=== PATIENT | female | born 1945 | race Caucasian/White ===

== ENCOUNTER 2017-03-23 15:20 | Inpatient (IN) ==
[2017-03-23] MEDS ORDERED: predniSONE 20 MG TABLET PO ONE (15:29)
[2017-03-23] MEDS ORDERED: Ipratropium/Albuterol Neb 3 ML IH ONE (15:29)
--- NOTE | 2017-03-23 16:37 | Emergency Department Note ---
Disposition Clinical Impression: Influenza A, Pancytopenia, Lactic acidosis, Elevated troponin I level, Hypoxia , Respiratory distress, acute Diabetes mellitus, type 2 Qualifiers: Diabetes mellitus complication status: with unspecified complications Diabetes mellitus nursing home insulin use: with nursing home use Qualified Code(s): E11.8 - Type 2 diabetes mellitus with unspecified complications Disposition: Admitted As Inpatient Condition: Fair Time of Disposition: 18:43 SOB HPI - General Chief Complaint: ED Shortness of Breath/Dyspnea Stated Complaint: GIOVANNA Time Seen by Provider: 03/23/17 15:29 Source: patient Limitations: no limitations Nursing Notes Reviewed: Yes Vital Signs Reviewed: Yes - History of Present Illness 72-year-old diabetic with cough and congestion for the last few days, brought in by EMS for difficulty breathing, the patient's been coughing and congested, she sounded wheezy and routes of the EMS crew gave her DuoNeb treatment, patient states that she has also fevers at home. Cough sore throat and myalgias. States that she is moderately uncomfortable, she has cough, she denies COPD although she was a former smoker this was many years ago, she smoked for on and off for 10-20 years, patient denies asthma, states she has had low-grade fevers at home. Reports some productive cough as well. Denies hemoptysis Pt Subjective Complaint: shortness of breath Onset (ago): day(s) Severity: moderate Consistency/Duration: intermittent Improves with: oxygen Worsens with: nothing Known history of: diabetes Associated symptoms: Denies: chest pain, pain with inspiration, fever, cough, wheezing, sputum production Treatment prior to arrival: oxygen, bronchodilator Cough present: Yes Cough Description: Voluntary Cough Frequency: Intermittent Sputum production: No - Related Data Home oxygen amount: none Home Medications Medication Instructions Recorded Confirmed Amlodipine [Norvasc] 2.5 mg PO DAILY 01/06/15 09/15/15 Escitalopram [Lexapro] 20 mg PO HS 01/06/15 09/15/15 Ezetimibe [Zetia] 10 mg PO HS 01/06/15 09/15/15 Ferrous Sulfate 325 mg PO DAILY 01/06/15 09/15/15 Furosemide [Lasix] 20 mg PO BID 01/06/15 09/15/15 Insulin Aspart Prot/Insuln Asp 32 unit SQ TID 01/06/15 09/15/15 [Novolog Mix 70-30 Flexpen Syrn] Insulin Glargine,Hum.rec.anlog 32 unit SQ BID 01/06/15 09/15/15 [Lantus Solostar] Lisinopril [Zestril] 20 mg PO DAILY 01/06/15 09/15/15 Multivitamin/Iron/Folic Acid 1 each PO DAILY 01/06/15 09/15/15 [Centrum Complete Multivit Tab] Omeprazole [PriLOSEC] 20 mg PO DAILY 01/06/15 09/15/15 Potassium Chloride 20 meq PO DAILY 01/06/15 09/15/15 Atenolol [Tenormin] 100 mg PO DAILY 03/29/15 09/15/15 InFLIXimab [Remicade] 100 mg IV Q8W 03/29/15 09/15/15 Ascorbate Calcium [Vitamin C] 500 mg PO DAILY 09/15/15 09/15/15 Cholecalciferol (D-3) [Vitamin D] 1,000 unit PO DAILY 09/15/15 09/15/15 Cinnamon Bark [Cinnamon] 500 mg PO DAILY 09/15/15 09/15/15 Lactobacillus Combination No.8 1 cap PO DAILY 09/15/15 09/15/15 [Adult Probiotic] Turmeric Root Extract [Turmeric] 500 mg PO DAILY 09/15/15 09/15/15 Vitamin B Complex 1 each PO DAILY 09/15/15 09/15/15 Vitamin B Complex Vit C No.4 150 mg PO DAILY 09/15/15 09/15/15 [Super B Complex] Vitamin E (Dl,Tocopheryl Acet) 1,000 unit PO DAILY 09/15/15 09/15/15 [Vitamin E] Previous Rx's Medication Instructions Recorded OxyCODONE/APAP 5/325 [Percocet 1 each PO Q6HR PRN #30 tablet 09/15/15 5/325 MG] Allergies Allergy/AdvReac Type Severity Reaction Status Date / Time codeine AdvReac Mild Nausea Verified 09/15/15 08:15 penicillin G AdvReac Mild swelling Verified 09/15/15 08:15 egg AdvReac Fever Verified 09/15/15 08:15 All systems ED: reviewed and negative except as stated. Review of Systems: As Per HPI Constitutional: Reports: fever, chills Eyes: Denies: eye pain, eye discharge ENT ED: Denies: ear pain Cardiovascular: Denies: chest pain Respiratory: Reports: cough, dyspnea, wheezes. Denies: hemoptysis Gastrointestinal: Reports: nausea. Denies: abdominal pain Genitourinary: Denies: urgency, dysuria Musculoskeletal: Denies: back pain Integumentary: Denies: rash Neurological: Denies: headache Psychiatric: Denies: anxiety, depression Endocrine: Denies: fatigue Past Medical History - Past Medical History Attestation: Yes The following information was validated with the patient. 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: non-contributory - Social History Smoking Status: Never smoker Smokeless Tobacco Status: No Alcohol use: Reports: none Drug use: Reports: none Physical Exam - General Limitations: no limitations General appearance: in distress, obese - Head Head exam: atraumatic - Eye Eye exam: Present: normal appearance, PERRL - ENT ENT exam: normal exam - Neck Neck exam: Present: normal inspection, full ROM - Chest Chest inspection: Present: normal inspection - Respiratory Respiratory exam: Present: respiratory distress - Expanded Respiratory Exam Location: wheezes: Left, Right, rhonchi: Left, Right, Upper, Lower - Cardiovascular Cardiovascular exam: Present: regular rate, normal rhythm - Abdominal Exam Abdominal exam: Present: soft, Non-Tender - Extremities Exam Extremities exam: Present: normal inspection, full ROM - Neurological Exam Neurological exam: Present: alert, oriented X3 - Skin Skin exam: Present: warm, dry Course Course Narrative: 72-year-old female presents complaining of cough, fever or sore throat myalgias , diabetic she appears in moderate respiratory distress, she is on nasal cannula and her sats in the low 90% range, she sounds like she has diffuse expiratory wheezes, I ordered breathing treatments on her 3 duo neb site and prednisone, patient will be given a broad-spectrum workup rapid flu is she has been febrile, Tylenol also ordered - Reevaluation(s) Reevaluation #1: Patient's workup is remarkable for pancytopenia with a hemoglobin of 7.6, she is leukopenic, concern for febrile or viral infection, myelodysplastic syndrome , pancytopenia, patient appears moderately uncomfortable. And is still wheezy after DuoNeb treatments, her oxygen saturations 95% now on 3 L. And she is influenza A positive, she will be admitted to Dr. Chavez the hospitalist ordered IV fluids, aspirin, patient elevated troponin lactic acidosis suspect secondary to respiratory rate, she does not meet criteria for severe sepsis or septic shock. Time: 18:42 Vital Signs Temperature 101.4 F H 03/23/17 15:24 Pulse Rate 89 03/23/17 15:24 Respiratory Rate 21 03/23/17 15:24 Blood Pressure 142/61 03/23/17 15:24 O2 Sat by Pulse Oximetry 91 03/23/17 15:24 Temperature 99 F 03/23/17 17:02 Pulse Rate 82 03/23/17 17:35 Respiratory Rate 16 03/23/17 17:35 Blood Pressure 125/56 03/23/17 17:35 O2 Sat by Pulse Oximetry 97 03/23/17 17:35 Oxygen Delivery Oxygen Delivery Nasal Cannula Shortness of Breath/Dyspnea - Differential Diagnosis Likely: acute exacerbation of chronic obstructive airways disease, congestive heart failure - Medical Records Medical records reviewed: Yes I reviewed the patient's medical records. - Lab Data Lab results reviewed: Yes I reviewed the patient's lab results. Result diagrams: 03/23/17 16:33 03/23/17 16:33 Lab Results 03/23/17 03/23/17 03/23/17 Range/Units 15:27 16:33 16:33 WBC 1.8 L (4.3-11.1) K/mcL RBC 2.54 L (3.82-4.97) M/mcL Hgb 7.6 L (11.5-15.4) g/dL Hct 23.0 L (35.3-44.9) % MCV 90.6 (83.0-100.0) fL MCH 29.9 (28.0-33.3) pg MCHC 33.0 (31.6-35.5) g/dL RDW 18.4 H (11.5-14.5) % Plt Count 51 L (140-400) K/mcL MPV 11.6 (9.4-12.4) fL Immature Gran % 0.0 (0-4) % Seg Neutrophils % 32.3 % Lymphocytes % 37.2 % Monocytes % 29.5 % Eosinophils % 0.5 % Basophils % 0.5 % Neutrophils # 0.6 L (1.6-8.9) K/mcL Lymphocytes # 0.7 (0.6-4.6) K/mcL Monocytes # 0.5 (0.0-1.3) K/mcL Eosinophils # 0.0 (0.0-0.6) K/mcL Basophils # 0.0 (0.0-0.2) K/mcL Platelet Estimate Marked Decrease L (Normal) VBG pH (7.32-7.42) pH Units VBG pCO2 (41-51) mmHg VBG pO2 (25-50) mmHg VBG HCO3 (21-27) mEq/L Sodium 131 L (136-145) mEq/L Potassium 4.0 (3.5-5.1) mEq/L Chloride 97 L (98-107) mEq/L Carbon Dioxide 25 (23-29) mEq/L BUN 33 H (8-23) mg/dL Creatinine 1.56 H (0.60-1.20) mg/dL Est GFR ( Amer) 40 L (> 60) Est GFR (Non-Af Amer) 33 L (> 60) BUN/Creatinine Ratio 21 (6-26) Glucose 298 H (70-105) mg/dL POC Glucose 306 H (58-89) Calculated Osmolality 290 (280-300) Lactic Acid (0.5-2.2) mmol/L Calcium 8.4 L (8.6-10.3) mg/dL Troponin I (< 0.04) ng/mL B-Natriuretic Peptide (Less than 100) pg/mL 03/23/17 03/23/17 03/23/17 Range/Units 16:33 16:33 16:33 WBC (4.3-11.1) K/mcL RBC (3.82-4.97) M/mcL Hgb (11.5-15.4) g/dL Hct (35.3-44.9) % MCV (83.0-100.0) fL MCH (28.0-33.3) pg MCHC (31.6-35.5) g/dL RDW (11.5-14.5) % Plt Count (140-400) K/mcL MPV (9.4-12.4) fL Immature Gran % (0-4) % Seg Neutrophils % % Lymphocytes % % Monocytes % % Eosinophils % % Basophils % % Neutrophils # (1.6-8.9) K/mcL Lymphocytes # (0.6-4.6) K/mcL Monocytes # (0.0-1.3) K/mcL Eosinophils # (0.0-0.6) K/mcL Basophils # (0.0-0.2) K/mcL Platelet Estimate (Normal) VBG pH (7.32-7.42) pH Units VBG pCO2 (41-51) mmHg VBG pO2 (25-50) mmHg VBG HCO3 (21-27) mEq/L Sodium (136-145) mEq/L Potassium (3.5-5.1) mEq/L Chloride (98-107) mEq/L Carbon Dioxide (23-29) mEq/L BUN (8-23) mg/dL Creatinine (0.60-1.20) mg/dL Est GFR ( Amer) (> 60) Est GFR (Non-Af Amer) (> 60) BUN/Creatinine Ratio (6-26) Glucose (70-105) mg/dL POC Glucose (58-89) Calculated Osmolality (280-300) Lactic Acid 1.6 (0.5-2.2) mmol/L Calcium (8.6-10.3) mg/dL Troponin I 0.10 H* (< 0.04) ng/mL B-Natriuretic Peptide 263 H (Less than 100) pg/mL 03/23/17 03/23/17 Range/Units 17:18 17:32 WBC (4.3-11.1) K/mcL RBC (3.82-4.97) M/mcL Hgb (11.5-15.4) g/dL Hct (35.3-44.9) % MCV (83.0-100.0) fL MCH (28.0-33.3) pg MCHC (31.6-35.5) g/dL RDW (11.5-14.5) % Plt Count (140-400) K/mcL MPV (9.4-12.4) fL Immature Gran % (0-4) % Seg Neutrophils % % Lymphocytes % % Monocytes % % Eosinophils % % Basophils % % Neutrophils # (1.6-8.9) K/mcL Lymphocytes # (0.6-4.6) K/mcL Monocytes # (0.0-1.3) K/mcL Eosinophils # (0.0-0.6) K/mcL Basophils # (0.0-0.2) K/mcL Platelet Estimate (Normal) VBG pH 7.36 (7.32-7.42) pH Units VBG pCO2 43 (41-51) mmHg VBG pO2 55 H (25-50) mmHg VBG HCO3 24 (21-27) mEq/L Sodium (136-145) mEq/L Potassium (3.5-5.1) mEq/L Chloride (98-107) mEq/L Carbon Dioxide (23-29) mEq/L BUN (8-23) mg/dL Creatinine (0.60-1.20) mg/dL Est GFR ( Amer) (> 60) Est GFR (Non-Af Amer) (> 60) BUN/Creatinine Ratio (6-26) Glucose (70-105) mg/dL POC Glucose (58-89) Calculated Osmolality (280-300) Lactic Acid 2.8 H (0.5-2.2) mmol/L Calcium (8.6-10.3) mg/dL Troponin I (< 0.04) ng/mL B-Natriuretic Peptide (Less than 100) pg/mL - Radiology Data Radiology results reviewed: Yes I reviewed the patient's radiology results. Chest X-Ray 03/23/17 15:29 IMPRESSION: No acute process. D/ / Kirill Rizvi MD / Kirill Rizvi MD Interpreting Provider: Kirill Rizvi MD - EKG Data EKG attestation: Yes I reviewed and interpreted this EKG. EKG shows normal: Reports: sinus rhythm Rate: Reports: normal (87 bpm [place] QRS 96 QTC [address] segment elevations or depressions.) Rhythm: Reports: NSR [place]/QRS: Reports: normal Critical Care Time Critical Care Time: Yes Total Critical Care Time: 30 Attestation: The high probability of a clinically significant, sudden or life threatening deterioration of the [resp] system(s) required my full and direct attention, intervention and personal management. The aggregate critical care time was [30] minutes. This time is in addition to time spent performing reported procedures but includes the following: [x] Data Review and interpretation [x] Patient assessment and monitoring of vital signs [x] Documentation [x] Medication orders and management Attestation Statement - Attestation Attestation: I examined this patient and my medical decision-making was reviewed with the Resident Physician, Dr. Singh. I agree with the documented findings, disposition and treatment plan as described except to the extent set forth below. Patient is a 72-year-old white female who presents to the emergency department by EMS with difficulty breathing. Patient reports upper respiratory symptoms coarse sounding cough for the past 2 days and has had gradually worsening shortness of breath and wheezing. Patient denies any history of COPD but is a former smoker. She is not on any breathing medications or submental oxygen at home. Patient denies any chest pain or pressure or heaviness, no diaphoresis, no nausea vomiting, no abdominal pain or flank pain. No lightheadedness or syncope, no hemoptysis. Patient denies any lower extremity pain or cramping. Patient arrives febrile, and hypoxic on room air and was placed on supplement oxygen. I agree with patient's physical exam findings as documented. Eash and had aerosols and IV steroids initiated as well as aspirin. Patient's EKG did not show any signs of acute ischemia. Patient's chest x-ray was within normal limits. Patient's labs were obtained which we were surprised to find pancytopenia which appears to be new for her. Unclear as to etiology at this time. Patient's lactate is normal. Patient with acute kidney injury that is mild likely due to dehydration secondary to fever. Patient's influenza swab was positive for A. we will initiate Tamiflu IV. Due to patient's bronchitis with bronchospasm, continued wheezing and hypoxia on room air we will admit the patient for further evaluation and management. Case was discussed with the hospitalist who accepted patient for admission.
[2017-03-23 16:42] LABS: Basophils % 0.5 %; Eosinophils % 0.5 %; Lymphocytes # 0.7 K/mcL (0.6-4.6); Lymphocytes % 37.2 %; Mean Corpuscular Hemoglobin 29.9 pg (28.0-33.3); Mean Corpuscular Volume 90.6 fL (83.0-100.0); Mean Platelet Volume 11.6 fL (9.4-12.4); Monocytes # 0.5 K/mcL (0.0-1.3); Monocytes % 29.5 %; Neutrophils # 0.6 K/mcL (1.6-8.9); Red Blood Count 2.54 M/mcL (3.82-4.97); Red Cell Distribution Width 18.4 % (11.5-14.5); Segmented Neutrophils % 32.3 %
[2017-03-23 16:55] LABS: Calcium 8.4 mg/dL (8.6-10.3)
[2017-03-23 17:03] LABS: Hemoglobin 7.6 g/dL (11.5-15.4); Platelet Count 51 K/mcL (140-400)
[2017-03-23 17:04] LABS: Platelet Estimate Marked Decrease (Normal)
[2017-03-23 17:35] LABS: VBG HCO3 24 mEq/L (21-27); VBG PCO2 43 mmHg (41-51); VBG PH 7.36 pH Units (7.32-7.42); VBG PO2 55 mmHg (25-50)
[2017-03-23] MEDS ORDERED: 0.9 % Sodium Chloride 1,000 ML IVC ONE (18:44)
[2017-03-23] MEDS: Aspirin 81 MG TAB.CHEW PO SCH (19:59)
--- NOTE | 2017-03-23 20:42 | Internal Med History&Physical ---
<Orlin Oleary - Last Filed: 03/23/17 21:56> Date of Encounter: 03/23/17 Time of Encounter: 20:36 Assessment and Plan (1) Acute respiratory failure with hypoxia Current visit: Yes Status: Acute Patient appears comfortable and in no acute distress at this time. Patient is afebrile. Patient's workup is remarkable for pancytopenia with a hemoglobin of 7.6,Hct of 23, and WBC of 1.8. Patient is still wheezy after DuoNeb treatments in the ED. Oxygen saturations 97% now on 3 L. Influenza A positive. CXR showed no acute process. Troponins elevated at 0.10 and lactic acid elevated at 2.8. EKG showed sinus rhythm with no ischemic changes. 1. Will continue patient on DUOneb treatments scheduled and PRN. 2. Will get 40 mg of prednisone. 3. Will have patient on tele to monitor. (2) Asthma exacerbation Current visit: Yes Status: Acute Patient is comfortable and in no acute distress. Afebrile. Patient oxygen saturation at 97% on 3 L nasal cannula. 1. Will placepatient on continuous pulse ox. 2. Will placed patient on nasal cannula oxygen. 3. Will give duoneb treatment and prednisone. Qualifiers: Qualified Code(s): J45.901 - Unspecified asthma with (acute) exacerbation (3) HTN (hypertension) Current visit: No Status: Chronic Will continue home medications. Will continue to monitor the patient closely. 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 Will give tamiflu. Will manage symptoms. (7) Pancytopenia Current visit: Yes Status: Acute Patient's workup is remarkable for pancytopenia with a hemoglobin of 7.6,Hct of 23, and WBC of 1.8. Troponins elevated at 0.10 and lactic acid elevated at 2.8. EKG showed sinus rhythm with no ischemic changes. Will consult oncology in the AM and order labs in the AM (8) Lactic acidosis Current visit: Yes Status: Acute Will order lactic acid in the AM. Will continue to give patient fluids. (9) Elevated troponin I level Current visit: Yes Status: Acute Troponins is 0.10. Will trend series of troponins. Internal Medicine - H&P: HPI Chief complaint: GIOVANNA and flu Admitted From: Emergency Dept History of present illness: Ms. Bryant is a 72 year old female with a past medical history of insulin- dependent diabetes, hyperlipidemia, hypertension, and asthma presents to the ED today complaining of shortness of breath and difficulty in breathing for the last few days. Patient admits productive cough and congestion symptoms and sore throat for the past 4 days. She denies any hemoptysis. Patient admits fever of a 101 F at home today that was reduced with Tyelenol. She also admits myalgias and sick contacts. She denies any history of COPD or being on any oxygen at home. She admits associated nausea but denies any vomiting. She denies any headache, vision changes, chest pain, palpitations, abdominal pain, constipation, diarrhea, blood in her her stool, difficulty urinating, dysuria, hematuria, new numbness and tingling, and any weaknesses. 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 Past Med Surg Social Fam HX - Past Medical History Medical history: asthma, diabetes, hyperlipidemia, hypertension, renal disease, other Psychiatric history: anxiety, depression - Past Surgical History Surgical History: appendectomy, cholecystectomy - Social History Smoking Status: Never smoker Smokeless Tobacco Status: No Alcohol use: none Drug use: none - Family History Mother Living Status: Hx Family Cardiac Disorders: No Hx Family Respiratory Disorders: Yes Hx Family Cancer: Yes Hx Family GI Disorders: No Hx Family Endocrine Disorder: No Hx Family Neuromuscular Disorders: No Hx Family Neurologic Disorders: No Hx Family HEENT Disorders: No Hx Family Autoimmune Disorders: No Father Living Status: Hx Family Cardiac Disorders: Yes Hx Family Respiratory Disorders: Yes (Parents smokers) Hx Family Cancer: Yes Hx Family GI Disorders: Yes (Sister ulcerative colitis) Hx Family Endocrine Disorder: Yes Hx Family Neuromuscular Disorders: No Hx Family Neurologic Disorders: No Hx Family HEENT Disorders: No Hx Family Autoimmune Disorders: No Internal Medicine - H&P: Meds Amlodipine [Norvasc] 2.5 mg PO DAILY 01/06/15 [History] Escitalopram [Lexapro] 20 mg PO HS 01/06/15 [History] Ezetimibe [Zetia] 10 mg PO HS 01/06/15 [History] Ferrous Sulfate 325 mg PO DAILY 01/06/15 [History] Furosemide [Lasix] 20 mg PO BID 01/06/15 [History] Insulin Aspart Prot/Insuln Asp [Novolog Mix 70-30 Flexpen Syrn] 32 unit SQ TID 01/06/15 [History] Insulin Glargine,Hum.rec.anlog [Lantus Solostar] 32 unit SQ BID 01/06/15 [ History] Lisinopril [Zestril] 20 mg PO DAILY 01/06/15 [History] Multivitamin/Iron/Folic Acid [Centrum Complete Multivit Tab] 1 each PO DAILY [History] Omeprazole [PriLOSEC] 20 mg PO DAILY 01/06/15 [History] Potassium Chloride 20 meq PO DAILY 01/06/15 [History] Atenolol [Tenormin] 100 mg PO DAILY 03/29/15 [History] InFLIXimab [Remicade] 100 mg IV Q8W 03/29/15 [History] Ascorbate Calcium [Vitamin C] 500 mg PO DAILY 09/15/15 [History] Cholecalciferol (D-3) [Vitamin D] 1,000 unit PO DAILY 09/15/15 [History] Cinnamon Bark [Cinnamon] 500 mg PO DAILY 09/15/15 [History] Lactobacillus Combination No.8 [Adult Probiotic] 1 cap PO DAILY 09/15/15 [ History] OxyCODONE/APAP 5/325 [Percocet 5/325 MG] 1 each PO Q6HR PRN #30 tablet 09/15/15 [Rx] Turmeric Root Extract [Turmeric] 500 mg PO DAILY 09/15/15 [History] Vitamin B Complex 1 each PO DAILY 09/15/15 [History] Vitamin B Complex Vit C No.4 [Super B Complex] 150 mg PO DAILY 09/15/15 [History ] Vitamin E (Dl,Tocopheryl Acet) [Vitamin E] 1,000 unit PO DAILY 09/15/15 [History ] Linagliptin 03/23/17 [History] Linagliptin [Tradjenta] 5 mg PO ONCE 03/23/17 [History] 3 Allergy/AdvReac Type Severity Reaction Status Date / Time codeine AdvReac Mild Nausea Verified 09/15/15 08:15 penicillin G AdvReac Mild swelling Verified 09/15/15 08:15 egg AdvReac Fever Verified 09/15/15 08:15 All Systems PM: A 10-system review of systems was performed and is negative for pertinent findings except as documented above in the HPI. - Constitutional Vitals: Temp Pulse Resp BP Pulse Ox 99 F 82 16 125/56 97 03/23/17 17:02 03/23/17 17:35 03/23/17 17:35 03/23/17 17:35 03/23/17 17:35 General appearance: Present: cooperative, A&O X 3, no acute distress. Absent: severe distress - Head Head exam: Present: atraumatic, normocephalic - Eye Eye exam: Present: PERRL, conjuntiva pink, sclera anicteric Pupils: Present: PERRL - Neck Neck exam general surgery: Present: supple, trachea midline. Absent: lymphadenopathy - Respiratory Respiratory exam: Present: wheezes (Diffuse wheezes heard all throughout lung ross.). Absent: accessory muscle use, rales, rhonchi - Expanded Respiratory Exam Location: wheezes: Left, Right, Upper, Lower - Cardiovascular Cardiovascular exam: Present: RRR, +S1, +S2. Absent: diastolic murmur, gallop, rubs, systolic murmur - GI/Abdominal GI/Abdominal exam: Present: hernia (reducible umbilical herna is present), normal bowel sounds, soft, no peritoneal signs. Absent: distended, tenderness - Extremities Exam Extremities exam: Present: warm, radial pulses palpable and symmetrical. Absent : calf tenderness, cyanotic, pedal edema - Neurological Exam Neurological exam: Present: CN II-XII intact, oriented X3, no focal deficits. Absent: pronater drift, facial droop, speech deficit - Skin Skin exam: Present: diaphoretic, dry, intact Internal Med - H&P Results - Labs CBC & Chem 7: 03/23/17 16:33 03/23/17 16:33 <Harish Hutchinson - Last Filed: 03/23/17 23:27> Date of Encounter: 03/23/17 Internal Medicine - H&P: HPI History of present illness: Ms. Bryant is a 72 year old female All Systems PM: A 10-system review of systems was performed and is negative for pertinent findings except as documented above in the HPI. - Constitutional Vitals: Temp Pulse Resp BP Pulse Ox 98.3 F 75 16 133/49 100 03/23/17 20:41 03/23/17 20:41 03/23/17 22:07 03/23/17 20:41 03/23/17 22:07 Internal Med - H&P Results - Labs CBC & Chem 7: 03/23/17 16:33 03/23/17 16:33 Labs: Cardiac Enzymes 03/23/17 Range/Units 22:29 Troponin I 0.05 H* (< 0.04) ng/mL - Attending Attestation I have seen and examined pt independently. I have discussed with resident physician Dr Oleary regarding the management plan, agree with the documentation except: DVT prophylaxis: Will hold heparin b/o thrombocytopenia, place pt on EPCD.
[2017-03-23] MEDS ORDERED: Acetaminophen 325 MG TABLET PO PRN (21:06)
[2017-03-23] MEDS ORDERED: Naloxone 0.4 MG/ML INJ IVP PRN (21:06)
[2017-03-23] MEDS ORDERED: Ondansetron ODT 4 MG TAB.RAPDIS SL PRN (21:06)
[2017-03-23] MEDS ORDERED: Dextrose Gel 15 GM/37.5 ML TUBE PO PRN ×2 (21:12)
[2017-03-23] MEDS ORDERED: D5% in Water 1,000 ML IVC PRN (21:12)
[2017-03-23] MEDS ORDERED: *HR* Dextrose 50 % in Water (Syg) 50 ML SYRINGE IVP PRN (21:12)
[2017-03-23] MEDS ORDERED: Insulin LISPRO 300 UNITS/3 ML VIAL SQ SCH (21:15)
[2017-03-23] MEDS ORDERED: Ipratropium/Albuterol Neb 3 ML IH PRN (21:15)
[2017-03-23] MEDS: Ipratropium/Albuterol Neb 3 ML IH SCH (22:07)
[2017-03-23] MEDS: 0.9 % Sodium Chloride 1,000 ML IVC SCH (22:30)
[2017-03-23] MEDS: Insulin LISPRO 300 UNITS/3 ML VIAL SQ SCH (22:34)
[2017-03-23] MEDS ORDERED: Insulin DETEMIR 100 UNIT/ML X5UNITS SQ SCH (23:12)
[2017-03-23] MEDS ORDERED: *HR* OxyCODONE/APAP 5/325 TABLET PO PRN (23:27)
[2017-03-24] MEDS: Insulin DETEMIR 100 UNIT/ML X5UNITS SQ SCH ×3 (01:08→23:10)
[2017-03-24] MEDS ORDERED: Insulin LISPRO 300 UNITS/3 ML VIAL SQ ONE (03:48)
[2017-03-24 04:07] LABS: Albumin 2.7 g/dL (3.5-5.7); Albumin/Globulin Ratio 0.6 (1.1-2.2); Bilirubin,Total 0.5 mg/dL (0.3-1.0); Calcium 7.9 mg/dL (8.6-10.3); Chol/HDL Ratio 4.6 (0-4.9); Globulin 4.4 g/dL (2.4-3.5); Magnesium 1.9 mg/dL (1.6-2.6); Phosphorous 5.2 mg/dL (2.7-4.5); Potassium 4.6 mEq/L (3.5-5.1); Total Protein 7.1 g/dL (6.4-8.9)
[2017-03-24] MEDS: Ipratropium/Albuterol Neb 3 ML IH SCH ×4 (04:08→20:51)
[2017-03-24] MEDS ORDERED: *HR* Heparin 5,000 UNIT/ML VIAL SQ SCH (06:00)
[2017-03-24] MEDS: 0.9 % Sodium Chloride 1,000 ML IVC SCH (06:19)
[2017-03-24] MEDS ORDERED: Insulin LISPRO 300 UNITS/3 ML VIAL SQ SCH (07:30)
[2017-03-24] MEDS ORDERED: predniSONE 20 MG TABLET PO SCH (09:00)
[2017-03-24] MEDS ORDERED: VITAMIN B COMPLEX VIT C NO 4 PO SCH (09:00)
[2017-03-24] MEDS: Oseltamivir Phosphate 30 MG CAPSULE PO SCH ×2 (09:23→23:10)
[2017-03-24] MEDS: Aspirin 81 MG TAB.CHEW PO SCH (09:23)
[2017-03-24] MEDS: amLODIPine 5 MG TABLET PO SCH (09:23)
[2017-03-24] MEDS: Lactobacillus 1 EACH CAP.SPRINK PO SCH (09:23)
[2017-03-24] MEDS: Vitamin B Complex/Vit C/Vit E 1 EACH TABLET PO SCH (09:23)
[2017-03-24] MEDS: Cholecalciferol (D-3) 1,000 UNIT TABLET PO SCH (09:23)
[2017-03-24] MEDS: Insulin LISPRO 300 UNITS/3 ML VIAL SQ SCH ×7 (09:28→23:11)
--- NOTE | 2017-03-24 09:39 | Electrocardiograph Report ---
[place] [id number] Test Date: 2017-03-23 Pat Name: Akiko Bryant Department: 104 Room: 2NE31 Gender: F [employer]: [place] : 1945 Requested By: Timbo Singh Order Number: [id number] Reading MD: Lizzy Corley Measurements Intervals [place] Rate: 87 P: 50 FL: 158 QRS: 7 QRSD: 96 T: 31 QT: 382 QTc: 427 Interpretive Statements SINUS RHYTHM Electronically Signed On 03-24-2017 9:37:42 EST by Lizzy Corley
--- NOTE | 2017-03-24 11:13 | Oncology Inp Consult Note ---
Date of Encounter: 03/24/17 Time of Encounter: 11:00 Assessment and Plan (1) Pancytopenia Status: Acute Assessment and plan: Pancytopenia with a hemoglobin of 7.6,Hct of 23, platelets 51 and WBC of 1.8. Recent sudden decrease in WBC/neutrophil count and progressive decline in platelets/hgb. Prior to recent illness she denies fatigue, weight loss, recurrent infections, fevers or night sweats. Diagnosis of Crohn disease and currently receiving treatment with Remicade with Dr. Alexander. Crohn disease can play role in pancytopenia presentation. Will order further lab work up with SPEP, Retic, B12, folate and Iron. May consider 1 unit PRBC transfusion if ok with hospitalist team, unable to assess whether patients report of SOB, dizziness and weakness/fatigue due to anemia vs current infection/influenza. Consider bone marrow biopsy, will discuss further with patient, may plan to biopsy while inpatient if patient agreeable. Refer to attending attestation for further information - Data of Consult Patient: new to practice Requesting Physician: Marilee Fatima MD Primary Care Provider: Yash Hanley MD - Consult Narrative History of present illness: Ms. Bryant is a 72 year old female with past medical history of insulin- dependent diabetes, hyperlipidemia, hypertension, crohn disease and asthma. Patient presented to ER with complaints of shortness of breath, fever productive cough, congestion and myalgias. Patient admitted with respirator distress, hypoxia, asthma exacerbation and positive for influenza A. Patient's workup is remarkable for pancytopenia with a hemoglobin of 7.6,Hct of 23, platelets 51 and WBC of 1.8, oncology/hematology has been consulted for further work up. Past Med Surg Social Fam HX - Past Medical History Medical history: asthma, diabetes, hyperlipidemia, hypertension, renal disease, other Psychiatric history: anxiety, depression - Past Surgical History Surgical History: appendectomy, cholecystectomy - Social History Smoking Status: Never smoker Smokeless Tobacco Status: No Alcohol use: none Drug use: none - Family History Mother Living Status: Hx Family Cardiac Disorders: No Hx Family Respiratory Disorders: Yes Hx Family Cancer: Yes Hx Family GI Disorders: No Hx Family Endocrine Disorder: No Hx Family Neuromuscular Disorders: No Hx Family Neurologic Disorders: No Hx Family HEENT Disorders: No Hx Family Autoimmune Disorders: No Father Living Status: Hx Family Cardiac Disorders: Yes Hx Family Respiratory Disorders: Yes (Parents smokers) Hx Family Cancer: Yes Hx Family GI Disorders: Yes (Sister ulcerative colitis) Hx Family Endocrine Disorder: Yes Hx Family Neuromuscular Disorders: No Hx Family Neurologic Disorders: No Hx Family HEENT Disorders: No Hx Family Autoimmune Disorders: No Medications and Allergies RX: Amlodipine [Norvasc] 2.5 mg PO DAILY 01/06/15 [History] RX: Escitalopram [Lexapro] 20 mg PO HS 01/06/15 [History] RX: Ezetimibe [Zetia] 10 mg PO HS 01/06/15 [History] RX: Ferrous Sulfate 325 mg PO DAILY 01/06/15 [History] RX: Furosemide [Lasix] 20 mg PO BID 01/06/15 [History] RX: Multivitamin/Iron/Folic Acid [Centrum Complete Multivit Tab] 1 tab PO DAILY 01/06/15 [History] RX: Omeprazole [PriLOSEC] 20 mg PO DAILY 01/06/15 [History] RX: Potassium Chloride 20 meq PO DAILY 01/06/15 [History] RX: InFLIXimab [Remicade] 100 mg IV Q8W 03/29/15 [History] RX: Ascorbate Calcium [Vitamin C] 500 mg PO DAILY 09/15/15 [History] RX: Cholecalciferol (D-3) [Vitamin D] 1,000 unit PO DAILY 09/15/15 [History] RX: Cinnamon Bark [Cinnamon] 500 mg PO DAILY 09/15/15 [History] RX: Lactobacillus Combination No.8 [Adult Probiotic] 1 cap PO DAILY 09/15/15 [ History] RX: Turmeric Root Extract [Turmeric] 500 mg PO DAILY 09/15/15 [History] RX: Vitamin B Complex 1 cap PO DAILY 09/15/15 [History] RX: Vitamin E (Dl,Tocopheryl Acet) [Vitamin E] 1,000 unit PO DAILY 09/15/15 [ History] HYDROcodone/Acet 5/325 mg [[place] 5-325 mg] 1 tab PO Q6H PRN 03/24/17 [History] Insulin ASPART [Novolog Flexpen] 35 unit SQ TID 03/24/17 [History] Linagliptin [Tradjenta] 5 mg PO DAILY 03/24/17 [History] Metoprolol XL (24 HR) Succ [Toprol XL] 100 mg PO DAILY 03/24/17 [History] RX: Insulin DETEMIR [Levemir Flextouch] 40 unit SQ BID 03/24/17 [History] 3 Allergy/AdvReac Type Severity Reaction Status Date / Time codeine AdvReac Mild Nausea Verified 09/15/15 08:15 penicillin G AdvReac Mild swelling Verified 09/15/15 08:15 egg AdvReac Fever Verified 09/15/15 08:15 Constitutional: Present: anorexia, chills, fatigue, fever(s), malaise, weakness Additional comments: symptoms due to recent influenza virus, prior to illness she denies issues with these symptoms Eyes: Absent: change in vision Nose, mouth and throat: Present: sore throat. Absent: dysphagia, mouth lesions Cardiovascular: Present: dyspnea on exertion, edema. Absent: chest pain, palpitations, syncope Additional comments: patient reports some vertigo with movement, improves within short period of time Respiratory: Present: cough, dyspnea, wheezing, chest congestion, excessive phlegm production Gastrointestinal: Present: diarrhea. Absent: abdominal pain, constipation, nausea, vomiting Genitourinary: Absent: difficulty urinating, dysuria Musculoskeletal: Present: muscle weakness, myalgias Integumentary: Absent: skin ulcer, wounds Neurological: Absent: focal weakness, numbness, tingling Hematologic/Lymphatic: Absent: easy bleeding, lymphadenopathy Oncology - Exam - Constitutional Vitals: Temp Pulse Resp BP Pulse Ox 98.1 F 70 14 127/61 99 03/24/17 07:14 03/24/17 07:14 03/24/17 07:14 03/24/17 07:14 03/24/17 07:14 General appearance: febrile, cooperative, no acute distress, obese Exam: last fever about 24 hours ago - Head Head exam: Present: atraumatic - ENT ENT exam: Present: mucous membranes moist - Neck Neck exam: Absent: lymphadenopathy, tenderness - Respiratory Respiratory exam: Present: wheezes. Absent: respiratory distress Additional comments: due for breathing treatment - Cardiovascular Cardiovascular exam: Present: RRR, +S1, +S2 - GI/Abdominal GI/Abdominal exam: Present: normal bowel sounds, soft, tenderness Additional comments: tenderness upon palpation d/t hernia - Extremities Exam Extremities exam: Present: pedal edema. Absent: calf tenderness - Expanded Lower Extremity Exam Lower Leg exam: Present: swelling - Neurological Exam Neurological exam: Present: alert, oriented X3, strengths equal and symetr throughout. Absent: no focal deficits - Psychiatric Psychiatric exam: Present: normal affect, normal mood - Skin Skin exam: Present: normal color, warm Oncology - Results Labs: BMP 03/24/17 03:30 Sodium 131 L Potassium 4.6 Chloride 98 Carbon Dioxide 26 BUN 41 H Creatinine 1.57 H Glucose 609 H* Calcium 7.9 L Cardiac Enzymes 03/23/17 03/24/17 03/24/17 Range/Units 22:29 03:30 09:22 Troponin I 0.05 H* 0.04 H* 0.04 H* (< 0.04) ng/mL Liver Function 03/24/17 Range/Units 03:30 Total Bilirubin 0.5 (0.3-1.0) mg/dL AST 14 (13-39) Units/L ALT 9 (7-52) Units/L Alkaline Phosphatase 44 (34-104) Units/L Albumin 2.7 L (3.5-5.7) g/dL Consult Discharge Plan - Plan Referrals: Yash Hanley MD [Primary Care Provider] -
--- NOTE | 2017-03-24 11:57 | Internal Med Progress Note ---
Date of Encounter: 03/24/17 Time of Encounter: 11:40 - Subjective Interval history: Patient seen and examined at bedside. Resting in bed and reports of mild improvement compared to previous day. Currently saturating well n 4L NC Reported to be hyperglycemic this morning and overnight No anion gap reported pt started to levemir 50units BID with Humalog 15units TIDAC and high dose sliding scale insulin coverage will continue to closely monitor Assessment and Plan (1) Acute respiratory failure with hypoxia Current visit: Yes Status: Acute secondary to Influenza and Asthma exacerbation continue systemic steroids, bronchodilator support O2 supplementation (pt reports of not being on home oxygen) continue Tamiflu (2) Asthma exacerbation Current visit: Yes Status: Acute as listed above Qualifiers: Qualified Code(s): J45.901 - Unspecified asthma with (acute) exacerbation (3) HTN (hypertension) Current visit: No Status: Chronic BP within acceptable range continue home meds Qualifiers: Hypertension type: essential hypertension Qualified Code(s): I10 - Essential (primary) hypertension (4) Diabetes mellitus, type 2 Current visit: Yes Status: Chronic severely hyperglycemic this morning likely worsened with steroid therapy started Levemir 50units BID Humalog 15units TIDAC high dose sliding scale insulin algorithm monitor FS and BG ADA diet gentle IV fluids Qualifiers: Diabetes mellitus complication status: with unspecified complications 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 Qualified Code(s) : E11.8 - Type 2 diabetes mellitus with unspecified complications; Z79.4 - director long term care (current) use of insulin; Z79.4 - director long term care (current) use of insulin; Z79.4 - director long term care (current) use of insulin; Z79.4 - [facility] (current) use of insulin (5) HLD (hyperlipidemia) Current visit: No Status: Chronic Will continue medications Qualifiers: Hyperlipidemia type: unspecified Qualified Code(s): E78.5 - Hyperlipidemia , unspecified (6) Influenza A Current visit: Yes Status: Acute supportive care started on Tamiflu (7) Pancytopenia Current visit: Yes Status: Acute oncology evaluation requested clinically asymptomatic no acute bleeding reported at this time will continue to monitor (8) Lactic acidosis Current visit: Yes Status: resolved resolved (9) Elevated troponin I level Current visit: Yes Status: Acute TNI trending down likely demand ischemia in the setting of acute respiratory failure secondary to influenza and asthma exacerbation no signs of angina present at this time continue to monitor SCD for DVT ppx - Constitutional Vitals: Temp Pulse Resp BP Pulse Ox 97.7 F 79 14 135/58 98 03/24/17 11:42 03/24/17 11:42 03/24/17 11:42 03/24/17 11:42 03/24/17 11:42 General appearance: Present: A&O X 3, no acute distress, obese - Head Head exam: Present: atraumatic, normocephalic - Eye Eye exam: Present: conjuntiva pink, sclera anicteric - Respiratory Respiratory exam: Present: wheezes (diffuse expiratory wheeezing and coarse breath sounds diffusely ). Absent: respiratory distress - Cardiovascular Cardiovascular exam: Present: RRR, +S1, +S2. Absent: diastolic murmur, gallop, rubs, systolic murmur - GI/Abdominal GI/Abdominal exam: Present: normal bowel sounds, soft, no peritoneal signs. Absent: distended, tenderness - Extremities Exam Extremities exam: Present: warm, radial pulses palpable and symmetrical. Absent : calf tenderness, pedal edema - Neurological Exam Neurological exam: Present: alert, oriented X3 Internal Medicine: Result - Labs CBC & Chem 7: 03/23/17 16:33 03/24/17 03:30 Labs: BMP 03/24/17 03:30 Sodium 131 L Potassium 4.6 Chloride 98 Carbon Dioxide 26 BUN 41 H Creatinine 1.57 H Glucose 609 H* Calcium 7.9 L Cardiac Enzymes 03/23/17 03/24/17 03/24/17 Range/Units 22:29 03:30 09:22 Troponin I 0.05 H* 0.04 H* 0.04 H* (< 0.04) ng/mL Liver Function 03/24/17 Range/Units 03:30 Total Bilirubin 0.5 (0.3-1.0) mg/dL AST 14 (13-39) Units/L ALT 9 (7-52) Units/L Alkaline Phosphatase 44 (34-104) Units/L Albumin 2.7 L (3.5-5.7) g/dL - VTE Documentation of Mechanical Device: Intermittent pneumatic compression device Consult Discharge Plan - Plan Referrals: Yash Hanley MD [Primary Care Provider] -
[2017-03-24] MEDS ORDERED: *HR* HYDROcodone/Acet 5/325 mg TABLET PO PRN (15:28)
[2017-03-24] MEDS ORDERED: 0.9 % Sodium Chloride 1,000 ML IVC SCH (15:42)
[2017-03-24] MEDS: Metoprolol XL (24 HR) Succ 50 MG TAB.ER.24H PO SCH (16:57)
[2017-03-24 17:48] LABS: Immature Reticulocyte % 11.3 % (11.0-38.0); Retculocyte # 0.05 M/mcL (0.05-0.10); Reticulocyte % 2.1 % (1.6-2.8)
[2017-03-24] MEDS ORDERED: Insulin DETEMIR 100 UNIT/ML X5UNITS SQ SCH (21:00)
[2017-03-24] MEDS ORDERED: (Ezetimibe [Zetia] 10 MG) PO SCH (21:00)
[2017-03-24 21:15] LABS: Adenovirus Not Detected (Not Detect); Bordetella Pertussis Not Detected (Not Detect); Chlamydophila pneumoniae Not Detected (Not Detect); Coronavirus 229E Not Detected (Not Detect); Coronavirus HKU1 Not Detected (Not Detect); Coronavirus NL63 Not Detected (Not Detect); Coronavirus OC43 Not Detected (Not Detect); Human Metapneumovirus Not Detected (Not Detect); Human Rhinovirus/Enterovirus Not Detected (Not Detect); Influenza A Subtype 2009 H1 Not Detected (Not Detect); Influenza A Untypeable Not Detected (Not Detect); Influenza B Not Detected (Not Detect); Mycoplasma pneumoniae Not Detected (Not Detect); Parainfluenza Virus 1 Not Detected (Not Detect); Parainfluenza Virus 2 Not Detected (Not Detect); Parainfluenza Virus 3 Not Detected (Not Detect); Parainfluenza Virus 4 Not Detected (Not Detect); Respiratory Syncytial Virus Not Detected (Not Detect)
[2017-03-24] MEDS ORDERED: methylPREDNISolone 125 MG/2 ML VIAL IVP ONE (21:18)
[2017-03-24 23:18] LABS: % Iron Saturation 41 % (15-50); Iron 64 mcg/dL (50-170); Transferrin 111 mg/dL (203-362)
[2017-03-25] MEDS: MethylPREDNISolone 40 MG/ML VIAL IVP SCH ×2 (01:17→09:11)
[2017-03-25] MEDS: Ipratropium/Albuterol Neb 3 ML IH SCH ×4 (03:54→21:46)
[2017-03-25 04:34] LABS: Basophils % 0.8 %; Hemoglobin 7.4 g/dL (11.5-15.4)
[2017-03-25 04:36] LABS: Hematocrit 23.4 % (35.3-44.9); Lymphocytes # 0.3 K/mcL (0.6-4.6); Lymphocytes % 19.5 %; Mean Corpuscular HGB Conc 31.6 g/dL (31.6-35.5); Mean Corpuscular Hemoglobin 29.6 pg (28.0-33.3); Mean Corpuscular Volume 93.6 fL (83.0-100.0); Mean Platelet Volume 11.3 fL (9.4-12.4); Monocytes # 0.3 K/mcL (0.0-1.3); Monocytes % 20.3 %; Neutrophils # 0.8 K/mcL (1.6-8.9); Red Cell Distribution Width 18.7 % (11.5-14.5); Segmented Neutrophils % 59.4 %
[2017-03-25 04:54] LABS: Calcium 8.4 mg/dL (8.6-10.3); Phosphorous 3.6 mg/dL (2.7-4.5); Potassium 4.3 mEq/L (3.5-5.1)
[2017-03-25 05:00] LABS: Platelet Count 45 K/mcL (140-400)
[2017-03-25 05:45] LABS: Platelet Estimate Decreased (Normal)
[2017-03-25] MEDS: Cholecalciferol (D-3) 1,000 UNIT TABLET PO SCH (09:11)
[2017-03-25] MEDS: Vitamin B Complex/Vit C/Vit E 1 EACH TABLET PO SCH (09:11)
[2017-03-25] MEDS: Insulin DETEMIR 100 UNIT/ML X5UNITS SQ SCH ×2 (09:11→20:47)
[2017-03-25] MEDS: Metoprolol XL (24 HR) Succ 50 MG TAB.ER.24H PO SCH (09:11)
[2017-03-25] MEDS: Lactobacillus 1 EACH CAP.SPRINK PO SCH (09:11)
[2017-03-25] MEDS: Aspirin 81 MG TAB.CHEW PO SCH (09:11)
[2017-03-25] MEDS: Oseltamivir Phosphate 30 MG CAPSULE PO SCH ×2 (09:11→20:03)
[2017-03-25] MEDS: amLODIPine 5 MG TABLET PO SCH (09:11)
[2017-03-25] MEDS: Insulin LISPRO 300 UNITS/3 ML VIAL SQ SCH ×7 (09:12→20:13)
[2017-03-25 11:02] LABS: Acinetobacter baumannii by PCR Not Detected (Not Detect); Candida albicans by PCR Not Detected (Not Detect); Candida glabrata by PCR Not Detected (Not Detect); Candida krusei by PCR Not Detected (Not Detect); Candida parapsilosis by PCR Not Detected (Not Detect); Candida tropicalis by PCR Not Detected (Not Detect); Enterococcus by PCR Not Detected (Not Detect); Escherichia coli by PCR Not Detected (Not Detect); Klebsiella oxytoca by PCR Not Detected (Not Detect); Klebsiella pneumoniae by PCR Not Detected (Not Detect); Pseudomonas aeruginosa by PCR Not Detected (Not Detect); Serratia marcescens by PCR Not Detected (Not Detect); Staphylococcus aureus by PCR Not Detected (Not Detect); Streptococcus agalactiae(B)PCR Not Detected (Not Detect); Streptococcus by PCR Not Detected (Not Detect); Streptococcus pneumoniae PCR Not Detected (Not Detect); Streptococcus pyogenes (A) PCR Not Detected (Not Detect); blaKPC Carbapenem-Resist Gene Not Detected (Not Detect); mecA Methicillin-Resist Gene Not Detected (Not Detect); vanA/B Vancomycin-Resist Genes Not Detected (Not Detect)
[2017-03-25] MEDS ORDERED: Vancomycin 1,500 MG in D5% in Water 250 ML IVPB ONE (13:26)
--- NOTE | 2017-03-25 14:34 | Internal Med Progress Note ---
<Marky Hebert - Last Filed: 03/25/17 14:32> Date of Encounter: 03/25/17 Time of Encounter: 09:45 - Assessment and plan (1) Acute respiratory failure with hypoxia Current Visit: Yes Status: Acute Assessment and plan: Secondary to asthma exacerbation and Influenza A (2) Asthma exacerbation Current Visit: Yes Status: Acute Assessment and plan: Continue prednisone 40 mg po Breathing treatments as needed Supplemental O2 Qualifiers: Qualified Code(s): J45.901 - Unspecified asthma with (acute) exacerbation (3) Influenza A Current Visit: Yes Status: Acute Assessment and plan: Tamiflu Supportive care (4) Pancytopenia Current Visit: Yes Status: Acute Assessment and plan: Appreciate heme/onc input Patient appears to prefer bone marrow biopsy as outpatient, if at all Hgb low but currently stable at 7.4 (from 7.6) (5) Lactic acidosis Current Visit: Yes Status: Acute Assessment and plan: Resolved (6) Elevated troponin I level Current Visit: Yes Status: Acute Assessment and plan: No anginal symptoms. Most likely demand ischemia. (7) HTN (hypertension) Current Visit: Yes Status: Chronic Assessment and plan: Continue home medications Qualifiers: Hypertension type: essential hypertension Qualified Code(s): I10 - Essential (primary) hypertension (8) Diabetes mellitus, type 2 Current Visit: Yes Status: Chronic Assessment and plan: Glucose remains uncontrolled, 300+ Increased Levemir to 60 units and Humalog to 20 units Will monitor Qualifiers: Diabetes mellitus complication status: with unspecified complications Diabetes mellitus custodial insulin use: with custodial use Qualified Code(s) : E11.8 - Type 2 diabetes mellitus with unspecified complications; Z79.4 - rat exterminator (current) use of insulin; Z79.4 - [facility] (current) use of insulin; Z79.4 - rat exterminator (current) use of insulin; Z79.4 - [facility] (current) use of insulin (9) HLD (hyperlipidemia) Current Visit: No Status: Chronic Assessment and plan: Continue zetia as outpatient Qualifiers: Hyperlipidemia type: unspecified Qualified Code(s): E78.5 - Hyperlipidemia , unspecified - Subjective Interval history: Patient continues to be short of breath, but is somewhat better compared to admission. No CP, N/V, confusion. - Constitutional Vitals: Temp Pulse Resp BP Pulse Ox 97.8 F 86 14 175/80 92 03/25/17 10:42 03/25/17 10:42 03/25/17 10:49 03/25/17 10:42 03/25/17 10:49 General appearance: Present: cooperative, A&O X 3, no acute distress, obese, answers questions appropriately - Head Head exam: Present: atraumatic, normal inspection, normocephalic - ENT ENT exam: Present: mucous membranes moist - Neck Neck exam general surgery: Present: trachea midline - Respiratory Respiratory exam: Present: wheezes (scattered). Absent: accessory muscle use, respiratory distress - Cardiovascular Cardiovascular exam: Present: RRR, +S1, +S2 - GI/Abdominal GI/Abdominal exam: Present: soft, no peritoneal signs. Absent: tenderness - Neurological Exam Neurological exam: Present: alert, oriented X3 - Psychiatric Psychiatric exam: Present: normal affect, normal mood - Skin Skin exam: Present: dry, warm Internal Medicine: Result - Labs CBC & Chem 7: 03/25/17 04:11 03/25/17 04:11 Labs: Short CBC 03/25/17 Range/Units 04:11 WBC 1.3 L (4.3-11.1) K/mcL Hgb 7.4 L (11.5-15.4) g/dL Hct 23.4 L (35.3-44.9) % Plt Count 45 L (140-400) K/mcL Neutrophils # 0.8 L (1.6-8.9) K/mcL BMP 03/25/17 04:11 Sodium 138 Potassium 4.3 Chloride 105 Carbon Dioxide 24 BUN 44 H Creatinine 1.33 H Glucose 269 H Calcium 8.4 L - Impressions Impressions Chest X-Ray 03/24/17 21:18 IMPRESSION: No acute process. D/ / Garland Kemp MD / Garland Kemp MD Interpreting Provider: Garland Kemp MD - VTE Documentation of Mechanical Device: Intermittent pneumatic compression device Consult Discharge Plan - Plan Referrals: Yash Hnaley MD [Primary Care Provider] - <Souleymane Talavera T - Last Filed: 03/25/17 17:43> Date of Encounter: 03/25/17 - Assessment and plan (1) CKD (chronic kidney disease) stage 3, GFR 30-59 ml/min Current Visit: Yes Status: Chronic (2) Bacteremia Current Visit: Yes Status: Suspected - Constitutional Vitals: Temp Pulse Resp BP Pulse Ox 97.8 F 80 14 159/60 97 03/25/17 15:37 03/25/17 15:37 03/25/17 16:19 03/25/17 15:37 03/25/17 16:19 Internal Medicine: Result - Labs CBC & Chem 7: 03/25/17 04:11 03/25/17 04:11 Labs: Short CBC 03/25/17 Range/Units 04:11 WBC 1.3 L (4.3-11.1) K/mcL Hgb 7.4 L (11.5-15.4) g/dL Hct 23.4 L (35.3-44.9) % Plt Count 45 L (140-400) K/mcL Neutrophils # 0.8 L (1.6-8.9) K/mcL BMP 03/25/17 04:11 Sodium 138 Potassium 4.3 Chloride 105 Carbon Dioxide 24 BUN 44 H Creatinine 1.33 H Glucose 269 H Calcium 8.4 L - Impressions Impressions Chest X-Ray 03/24/17 21:18 IMPRESSION: No acute process. D/ / Graland Kemp MD / Garland Kemp MD Interpreting Provider: Garland Kemp MD - Attending Attestation I examined this patient and my medical decision-making was reviewed with the Resident Physician on 03/25/17. I agree with the documented findings, disposition and treatment plan as described except to the extent set forth below. Seen and examined at the bedside 72 F admitted and being managed for acute resp failure due to Asthma exacerbation, Influenza. She also had lactic acidosis which has resolved, pancytopenia which is chronic, DM, HTN, Crohns Incidental finding of GPC in one bottle from blood culture drawn on 03/23/17, patient is not septic She has no new complains, she thinks she may be constipated Exam unremarkable, finger sticks uncontrolled Labs and Imaging reviewed Continue current care, one dose of Vancomycin, repeat blood cultures a.m, increase insulin, New pancytopenia is being worked up and followed by oncology, possible BM biopsy prior to d/c Change steroids to po Rest of details as in the resident physicians documentation.
[2017-03-25] MEDS: Furosemide 20 MG TABLET PO SCH (20:03)
[2017-03-26] MEDS: Ipratropium/Albuterol Neb 3 ML IH SCH ×2 (04:01→10:21)
[2017-03-26 04:14] LABS: Basophils % 0.5 %
[2017-03-26 04:15] LABS: Eosinophils % 0.5 %; Hematocrit 21.9 % (35.3-44.9); Immature Granulocytes % 8.8 % (0-4); Immature Platelets 10.2 % (1.1-6.1); Lymphocytes # 0.5 K/mcL (0.6-4.6); Mean Platelet Volume 11.6 fL (9.4-12.4); Monocytes # 0.4 K/mcL (0.0-1.3); Nucleated Red Blood Cells 1.5 /100 WBC (0); Red Blood Count 2.33 M/mcL (3.82-4.97); Red Cell Distribution Width 19.2 % (11.5-14.5); Segmented Neutrophils % 48.2 %
[2017-03-26 04:24] LABS: Calcium 8.4 mg/dL (8.6-10.3); Potassium 4.4 mEq/L (3.5-5.1)
[2017-03-26 04:41] LABS: Platelet Count 53 K/mcL (140-400)
[2017-03-26 05:25] LABS: Anisocytosis 1+ (Not Present); Platelet Estimate Decreased (Normal)
[2017-03-26 05:26] LABS: Tear Drop Cells 1+ (Not Present)
[2017-03-26 05:27] LABS: Poikilocytosis 1+ (Not Present)
[2017-03-26] MEDS: Insulin LISPRO 300 UNITS/3 ML VIAL SQ SCH ×7 (08:38→21:00)
[2017-03-26] MEDS: Aspirin 81 MG TAB.CHEW PO SCH (08:39)
[2017-03-26] MEDS: amLODIPine 5 MG TABLET PO SCH (08:40)
[2017-03-26] MEDS: Metoprolol XL (24 HR) Succ 50 MG TAB.ER.24H PO SCH (08:40)
[2017-03-26] MEDS: Cholecalciferol (D-3) 1,000 UNIT TABLET PO SCH (08:42)
[2017-03-26] MEDS: Vitamin B Complex/Vit C/Vit E 1 EACH TABLET PO SCH (08:42)
[2017-03-26] MEDS: Oseltamivir Phosphate 30 MG CAPSULE PO SCH ×2 (08:42→21:00)
[2017-03-26] MEDS: Lactobacillus 1 EACH CAP.SPRINK PO SCH (08:42)
[2017-03-26] MEDS: Furosemide 20 MG TABLET PO SCH ×2 (08:42→16:36)
[2017-03-26] MEDS: predniSONE 20 MG TABLET PO SCH (08:43)
[2017-03-26] MEDS: Insulin DETEMIR 100 UNIT/ML X5UNITS SQ SCH ×2 (08:47→21:00)
--- NOTE | 2017-03-26 11:18 | Internal Med Progress Note ---
<AnupMarky - Last Filed: 03/26/17 13:53> Date of Encounter: 03/26/17 Time of Encounter: 09:00 - Assessment and plan (1) Acute respiratory failure with hypoxia Current Visit: Yes Status: Acute Assessment and plan: Resolving Secondary to asthma exacerbation and Influenza A, contribution from anemia (2) Asthma exacerbation Current Visit: Yes Status: Acute Assessment and plan: Continue prednisone 40 mg po, Day 4 Breathing treatments as needed Supplemental O2 Qualifiers: Asthma severity: unspecified severity Asthma persistence: unspecified Qualified Code(s): J45.901 - Unspecified asthma with (acute) exacerbation (3) Influenza A Current Visit: Yes Status: Acute Assessment and plan: Tamiflu Supportive care (4) Pancytopenia Current Visit: Yes Status: Acute Assessment and plan: Appreciate heme/onc input Patient to have bone marrow biopsy prior to discharge Hgb low at 7.0, down from 7.4 Transfusing 1 unit today (5) Lactic acidosis Current Visit: Yes Status: Resolved Assessment and plan: Resolved (6) Elevated troponin I level Current Visit: Yes Status: Acute Assessment and plan: No anginal symptoms. Most likely demand ischemia. 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 use Qualified Code(s) : E11.8 - Type 2 diabetes mellitus with unspecified complications; Z79.4 - custodial (current) use of insulin; Z79.4 - manager retirement (current) use of insulin; Z79.4 - custodial (current) use of insulin; Z79.4 - manager retirement (current) use of insulin (9) HLD (hyperlipidemia) Current Visit: No Status: Chronic Assessment and plan: Continue zetia as outpatient Qualifiers: Hyperlipidemia type: unspecified Qualified Code(s): E78.5 - Hyperlipidemia , unspecified (10) Crohns disease Current Visit: Yes Status: Chronic Assessment and plan: Long history of Crohn's Consider GI losses of blood Ordered [facility] Consulting GI Patient complaining of constipation Adding Senna Plus Qualifiers: Gastrointestinal tract location: unspecified location Digestive disease complication type: with intestinal obstruction Qualified Code(s): K50.912 - Crohn's disease, unspecified, with intestinal obstruction - Subjective Interval history: Patient feeling well without complaint aside from some minor SOB and cough. - Constitutional Vitals: Temp Pulse Resp BP Pulse Ox 98 F 81 16 148/67 98 03/26/17 07:02 03/26/17 07:02 03/26/17 07:02 03/26/17 07:02 03/26/17 07:02 General appearance: Present: cooperative, A&O X 3, no acute distress, obese, answers questions appropriately - Head Head exam: Present: atraumatic, normal inspection, normocephalic - ENT ENT exam: Present: mucous membranes moist - Neck Neck exam general surgery: Present: trachea midline - Respiratory Respiratory exam: Present: rhonchi (R>L). Absent: accessory muscle use, respiratory distress - Cardiovascular Cardiovascular exam: Present: RRR, +S1, +S2 - GI/Abdominal GI/Abdominal exam: Present: soft, no peritoneal signs. Absent: tenderness - Neurological Exam Neurological exam: Present: alert, oriented X3 - Psychiatric Psychiatric exam: Present: normal affect, normal mood - Skin Skin exam: Present: dry, warm Internal Medicine: Result - Labs CBC & Chem 7: 03/26/17 03:30 03/26/17 03:30 Labs: Short CBC 03/26/17 Range/Units 03:30 WBC 2.1 L D (4.3-11.1) K/mcL Hgb 7.0 L (11.5-15.4) g/dL Hct 21.9 L (35.3-44.9) % Plt Count 53 L (140-400) K/mcL Neutrophils # 1.0 L (1.6-8.9) K/mcL BMP 03/26/17 03:30 Sodium 140 Potassium 4.4 Chloride 109 H Carbon Dioxide 25 BUN 44 H Creatinine 1.14 Glucose 113 H Calcium 8.4 L - VTE Documentation of Mechanical Device: Intermittent pneumatic compression device Consult Discharge Plan - Plan Referrals: Yash Hanley MD [Primary Care Provider] - <Souleymane Talavera - Last Filed: 03/26/17 16:07> Date of Encounter: 03/26/17 - Assessment and plan (1) CKD (chronic kidney disease) stage 3, GFR 30-59 ml/min Current Visit: Yes Status: Chronic (2) Bacteremia Current Visit: Yes Status: Suspected - Constitutional Vitals: Temp Pulse Resp BP Pulse Ox 97.6 F 75 16 147/70 95 03/26/17 11:50 03/26/17 11:50 03/26/17 11:50 03/26/17 11:50 03/26/17 11:50 Internal Medicine: Result - Labs CBC & Chem 7: 03/26/17 03:30 03/26/17 03:30 Labs: Short CBC 03/26/17 Range/Units 03:30 WBC 2.1 L D (4.3-11.1) K/mcL Hgb 7.0 L (11.5-15.4) g/dL Hct 21.9 L (35.3-44.9) % Plt Count 53 L (140-400) K/mcL Neutrophils # 1.0 L (1.6-8.9) K/mcL BMP 03/26/17 03:30 Sodium 140 Potassium 4.4 Chloride 109 H Carbon Dioxide 25 BUN 44 H Creatinine 1.14 Glucose 113 H Calcium 8.4 L - ABG Interpretation ABG results: PT/INR, D-dimer PT 11.8 Seconds (9.4-12.1) 03/26/17 13:08 - Attending Attestation I examined this patient and my medical decision-making was reviewed with the Resident Physician on 03/26/17. I agree with the documented findings, disposition and treatment plan as described except to the extent set forth below. Seen and examined at the bedside 72 F admitted and being managed for acute resp failure due to Asthma exacerbation, Influenza. She also had lactic acidosis which has resolved, pancytopenia which is chronic, DM, HTN, Crohns Incidental finding of GPC in one bottle from blood culture drawn on 03/23/17, patient is not septic She has no new complains, she thinks she may be constipated, we will add Senna- Plus to her medications Hb continues to down trend, Hb is 7.0 this a.m, no obvious signs of bleed Oncology is following Exam unremarkable, finger sticks uncontrolled Labs and Imaging reviewed Plan Type and screen and transfuse with one unit of RBCs Bone marrow biopsy per oncology GI eval after occult blood testing, possible source of anemia is GI due to hx of crohn's disease No recent colonoscopy Follow repeat blood cultures from today 03/26/17 Rest of details as in the resident physicians documentation.
--- NOTE | 2017-03-26 11:44 | Oncology Inp Progress Note ---
Date of Encounter: 03/26/17 Time of Encounter: 11:05 (1) Pancytopenia Current Visit: Yes Status: Acute Assessment and plan: Pancytopenia, patient reports started about 2 months ago. Recent sudden decrease in WBC/neutrophil count and progressive decline in platelets/hgb. Prior to recent illness she denies fatigue, weight loss, recurrent infections, fevers or night sweats. Diagnosis of Crohn disease and currently receiving treatment with Remicade with Dr. Alexander. Crohn, Crohn disease can play role in pancytopenia presentation. Retic, B12, folate and Iron normal. Awaiting SPEP. Patient planned to receive 1 unit PRBC today for progressive drop in hgb to 7, PRBC transfusion will not affect bone marrow bx. CT Abd/Pelvis in 2014 revealed hepatomegaly/spleenomegaly with severe hepatic steatosis, however most recent CT in February revealed unremarkable liver/ spleen. Will order US Abd/Pelvis liver/spleen for more definitive study. She is feeling better since her admission and now agreeable to bone marrow biopsy. I discussed the so far negative laboratory workup that does not reveal etiology for her pancytopenia. I did mention that Crohn Disease can play role in pancytopenia however, given recent severity of counts, bone marrow biopsy would be recommended. She is now agreeable to bone marrow biopsy during inpatient stay. We discussed procedure risks/benefits. Plan discussed with Dr. Weston who agrees with plan of care. Will arrange for follow up with oncology/hematology as outpatient. Oncology: Subj Interval history: Ms. Bryant reports this is the best she has felt in days, denies recent fever/ chills. Cough, SOB and myalgias continue to improve although still present. - Constitutional Vitals: Vital Signs Temp Pulse Resp BP Pulse Ox 03/26/17 07:02 98 F 81 16 148/67 98 03/26/17 05:00 98 F 80 20 149/68 98 03/26/17 04:01 16 96 03/25/17 21:46 17 98 03/25/17 19:00 98 F 81 18 146/66 96 03/25/17 16:19 14 97 03/25/17 16:16 14 97 03/25/17 15:37 97.8 F 80 14 159/60 97 Intake and Output 03/25/17 03/26/17 03/26/17 23:59 07:59 15:59 Intake Total 240 / 240 240 / 240 240 / 240 Balance 240 / 240 240 / 240 240 / 240 Intake: Oral 240 / 240 240 / 240 240 / 240 Other: Meal Dinner Breakfast Percent of Meal Consumed 100% 100% # Voids 1 Weight 97.7 kg Blood Glucose* 209 144 Patient Weight 03/26/17 23:59 Weight 97.7 kg General appearance: cooperative, no acute distress, no febrile - Respiratory Respiratory exam: Present: rhonchi, wheezes. Absent: respiratory distress - Cardiovascular Cardiovascular exam: Present: RRR, +S1, +S2 - GI/Abdominal GI/Abdominal exam: Present: normal bowel sounds, soft, tenderness. Absent: guarding - Extremities Exam Extremities exam: Absent: calf tenderness, pedal edema - Neurological Exam Neurological exam: Present: alert, oriented X3, strengths equal and symetr throughout. Absent: no focal deficits - Psychiatric Psychiatric exam: Present: normal affect, normal mood - Skin Skin exam: Present: normal color, warm Oncology: Obj Data - Labs CBC & Chem 7: 03/26/17 03:30 03/26/17 03:30 Consult Discharge Plan - Plan Referrals: Yash Hanley MD [Primary Care Provider] -
[2017-03-26 13:43] LABS: INR 1.1; Prothrombin Time 11.8 Seconds (9.4-12.1)
[2017-03-26] MEDS ORDERED: Ipratropium/Albuterol Neb 3 ML IH PRN (14:15)
[2017-03-27 05:35] LABS: Hemoglobin 8.3 g/dL (11.5-15.4); Mean Corpuscular Hemoglobin 29.6 pg (28.0-33.3); Red Blood Count 2.8 M/mcL (3.82-4.97)
[2017-03-27 05:37] LABS: Hematocrit 25.8 % (35.3-44.9); Immature Platelets 11.7 % (1.1-6.1); Mean Corpuscular HGB Conc 32.2 g/dL (31.6-35.5); Mean Corpuscular Volume 92.1 fL (83.0-100.0); Mean Platelet Volume 11.4 fL (9.4-12.4); Red Cell Distribution Width 19.1 % (11.5-14.5)
[2017-03-27 05:47] LABS: Calcium 8.8 mg/dL (8.6-10.3); Potassium 3.5 mEq/L (3.5-5.1)
[2017-03-27] MEDS: Insulin LISPRO 300 UNITS/3 ML VIAL SQ SCH ×6 (08:25→21:39)
[2017-03-27] MEDS: Metoprolol XL (24 HR) Succ 50 MG TAB.ER.24H PO SCH (08:33)
[2017-03-27] MEDS: Furosemide 20 MG TABLET PO SCH ×2 (08:33→17:01)
[2017-03-27] MEDS: Oseltamivir Phosphate 30 MG CAPSULE PO SCH ×2 (08:33→21:38)
[2017-03-27] MEDS: Cholecalciferol (D-3) 1,000 UNIT TABLET PO SCH (08:33)
[2017-03-27] MEDS: Aspirin 81 MG TAB.CHEW PO SCH (08:33)
[2017-03-27] MEDS: Vitamin B Complex/Vit C/Vit E 1 EACH TABLET PO SCH (08:33)
[2017-03-27] MEDS: amLODIPine 5 MG TABLET PO SCH (08:34)
[2017-03-27] MEDS: predniSONE 20 MG TABLET PO SCH (08:34)
[2017-03-27] MEDS: Lactobacillus 1 EACH CAP.SPRINK PO SCH (08:34)
[2017-03-27] MEDS: Insulin DETEMIR 100 UNIT/ML X5UNITS SQ SCH ×2 (08:38→21:39)
[2017-03-27 08:45] LABS: Alpha 2 Globulin (PEP) 0.98 g/dL (0.48-1.05); Beta Globulin (PEP) 0.81 g/dL (0.48-1.10)
[2017-03-27 09:36] LABS: Red Blood Count 2.63 M/mcL (3.82-4.97)
[2017-03-27 09:42] LABS: Basophils % 0.5 %; Eosinophils % 0.5 %; Hemoglobin 8.1 g/dL (11.5-15.4); Immature Granulocytes % 0.2 % (0-4); Immature Platelets 9.2 % (1.1-6.1); Lymphocytes # 1.3 K/mcL (0.6-4.6); Lymphocytes % 29.5 %; Mean Corpuscular HGB Conc 33.8 g/dL (31.6-35.5); Mean Corpuscular Hemoglobin 30.8 pg (28.0-33.3); Mean Corpuscular Volume 91.3 fL (83.0-100.0); Mean Platelet Volume 11.6 fL (9.4-12.4); Monocytes # 0.7 K/mcL (0.0-1.3); Monocytes % 15.5 %; Neutrophils # 2.4 K/mcL (1.6-8.9); Nucleated Red Blood Cells 2.5 /100 WBC (0); Red Cell Distribution Width 18.9 % (11.5-14.5); Segmented Neutrophils % 53.8 %
[2017-03-27 09:57] LABS: Platelet Count 73 K/mcL (140-400)
[2017-03-27 10:19] LABS: Anisocytosis 2+ (Not Present); Macrocytosis Present (Not Present); Platelet Estimate Decreased (Normal)
--- NOTE | 2017-03-27 11:57 | Oncology Inp Progress Note ---
Date of Encounter: 03/27/17 Time of Encounter: 11:57 (1) Pancytopenia Current Visit: Yes Status: Acute Assessment and plan: Pancytopenia, patient reports started about 2 months ago. Recent sudden decrease in WBC/neutrophil count and progressive decline in platelets/hgb. Admitted with influenza A positive, COPD exacerbation. Prior to recent illness she denies fatigue, weight loss, recurrent infections, fevers or night sweats. Diagnosis of Crohn disease and currently receiving treatment with Remicade with Dr. Alexander. Crohn, Crohn disease can play role in pancytopenia presentation. Retic, B12, folate and Iron normal. Awaiting SPEP. CT Abd/Pelvis in 2014 revealed hepatomegaly/splenomegaly with severe hepatic steatosis, however most recent CT in February revealed unremarkable liver/ spleen. US Abd/Pelvis liver/spleen unremarkable. Workup so far has not revealed cause of pancytopenia. Patient declined blood transfusion yesterday. Blood counts today have improved with hgb now 8.1, neutrophils and WBC now nomal and platelets slightly lower at 73. I discussed lab work findings with patient and Dr. Weston. We will plan to hold off on bone marrow at this time and continue to trend blood counts. She may have a low grade MDS which causes her to present with pancytopenia in the setting of her recent acute viral infection with influenza. I discussed this possibility with her and explained that her bone marrow biopsy is not imperative at this time. She prefers to wait to perform bone marrow biopsy. I explained that if her counts worsen or do not improve she will likely need bone marrow. She is arranged for follow up with hem/onc in about 2 weeks with further lab work. I have put in orders for blood draw next week in the event she may be discharged would like to check blood counts next week. Awaiting CXR for worsening respiratory symptoms/fever. Oncology: Subj Interval history: Patient reports she is feeling worse today with reports of fever, chills, worsening cough/SOB. She is now needing 2 liters O2 per nasal cannula. Discussed with nursing staff who have already made hospitalist aware, she is planned to have CXR to r/o pneumonia following influenza infection. Discussed lab results, bone marrow biopsy and differential diagnosis at length with patient as summarized in assessment and plan. - Constitutional Vitals: Vital Signs Temp Pulse Resp BP Pulse Ox 03/27/17 08:54 99.3 F 100 16 150/72 97 03/27/17 05:19 98.4 F 89 16 177/69 95 03/26/17 21:06 97.8 F 74 17 147/79 96 03/26/17 20:40 16 97 03/26/17 16:18 98.1 F 83 16 159/75 95 Intake and Output 03/26/17 03/27/17 03/27/17 23:59 07:59 15:59 Other: Stool Size Large Stool Consistency soft formed Stool Color Brown # Voids 2 Blood Glucose* 103 68 94 General appearance: febrile, cooperative, no acute distress - Respiratory Respiratory exam: Present: rhonchi, wheezes. Absent: respiratory distress - Cardiovascular Cardiovascular exam: Present: RRR, +S1, +S2 - GI/Abdominal GI/Abdominal exam: Present: normal bowel sounds, soft, tenderness - Extremities Exam Extremities exam: Present: pedal edema. Absent: calf tenderness - Neurological Exam Neurological exam: Present: alert, oriented X3, strengths equal and symetr throughout. Absent: no focal deficits - Skin Skin exam: Present: normal color, warm Oncology: Obj Data - Labs CBC & Chem 7: 03/27/17 09:26 03/27/17 05:03 - Impressions Impressions Abdomen Ultrasound 03/26/17 20:00 IMPRESSION: Unremarkable right upper quadrant ultrasound for patient who is status post cholecystectomy. D/ / Umesh Lehman MD / Umesh Lehman MD Interpreting Provider: Umesh Lehman MD - ABG Interpretation ABG results: PT/INR, D-dimer PT 11.8 Seconds (9.4-12.1) 03/26/17 13:08 Consult Discharge Plan - Plan Referrals: Yash Hanley MD [Primary Care Provider] -
--- NOTE | 2017-03-27 13:03 | Internal Med Progress Note ---
<Anup,Marky - Last Filed: 03/27/17 15:08> Date of Encounter: 03/27/17 Time of Encounter: 08:00 - Assessment and plan (1) Acute respiratory failure with hypoxia Current Visit: Yes Status: Acute Assessment and plan: Worsening SOB today Considering developing PNA, ordered repeat CXR Secondary to asthma exacerbation and Influenza A, contribution from anemia (2) Asthma exacerbation Current Visit: Yes Status: Acute Assessment and plan: Continue prednisone 40 mg po, Day 5 Breathing treatments as needed Supplemental O2 Qualifiers: Asthma severity: unspecified severity Asthma persistence: unspecified Qualified Code(s): J45.901 - Unspecified asthma with (acute) exacerbation (3) Influenza A Current Visit: Yes Status: Acute Assessment and plan: Last doses of Tamiflu today Supportive care (4) Pancytopenia Current Visit: Yes Status: Acute Assessment and plan: Patient declining bone marrow biopsy as inpatient Anticipate as outpatient Hgb increased to 8.1 without transfusion yesterday, as patient refused. (5) Lactic acidosis Current Visit: Yes Status: Resolved Assessment and plan: Resolved (6) Elevated troponin I level Current Visit: Yes Status: Acute Assessment and plan: No anginal symptoms. Most likely demand ischemia. (7) HTN (hypertension) Current Visit: Yes Status: Chronic Assessment and plan: Continue home medications Qualifiers: Hypertension type: essential hypertension Qualified Code(s): I10 - Essential (primary) hypertension (8) Diabetes mellitus, type 2 Current Visit: Yes Status: Chronic Assessment and plan: Hypoglycemic this morning Reduced insulin doses back to home values Qualifiers: Diabetes mellitus complication status: with unspecified complications Diabetes mellitus intermodal customer service insulin use: with intermodal customer service use Qualified Code(s) : E11.8 - Type 2 diabetes mellitus with unspecified complications; Z79.4 - FPC (current) use of insulin; Z79.4 - intermediate frame tender (current) use of insulin; Z79.4 - FPC (current) use of insulin; Z79.4 - intermediate frame tender (current) use of insulin (9) HLD (hyperlipidemia) Current Visit: No Status: Chronic Assessment and plan: Continue zetia as outpatient Qualifiers: Hyperlipidemia type: unspecified Qualified Code(s): E78.5 - Hyperlipidemia , unspecified (10) Crohns disease Current Visit: Yes Status: Chronic Assessment and plan: Long history of Crohn's Consider GI losses of blood Ordered FOBT Consulting GI Patient complaining of constipation Continue Senna Plus Qualifiers: Gastrointestinal tract location: unspecified location Digestive disease complication type: with intestinal obstruction Qualified Code(s): K50.912 - Crohn's disease, unspecified, with intestinal obstruction - Subjective Interval history: Patient complaining of increased SOB, chills, subjective fever, nausea, and headache. Cough is productive of a clear sputum. - Constitutional Vitals: Temp Pulse Resp BP Pulse Ox 98.6 F 79 18 135/64 97 03/27/17 12:03 03/27/17 12:03 03/27/17 12:03 03/27/17 12:03 03/27/17 12:03 General appearance: Present: cooperative, A&O X 3, no acute distress, obese, answers questions appropriately - Head Head exam: Present: atraumatic, normal inspection, normocephalic - ENT ENT exam: Present: mucous membranes moist - Neck Neck exam general surgery: Present: trachea midline - Respiratory Respiratory exam: Present: prolonged expiratory phase, rhonchi, wheezes. Absent : accessory muscle use, respiratory distress - Cardiovascular Cardiovascular exam: Present: RRR, +S1, +S2 - GI/Abdominal GI/Abdominal exam: Present: soft, no peritoneal signs - Extremities Exam Extremities exam: Absent: pedal edema - Neurological Exam Neurological exam: Present: alert, oriented X3 - Psychiatric Psychiatric exam: Present: normal affect, normal mood. Absent: agitated, anxious - Skin Skin exam: Present: dry, warm Internal Medicine: Result - Labs CBC & Chem 7: 03/27/17 09:26 03/27/17 05:03 Labs: Short CBC 03/27/17 03/27/17 Range/Units 05:03 09:26 WBC 7.1 D 4.4 (4.3-11.1) K/mcL Hgb 8.3 L 8.1 L (11.5-15.4) g/dL Hct 25.8 L 24.0 L (35.3-44.9) % Plt Count 97 L D 73 L (140-400) K/mcL Neutrophils # 2.4 (1.6-8.9) K/mcL BMP 03/27/17 05:03 Sodium 140 Potassium 3.5 Chloride 105 Carbon Dioxide 27 BUN 37 H Creatinine 1.10 Glucose 57 L Calcium 8.8 - ABG Interpretation ABG results: PT/INR, D-dimer PT 11.8 Seconds (9.4-12.1) 03/26/17 13:08 - Impressions Impressions Abdomen Ultrasound 03/26/17 20:00 IMPRESSION: Unremarkable right upper quadrant ultrasound for patient who is status post cholecystectomy. D/ / Umesh Lehman MD / Umesh Lehman MD Interpreting Provider: Umesh Lehman MD - VTE Documentation of Mechanical Device: Intermittent pneumatic compression device Consult Discharge Plan - Plan Referrals: Yash Hanley MD [Primary Care Provider] - <Souleymane Talavera - Last Filed: 03/27/17 16:57> Date of Encounter: 03/27/17 - Assessment and plan (1) CKD (chronic kidney disease) stage 3, GFR 30-59 ml/min Current Visit: Yes Status: Chronic (2) Bacteremia Current Visit: Yes Status: Suspected - Constitutional Vitals: Temp Pulse Resp BP Pulse Ox 97.8 F 72 18 130/58 95 03/27/17 16:32 03/27/17 16:32 03/27/17 16:32 03/27/17 16:32 03/27/17 16:32 Internal Medicine: Result - Labs CBC & Chem 7: 03/27/17 09:26 03/27/17 05:03 Labs: Short CBC 03/27/17 03/27/17 Range/Units 05:03 09:26 WBC 7.1 D 4.4 (4.3-11.1) K/mcL Hgb 8.3 L 8.1 L (11.5-15.4) g/dL Hct 25.8 L 24.0 L (35.3-44.9) % Plt Count 97 L D 73 L (140-400) K/mcL Neutrophils # 2.4 (1.6-8.9) K/mcL BMP 03/27/17 05:03 Sodium 140 Potassium 3.5 Chloride 105 Carbon Dioxide 27 BUN 37 H Creatinine 1.10 Glucose 57 L Calcium 8.8 - ABG Interpretation ABG results: PT/INR, D-dimer PT 11.8 Seconds (9.4-12.1) 03/26/17 13:08 - Impressions Impressions Abdomen Ultrasound 03/26/17 20:00 IMPRESSION: Unremarkable right upper quadrant ultrasound for patient who is status post cholecystectomy. D/ / Umesh Lehman MD / Umesh Lehman MD Interpreting Provider: Umesh Lehman MD Chest X-Ray 03/27/17 13:01 IMPRESSION: No acute cardiopulmonary disease. Old granulomatous disease, including prominent calcified subcarinal node. D/ / Steve Dave MD / Steve Dave MD Interpreting Provider: Steve Dave MD - Attending Attestation I examined this patient and my medical decision-making was reviewed with the Resident Physician on 03/27/17. I agree with the documented findings, disposition and treatment plan as described except to the extent set forth below. Seen and examined at the bedside 72 F admitted and being managed for acute resp failure due to Asthma exacerbation, Influenza. She also had lactic acidosis which has resolved, pancytopenia which is chronic, DM, HTN, Crohns Incidental finding of GPC in one bottle from blood culture drawn on 03/23/17, patient is not septic Repeat blood culture -no growth in the 2 bottles She refused blood transfusion 03/26/17, Hb has remained stable She also declined bone marrow biopsy This morning, she had an episode of hypoglycemia, and chills, no documented fever, she complains of not feeling so well, or as good as yesterday Exam remarkable for transmitted coarse breath sounds bilaterally, no other significant finding Labs and Imaging reviewed Hb stable Chem at baseline FS better controlled Plan Repeat CXR done-granulomatous changes, no new changes Continue supportive care Decrease insulin Oncology is following FOBT Patient states she also does not want endoscopy We will reevaluate a.m Rest of details as in the resident physicians documentation.
[2017-03-27 14:35] LABS: IFE Reflexed NOT DONE
[2017-03-27] MEDS: Sennosides/Docusate Sodium TABLET PO SCH (17:01)
[2017-03-28 03:59] LABS: Hemoglobin 7.4 g/dL (11.5-15.4)
[2017-03-28 04:01] LABS: Hematocrit 23.3 % (35.3-44.9); Immature Platelets 10.8 % (1.1-6.1); Mean Corpuscular HGB Conc 31.8 g/dL (31.6-35.5); Mean Corpuscular Hemoglobin 29.6 pg (28.0-33.3); Mean Corpuscular Volume 93.2 fL (83.0-100.0); Red Blood Count 2.5 M/mcL (3.82-4.97)
[2017-03-28 04:14] LABS: Calcium 8.3 mg/dL (8.6-10.3); Potassium 3.8 mEq/L (3.5-5.1)
[2017-03-28] MEDS: Insulin LISPRO 300 UNITS/3 ML VIAL SQ SCH ×7 (09:26→20:34)
[2017-03-28] MEDS: Oseltamivir Phosphate 30 MG CAPSULE PO SCH ×2 (09:36→20:34)
--- NOTE | 2017-03-28 09:36 | Internal Med Progress Note ---
<Marky Hebert - Last Filed: 03/28/17 12:13> Date of Encounter: 03/28/17 Time of Encounter: 08:15 - Assessment and plan (1) Acute respiratory failure with hypoxia Current Visit: Yes Status: Acute Assessment and plan: Shortness of breath improved compared with yesterday. Repeat chest x-ray clear. Secondary to asthma exacerbation and Influenza A, contribution from anemia (2) Asthma exacerbation Current Visit: Yes Status: Acute Assessment and plan: Continue prednisone 40 mg po, Day 6 Breathing treatments as needed Supplemental O2 Qualifiers: Asthma severity: unspecified severity Asthma persistence: unspecified Qualified Code(s): J45.901 - Unspecified asthma with (acute) exacerbation (3) Influenza A Current Visit: Yes Status: Acute Assessment and plan: Completing course of Tamiflu today. Supportive care (4) Pancytopenia Current Visit: Yes Status: Acute Assessment and plan: Patient declining bone marrow biopsy as inpatient Anticipate as outpatient Hgb 7.4 down from 8.1. Patient has been refusing blood transfusions. (5) Lactic acidosis Current Visit: Yes Status: Resolved Assessment and plan: Resolved (6) Elevated troponin I level Current Visit: Yes Status: Acute Assessment and plan: No anginal symptoms. Most likely demand ischemia. (7) HTN (hypertension) Current Visit: Yes Status: Chronic Assessment and plan: Continue home medications. Qualifiers: Hypertension type: essential hypertension Qualified Code(s): I10 - Essential (primary) hypertension (8) Diabetes mellitus, type 2 Current Visit: Yes Status: Chronic Assessment and plan: Patient on home doses of insulin. Low of 68 this morning. Qualifiers: Diabetes mellitus complication status: with unspecified complications Diabetes mellitus usp insulin use: with usp use Qualified Code(s) : E11.8 - Type 2 diabetes mellitus with unspecified complications; Z79.4 - terminal makeup operator (current) use of insulin; Z79.4 - [facility] (current) use of insulin; Z79.4 - [facility] (current) use of insulin; Z79.4 - terminal makeup operator (current) use of insulin (9) HLD (hyperlipidemia) Current Visit: No Status: Chronic Assessment and plan: Continue zetia as outpatient Qualifiers: Hyperlipidemia type: unspecified Qualified Code(s): E78.5 - Hyperlipidemia , unspecified (10) Crohns disease Current Visit: Yes Status: Chronic Assessment and plan: Long history of Crohn's Consider GI losses of blood Ordered FOBT consulted GI Continue Senna Plus Qualifiers: Gastrointestinal tract location: unspecified location Digestive disease complication type: with intestinal obstruction Qualified Code(s): K50.912 - Crohn's disease, unspecified, with intestinal obstruction - Subjective Interval history: Patient feeling better compared yesterday. Less short of breath. She still complains that she is "not feeling good". She thinks this is related to her decreased blood sugar. She does not feel as though she is ready to go home. - Constitutional Vitals: Temp Pulse Resp BP Pulse Ox 98.7 F 85 16 169/72 94 03/28/17 07:14 03/28/17 07:14 03/28/17 07:14 03/28/17 07:14 03/28/17 07:14 General appearance: Present: cooperative, A&O X 3, no acute distress, obese, answers questions appropriately - Head Head exam: Present: atraumatic, normal inspection, normocephalic - ENT ENT exam: Present: mucous membranes moist - Neck Neck exam general surgery: Present: trachea midline - Respiratory Respiratory exam: Present: rhonchi, wheezes. Absent: accessory muscle use, respiratory distress Additional comments: improved compared with yesterday - Cardiovascular Cardiovascular exam: Present: RRR, +S1, +S2 - GI/Abdominal GI/Abdominal exam: Present: soft, no peritoneal signs. Absent: tenderness - Extremities Exam Extremities exam: Absent: pedal edema - Psychiatric Psychiatric exam: Present: normal affect, normal mood. Absent: agitated, anxious - Skin Skin exam: Present: dry, warm Internal Medicine: Result - Labs CBC & Chem 7: 03/28/17 03:04 03/28/17 03:04 Labs: Short CBC 03/27/17 03/28/17 Range/Units 09:26 03:04 WBC 4.4 4.0 L (4.3-11.1) K/mcL Hgb 8.1 L 7.4 L (11.5-15.4) g/dL Hct 24.0 L 23.3 L (35.3-44.9) % Plt Count 73 L 66 L (140-400) K/mcL Neutrophils # 2.4 (1.6-8.9) K/mcL BMP 03/28/17 03:04 Sodium 138 Potassium 3.8 Chloride 102 Carbon Dioxide 28 BUN 36 H Creatinine 1.14 Glucose 106 H Calcium 8.3 L - ABG Interpretation ABG results: PT/INR, D-dimer PT 11.8 Seconds (9.4-12.1) 03/26/17 13:08 - Impressions Impressions Chest X-Ray 03/27/17 13:01 IMPRESSION: No acute cardiopulmonary disease. Old granulomatous disease, including prominent calcified subcarinal node. D/ / Steve Dave MD / Steve Dave MD Interpreting Provider: Steve Dave MD - VTE Documentation of Mechanical Device: Intermittent pneumatic compression device Consult Discharge Plan - Plan Referrals: Yash Hanley MD [Primary Care Provider] - <Souleymane Talavera - Last Filed: 03/28/17 15:42> Date of Encounter: 03/28/17 - Assessment and plan (1) CKD (chronic kidney disease) stage 3, GFR 30-59 ml/min Current Visit: Yes Status: Chronic (2) Bacteremia Current Visit: Yes Status: Suspected - Constitutional Vitals: Temp Pulse Resp BP Pulse Ox 100.1 F H 81 16 152/65 96 03/28/17 11:21 03/28/17 11:21 03/28/17 11:21 03/28/17 11:21 03/28/17 11:21 Internal Medicine: Result - Labs CBC & Chem 7: 03/28/17 03:04 03/28/17 03:04 Labs: Short CBC 03/28/17 Range/Units 03:04 WBC 4.0 L (4.3-11.1) K/mcL Hgb 7.4 L (11.5-15.4) g/dL Hct 23.3 L (35.3-44.9) % Plt Count 66 L (140-400) K/mcL BMP 03/28/17 03:04 Sodium 138 Potassium 3.8 Chloride 102 Carbon Dioxide 28 BUN 36 H Creatinine 1.14 Glucose 106 H Calcium 8.3 L - ABG Interpretation ABG results: PT/INR, D-dimer PT 11.8 Seconds (9.4-12.1) 03/26/17 13:08 - Attending Attestation I examined this patient and my medical decision-making was reviewed with the Resident Physician on 03/28/17. I agree with the documented findings, disposition and treatment plan as described except to the extent set forth below. Seen and examined at the bedside 72 F admitted and being managed for acute resp failure due to Asthma exacerbation, Influenza. She also had lactic acidosis which has resolved, pancytopenia which is chronic, DM, HTN, Crohns Incidental finding of GPC in one bottle from blood culture drawn on 03/23/17, patient is not septic, contaminant Repeat blood culture -no growth in the 2 bottles She refused blood transfusion 03/26/17, Hb has remained stable She also declined bone marrow biopsy, for outpatient She declined evaluation by GI for anemia, states she wants to take care of her hernias and she is known to Dr. Alexander and will follow up with him as outpatient This morning, she looks much more better She doesn't want to be discharged because "she needs more time Exam remarkable for transmitted coarse breath sounds bilaterally, no other significant finding Labs and Imaging reviewed Plan Continue current care, PTOT eval. Rest of details as in the resident physicians documentation.
[2017-03-28] MEDS: amLODIPine 5 MG TABLET PO SCH (09:37)
[2017-03-28] MEDS: Metoprolol XL (24 HR) Succ 50 MG TAB.ER.24H PO SCH (09:37)
[2017-03-28] MEDS: Aspirin 81 MG TAB.CHEW PO SCH (09:38)
[2017-03-28] MEDS: predniSONE 20 MG TABLET PO SCH (09:38)
[2017-03-28] MEDS: Lactobacillus 1 EACH CAP.SPRINK PO SCH (09:38)
[2017-03-28] MEDS: Furosemide 20 MG TABLET PO SCH ×2 (09:38→18:08)
[2017-03-28] MEDS: Vitamin B Complex/Vit C/Vit E 1 EACH TABLET PO SCH (09:38)
[2017-03-28] MEDS: Sennosides/Docusate Sodium TABLET PO SCH (09:38)
[2017-03-28] MEDS: Cholecalciferol (D-3) 1,000 UNIT TABLET PO SCH (09:39)
[2017-03-28] MEDS: Insulin DETEMIR 100 UNIT/ML X5UNITS SQ SCH ×2 (09:40→20:34)
[2017-03-29 05:12] LABS: Hematocrit 24.9 % (35.3-44.9); Mean Corpuscular HGB Conc 32.1 g/dL (31.6-35.5)
[2017-03-29 05:13] LABS: Immature Platelets 12.2 % (1.1-6.1); Mean Corpuscular Hemoglobin 30.1 pg (28.0-33.3); Mean Corpuscular Volume 93.6 fL (83.0-100.0); Mean Platelet Volume 12.8 fL (9.4-12.4); Red Blood Count 2.66 M/mcL (3.82-4.97); Red Cell Distribution Width 19.1 % (11.5-14.5)
[2017-03-29 05:34] LABS: BUN/Creatinine Ratio 31 (6-26); Blood Urea Nitrogen 33 mg/dL (8-23); Calcium 8.6 mg/dL (8.6-10.3); Carbon Dioxide 29 mEq/L (23-29); Chloride 102 mEq/L (98-107); Glucose 143 mg/dL (70-105); Osmolality,Calculated 296 (280-300); Sodium 138 mEq/L (136-145); eGFR For African Americans > 60 (> 60); eGFR For Non-African Americans 52 (> 60)
[2017-03-29] MEDS: Lactobacillus 1 EACH CAP.SPRINK PO SCH (09:25)
[2017-03-29] MEDS: Furosemide 20 MG TABLET PO SCH (09:25)
[2017-03-29] MEDS: predniSONE 20 MG TABLET PO SCH (09:26)
[2017-03-29] MEDS: amLODIPine 5 MG TABLET PO SCH (09:26)
[2017-03-29] MEDS: Vitamin B Complex/Vit C/Vit E 1 EACH TABLET PO SCH (09:26)
[2017-03-29] MEDS: Metoprolol XL (24 HR) Succ 50 MG TAB.ER.24H PO SCH (09:26)
[2017-03-29] MEDS: Aspirin 81 MG TAB.CHEW PO SCH (09:27)
[2017-03-29] MEDS: Cholecalciferol (D-3) 1,000 UNIT TABLET PO SCH (09:27)
[2017-03-29] MEDS: Sennosides/Docusate Sodium TABLET PO SCH (09:27)
[2017-03-29] MEDS: Insulin LISPRO 300 UNITS/3 ML VIAL SQ SCH ×4 (09:51→12:27)
[2017-03-29] MEDS: Insulin DETEMIR 100 UNIT/ML X5UNITS SQ SCH (09:54)
--- NOTE | 2017-03-29 10:29 | Discharge Summary ---
<Marky Hebert - Last Filed: 03/29/17 11:54> Date of Encounter: 03/29/17 Time of Encounter: 10:23 - Discharge Diagnosis (1) Acute respiratory failure with hypoxia Priority: Primary Status: Acute (2) Asthma exacerbation Priority: Primary Status: Acute Qualifiers: Asthma severity: unspecified severity Asthma persistence: unspecified Qualified Code(s): J45.901 - Unspecified asthma with (acute) exacerbation (3) Influenza A Priority: Primary Status: Acute (4) Pancytopenia Priority: Primary Status: Acute (5) Lactic acidosis Priority: Secondary Status: Resolved (6) Elevated troponin I level Priority: Secondary Status: Acute (7) HTN (hypertension) Priority: Secondary Status: Chronic Qualifiers: Hypertension type: essential hypertension Qualified Code(s): I10 - Essential (primary) hypertension (8) Diabetes mellitus, type 2 Priority: Secondary Status: Chronic Qualifiers: Diabetes mellitus complication status: with unspecified complications Diabetes mellitus terminal press operator insulin use: with terminal press operator use Qualified Code(s) : E11.8 - Type 2 diabetes mellitus with unspecified complications; Z79.4 - MCFP (current) use of insulin; Z79.4 - emt intermediate (current) use of insulin; Z79.4 - MCFP (current) use of insulin; Z79.4 - emt intermediate (current) use of insulin (9) HLD (hyperlipidemia) Priority: Secondary Status: Chronic Qualifiers: Hyperlipidemia type: unspecified Qualified Code(s): E78.5 - Hyperlipidemia , unspecified (10) Crohns disease Priority: Secondary Status: Chronic Qualifiers: Gastrointestinal tract location: unspecified location Digestive disease complication type: with intestinal obstruction Qualified Code(s): K50.912 - Crohn's disease, unspecified, with intestinal obstruction - Discharge Medications Prescriptions: predniSONE [PredniSONE] See Taper PO DAILY #11 tablet Home Medications: Amlodipine [Norvasc] 2.5 mg PO DAILY 01/06/15 [History] Escitalopram [Lexapro] 20 mg PO HS 01/06/15 [History] Ezetimibe [Zetia] 10 mg PO HS 01/06/15 [History] Ferrous Sulfate 325 mg PO DAILY 01/06/15 [History] Furosemide [Lasix] 20 mg PO BID 01/06/15 [History] Multivitamin/Iron/Folic Acid [Centrum Complete Multivit Tab] 1 tab PO DAILY [History] Omeprazole [PriLOSEC] 20 mg PO DAILY 01/06/15 [History] Potassium Chloride 20 meq PO DAILY 01/06/15 [History] InFLIXimab [Remicade] 100 mg IV Q8W 03/29/15 [History] Ascorbate Calcium [Vitamin C] 500 mg PO DAILY 09/15/15 [History] Cholecalciferol (D-3) [Vitamin D] 1,000 unit PO DAILY 09/15/15 [History] Cinnamon Bark [Cinnamon] 500 mg PO DAILY 09/15/15 [History] Lactobacillus Combination No.8 [Adult Probiotic] 1 cap PO DAILY 09/15/15 [ History] Turmeric Root Extract [Turmeric] 500 mg PO DAILY 09/15/15 [History] Vitamin B Complex 1 cap PO DAILY 09/15/15 [History] Vitamin E (Dl,Tocopheryl Acet) [Vitamin E] 1,000 unit PO DAILY 09/15/15 [History ] HYDROcodone/Acet 5/325 mg [[place] 5-325 mg] 1 tab PO Q6H PRN 03/24/17 [History] Insulin ASPART [Novolog Flexpen] 35 unit SQ TID 03/24/17 [History] Insulin DETEMIR [Levemir Flextouch] 40 unit SQ BID 03/24/17 [History] Linagliptin [Tradjenta] 5 mg PO DAILY 03/24/17 [History] Metoprolol XL (24 HR) Succ [Toprol Xl] 100 mg PO DAILY 03/24/17 [History] predniSONE [PredniSONE] See Taper PO DAILY #11 tablet 03/29/17 [Rx] Allergies/Adverse Reactions: 3 Allergy/AdvReac Type Severity Reaction Status Date / Time codeine AdvReac Mild Nausea Verified 09/15/15 08:15 penicillin G AdvReac Mild swelling Verified 09/15/15 08:15 egg AdvReac Fever Verified 09/15/15 08:15 Procedures/tests Complete & Pending: Procedures Performed prior 72 hours Category Date Time Status US abdomen limited [US] Routine Exams 03/26/17 20:00 Completed Date of admission: 03/24/17 18:08 Primary care physician: Yash Hanley MD Discharging clinician: Marky Hebert Anticipated date of discharge: 03/29/17 - Patient Status Disposition: Home, Self-Care Condition: Fair Overall status at discharge: patient is progressing back to baseline - Ambulatory Orders Ambulatory Orders: Complete Blood Count [HEME] Time Frame: 1 Week, Facility: [facility], Location: Lab Comprehensive Metabolic Panel [CHEM] Time Frame: 1 Week, Facility: [facility], Location: Lab - Discharge Instructions Instructions: Prednisone (By mouth), Urinary Tract Infection in Women (DC), Diabetes Mellitus Type 2 in Adults (DC), Complete Blood Count (GEN), Chronic Hypertension (DC), Anemia (GEN), Influenza, President Practicing Urologist (GEN) Follow Up With: Yash Hanley MD [Primary Care Provider] - (referal done call next week to get a follow up appointment ) - Diet and Activity Activity: resume usual activities as tolerated Diet: advance to your usual diet Hospital course: Ms. Bryant is a 72 year old female that presented on 03/23/2017 with shortness of breath and flu symptoms of about 4 days duration. She was febrile to 101F. She required oxygen at 3 L per minute. She was treated for influenza A, which was discovered on swab, with Tamiflu and supportive care. She had presumptive asthma exacerbation and was treated with breathing treatments and oral prednisone. While on the prednisone, her glucose was elevated up into the 600s at points, so her insulin was increased from her home dose. Her shortness of breath and flu symptoms have since improved. It was also found that she had a pancytopenia. Her hemoglobin dropped as low as 7.0, but she refused blood transfusion. Her hemoglobin has since hovered between the low sevens and low eights. She was evaluated by oncology and she ultimately decided against having a bone marrow biopsy during this admission. She plans to follow up with them as an outpatient. Patient also to follow up with GI regarding her Crohn's disease and her PCP. - Time Spent with Patient Total time spent providing and/or coordinating discharge services: - Constitutional Vitals: Temp Pulse Resp BP Pulse Ox 98.0 F 86 14 171/86 94 03/29/17 07:31 03/29/17 07:31 03/29/17 07:31 03/29/17 07:31 03/29/17 07:31 General appearance: Present: cooperative, A&O X 3, no acute distress, obese, answers questions appropriately - Head Head exam: Present: atraumatic, normal inspection, normocephalic - ENT ENT exam: Present: mucous membranes moist - Neck Neck exam general surgery: Present: trachea midline - Respiratory Respiratory exam: Present: rhonchi (improving), wheezes (improving). Absent: accessory muscle use, respiratory distress - Cardiovascular Cardiovascular exam: Present: RRR, +S1, +S2 - GI/Abdominal GI/Abdominal exam: Present: soft, no peritoneal signs. Absent: tenderness - Extremities Exam Extremities exam: Absent: pedal edema - Psychiatric Psychiatric exam: Present: normal affect, normal mood. Absent: agitated, anxious - Skin Skin exam: Present: dry, warm - VTE Documentation of Mechanical Device: Intermittent pneumatic compression device <Souleymane Talavera - Last Filed: 03/29/17 14:03> Date of Encounter: 03/29/17 - Discharge Diagnosis (1) CKD (chronic kidney disease) stage 3, GFR 30-59 ml/min Status: Chronic (2) Bacteremia Status: Suspected Procedures/tests Complete & Pending: Procedures Performed prior 72 hours Category Date Time Status US abdomen limited [US] Routine Exams 03/26/17 20:00 Completed Date of admission: 03/24/17 18:08 Primary care physician: Yash Hanley MD Hospital course: Ms. Bryant is a 72 year old female - Time Spent with Patient Total time spent providing and/or coordinating discharge services: Greater than 30 minutes - Constitutional Vitals: Temp Pulse Resp BP Pulse Ox 98.1 F 71 12 166/69 96 03/29/17 11:33 03/29/17 11:33 03/29/17 11:33 03/29/17 11:33 03/29/17 11:33 - Attending Attestation I examined this patient and my medical decision-making was reviewed with the Resident Physician on 03/29/17. I agree with the documented findings, disposition and treatment plan as described except to the extent set forth below. Seen and examined at the bedside 72 F admitted and being managed for acute resp failure due to Asthma exacerbation, Influenza. She also had lactic acidosis which has resolved, pancytopenia which is chronic, DM, HTN, Crohns Incidental finding of GPC in one bottle from blood culture drawn on 03/23/17, patient is not septic, contaminant Repeat blood culture -no growth in the 2 bottles She refused blood transfusion 03/26/17, Hb has remained stable She also declined bone marrow biopsy, for outpatient She declined evaluation by GI for anemia, states she wants to take care of her hernias and she is known to Dr. Alexander and will follow up with him as outpatient Stable condition, flu treatment has been completed No O2 requirement Stable for discharge home on prednisone taper Follow up with oncology, PCP, GI. Rest of details as in the resident physicians documentation.
[2017-03-29 11:34] VITALS: BP 166/69
[2017-04-29 12:26] LABS: Ferritin 1052 ng/ml (10-120)
== END 2017-03-29 17:21 | disposition home or self-care (01) | DRG 193 ==
LOC: 2NENU 15:20 → EMEROO 15:20 → 2NENU 18:05 → SUATTDRO 03-24 18:08
PROVIDERS: ADMIT Hospitalist; ATTEND Internal Medicine

== ENCOUNTER 2017-04-11 17:52 | Inpatient (IN) ==
[2017-04-11] MEDS ORDERED: 0.9 % Sodium Chloride 250 ML ONE (18:30)
--- NOTE | 2017-04-11 18:32 | Emergency Department Note ---
Disposition Clinical Impression: Pancytopenia Abdominal hernia Qualifiers: Hernia type: other abdominal hernia Obstruction and gangrene presence: without obstruction or gangrene Qualified Code(s): K45.8 - Other specified abdominal hernia without obstruction or gangrene Disposition: Admitted As Inpatient Condition: Good Referrals: Yash Hanley MD [Primary Care Provider] - Forms: ED Satisfaction Letter Recheck wound or abnormal lab - General Chief Complaint: ED Recheck/Abnormal Lab/Rx Stated Complaint: low HGB Time Seen by Provider: 04/11/17 17:53 Source: EMS Mode of arrival: EMS Limitations: no limitations Nursing Notes Reviewed: Yes Vital Signs Reviewed: Yes - History of Present Illness HPI Narrative: 72-year-old female presents to the ER with a chief complaint of anemia. Patient reports he was recently admitted earlier this month for influenza. She was noted to be anemic then was established for follow-up with oncology. She saw her motion picture equipment supervisor yesterday who ordered labs and call today given anemia. Reports she was 6.3. No prior history of transfusion. Reports she has been anemic in the past and was on iron supplementation. She denies any hemoptysis, hematemesis, melena, hematochezia, hematuria. She does report she has Crohn's disease but she has not noticed any change in her stool and states "I would notice if something was different". She is not on any blood thinning medications. She does report that she has felt weak lately. No other complaints. Pt Subjective Complaint: abnormal lab(s) Initial Visit (ago): day(s) Symptoms Since Prior Visit: no new symptoms Context: called for abnormal lab result Associated symptoms: other (Weakness) - Related Data Home Medications Medication Instructions Recorded Confirmed Amlodipine [Norvasc] 2.5 mg PO DAILY 01/06/15 04/11/17 Escitalopram [Lexapro] 20 mg PO HS 01/06/15 04/11/17 Ezetimibe [Zetia] 10 mg PO HS 01/06/15 04/11/17 Ferrous Sulfate 325 mg PO DAILY 01/06/15 04/11/17 Furosemide [Lasix] 20 mg PO BID 01/06/15 04/11/17 Multivitamin/Iron/Folic Acid 1 tab PO DAILY 01/06/15 04/11/17 [Centrum Complete Multivit Tab] Omeprazole [PriLOSEC] 20 mg PO DAILY 10/23/15 01/26/18 Potassium Chloride 20 meq PO DAILY 01/06/15 04/11/17 InFLIXimab [Remicade] 100 mg IV Q8W 03/29/15 04/11/17 Ascorbate Calcium [Vitamin C] 500 mg PO DAILY 09/15/15 04/11/17 Cholecalciferol (D-3) [Vitamin D] 1,000 unit PO DAILY 09/15/15 04/11/17 Cinnamon Bark [Cinnamon] 500 mg PO DAILY 09/15/15 04/11/17 Lactobacillus Combination No.8 1 cap PO DAILY 09/15/15 04/11/17 [Adult Probiotic] Turmeric Root Extract [Turmeric] 500 mg PO DAILY 09/15/15 04/11/17 Vitamin B Complex 1 cap PO DAILY 09/15/15 04/11/17 Vitamin E (Dl,Tocopheryl Acet) 1,000 unit PO DAILY 09/15/15 04/11/17 [Vitamin E] HYDROcodone/Acet 5/325 mg [[place] 1 tab PO Q6H PRN 03/24/17 04/11/17 5-325 mg] Insulin ASPART [Novolog Flexpen] 35 unit SQ TID 03/24/17 04/11/17 Insulin DETEMIR [Levemir Flextouch] 40 unit SQ BID 03/24/17 04/11/17 Linagliptin [Tradjenta] 5 mg PO DAILY 03/24/17 04/11/17 Metoprolol XL (24 HR) Succ [Toprol 100 mg PO DAILY 03/24/17 04/11/17 Xl] Allergies Allergy/AdvReac Type Severity Reaction Status Date / Time influenza virus vaccine ts Allergy Vomiting Verified 04/10/17 15:35 [id number] (36 mos,up) [From Fluarix] Pneumococcal Vaccine Allergy Vomiting Verified 04/10/17 15:35 [From Prevnar] codeine AdvReac Mild Nausea Verified 04/10/17 15:35 penicillin G AdvReac Mild swelling Verified 04/10/17 15:35 All systems ED: reviewed and negative except as stated. Constitutional: Denies: fever Cardiovascular: Denies: chest pain Respiratory: Denies: dyspnea Gastrointestinal: Denies: abdominal pain, diarrhea, hematemesis, melena, hematochezia Genitourinary: Denies: hematuria Past Medical History - Past Medical History Attestation: Yes The following information was validated with the patient. Source: patient Medical history: Reports: asthma, diabetes, hyperlipidemia, hypertension, renal disease, other Surgical history: Reports: appendectomy, cholecystectomy Psychiatric history: Reports: anxiety, depression HEEL SHAVER history: Reports: no HEEL SHAVER history - Social History Smoking Status: Never smoker Smokeless Tobacco Status: No Alcohol use: Reports: none Drug use: Reports: none Physical Exam - General Limitations: no limitations General appearance: alert, in no apparent distress - Head Head exam: atraumatic - Eye Eye exam: Present: normal appearance - ENT ENT exam: normal exam - Neck Neck exam: Present: normal inspection - Chest Chest inspection: Present: normal inspection, symmetric chest wall rise - Respiratory Respiratory exam: Present: normal lung sounds bilaterally - Cardiovascular Cardiovascular exam: Present: regular rate, normal rhythm, normal heart sounds - Abdominal Exam Abdominal exam: Present: soft, Non-Tender, other (She has a lower abdominal hernia). Absent: tenderness - Extremities Exam Extremities exam: Present: normal inspection, full ROM - Expanded Upper Extremity Exam Shoulder exam: Present: normal inspection, full ROM Arm exam: Present: normal inspection, full ROM Elbow exam: Present: normal inspection, full ROM Forearm/Wrist exam: Present: normal inspection, full ROM Hand exam: Present: normal inspection, full ROM - Expanded Lower Extremity Exam Hip/Pelvis exam: Present: normal inspection, full ROM Upper leg exam: Present: normal inspection, full ROM Knee exam: Present: normal inspection, full ROM Lower leg exam: Present: normal inspection, full ROM Ankle exam: Present: normal inspection, full ROM Foot/toe exam: Present: normal inspection, full ROM - Skin Skin exam: Present: warm, dry Course Course Narrative: Patient seen and examined. Nonsurgical abdomen. We will get baseline labs and transfuse 1 unit from a hemoglobin of 6.3. She did not want repeat hemoglobin labs here and she also deferred a rectal exam to check for occult blood. I discussed with her that she could have blood in her stool and not know it because of microscopic. She again defers rectal exam. - Reevaluation(s) Reevaluation #1: Discussed results of imaging and labs with the patient. CT read with concern for potential vascular compromise. I will discuss with general surgery. She denies any change in bowel or bladder function she denies any change in her pain outside of baseline. - Consultations Consultation #1: I spoke with the on-call general surgeon Dr. Tolentino. Discussed the patient's history and exam imaging and labs. Her examination is not consistent with mesenteric ischemia with pain out of proportion. Patient is being admitted to the hospitalist service. Gen. surgery in agreement with consultation. Vital Signs Temperature 99.3 F 04/11/17 17:53 Pulse Rate 86 04/11/17 17:53 Respiratory Rate 14 04/11/17 17:53 Blood Pressure 154/57 04/11/17 17:53 O2 Sat by Pulse Oximetry 98 04/11/17 17:53 Temperature 101.1 F H 04/11/17 21:08 Pulse Rate 79 04/11/17 21:08 Respiratory Rate 19 04/11/17 21:08 Blood Pressure 142/58 04/11/17 21:08 O2 Sat by Pulse Oximetry 96 04/11/17 21:08 Oxygen Delivery Oxygen Delivery Room Air Recheck wound or abnormal lab - MDM Narrative Medical decision making narrative: 72-year-old female presents to the ER due to anemia. Recently noted to be pancytopenic and followed up with hematology yesterday. Labs obtained today with a hemoglobin of 6.3. No bleeding from any source she is aware of. No prior history of transfusion. Patient given 1 unit of RBC here. She deferred a rectal exam and believes is due to her medication. CT scan with lower abdominal hernia and mesenteric edema. Case discussed with the on-call surgeon who will see in consultation. She is admitted to the hospitalist service. - Lab Data Lab results reviewed: Yes I reviewed the patient's lab results. Lab Results 04/11/17 04/11/17 04/11/17 Range/Units 09:13 18:19 18:19 PT 13.0 H (9.4-12.1) Seconds INR 1.2 APTT 22.2 L (26.0-36.0) Seconds Troponin I < 0.03 (< 0.04) ng/mL Crossmatch See Detail - Radiology Data Radiology results reviewed: Yes I reviewed the patient's radiology results. Abdomen/Pelvis CT 04/11/17 18:01 IMPRESSION: Complex mid to lower anterior abdominal wall hernia containing multiple loops of small bowel. Some of small bowel loops within the rightward aspect of hernia true wall thickening and, increased mucosal enhancement and adjacent mesenteric edema. Although the findings could represent enteritis, vascular compromise due to entrapment is also a consideration. Mild central mesenteric edema, similar to increased since the prior study, likely reactive. D/ / Heather Canales Cha, MD / Heather Canales Cha, MD Interpreting Provider: Heather Canales Cha, MD - EKG Data EKG attestation: Yes I reviewed and interpreted this EKG. EKG results narrative: EKG demonstrates sinus rhythm with a rate of 87 bpm. Normal axis. Normal intervals. Normal R-wave progression. No gross ST elevations or depressions. No acute ischemic findings. S.B.A.R. - S.B.A.RKamran Situation: Demographics, MOA Background: Presenting Complaint, Relevant PMH, Meds, & Allergies Assessment: Vital Signs, Course and respsone to treatment, Exam Concerns, Patient/Family Expectation, Pertinant Lab Results Recommendation: Barrier(s) to disposition, Recommendation based on pending studies, treatments, or consults S.B.A.RKamran Report Given to: Dr. Bran Lozano Repor Time: 21:18 Attestation Statement - Attestation Attestation: I examined this patient and my medical decision-making was reviewed with the Resident Physician. I agree with the documented findings, disposition and treatment plan as described except to the extent set forth below. Patient presents with anemia. Hemoglobin is less than 7. She does require a transfusion. We will transfuse one unit of packed red blood cells. The patient has declined rectal exam. She is refusing this stating she knows why she is anemic. She states that she is on Remicade and this causes anemia. I did discuss that other causes are possible. She is refusing any other testing to suggest the specific type of anemia she may be having. She is convinced that the cause of her anemia is from Remicade.
[2017-04-11 18:39] LABS: INR 1.2
[2017-04-11 18:42] LABS: Activated Partial Thrombo Time 22.2 Seconds (26.0-36.0)
[2017-04-11] MEDS ORDERED: 0.9 % Sodium Chloride 1,000 ML IVC ONE (19:29)
[2017-04-11] MEDS ORDERED: Naloxone 0.4 MG/ML INJ IVP PRN (20:30)
[2017-04-11] MEDS ORDERED: *HR* Dextrose 50 % in Water (Syg) 50 ML SYRINGE IVP PRN (20:32)
[2017-04-11] MEDS ORDERED: D5% in Water 1,000 ML IVC PRN (20:32)
[2017-04-11] MEDS ORDERED: Dextrose Gel 15 GM/37.5 ML TUBE PO PRN ×2 (20:32)
--- NOTE | 2017-04-11 20:37 | Internal Med History&Physical ---
Date of Encounter: 04/11/17 Time of Encounter: 20:34 Assessment and Plan (1) Anemia Current visit: Yes Status: Acute hypoproliferative anemia pending heme eval Admit for 1 pRBC trend Hb in the a.m monitor symptoms consult heme for further plan of care in the outpatient Qualifiers: Chronic kidney disease stage: stage 3 (moderate) Qualified Code(s): N18.3 - Chronic kidney disease, stage 3 (moderate); D63.1 - Anemia in chronic kidney disease; D63.1 - Anemia in chronic kidney disease (2) CKD (chronic kidney disease) stage 3, GFR 30-59 ml/min Current visit: No Status: Chronic (3) Crohns disease Current visit: No Status: Chronic stable Qualifiers: Gastrointestinal tract location: unspecified location Digestive disease complication type: with intestinal obstruction Qualified Code(s): K50.912 - Crohn's disease, unspecified, with intestinal obstruction (4) Diabetes mellitus, type 2 Current visit: No Status: Chronic she tells me she takes 32 U TID AC with ISS, levemir 40 U BID start with 20 U TID AC first and monitor and increase as necessary Qualifiers: Diabetes mellitus complication status: with unspecified complications 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 Qualified Code(s) : E11.8 - Type 2 diabetes mellitus with unspecified complications; Z79.4 - senior care (current) use of insulin; Z79.4 - senior care (current) use of insulin; Z79.4 - senior care (current) use of insulin; Z79.4 - senior care (current) use of insulin (5) HLD (hyperlipidemia) Current visit: No Status: Chronic Qualifiers: Hyperlipidemia type: mixed hyperlipidemia Qualified Code(s): E78.2 - Mixed hyperlipidemia (6) Hernia of abdominal cavity Current visit: Yes Status: Acute appears chronic, follow closely this inpatient Internal Medicine - H&P: HPI Chief complaint: tired, fatigue History of present illness: Ms. Bryant is a 72 year old female who presents with anemia with some symptoms after being seen by hematology outpatient pending evaluation of etiology of anemia. She has a hx of treated Crohn's disease and had been discharged 2 weeks ago with the flu. Was coincidentally found to be anemic and cytopenic. Since discharged, she has established care with hematology outpatient. Blood work prior to admission noted anemia with patient experiencing fatigue, malaise and SOB on exertion concerning for symptomatic anemia. Was advised to present to the ED for acute care to avoid further decompensation. She denies any active GIB. Review noted upper abdo discomfort/tenderness that is chronic due to abdominal wall hernia EKG personally reviewed with anabel Ramirez, NSR CT/CT abd pelvis w iv no oral IMPRESSION: Complex mid to lower anterior abdominal wall hernia containing multiple loops of small bowel. Some of small bowel loops within the rightward aspect of hernia true wall thickening and, increased mucosal enhancement and adjacent mesenteric edema. Although the findings could represent enteritis, vascular compromise due to entrapment is also a consideration. Mild central mesenteric edema, similar to increased since the prior study, likely reactive. Past Med Surg Social Fam HX - Past Medical History Medical history: asthma, diabetes, hyperlipidemia, hypertension, renal disease, other Psychiatric history: anxiety, depression - Past Surgical History Surgical History: appendectomy, cholecystectomy - Social History Smoking Status: Never smoker Smokeless Tobacco Status: No Alcohol use: none Drug use: none - Family History Mother Living Status: Hx Family Cardiac Disorders: No Hx Family Respiratory Disorders: Yes Hx Family Cancer: Yes Hx Family GI Disorders: No Hx Family Endocrine Disorder: No Hx Family Neuromuscular Disorders: No Hx Family Neurologic Disorders: No Hx Family HEENT Disorders: No Hx Family Autoimmune Disorders: No Father Living Status: Hx Family Cardiac Disorders: Yes Hx Family Respiratory Disorders: Yes (Parents smokers) Hx Family Cancer: Yes Hx Family GI Disorders: Yes (Sister ulcerative colitis) Hx Family Endocrine Disorder: Yes Hx Family Neuromuscular Disorders: No Hx Family Neurologic Disorders: No Hx Family HEENT Disorders: No Hx Family Autoimmune Disorders: No Internal Medicine - H&P: Meds Amlodipine [Norvasc] 2.5 mg PO DAILY 01/06/15 [History] Escitalopram [Lexapro] 20 mg PO HS 01/06/15 [History] Ezetimibe [Zetia] 10 mg PO HS 01/06/15 [History] Ferrous Sulfate 325 mg PO DAILY 01/06/15 [History] Furosemide [Lasix] 20 mg PO BID 01/06/15 [History] Multivitamin/Iron/Folic Acid [Centrum Complete Multivit Tab] 1 tab PO DAILY [History] Omeprazole [PriLOSEC] 20 mg PO DAILY 01/06/15 [History] Potassium Chloride 20 meq PO DAILY 01/06/15 [History] InFLIXimab [Remicade] 100 mg IV Q8W 03/29/15 [History] Ascorbate Calcium [Vitamin C] 500 mg PO DAILY 09/15/15 [History] Cholecalciferol (D-3) [Vitamin D] 1,000 unit PO DAILY 09/15/15 [History] Cinnamon Bark [Cinnamon] 500 mg PO DAILY 09/15/15 [History] Lactobacillus Combination No.8 [Adult Probiotic] 1 cap PO DAILY 09/15/15 [ History] Turmeric Root Extract [Turmeric] 500 mg PO DAILY 09/15/15 [History] Vitamin B Complex 1 cap PO DAILY 09/15/15 [History] Vitamin E (Dl,Tocopheryl Acet) [Vitamin E] 1,000 unit PO DAILY 09/15/15 [History ] HYDROcodone/Acet 5/325 mg [[place] 5-325 mg] 1 tab PO Q6H PRN 03/24/17 [History] Insulin ASPART [Novolog Flexpen] 35 unit SQ TID 03/24/17 [History] Insulin DETEMIR [Levemir Flextouch] 40 unit SQ BID 03/24/17 [History] Linagliptin [Tradjenta] 5 mg PO DAILY 03/24/17 [History] Metoprolol XL (24 HR) Succ [Toprol Xl] 100 mg PO DAILY 03/24/17 [History] 3 Allergy/AdvReac Type Severity Reaction Status Date / Time influenza virus vaccine ts Allergy Vomiting Verified 04/10/17 15:35 [id number] (36 mos,up) [From Fluarix] Pneumococcal Vaccine Allergy Vomiting Verified 04/10/17 15:35 [From Prevnar] codeine AdvReac Mild Nausea Verified 04/10/17 15:35 penicillin G AdvReac Mild swelling Verified 04/10/17 15:35 All Systems PM: A 10-system review of systems was performed and is negative for pertinent findings except as documented above in the HPI. Review of systems: ROS 14 point review of systems reviewed as best as possible given presentation. Pertinent positive or negative as per HPI or otherwise reviewed as negative - Constitutional Vitals: Temp Pulse Resp BP Pulse Ox 99.8 F H 81 18 150/60 97 04/11/17 18:54 04/11/17 20:06 04/11/17 20:06 04/11/17 20:06 04/11/17 20:06 Exam: General - AAO x 3 Psych - Appropriate affect/speech. No agitation Eyes - BOBBY. Eye lids intact. No scleral icterus Heart - Sinus. RRR. S1 and S2 present. No added HS/murmurs appreciated. No elevated JVD appreciated. Lung - Adequate air entry b/l, No crackles/wheezes appreciated GI - Soft, non-tender. No hepatosplenomegaly/ascites. BS+ - No CVA/suprapubic tenderness or palpable bladder distension Skin - Intact. No rash/petechiae/ecchymosis. Warm extremities. +1 b/l LE edema MSK - Joints with normal ROM. No joint swellings Internal Med - H&P Results - Labs Labs: Cardiac Enzymes 04/11/17 Range/Units 18:19 Troponin I < 0.03 (< 0.04) ng/mL - Impressions ITS Impressions Abdomen/Pelvis CT 04/11/17 18:01 IMPRESSION: Complex mid to lower anterior abdominal wall hernia containing multiple loops of small bowel. Some of small bowel loops within the rightward aspect of hernia true wall thickening and, increased mucosal enhancement and adjacent mesenteric edema. Although the findings could represent enteritis, vascular compromise due to entrapment is also a consideration. Mild central mesenteric edema, similar to increased since the prior study, likely reactive. D/ / Heather Canales Cha, MD / Heather Canales Cha, MD Interpreting Provider: Heatehr Canales Cha, MD
[2017-04-11] MEDS ORDERED: NON-FORMULARY MEDICATION 1 EACH EACH (Insulin Detemir [Levemir Flextouch] 40 UNIT) SQ SCH (21:00)
[2017-04-11 22:47] LABS: Alanine Aminotransferase 11 Units/L (7-52); Albumin 2.9 g/dL (3.5-5.7); Albumin/Globulin Ratio 0.7 (1.1-2.2); Alkaline Phosphatase 62 Units/L (34-104); Aspartate Amino Transferase 15 Units/L (13-39); BUN/Creatinine Ratio 19 (6-26); Bilirubin,Total 0.8 mg/dL (0.3-1.0); Blood Urea Nitrogen 20 mg/dL (8-23); Calcium 8.7 mg/dL (8.6-10.3); Carbon Dioxide 26 mEq/L (23-29); Chloride 104 mEq/L (98-107); Globulin 4.1 g/dL (2.4-3.5); Glucose 112 mg/dL (70-105); Osmolality,Calculated 283 (280-300); Sodium 135 mEq/L (136-145); eGFR For African Americans > 60 (> 60); eGFR For Non-African Americans 52 (> 60)
[2017-04-11 22:52] LABS: Hematocrit 21.7 % (35.3-44.9); Immature Platelets 15.7 % (1.1-6.1); Mean Corpuscular HGB Conc 32.3 g/dL (31.6-35.5); Mean Corpuscular Hemoglobin 29.2 pg (28.0-33.3); Mean Corpuscular Volume 90.4 fL (83.0-100.0); Monocytes # 0.6 K/mcL (0.0-1.3); Nucleated Red Blood Cells 0.8 /100 WBC (0); Red Cell Distribution Width 19.8 % (11.5-14.5)
[2017-04-11 22:57] LABS: Platelet Count 47 K/mcL (140-400)
[2017-04-11 23:37] LABS: Anisocytosis 1+ (Not Present); Lymphocytes # 1.3 K/mcL (0.6-4.6); Neutrophils # 0.8 K/mcL (1.6-8.9); Platelet Estimate Marked Decrease (Normal); Reactive Lymphocytes Present (Not Present)
[2017-04-12] MEDS: Insulin DETEMIR 100 UNIT/ML X5UNITS SQ SCH ×3 (01:00→23:02)
[2017-04-12] MEDS: Furosemide 20 MG TABLET PO SCH ×3 (01:00→23:02)
[2017-04-12] MEDS: ZETIA 10MG PO SCH ×2 (01:01→23:01)
[2017-04-12] MEDS: Insulin LISPRO 300 UNITS/3 ML VIAL SQ SCH ×8 (01:01→22:58)
[2017-04-12 05:59] LABS: Basophils % 0.4 %; Eosinophils % 1.2 %
[2017-04-12 06:01] LABS: Hematocrit 20.8 % (35.3-44.9); Hemoglobin 6.6 g/dL (11.5-15.4); Immature Platelets 13.8 % (1.1-6.1); Lymphocytes # 0.8 K/mcL (0.6-4.6); Mean Corpuscular HGB Conc 31.7 g/dL (31.6-35.5); Mean Corpuscular Hemoglobin 28.9 pg (28.0-33.3); Mean Corpuscular Volume 91.2 fL (83.0-100.0); Monocytes # 0.7 K/mcL (0.0-1.3); Monocytes % 27.3 %; Nucleated Red Blood Cells 1.2 /100 WBC (0); Red Blood Count 2.28 M/mcL (3.82-4.97); Red Cell Distribution Width 20.1 % (11.5-14.5); Segmented Neutrophils % 39.1 %
[2017-04-12 06:18] LABS: Calcium 8.4 mg/dL (8.6-10.3); Potassium 3.8 mEq/L (3.5-5.1)
[2017-04-12 07:46] LABS: Platelet Count 39 K/mcL (140-400)
[2017-04-12] MEDS: (Linagliptin [Tradjenta] 5 MG PO SCH (07:54)
[2017-04-12] MEDS: amLODIPine 5 MG TABLET PO SCH (07:54)
[2017-04-12] MEDS: Cholecalciferol (D-3) 1,000 UNIT TABLET PO SCH (07:55)
[2017-04-12] MEDS: Metoprolol XL (24 HR) Succ 50 MG TAB.ER.24H PO SCH (07:55)
[2017-04-12] MEDS: Ascorbic Acid 500 MG TABLET PO SCH (07:55)
[2017-04-12] MEDS: Vitamin B Complex/Vit C/Vit E 1 EACH TABLET PO SCH (07:55)
--- NOTE | 2017-04-12 09:06 | Internal Med Progress Note ---
Date of Encounter: 04/13/17 Time of Encounter: 08:57 - Subjective Interval history: History of present illness: 72 year old woman with with h/o crohns disease with worsening anemia being w/u as OP by hematology. Recently she's had fatigue, malaise and SOB on exertion. She received 1 unit of PRBC and was admitted for symptomatic anemia. who presents with anemia with some symptoms after being seen by hematology outpatient pending evaluation of etiology of anemia. Assessment and Plan (1) Symptomac Anemia Anemia currently being w/u as OP hematology and referred to ER by cancer center for admission and transfusion. Admit for 1 PRBC and monitoring Continue trending Hbg Monitor symptoms Consult heme for further plan of care in the outpatient (2) Pancytopenia: Pancytopenia: (3) Abdominal pain: H/o crohns and hernia. Not a surgical candidate esspecially emergently and treatment for the pancytopenia should be completed first. No signs of ischemic bowel. Appreciate surgical consult. Surgery signed off. (4) CKD (chronic kidney disease) stage 3, GFR 30-59 ml/min Continue monitoring renal function (5) Crohns disease Currently followed by GI ss OP on Remicaide (6) Diabetes mellitus, type 2 She takes 32 U TID AC with ISS, levemir 40 U BID. Continue current mgt. Physical exam: General - AAO x 3 in NAD HEENT: Ataumatind normocephalic BOBBY. No scleral icterus Heart - RRR. S1 and S2 present. No murmurs appreciated. No JVD appreciated. Lung - CTA w/o W/R/R GI - Soft, non-tender. No hepatosplenomegaly/ascites. Normal BS present iall 4 quads. No peritoneal signs - No CVA/suprapubic tenderness or palpable bladder distension Skin - Intact. No rash/petechiae/ecchymosis. Warm extremities. +1 b/l LE edema Psych - Appropriate affect/speech. No agitation MSK - Joints with normal ROM. No joint swellings - Constitutional Vitals: Temp Pulse Resp BP Pulse Ox 98.6 F 80 16 128/63 97 04/12/17 07:25 04/12/17 07:25 04/12/17 07:25 04/12/17 07:25 04/12/17 07:25 Internal Medicine: Result - Labs CBC & Chem 7: 04/12/17 05:43 04/12/17 05:43 Labs: Short CBC 04/12/17 Range/Units 05:43 WBC 2.5 L (4.3-11.1) K/mcL Hgb 6.6 L (11.5-15.4) g/dL Hct 20.8 L (35.3-44.9) % Plt Count 39 L (140-400) K/mcL Neutrophils # 1.0 L (1.6-8.9) K/mcL BMP 04/12/17 05:43 Sodium 134 L Potassium 3.8 Chloride 102 Carbon Dioxide 27 BUN 18 Creatinine 1.13 Glucose 224 H Calcium 8.4 L - ABG Interpretation ABG results: PT/INR, D-dimer PT 13.0 Seconds (9.4-12.1) H 04/11/17 18:19 Consult Discharge Plan - Plan Referrals: Yash Hanley MD [Primary Care Provider] -
--- NOTE | 2017-04-12 09:59 | Electrocardiograph Report ---
[address] [address] Test Date: 2017-04-11 Pat Name: Akiko Bryant Department: 104 Room: [facility] Gender: F Surgery Tech: RACHEL : 1945 Requested By: Jose Ramírez Order Number: [id number] Reading MD: Lizzy Corley Measurements Intervals [place] Rate: 87 P: 64 [place]: 163 QRS: 18 QRSD: 98 T: 46 QT: 387 QTc: 432 Interpretive Statements SINUS RHYTHM Electronically Signed On 04-12-2017 9:57:55 EST by Lizzy Corley
--- NOTE | 2017-04-12 12:28 | Event Note ---
<Nicole Roy L - Last Filed: 04/12/17 12:26> Date of Encounter: 04/12/17 Time of Encounter: 11:30 Patient with known abdominal hernia. No evidence of ischemic bowel noted on exam. Of note patient is currently being evaluated and treated by hematology for pancytopenia. Also has a history of Crohn's and Remicade use. At this time Ms. Bryant is not a surgical candidate given that evaluation and treatment for the pancytopenia should be completed 1st and lack of emergent need as above. We did review with Akiko that there is no evidence of incarcerated hernia or ischemic bowel and she is agreeable to the recommendations. Surgery will sign off at this time. Thank you for allowing us to participate Ms. Bryant 's care. Please call for any further questions or concerns. <Rosi Tolentino - Last Filed: 04/12/17 13:06> Date of Encounter: 04/12/[address] Whitaker as outpatient for evaluation of hernia. She has recently been found to be pancytopenic and is being worked up by hematology. Patient reports no changes in her minimal symptoms of abdominal discomfort at the site of her hernia. She is tolerating diet and having bowel function. Her vitals are wnl. She does have a little abdominal discomfort with palpation at the site of her hernia but no rebound or guarding or signs of ischemic bowel. General surgery will sign off. She can followup with Dr Whitaker as outpatient in the future. Call if patient has symptom changes or further concerns. Thank you.
[2017-04-12] MEDS: *HR* HYDROcodone/Acet 5/325 mg TABLET PO PRN ×2 (14:03→23:30)
[2017-04-13] MEDS: Ascorbic Acid 500 MG TABLET PO SCH (07:40)
[2017-04-13] MEDS: Furosemide 20 MG TABLET PO SCH ×2 (07:40→21:45)
[2017-04-13 07:41] LABS: Calcium 8.5 mg/dL (8.6-10.3); Potassium 4.1 mEq/L (3.5-5.1)
[2017-04-13] MEDS: Metoprolol XL (24 HR) Succ 50 MG TAB.ER.24H PO SCH (07:41)
[2017-04-13] MEDS: amLODIPine 5 MG TABLET PO SCH (07:41)
[2017-04-13] MEDS: Vitamin B Complex/Vit C/Vit E 1 EACH TABLET PO SCH (07:41)
[2017-04-13] MEDS: Cholecalciferol (D-3) 1,000 UNIT TABLET PO SCH (07:41)
[2017-04-13] MEDS: (Linagliptin [Tradjenta] 5 MG PO SCH (07:42)
[2017-04-13] MEDS: Insulin LISPRO 300 UNITS/3 ML VIAL SQ SCH ×7 (07:42→21:47)
[2017-04-13 07:48] LABS: Hemoglobin 6.5 g/dL (11.5-15.4)
[2017-04-13 07:50] LABS: Hematocrit 20.4 % (35.3-44.9); Immature Platelets 16.2 % (1.1-6.1); Mean Corpuscular HGB Conc 31.9 g/dL (31.6-35.5); Mean Corpuscular Hemoglobin 29.5 pg (28.0-33.3); Mean Corpuscular Volume 92.7 fL (83.0-100.0); Mean Platelet Volume 13.3 fL (9.4-12.4); Red Cell Distribution Width 20.3 % (11.5-14.5)
[2017-04-13 07:56] LABS: Platelet Count 40 K/mcL (140-400)
[2017-04-13 08:17] LABS: Eosinophils # 0.1 K/mcL (0.0-0.6); Lymphocytes # 0.9 K/mcL (0.6-4.6); Monocytes # 0.3 K/mcL (0.0-1.3); Neutrophils # 1.3 K/mcL (1.6-8.9); Platelet Estimate Decreased (Normal)
[2017-04-13] MEDS: Insulin DETEMIR 100 UNIT/ML X5UNITS SQ SCH ×2 (09:54→21:46)
--- NOTE | 2017-04-13 11:37 | Internal Med Progress Note ---
Date of Encounter: 04/13/17 Time of Encounter: 11:37 - Subjective Interval history: History of present illness: 72 year old woman with with h/o crohns disease with worsening anemia ( pancytopenia) being w/u as OP by hematology and sent from the hematology office to be admitted for trasion. Recently she's had fatigue, malaise and SOB on exertion. She received 1 unit of PRBC and was admitted for symptomatic anemia. The following morning after transfusion her Hgb is only marginally better. Two more units of PRBC were ordered and Heme/Onc was consulted. A BMB may be needed tomorrow per heme/onc. Assessment and Plan (1) Symptomac Anemia Anemia currently being w/u as OP hematology and referred to ER by cancer center for admission and transfusion. Admit for 1 PRBC and monitoring Continue trending Hbg Monitor symptoms Heme/onc will see her tommorow and may need a BMB per phone conversation. (2) Pancytopenia: Pancytopenia: (3) Abdominal pain: H/o crohns and hernia. Not a surgical candidate esspecially emergently and treatment for the pancytopenia should be completed first. No signs of ischemic bowel. Appreciate surgical consult. Surgery signed off. (4) CKD (chronic kidney disease) stage 3, GFR 30-59 ml/min Continue monitoring renal function (5) Crohns disease Currently followed by GI ss OP on Remicaide (6) Diabetes mellitus, type 2 She takes 32 U TID AC with ISS, levemir 40 U BID. Continue current mgt. Physical exam: General - AAO x 3 in NAD HEENT: Ataumatind normocephalic BOBBY. No scleral icterus Heart - RRR. S1 and S2 present. No murmurs appreciated. No JVD appreciated. Lung - CTA w/o W/R/R GI - Soft, non-tender. No hepatosplenomegaly/ascites. Normal BS present iall 4 quads. No peritoneal signs - No CVA/suprapubic tenderness or palpable bladder distension Skin - Intact. No rash/petechiae/ecchymosis. Psych - Normal affect MSK - Joints with normal ROM. No joint swellings - Constitutional Vitals: Temp Pulse Resp BP Pulse Ox 98.8 F 86 14 125/56 93 04/13/17 07:01 04/13/17 07:01 04/13/17 07:01 04/13/17 07:01 04/13/17 07:01 Internal Medicine: Result - Labs CBC & Chem 7: 04/13/17 05:34 04/13/17 05:34 Labs: Short CBC 04/13/17 Range/Units 05:34 WBC 2.6 L (4.3-11.1) K/mcL Hgb 6.5 L (11.5-15.4) g/dL Hct 20.4 L (35.3-44.9) % Plt Count 40 L (140-400) K/mcL Neutrophils # 1.3 L (1.6-8.9) K/mcL BMP 04/13/17 05:34 Sodium 135 L Potassium 4.1 Chloride 103 Carbon Dioxide 24 BUN 19 Creatinine 1.21 H Glucose 178 H Calcium 8.5 L - ABG Interpretation ABG results: PT/INR, D-dimer PT 13.0 Seconds (9.4-12.1) H 04/11/17 18:19 Consult Discharge Plan - Plan Referrals: Yash Hanley MD [Primary Care Provider] -
[2017-04-13] MEDS: *HR* HYDROcodone/Acet 5/325 mg TABLET PO PRN ×2 (11:48→18:35)
[2017-04-13] MEDS ORDERED: 0.9 % Sodium Chloride 250 ML ONE (12:45)
[2017-04-13] MEDS: Acetaminophen 325 MG TABLET PO PRN (21:45)
[2017-04-13] MEDS: ZETIA 10MG PO SCH (21:46)
[2017-04-14 07:22] LABS: Hemoglobin 7.8 g/dL (11.5-15.4); Red Cell Distribution Width 19.9 % (11.5-14.5)
[2017-04-14 07:23] LABS: Hematocrit 25.1 % (35.3-44.9); Immature Platelets 14.2 % (1.1-6.1); Mean Corpuscular HGB Conc 31.1 g/dL (31.6-35.5); Mean Corpuscular Hemoglobin 28.3 pg (28.0-33.3); Mean Corpuscular Volume 90.9 fL (83.0-100.0); Nucleated Red Blood Cells 0.8 /100 WBC (0); Red Blood Count 2.76 M/mcL (3.82-4.97)
[2017-04-14] MEDS: Insulin LISPRO 300 UNITS/3 ML VIAL SQ SCH ×7 (07:44→20:17)
[2017-04-14] MEDS: Cholecalciferol (D-3) 1,000 UNIT TABLET PO SCH (07:47)
[2017-04-14] MEDS: Ascorbic Acid 500 MG TABLET PO SCH (07:47)
[2017-04-14] MEDS: Vitamin B Complex/Vit C/Vit E 1 EACH TABLET PO SCH (07:47)
[2017-04-14] MEDS: amLODIPine 5 MG TABLET PO SCH (07:48)
[2017-04-14] MEDS: Acetaminophen 325 MG TABLET PO PRN ×2 (07:48→17:56)
[2017-04-14] MEDS: Metoprolol XL (24 HR) Succ 50 MG TAB.ER.24H PO SCH (07:48)
[2017-04-14] MEDS: Furosemide 20 MG TABLET PO SCH ×2 (07:48→20:17)
[2017-04-14] MEDS: (Linagliptin [Tradjenta] 5 MG PO SCH (07:49)
[2017-04-14 08:44] LABS: Platelet Count 39 K/mcL (140-400)
[2017-04-14 08:48] LABS: Eosinophils # 0.1 K/mcL (0.0-0.6); Lymphocytes # 0.7 K/mcL (0.6-4.6); Monocytes # 0.5 K/mcL (0.0-1.3); Neutrophils # 1.3 K/mcL (1.6-8.9); Platelet Estimate Decreased (Normal)
[2017-04-14] MEDS: *HR* HYDROcodone/Acet 5/325 mg TABLET PO PRN ×3 (09:17→21:39)
[2017-04-14] MEDS: Insulin DETEMIR 100 UNIT/ML X5UNITS SQ SCH ×2 (09:18→20:17)
[2017-04-14 09:41] LABS: Albumin 2.9 g/dL (3.5-5.7); Albumin/Globulin Ratio 0.7 (1.1-2.2); Bilirubin,Total 0.8 mg/dL (0.3-1.0); Calcium 8.6 mg/dL (8.6-10.3); Globulin 4.4 g/dL (2.4-3.5); Potassium 4.4 mEq/L (3.5-5.1); Total Protein 7.3 g/dL (6.4-8.9)
--- NOTE | 2017-04-14 15:34 | Oncology Inp Consult Note ---
<Karlie Cordero - Last Filed: 04/14/17 17:07> Date of Encounter: 04/14/17 - Data of Consult Requesting Physician: Vishnu Overton Primary Care Provider: Yash Hanley MD - Consult Narrative History of present illness: Medical records reviewed, patient was seen bedside histrory nad physical performed. She will need a bone marrow evaluation to r/o underlying disorder. PAtient has not consented for procedure yet-risk benefits discussed with her. I examined this patient and my medical decision-making was reviewed with the Advanced Practice Nurse. I agree with the documented findings, disposition and treatment plan as described except to the extent set forth below. Medications and Allergies Amlodipine [Norvasc] 2.5 mg PO DAILY 01/06/15 [History] Escitalopram [Lexapro] 20 mg PO HS 01/06/15 [History] Ezetimibe [Zetia] 10 mg PO HS 01/06/15 [History] Ferrous Sulfate 325 mg PO DAILY 01/06/15 [History] Furosemide [Lasix] 20 mg PO BID 01/06/15 [History] Multivitamin/Iron/Folic Acid [Centrum Complete Multivit Tab] 1 tab PO DAILY [History] Omeprazole [PriLOSEC] 20 mg PO DAILY 01/06/15 [History] Potassium Chloride 20 meq PO DAILY 01/06/15 [History] InFLIXimab [Remicade] 100 mg IV Q8W 03/29/15 [History] Ascorbate Calcium [Vitamin C] 500 mg PO DAILY 09/15/15 [History] Cholecalciferol (D-3) [Vitamin D] 1,000 unit PO DAILY 09/15/15 [History] Cinnamon Bark [Cinnamon] 500 mg PO DAILY 09/15/15 [History] Lactobacillus Combination No.8 [Adult Probiotic] 1 cap PO DAILY 09/15/15 [ History] Turmeric Root Extract [Turmeric] 500 mg PO DAILY 09/15/15 [History] Vitamin B Complex 1 cap PO DAILY 09/15/15 [History] Vitamin E (Dl,Tocopheryl Acet) [Vitamin E] 1,000 unit PO DAILY 09/15/15 [History ] HYDROcodone/Acet 5/325 mg [[place] 5-325 mg] 1 tab PO Q6H PRN 03/24/17 [History] Insulin ASPART [Novolog Flexpen] 35 unit SQ TID 03/24/17 [History] Insulin DETEMIR [Levemir Flextouch] 40 unit SQ BID 03/24/17 [History] Linagliptin [Tradjenta] 5 mg PO DAILY 03/24/17 [History] Metoprolol XL (24 HR) Succ [Toprol Xl] 100 mg PO DAILY 03/24/17 [History] 3 Allergy/AdvReac Type Severity Reaction Status Date / Time influenza virus vaccine ts Allergy Vomiting Verified 04/10/17 15:35 [id number] (36 mos,up) [From Fluarix] Pneumococcal Vaccine Allergy Vomiting Verified 04/10/17 15:35 [From Prevnar] codeine AdvReac Mild Nausea Verified 04/10/17 15:35 penicillin G AdvReac Mild swelling Verified 04/10/17 15:35 Oncology - Exam - Constitutional Vitals: Temp Pulse Resp BP Pulse Ox 103 F H 72 16 155/66 97 04/14/17 16:01 04/14/17 13:14 04/14/17 16:01 04/14/17 16:01 04/14/17 16:01 Oncology - Results Labs: Short CBC 04/14/17 Range/Units 06:59 WBC 2.6 L (4.3-11.1) K/mcL Hgb 7.8 L (11.5-15.4) g/dL Hct 25.1 L (35.3-44.9) % Plt Count 39 L (140-400) K/mcL Neutrophils # 1.3 L (1.6-8.9) K/mcL BMP 04/14/17 06:59 Sodium 133 L Potassium 4.4 Chloride 99 Carbon Dioxide 25 BUN 20 Creatinine 1.25 H Glucose 119 H Calcium 8.6 Liver Function 04/14/17 Range/Units 06:59 Total Bilirubin 0.8 (0.3-1.0) mg/dL AST 20 (13-39) Units/L ALT 10 (7-52) Units/L Alkaline Phosphatase 61 (34-104) Units/L Albumin 2.9 L (3.5-5.7) g/dL Consult Discharge Plan - Plan Referrals: Yash Hanley MD [Primary Care Provider] - <Lucila Evans - Last Filed: 04/15/17 09:39> Date of Encounter: 04/14/17 Time of Encounter: 15:30 Assessment and Plan (1) Pancytopenia Status: Acute Assessment and plan: 1. Refractory pancytopenia as described in HPI. Patient evaluated during previous hospitalization with no definite etiology of pancytopenia during previous hospitalization. 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 She may have a prolonged course of influenza due to her immunocompromised state. She also has Crohn Disease and has taken Remicade for about 10 years, this could play a role in her pancytopenia as well. Suspected etiology as described above, she would benefit from bone marrow biopsy for definitive diagnosis as she could have underlying bone marrow disorder/neoplasm. Discussed bone marrow biopsy with patient today, she was not receptive to procedure at this time. Continues to experience fevers/chills and not feeling well at this time. Will re-evaluate labs in am and discuss bone marrow biopsy further with patient tomorrow. Please refer to Dr. Diaz's attestation below for further details. - Data of Consult Patient: known to practice within the last 3 years Consult date: 04/14/17 Requesting Physician: Vishnu Overton Primary Care Provider: Yash Hanley MD - Consult Narrative Reason for consult: Pancytopenia History of present illness: Ms. Bryant is a 72 year old female with past medical history significant for diabetes, hypertension, gastroesophageal reflux disease (GERD), Kidney disease, Crohns, SI spondylolithesis, Reaction to Anesthesia-Vomits, Depression / Anxiety , RLS, cyst - mid back excised 10/26, Iron deficiency, and chronic Hip pain. Mrs. Bryant was previously hospitalized with influenza by PCR 03/24/2017. She was seen by hematology Dr. Massey as an inpatient for pancytopenia Dr. Weston thought she may have a component of MDS and possible bone marrow biopsy as an outpatient She has anemia dating back to 01/06/2015. Hemoglobin ranged between 10 and 11 and this could be from her Crohn's disease and she being on Remicade Her anemia got worse with hemoglobin 8 during hospitalization She also has thrombocytopenia which started around December 2016. Platelet counts were around 100 range but dropped to about 50,000 during the hospitalization and its improving Her neutrophil counts dropped during hospitalization to about 800 but on discharge they were normal She has been getting Remicade every 8 weeks for last 10 years for Crohn's disease and follows Dr. Alexander. She has not felt good since hospital discharge 03/29/2017. Increased fatigue, continued fever/chills and dehydration. Diarrhea sometimes foul-smelling. She is immunocompromised and her influenza may run more prolonged course. Admitted with the above and worsening pancytopenia for transfusional support. Imaging CT abdomen and pelvis on February 192016 showed lower rectus abdominal wall weakness with abdominal wall hernia. Post sigmoid colon resection. 1.3 cm left adrenal myolipoma She has some fatty liver but no obvious cirrhosis. No splenomegaly CT Abd/Pelvis in 2014 revealed hepatomegaly/splenomegaly with severe hepatic steatosis CT angiogram chest on 01/28/2015 showed some granulomas and pneumomediastinum no PE Past Med Surg Social Fam HX - Past Medical History Medical history: asthma, diabetes, hyperlipidemia, hypertension, renal disease, other Psychiatric history: anxiety, depression - Past Surgical History Surgical History: appendectomy, cholecystectomy - Social History Smoking Status: Never smoker Smokeless Tobacco Status: No Alcohol use: none Drug use: none - Family History Mother Living Status: Hx Family Cardiac Disorders: No Hx Family Respiratory Disorders: Yes Hx Family Cancer: Yes Hx Family GI Disorders: No Hx Family Endocrine Disorder: No Hx Family Neuromuscular Disorders: No Hx Family Neurologic Disorders: No Hx Family HEENT Disorders: No Hx Family Autoimmune Disorders: No Father Living Status: Hx Family Cardiac Disorders: Yes Hx Family Respiratory Disorders: Yes (Parents smokers) Hx Family Cancer: Yes Hx Family GI Disorders: Yes (Sister ulcerative colitis) Hx Family Endocrine Disorder: Yes Hx Family Neuromuscular Disorders: No Hx Family Neurologic Disorders: No Hx Family HEENT Disorders: No Hx Family Autoimmune Disorders: No Constitutional: Present: chills, fatigue, fever(s), malaise, weakness Eyes: Absent: loss of vision Nose, mouth and throat: Present: headache(s) Cardiovascular: Present: dyspnea on exertion. Absent: chest pain Respiratory: Present: dyspnea on exertion. Absent: cough, hemoptysis, wheezing , chest congestion Gastrointestinal: Present: abdominal pain, diarrhea. Absent: nausea, vomiting Genitourinary: Absent: dysuria, hematuria Musculoskeletal: Present: muscle weakness, myalgias Integumentary: Absent: wounds Neurological: Absent: numbness, syncope, tingling Hematologic/Lymphatic: Absent: easy bleeding, lymphadenopathy Oncology - Exam - Constitutional Vitals: Temp Pulse Resp BP Pulse Ox 102 F H 72 18 129/49 98 04/14/17 15:12 04/14/17 13:14 04/14/17 13:14 04/14/17 13:14 04/14/17 13:14 General appearance: febrile, no no acute distress - Head Head exam: Present: atraumatic - Respiratory Respiratory exam: Present: CTAB. Absent: respiratory distress - Cardiovascular Cardiovascular exam: Present: RRR, +S1, +S2 - GI/Abdominal GI/Abdominal exam: Present: normal bowel sounds, soft, tenderness. Absent: guarding, rebound Additional comments: tenderness due to hernia - Extremities Exam Extremities exam: Present: pedal edema. Absent: calf tenderness - Neurological Exam Neurological exam: Present: alert, oriented X3, no focal deficits, strengths equal and symetr throughout - Psychiatric Psychiatric exam: Present: flat affect Additional comments: withdrawn, not taking part in conversation - Skin Skin exam: Present: pallor, warm Oncology - Results Labs: Short CBC 04/14/17 Range/Units 06:59 WBC 2.6 L (4.3-11.1) K/mcL Hgb 7.8 L (11.5-15.4) g/dL Hct 25.1 L (35.3-44.9) % Plt Count 39 L (140-400) K/mcL Neutrophils # 1.3 L (1.6-8.9) K/mcL BMP 04/14/17 06:59 Sodium 133 L Potassium 4.4 Chloride 99 Carbon Dioxide 25 BUN 20 Creatinine 1.25 H Glucose 119 H Calcium 8.6 Liver Function 04/14/17 Range/Units 06:59 Total Bilirubin 0.8 (0.3-1.0) mg/dL AST 20 (13-39) Units/L ALT 10 (7-52) Units/L Alkaline Phosphatase 61 (34-104) Units/L Albumin 2.9 L (3.5-5.7) g/dL
--- NOTE | 2017-04-14 18:51 | Internal Med Progress Note ---
Date of Encounter: 04/14/17 Time of Encounter: 18:20 - Subjective Interval history: History of present illness: 72 year old woman with with h/o crohns disease with worsening anemia ( pancytopenia) being w/u as OP by hematology and sent from the hematology office to be admitted for trasion. Recently she's had fatigue, malaise and SOB on exertion. She received 1 unit of PRBC and was admitted for symptomatic anemia. The following morning after transfusion her Hgb is only marginally better. Two more units of PRBC were ordered and Heme/Onc was consulted. A BMB may be needed tomorrow per heme/onc. Assessment and Plan (1) Pancytopenia: Heme/onc saw her and she will need a BMBx possibly tomorrow. Low grade fever this afternoon with PMN count ~1300. Repeat labs ordered Because she is taking Remicade for her Crohns dz tart Cefepime and Vanc started (2) Symptomac Anemia Anemia currently being w/u as OP hematology and referred to ER by cancer center for admission and transfusion. Admit for 1 PRBC and subsequently given two more units Continue trending Hbg Profoundly weak (3) Abdominal pain: H/o crohns and hernia. Not a surgical candidate especially emergently and treatment for the pancytopenia should be completed first. No signs of ischemic bowel. Appreciate surgical consult. Surgery signed off. (4) CKD (chronic kidney disease) stage 3, GFR 30-59 ml/min Continue monitoring renal function (5) Crohns disease Currently followed by GI ss OP on Remicaide (6) Diabetes mellitus, type 2 She takes 32 U TID AC with SSI, levemir 40 U BID. Continue current mgt. Physical exam: General - AAO x 3 in NAD HEENT: [place] normocephalic BOBBY. No scleral icterus Heart - RRR. S1 and S2 present. No murmurs appreciated. No JVD appreciated. Lung - CTA w/o W/R/R GI - Soft, non-tender. No hepatosplenomegaly/ascites. Normal BS present iall 4 quads. No peritoneal signs - No CVA/suprapubic tenderness or palpable bladder distension Skin - Intact. No rash/petechiae/ecchymosis. Psych - Very depressed MSK - Joints with normal ROM. No joint swellings - Constitutional Vitals: Temp Pulse Resp BP Pulse Ox 100.7 F H 72 16 155/66 97 04/14/17 18:17 04/14/17 13:14 04/14/17 16:01 04/14/17 16:01 04/14/17 16:01 Internal Medicine: Result - Labs CBC & Chem 7: 04/14/17 06:59 04/14/17 06:59 Labs: Short CBC 04/14/17 Range/Units 06:59 WBC 2.6 L (4.3-11.1) K/mcL Hgb 7.8 L (11.5-15.4) g/dL Hct 25.1 L (35.3-44.9) % Plt Count 39 L (140-400) K/mcL Neutrophils # 1.3 L (1.6-8.9) K/mcL BMP 04/14/17 06:59 Sodium 133 L Potassium 4.4 Chloride 99 Carbon Dioxide 25 BUN 20 Creatinine 1.25 H Glucose 119 H Calcium 8.6 Liver Function 04/14/17 Range/Units 06:59 Total Bilirubin 0.8 (0.3-1.0) mg/dL AST 20 (13-39) Units/L ALT 10 (7-52) Units/L Alkaline Phosphatase 61 (34-104) Units/L Albumin 2.9 L (3.5-5.7) g/dL - ABG Interpretation ABG results: PT/INR, D-dimer PT 13.0 Seconds (9.4-12.1) H 04/11/17 18:19 Consult Discharge Plan - Plan Referrals: Yash Hanley MD [Primary Care Provider] -
[2017-04-14] MEDS ORDERED: Vancomycin 1,250 MG in D5% in Water 250 ML IVPB ONE (18:53)
[2017-04-14 19:02] LABS: Hemoglobin 8.6 g/dL (11.5-15.4)
[2017-04-14 19:04] LABS: Hematocrit 26.2 % (35.3-44.9); Immature Platelets 14.8 % (1.1-6.1); Mean Corpuscular HGB Conc 32.8 g/dL (31.6-35.5); Mean Corpuscular Hemoglobin 28.6 pg (28.0-33.3); Platelet Count 39 K/mcL (140-400); Red Blood Count 3.01 M/mcL (3.82-4.97)
[2017-04-14] MEDS: ZETIA 10MG PO SCH (20:18)
[2017-04-15] MEDS: Cefepime HCl 2,000 MG in Water for inj. (sterile) 20 ML 20 ML IVP SCH ×3 (00:43→18:14)
[2017-04-15] MEDS: Acetaminophen 325 MG TABLET PO PRN ×3 (00:45→22:38)
[2017-04-15 04:52] LABS: Hematocrit 27.9 % (35.3-44.9)
[2017-04-15 04:53] LABS: Basophils % 0.7 %; Hemoglobin 8.9 g/dL (11.5-15.4); Immature Platelets 17.4 % (1.1-6.1); Lymphocytes # 0.5 K/mcL (0.6-4.6); Lymphocytes % 15.7 %; Mean Corpuscular HGB Conc 31.9 g/dL (31.6-35.5); Mean Corpuscular Hemoglobin 28.1 pg (28.0-33.3); Neutrophils # 1.4 K/mcL (1.6-8.9); Red Blood Count 3.17 M/mcL (3.82-4.97); Red Cell Distribution Width 19.1 % (11.5-14.5); Segmented Neutrophils % 46.6 %
[2017-04-15 04:55] LABS: Platelet Count 40 K/mcL (140-400)
[2017-04-15 05:17] LABS: Anisocytosis 1+ (Not Present); Platelet Estimate Decreased (Normal)
[2017-04-15] MEDS ORDERED: Aminoglycoside Consult 1 EACH MC ONE (08:20)
[2017-04-15] MEDS: Ondansetron 4 MG/2 ML VIAL IVP PRN (08:50)
[2017-04-15] MEDS: Cholecalciferol (D-3) 1,000 UNIT TABLET PO SCH (08:51)
[2017-04-15] MEDS: Ascorbic Acid 500 MG TABLET PO SCH (08:52)
[2017-04-15] MEDS: amLODIPine 5 MG TABLET PO SCH (08:52)
[2017-04-15] MEDS: Furosemide 20 MG TABLET PO SCH ×2 (08:52→20:43)
[2017-04-15] MEDS: (Linagliptin [Tradjenta] 5 MG PO SCH (09:00)
[2017-04-15] MEDS: Vitamin B Complex/Vit C/Vit E 1 EACH TABLET PO SCH (09:00)
[2017-04-15] MEDS: Metoprolol XL (24 HR) Succ 50 MG TAB.ER.24H PO SCH (09:00)
[2017-04-15] MEDS: *HR* HYDROcodone/Acet 5/325 mg TABLET PO PRN ×3 (09:00→23:38)
[2017-04-15] MEDS: Insulin LISPRO 300 UNITS/3 ML VIAL SQ SCH ×7 (09:02→20:50)
[2017-04-15] MEDS: Insulin DETEMIR 100 UNIT/ML X5UNITS SQ SCH ×2 (09:10→20:50)
--- NOTE | 2017-04-15 10:21 | Internal Med Progress Note ---
Date of Encounter: 04/15/17 Time of Encounter: 08:10 - Assessment and plan (1) Fever of unknown origin (FUO) Current Visit: Yes Status: Acute Assessment and plan: has been febrile with Tmax 103 since 04/13/17. Etiology unknown at this time. Recently hospitalized with influenza A. She may have a prolonged course of influenza due to her immunocompromised state. No obvious source at this time. CXR, blood cultures, stool for C. difficile, respiratory PCR, urinary antigens and UA pending. Continue cefepime, vancomycin. ID consulted (2) Pancytopenia Current Visit: Yes Status: Acute Assessment and plan: Refractory pancytopenia. Evaluated during previous hospitalization with no definite etiology. Suspected to be from underlying low grade MDS with exacerbation by viral illness (positive for influenza during previous hospitalization). Has been on Remicade for last 10 years which could contributing to pancytopenia. Evaluated by Oncology who recommended bone marrow biopsy for definitive diagnosis as she could have underlying bone marrow disorder/neoplasm; however patient declining at this time. CBC was persistent leukopenia, anemia and thrombocytopenia but stable. Continue to monitor CBC, oncology following. (3) Symptomatic anemia Current Visit: Yes Status: Acute Assessment and plan: had outpatient labs drawn per Oncology. Hgb was found to be 6.3 and she was advised to go to ER for further evaluation. Symptomatic with general weakness and malaise. No active bleeding. She received 2 units PRBC with improvent in Hgb. (4) Abdominal hernia Current Visit: Yes Status: Acute Assessment and plan: ABD CT showed anterior abdominal wall hernia containing multiple loops, some of small bowel loops within the rightward aspect of hernia with wall thickening and increased mucosal enhancement/edema, findings concerning for enteritis or vascular compromise due to entrapment. Evaluated by General Surgery who noted no acute surgical intervention indicated at this time warranted as there is no evidence of ischemic bowel. Furthermore she is pancytopenic and high surgical candidate. Will need to follow-up with Dr Whitaker as outpatient Qualifiers: Hernia type: ventral Obstruction and gangrene presence: without obstruction or gangrene Qualified Code(s): K43.9 - Ventral hernia without obstruction or gangrene (5) Diarrhea Current Visit: No Status: Acute Assessment and plan: had large, watery, explosive loose stool on 04/15. C. difficile, stool studies pending. GI consulted Qualifiers: Diarrhea type: unspecified type Qualified Code(s): R19.7 - Diarrhea, unspecified (6) Crohns disease Current Visit: No Status: Chronic Assessment and plan: per hx. Follows with GI. On ramicade every 8 weeks outpatient. With mild ABD pain on exam. GI consulted Qualifiers: Gastrointestinal tract location: unspecified location Digestive disease complication type: with intestinal obstruction Qualified Code(s): K50.912 - Crohn's disease, unspecified, with intestinal obstruction (7) Diabetes mellitus, type 2 Current Visit: No Status: Chronic Assessment and plan: per hx. Blood sugars variable but controlled. Cont home long and short acting insulin. 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 renal function appears at baseline. Avoid nephrotoxic agents as possible. Intermittently monitor renal function. (9) DVT prophylaxis Current Visit: Yes Status: Acute Assessment and plan: SCDs - Subjective Interval history: Seen and examined at bedside. Patient is new to me, information obtained from chart review and patient report. She is quiet, withdrawn and does not offer much information. Says she feels about the same when asked how she is doing. Has some mild abdominal tenderness and had one loose stool this morning. No chest pain or shortness of breath. Discussed with RN who notes patient has intermittently been noncompliant with care, refusing medications, incentive spirometry. - Constitutional Vitals: Temp Pulse Resp BP Pulse Ox 102.8 F H 105 16 140/64 95 04/15/17 07:50 04/15/17 07:50 04/15/17 07:50 04/15/17 07:50 04/15/17 07:50 General appearance: Present: A&O X 3, morbidly obese, no acute distress - Head Head exam: Present: atraumatic, normocephalic - Eye Eye exam: Present: PERRL, conjuntiva pink, sclera anicteric Pupils: Present: PERRL - Neck Neck exam general surgery: Present: supple, trachea midline. Absent: lymphadenopathy - Respiratory Respiratory exam: Present: CTAB. Absent: accessory muscle use, rales, rhonchi, wheezes - Cardiovascular Cardiovascular exam: Present: RRR, +S1, +S2. Absent: diastolic murmur, gallop, rubs, systolic murmur - GI/Abdominal GI/Abdominal exam: Present: hypoactive bowel sounds, soft, no peritoneal signs. Absent: distended, tenderness - Extremities Exam Extremities exam: Present: warm, radial pulses palpable and symmetrical. Absent : calf tenderness, cyanotic, pedal edema - Neurological Exam Neurological exam: Present: CN II-XII intact, oriented X3, no focal deficits. Absent: pronater drift, facial droop, speech deficit - Psychiatric Psychiatric exam: Present: flat affect - Skin Skin exam: Present: dry, intact Internal Medicine: Result - Labs CBC & Chem 7: 04/15/17 04:32 04/14/17 06:59 Labs: Short CBC 04/14/17 04/15/17 Range/Units 18:55 04:32 WBC 3.2 L 3.0 L (4.3-11.1) K/mcL Hgb 8.6 L 8.9 L (11.5-15.4) g/dL Hct 26.2 L 27.9 L (35.3-44.9) % Plt Count 39 L 40 L (140-400) K/mcL Neutrophils # 1.4 L (1.6-8.9) K/mcL - ABG Interpretation ABG results: PT/INR, D-dimer PT 13.0 Seconds (9.4-12.1) H 04/11/17 18:19 Consult Discharge Plan - Plan Referrals: Yash Hanley MD [Primary Care Provider] -
[2017-04-15 10:34] LABS: Calcium 8.2 mg/dL (8.6-10.3); Potassium 4.2 mEq/L (3.5-5.1)
[2017-04-15] MEDS ORDERED: *HR* OxyCODONE Immed Rel 5 MG TABLET PO ONE ×2 (11:02→12:00)
[2017-04-15] MEDS ORDERED: 0.9 % Sodium Chloride 500 ML IVC ONE (11:03)
[2017-04-15] MEDS ORDERED: 0.9 % Sodium Chloride 1,000 ML ONE (12:38)
[2017-04-15 13:38] LABS: Adenovirus Not Detected (Not Detect); Bordetella Pertussis Not Detected (Not Detect); Chlamydophila pneumoniae Not Detected (Not Detect); Coronavirus 229E Not Detected (Not Detect); Coronavirus HKU1 Not Detected (Not Detect); Coronavirus NL63 Not Detected (Not Detect); Coronavirus OC43 Not Detected (Not Detect); Human Metapneumovirus Not Detected (Not Detect); Human Rhinovirus/Enterovirus Not Detected (Not Detect); Influenza A Subtype 2009 H1 Not Detected (Not Detect); Influenza A Untypeable Not Detected (Not Detect); Influenza B Not Detected (Not Detect); Mycoplasma pneumoniae Not Detected (Not Detect); Parainfluenza Virus 1 Not Detected (Not Detect); Parainfluenza Virus 2 Not Detected (Not Detect); Parainfluenza Virus 3 Not Detected (Not Detect); Parainfluenza Virus 4 Not Detected (Not Detect); Respiratory Syncytial Virus Not Detected (Not Detect)
--- NOTE | 2017-04-15 14:27 | Infectious Disease Consult ---
Date of Encounter: 04/15/17 Time of Encounter: 14:25 Assessment and Plan (1) Fever of unknown origin (FUO) Status: Acute Assessment and plan: 72-year-old female initially presented with anemia. 1 episode of fever on 04/11. Fever recurred on 04/13 and has been persistent. Maximum temperature is 103. CT abdomen and pelvis on 04/11 showed complex mid to lower abdominal wall hernia containing multiple loops of bowel with some thickening This was confirmed by CT abdomen and pelvis on 04/15. RIP was negative. Patient also has leukopenia. WBC 3.0. 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 Unclear etiology infectious vs malignancy vs autoimmune vs other order procalcitonin, ESR,CRP, RF, MELISSA, lipase, amylase, HIV, Hepatitis profile, quantiferon gold, parvo B19 IgM, Ct chest. (2) Pancytopenia Status: Acute Assessment and plan: WBC of 2.7, hemoglobin 7.0, platelet count of 47 on admission. Follows with hematology oncology outpatient. Oncology notes likely secondary to MDS and exacerbated by recent influenza along with being on Remicade for Crohn's disease. Patient has been offered bone marrow biopsy but has refused. ANC today is 1400 Management as per primary. (3) Diabetes mellitus, type 2 Status: Chronic Assessment and plan: Insulin-dependent diabetes. Management as per primary Qualifiers: Diabetes mellitus complication status: with unspecified complications Diabetes mellitus long term care social worker insulin use: with longterm use Qualified Code(s) : E11.8 - Type 2 diabetes mellitus with unspecified complications; Z79.4 - custodial (current) use of insulin; Z79.4 - custodial (current) use of insulin; Z79.4 - intermodal dispatcher (current) use of insulin; Z79.4 - intermodal dispatcher (current) use of insulin (4) Diarrhea Status: Acute Assessment and plan: She had acute onset of diarrhea this morning. According to nurse diarrhea was all over the floor and wall. Patient did not have diarrhea before admission. No blood noted in diarrhea. GI stool panel, C. difficile PCR ordered. Patient has not had recurrent diarrhea since this morning. Plan: Await stool panel/c diff results results. Qualifiers: Diarrhea type: unspecified type Qualified Code(s): R19.7 - Diarrhea, unspecified (5) Crohns disease Status: Chronic Assessment and plan: Stable. History of Crohn's disease diagnosed in 1995. For last 10 years patient has been on Remicade and in remission. Patient denies diarrhea before admission, hematochezia, melena. Patient has chronic abdominal pain since her sigmoid resection. States this is unchanged. Qualifiers: Gastrointestinal tract location: unspecified location Digestive disease complication type: with intestinal obstruction Qualified Code(s): K50.912 - Crohn's disease, unspecified, with intestinal obstruction (6) Hernia of abdominal cavity Status: Acute Assessment and plan: Status post sigmoid resection in 2014 secondary to sigmoid structure from Crohn' s disease. Reports chronic abdominal pain that is intermittent and nonradiating in the right lower quadrant. CT abdomen/pelvis does not show any acute changes. Surgery were's consult and reports patient does not have an acute abdomen. (7) Penicillin allergy Status: Chronic Assessment and plan: swelling of arm (8) ISHAN (acute kidney injury) Status: Acute Assessment and plan: worsening Scr Crcl 41 dose antibiotics accordingly management as per primary. Infectious Disease HPI - Data of Consult Patient: new to practice Consult date: 04/15/17 Requesting Physician: Vishnu Overton Primary Care Provider: Yash Hanley MD - Consult Narrative Reason for consult: fever of unknown origin History of present illness: Ms. Bryant is a 72 year old female presented on 04/11/17 for chief complaint of anemia. On 04/15/17 infectious disease was consulted for fever of unknown origin. Central female with past medical history of Crohn's disease diagnosed in 1995 on Remicade for last 10 years, s/p sigmoid resection in 2014, iron deficiency anemia, was recently discharged from [facility] 2 weeks ago after being diagnosed with influenza. During previous admission patient was found to be pancytopenic. Patient did not receive any blood transfusions at her previous admission. She followed up with hematology outpatient. Patient was suspected to have MDS and was offered bone marrow biopsy but refused. After discharge patient has felt fatigued, reports night sweats. Reports chronic abdominal pain secondary to her sigmoid resection. She denies headache , ear ache, sinus pressure runny nose, blurry vision, neck pain, sore throat, difficulties swallowing, painful swallowing, tooth ache chest pain, palpitations , shortness of breath, productive sputum, nausea, vomiting, diarrhea, hematochezia, melena, travel, sick contacts,joint swelling, myalgias, rash, before admission. Patient lives at home alone. She denies having any pets. Denies history of smoking or alcohol use. Denies drug use. Reports allergy to penicillin: swelling of her arm. Admission patient was afebrile with a white blood cell count of 2.7, hemoglobin 7.0, platelets of 47. Lactic acid of 12. CT abdomen/pelvis with contrast on showed complex mid to lower abdominal wall hernia containing multiple loops of bowel with some thickening. Surgery was consulted for primary came and reported patient does not have an acute abdomen and a signed off. On day of admission patient had one episode of fever but then remained afebrile until . Thereafter patient has had an elevated temperature until today with max temperature being 103. Patient was started on vancomycin and cefepime by primary care team yesterday due to persistent fever and neutropenia. Her ANC has remained above 500. Oncology evaluated patient and stated patient likely has MDS and pancytopenia which is exacerbated by viral illness in the setting of Crohn's disease being medicated Remicade. Patient again refused bone marrow biopsy. This morning patient had worsening abdominal pain and episode of diarrhea with stool dripping onto the floor. She has also had nausea and one episode of vomiting on 10 mL of clear fluid. She underwent chest x-ray which is negative for acute abnormalities. She also underwent repeat CT abdomen/pelvis which showed mild distention of small bowel loops with large ventral hernia without evidence of bowel obstruction. RIP has been negative. C. difficile, blood cultures, GI stool panel, pneumococcal and Legionella antigens and urinalysis are pending. CC: Vishnu Overton Past Med Surg Social Fam HX - Past Medical History Medical history: asthma, diabetes, hyperlipidemia, hypertension, renal disease, other Psychiatric history: anxiety, depression - Past Surgical History Surgical History: appendectomy, cholecystectomy - Social History Smoking Status: Never smoker Smokeless Tobacco Status: No Alcohol use: none Drug use: none - Family History Mother Living Status: Hx Family Cardiac Disorders: No Hx Family Respiratory Disorders: Yes Hx Family Cancer: Yes Hx Family GI Disorders: No Hx Family Endocrine Disorder: No Hx Family Neuromuscular Disorders: No Hx Family Neurologic Disorders: No Hx Family HEENT Disorders: No Hx Family Autoimmune Disorders: No Father Living Status: Hx Family Cardiac Disorders: Yes Hx Family Respiratory Disorders: Yes (Parents smokers) Hx Family Cancer: Yes Hx Family GI Disorders: Yes (Sister ulcerative colitis) Hx Family Endocrine Disorder: Yes Hx Family Neuromuscular Disorders: No Hx Family Neurologic Disorders: No Hx Family HEENT Disorders: No Hx Family Autoimmune Disorders: No Infectious Disease-CN:Meds Amlodipine [Norvasc] 2.5 mg PO DAILY 01/06/15 [History] Escitalopram [Lexapro] 20 mg PO HS 01/06/15 [History] Ezetimibe [Zetia] 10 mg PO HS 01/06/15 [History] Ferrous Sulfate 325 mg PO DAILY 01/06/15 [History] Furosemide [Lasix] 20 mg PO BID 01/06/15 [History] Multivitamin/Iron/Folic Acid [Centrum Complete Multivit Tab] 1 tab PO DAILY [History] Omeprazole [PriLOSEC] 20 mg PO DAILY 01/06/15 [History] Potassium Chloride 20 meq PO DAILY 01/06/15 [History] InFLIXimab [Remicade] 100 mg IV Q8W 03/29/15 [History] Ascorbate Calcium [Vitamin C] 500 mg PO DAILY 09/15/15 [History] Cholecalciferol (D-3) [Vitamin D] 1,000 unit PO DAILY 09/15/15 [History] Cinnamon Bark [Cinnamon] 500 mg PO DAILY 09/15/15 [History] Lactobacillus Combination No.8 [Adult Probiotic] 1 cap PO DAILY 09/15/15 [ History] Turmeric Root Extract [Turmeric] 500 mg PO DAILY 09/15/15 [History] Vitamin B Complex 1 cap PO DAILY 09/15/15 [History] Vitamin E (Dl,Tocopheryl Acet) [Vitamin E] 1,000 unit PO DAILY 09/15/15 [History ] HYDROcodone/Acet 5/325 mg [[place] 5-325 mg] 1 tab PO Q6H PRN 03/24/17 [History] Insulin ASPART [Novolog Flexpen] 35 unit SQ TID 03/24/17 [History] Insulin DETEMIR [Levemir Flextouch] 40 unit SQ BID 03/24/17 [History] Linagliptin [Tradjenta] 5 mg PO DAILY 03/24/17 [History] Metoprolol XL (24 HR) Succ [Toprol Xl] 100 mg PO DAILY 03/24/17 [History] 3 Allergy/AdvReac Type Severity Reaction Status Date / Time influenza virus vaccine ts Allergy Vomiting Verified 04/10/17 15:35 [id number] (36 mos,up) [From Fluarix] Pneumococcal Vaccine Allergy Vomiting Verified 04/10/17 15:35 [From Prevnar] codeine AdvReac Mild Nausea Verified 04/10/17 15:35 penicillin G AdvReac Mild swelling Verified 04/10/17 15:35 All systems: reviewed and no additional remarkable complaints except as stated Exam - Constitutional Vitals: Temp Pulse Resp BP Pulse Ox 98.4 F 80 16 131/60 95 04/15/17 12:03 04/15/17 12:03 04/15/17 12:03 04/15/17 12:03 04/15/17 12:03 - Additional findings Additional findings: General: Flat affect, mild distress HEENT: Head atraumatic, normocephalic, EOMI, PERRL neck nontender to palpation, absent lymphadenopathy, Moist Mucous Membranes, full dentures Heart: Regular rate and rhythm with no murmur Lungs: Clear to auscultation bilaterally Abdomen: Soft mild tenderness to abdomen diffusely, nondistended positive bowel sounds Skin: warm and dry, absent rash Extremities: Absent pedal edema,absent joint effusions Neuro: Cranial nerves II through XII intact, UE and LE sensation equal bilaterally, UE and LEstrength 5/5, alert oriented 3, Vascular: Pedal and radial pulses 2 out of 4 Infectious Disease CN: Results - Labs CBC & Chem 7: 04/15/17 04:32 04/15/17 08:55 Serology: Serology 04/15/17 Range/Units 12:30 Chlamy pneumoniae PCR Not Detected (Not Detect) Adenovirus (PCR) Not Detected (Not Detect) B. pertussis DNA (PCR) Not Detected (Not Detect) B.parapertussis DNA PCR Not Detected (Not Detect) Coronavirus OC43 (PCR) Not Detected (Not Detect) Coronavirus HKU1 (PCR) Not Detected (Not Detect) Coronavirus 229E (PCR) Not Detected (Not Detect) Coronavirus NL63 (PCR) Not Detected (Not Detect) Human Metapneumovir PCR Not Detected (Not Detect) Influenza A (H1) PCR Not Detected (Not Detect) Influ A (H1N1/09) PCR Not Detected (Not Detect) Influenza A (H3) PCR Not Detected (Not Detect) Influenza A Untype (PCR) Not Detected (Not Detect) Influenza Type B (PCR) Not Detected (Not Detect) M.pneumoniae DNA (PCR) Not Detected (Not Detect) Parainfluenza 1 (PCR) Not Detected (Not Detect) Parainfluenza 2 (PCR) Not Detected (Not Detect) Parainfluenza 3 (PCR) Not Detected (Not Detect) Parainfluenza 4 (PCR) Not Detected (Not Detect) RSV (PCR) Not Detected (Not Detect) Entero/Rhino (PCR) Not Detected (Not Detect) Consult Discharge Plan - Plan Referrals: Yash Hanley MD [Primary Care Provider] - - Attending Attestation I examined this patient and my medical decision-making was reviewed with the Resident Physician. I agree with the documented findings, disposition and treatment plan as described except to the extent set forth below. Addendum to original report dictated by resident physician. Please refer to residents note for full detail. Patient is a 72-year-old woman with complex past medical history including Crohn s disease complicated by sigmoid strictures requiring sigmoid resection in 2014 , also has been on Remicade for 10 years. Patient denies any history of spondylarthritis although the records mention that she has polyarthritis. Patient was recently admitted from March 23 through March 29 with the flu and was treated with Tamiflu 30 mg twice a day because of her creatinine clearance under 60. Patient does not show home she was feeling okay and really just felt fatigued and tired. Patient really is not the best historian very flat affect and her answers are mostly yes and no. Patient apparently has not had any travel outside of the [place] or outside of the city. Lives alone. No animals. No unusual sick contacts. Patient does not eat or drink raw meat or unpasteurized milk. Patients review of system is negative for any headache, earache, sinus pressure, sore throat, runny nose, neck pain, toothache, no chest pain or shortness of breath no cough or sputum production or hemoptysis. Patient denies any abdominal pain that is not the baseline. Denies any nausea or vomiting diarrhea or constipation before coming in. Patient denied any CVA pain or back pain or urinary symptoms. Patient denied any rash or joint discomfort or myalgias. Physical exam for the head and neck was negative patient is wearing dentures she does have what appears to be an oral thrush but no oral lesions otherwise. Lungs sound clear was chest expanding symmetrically cardiovascular I did not appreciate any murmur abdomen she does have tenderness mostly epigastric no real guarding. Patient had negative Miller sign. Patients back is negative for tenderness over the spine. No CVA tenderness. Extremities adequate perfusion. No joint pain or limited range of motion. Patient does have no skin rash. After oral evaluation of the patients review of system and physical exam and reviewing all the records. The etiology of the fever is really not clear. I have a high index of suspicion for noninfectious etiology including autoimmune and malignancy. Patient has had pancytopenia and has reactive lymph nodes on the CT abdomen and pelvis. Not sure if she is being evaluated for multiple myeloma or lymphoma especially that she is on Remicade. At this point we are going to order a large battery of tests to rule out infectious etiology. Patient is not sexually active. I we will check 1blood culture 2urine culture 3GI panel Pro-calcitonin, ESR, CRP, rheumatoid factor and MELISSA Might need to check HLA-B27 Check lipase and amylase to rule out pancreatitis Check parvo B19 [address] chest without contrast If CT chest is positive then we might need to check fungal serologies. Patient is originally on antibiotics, since no signs of MRSA bacteremia I will stop the vancomycin specially that her creatinine has getting worse. Discussed with nursing staff.
[2017-04-15] MEDS ORDERED: Vancomycin 1,250 MG in D5% in Water 250 ML IVPB SCH (18:00)
[2017-04-15 19:01] LABS: Rheumatoid Factor 15 IU/mL (Less than 14)
[2017-04-15 19:27] LABS: HIV-1&2 Antibody & p24 Ag Nonreactive (Nonreactive); Hepatitis B Surface Antigen Nonreactive (Nonreactive)
[2017-04-15] MEDS: ZETIA 10MG PO SCH (20:53)
[2017-04-16 05:21] LABS: Hepatitis A Antibody IgM Nonreactive (Nonreactive); Hepatitis B Core IgM Nonreactive (Nonreactive); Hepatitis C Virus Antibody Nonreactive (Nonreactive)
[2017-04-16 05:24] LABS: Hematocrit 26.2 % (35.3-44.9); Hemoglobin 8.6 g/dL (11.5-15.4); Mean Corpuscular HGB Conc 32.8 g/dL (31.6-35.5); Mean Corpuscular Hemoglobin 28.9 pg (28.0-33.3); Mean Corpuscular Volume 87.9 fL (83.0-100.0); Red Blood Count 2.98 M/mcL (3.82-4.97)
[2017-04-16 05:30] LABS: Platelet Count 40 K/mcL (140-400)
[2017-04-16] MEDS: Cefepime HCl 2,000 MG in Water for inj. (sterile) 20 ML 20 ML IVP SCH ×3 (05:33→18:03)
[2017-04-16 05:36] LABS: Calcium 8.2 mg/dL (8.6-10.3); Potassium 4.1 mEq/L (3.5-5.1)
[2017-04-16] MEDS: *HR* HYDROcodone/Acet 5/325 mg TABLET PO PRN ×4 (05:40→23:49)
[2017-04-16] MEDS: Insulin LISPRO 300 UNITS/3 ML VIAL SQ SCH ×7 (07:58→20:22)
[2017-04-16] MEDS: (Linagliptin [Tradjenta] 5 MG PO SCH (07:59)
[2017-04-16] MEDS: Insulin DETEMIR 100 UNIT/ML X5UNITS SQ SCH ×2 (07:59→20:22)
[2017-04-16] MEDS: Furosemide 20 MG TABLET PO SCH (08:29)
[2017-04-16] MEDS: Cholecalciferol (D-3) 1,000 UNIT TABLET PO SCH (08:29)
[2017-04-16] MEDS: amLODIPine 5 MG TABLET PO SCH (08:29)
[2017-04-16] MEDS: Vitamin B Complex/Vit C/Vit E 1 EACH TABLET PO SCH (08:29)
[2017-04-16] MEDS: Metoprolol XL (24 HR) Succ 50 MG TAB.ER.24H PO SCH (08:29)
[2017-04-16] MEDS: Ascorbic Acid 500 MG TABLET PO SCH (08:30)
--- NOTE | 2017-04-16 09:35 | Oncology Inp Progress Note ---
Date of Encounter: 04/16/17 Time of Encounter: 09:35 (1) Pancytopenia Current Visit: Yes Status: Acute Assessment and plan: 1. Refractory pancytopenia without definite etiology at this time. Improving and stable at this time. She is not neutropenic. Suspected MDS or myeloproliferative disorder although leukemia cannot be excluded. She also has Crohn Disease and has taken Remicade for about 10 years, this could play a role in her pancytopenia as well. Suspected etiology as described above, she would benefit from bone marrow biopsy for definitive diagnosis as she could have underlying bone marrow disorder/neoplasm. I discussed bone marrow biopsy again with patient today, she declines procedure. She understands that this procedure could give us definitive diagnosis to rule out/rule in malignancy. She wishes to see what transpires with ID and her current infectious/inflammatory state prior to consenting to bone marrow. Will discuss further with patient again tomorrow. Continues to experience fevers/chills with Tmax 102.8 last evening. ID following , reviewed recommendations, fever of unknown origin at this time. ID has consulted Rheumatology and Nephrology in light of worsening inflammatory markers and ISHAN GI on board. Reviewed note. Ordered fecal calprotectin to rule out Crohn's flare. Ordered peripheral blood flow, peripheral smear with pathologist review and awaiting copper/ceruloplasmin results. Ct chest with no acute finding. CT Abdomen/Pelvis as described below, evaluated by surgery, no acute abdomen, not a surgical candidate at this time. Oncology: Subj Interval history: Ms. Bryant is feeling slightly better than when I visited with her about 2 days ago. She continues to report excessive fatigue and abdominal pain. She spiked a fever last night around 10-11 pm. She had diarrhea about 3 am. She currently denies nausea/vomiting, chest pain, SOB, headache, vertigo, focal weakness or s/ s of bleeding. - Constitutional Vitals: Vital Signs Temp Pulse Resp BP Pulse Ox 04/16/17 08:35 92 04/16/17 07:01 98.5 F 80 15 120/72 92 04/16/17 02:53 98.3 F 79 16 112/63 93 04/15/17 23:37 99.1 F 94 20 155/76 92 04/15/17 22:44 102.8 F H 93 20 173/82 91 04/15/17 22:30 102.8 F H 102 20 173/82 91 04/15/17 18:20 98.2 F 79 16 118/64 93 04/15/17 16:49 98.2 F 78 15 122/67 91 04/15/17 12:03 98.4 F 80 16 131/60 95 04/15/17 11:00 99.0 F Intake and Output 04/15/17 04/16/17 04/16/17 23:59 07:59 15:59 Intake Total 420 / 420 320 / 320 750 / 750 Balance 420 / 420 320 / 320 750 / 750 Intake: IV Fluids 750 / 750 Maxipime 2,000 MG In Water for inj. (sterile) 20 ML @ 300 mls/ hr IVP Q12HR SHIVANI Rx#:[id number] Vancocin 1,250 MG In Dextrose 5 250 / 250 % 250 ML @ 167 mls/hr IVPB Q24H SHIVANI Rx#:[id number] Oral 400 / 400 300 / 300 Other: Weight 89.857 kg Blood Glucose* 124 104 Patient Weight 04/16/17 23:59 Weight 89.857 kg General appearance: cooperative, no acute distress, no febrile - Head Head exam: Present: atraumatic - Respiratory Respiratory exam: Present: decreased breath sounds, CTAB - Cardiovascular Cardiovascular exam: Present: RRR, +S1, +S2 - GI/Abdominal GI/Abdominal exam: Present: normal bowel sounds, soft, tenderness. Absent: guarding, rebound - Extremities Exam Extremities exam: Present: normal inspection. Absent: calf tenderness, pedal edema - Neurological Exam Neurological exam: Present: alert, no focal deficits, strengths equal and symetr throughout - Psychiatric Psychiatric exam: Present: normal affect, normal mood - Skin Skin exam: Present: pallor, warm Oncology: Obj Data - Labs CBC & Chem 7: 04/16/17 03:59 04/16/17 03:59 - Impressions Impressions Chest X-Ray 04/15/17 10:23 IMPRESSION: No acute cardiopulmonary disease is identified. D/ / Steve Dave MD / Steve Dave MD Interpreting Provider: Steve Dave MD Abdomen/Pelvis CT 04/15/17 10:55 IMPRESSION: 1. There is mild distention of small-bowel loops with a large ventral hernia. There is no evidence of a bowel obstruction. 2. There is induration in the mesenteric fat with several prominent gastrohepatic and retroperitoneal lymph nodes. These are presumably reactive and may be related to an underlying panniculitis. 3. Benign left adrenal myelolipoma. 4. Splenomegaly. 5. Duodenal diverticulum. 6. Atherosclerotic disease. 7. There are areas of lucency noted along the left L5 transpedicular screw, concerning for instrumentation loosening. D/ / 04/15/2017 12:17:41 Steve España MD / [facility] Interpreting Provider: Steve España MD Chest CT 04/15/17 17:00 IMPRESSION: 1. No lung parenchymal abnormalities are identified to explain the patient's fever of unexplained origin. D/ / Umesh Lehman MD / Umesh Lehman MD Interpreting Provider: Umesh Lehman MD - ABG Interpretation ABG results: PT/INR, D-dimer PT 13.0 Seconds (9.4-12.1) H 04/11/17 18:19 Consult Discharge Plan - Plan Referrals: Yash Hanley MD [Primary Care Provider] -
--- NOTE | 2017-04-16 10:16 | Infectious Disease Progress No ---
Date of Encounter: 04/16/17 Time of Encounter: 10:16 - Assessment and Plan (1) Fever of unknown origin (FUO) Current Visit: Yes Status: Acute 72-year-old female initially presented with anemia. 1 episode of fever on 04/11. Fever recurred on 04/13 and has been persistent. Maximum temperature is 103. CT abdomen and pelvis on 04/11 showed complex mid to lower abdominal wall hernia containing multiple loops of bowel with some thickening This was confirmed by CT abdomen and pelvis on 04/15. RIP was negative. Patient also has leukopenia. WBC 3.0. 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 Resulting labs: ESR 77, CRP 214, Amylase and lipase WNL, RF 15, Hepatitis panel is negative, HIV negative, pending: stool panel, blood cultures, urine pneumococcal and Legionella antigens , urinalysis, procalcitonin, MELISSA, Parvo B19, quantiferon gold. Ct chest negative for any infectious process or acute abnormalities febrile overnight WBC decreased to 1.7 Unclear etiology infectious vs malignancy vs autoimmune vs other recommend consult to Rheumatology (2) ISHAN (acute kidney injury) Current Visit: Yes Status: Acute worsening Scr Crcl 38 dose antibiotics accordingly patient on lasix 20 mg BID management as per primary. Recommend Nephrology consult. (3) Pancytopenia Current Visit: Yes Status: Acute WBC of 2.7, hemoglobin 7.0, platelet count of 47 on admission. Follows with hematology oncology outpatient. Oncology notes likely secondary to MDS and exacerbated by recent influenza along with being on Remicade for Crohn's disease. Patient has been offered bone marrow biopsy but has refused. WBC decreased: no diff ordered notified lab to order differential. Patient will need differential everyday Management as per primary. (4) Diabetes mellitus, type 2 Current Visit: Yes Status: Chronic Insulin-dependent diabetes. 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 According to nurse diarrhea was all over the floor and wall. Patient did not have diarrhea before admission. No blood noted in diarrhea. GI stool panel, C. difficile PCR ordered, pending has one additional bout of diarrhea CrCl 38 Plan: Await stool panel/c diff results results. Continue cefepime 2000mg Q12h Qualifiers: Diarrhea type: unspecified type Qualified Code(s): R19.7 - Diarrhea, unspecified (6) Crohns disease Current Visit: Yes Status: Acute Stable. History of Crohn's disease diagnosed in 1995. For last 10 years patient has been on Remicade and in remission. Patient denies diarrhea before admission, hematochezia, melena. Patient has chronic abdominal pain since her sigmoid resection. States this is unchanged. patient missed dose of remicade during recent influenza admission. GI on board: fecal calprotectin ordered Qualifiers: Gastrointestinal tract location: unspecified location Digestive disease complication type: without complication Qualified Code(s): K50.90 - Crohn's disease, unspecified, without complications (7) Hernia of abdominal cavity Current Visit: Yes Status: Acute Status post sigmoid resection in 2014 secondary to sigmoid structure from Crohn' s disease. Reports chronic abdominal pain that is intermittent and nonradiating in the right lower quadrant. CT abdomen/pelvis does not show any acute changes. Surgery were's consult and reports patient does not have an acute abdomen. stable. unchanged from yesterday (8) Penicillin allergy Current Visit: Yes Status: Chronic swelling of arm - Subjective Interval history: Patient sates she feels better but does not know how specifically. She reports additional one bout of diarrhea. Otherwise has no new complaints. Patient was febrile overnight with temperature of 102.8. She denies chills, night sweats, sob sputum production, dysuria, urinary frequency. She reports her abdominal pain is unchanged. Infect Dis PN-Objective Data - Labs CBC & Chem 7: 04/16/17 03:59 04/16/17 03:59 Labs: Laboratory Results - last 24 hr 04/15/17 04/15/17 04/15/17 08:55 12:03 12:30 WBC RBC Hgb Hct MCV MCH MCHC RDW Plt Count MPV ESR Sodium 130 L Potassium 4.2 Chloride 99 Carbon Dioxide 24 BUN 27 H Creatinine 1.36 H Est GFR ( Amer) 46 L Est GFR (Non-Af Amer) 38 L BUN/Creatinine Ratio 20 Glucose 193 H POC Glucose 200 H Calculated Osmolality 280 Calcium 8.2 L C-Reactive Protein Amylase Lipase Rheumatoid Factor Chlamy pneumoniae PCR Not Detected Adenovirus (PCR) Not Detected B. pertussis DNA (PCR) Not Detected B.parapertussis DNA PCR Not Detected Coronavirus OC43 (PCR) Not Detected Coronavirus HKU1 (PCR) Not Detected Coronavirus 229E (PCR) Not Detected Coronavirus NL63 (PCR) Not Detected Hepatitis A IgM Ab Hep Bs Antigen Hep B Core IgM Ab Hepatitis C Ab Screen HIV Ag/Ab Combo Qual Human Metapneumovir PCR Not Detected Influenza A (H1) PCR Not Detected Influ A (H1N1/09) PCR Not Detected Influenza A (H3) PCR Not Detected Influenza A Untype (PCR) Not Detected Influenza Type B (PCR) Not Detected M.pneumoniae DNA (PCR) Not Detected Parainfluenza 1 (PCR) Not Detected Parainfluenza 2 (PCR) Not Detected Parainfluenza 3 (PCR) Not Detected Parainfluenza 4 (PCR) Not Detected RSV (PCR) Not Detected Entero/Rhino (PCR) Not Detected Specimen Rejected 04/15/17 04/15/17 04/15/17 18:15 18:15 18:15 WBC RBC Hgb Hct MCV MCH MCHC RDW Plt Count MPV ESR 77 H Sodium Potassium Chloride Carbon Dioxide BUN Creatinine Est GFR ( Amer) Est GFR (Non-Af Amer) BUN/Creatinine Ratio Glucose POC Glucose Calculated Osmolality Calcium C-Reactive Protein Amylase Lipase Rheumatoid Factor 15 H Chlamy pneumoniae PCR Adenovirus (PCR) B. pertussis DNA (PCR) B.parapertussis DNA PCR Coronavirus OC43 (PCR) Coronavirus HKU1 (PCR) Coronavirus 229E (PCR) Coronavirus NL63 (PCR) Hepatitis A IgM Ab Nonreactive Hep Bs Antigen Nonreactive Hep B Core IgM Ab Nonreactive Hepatitis C Ab Screen Nonreactive HIV Ag/Ab Combo Qual Nonreactive Human Metapneumovir PCR Influenza A (H1) PCR Influ A (H1N1/09) PCR Influenza A (H3) PCR Influenza A Untype (PCR) Influenza Type B (PCR) M.pneumoniae DNA (PCR) Parainfluenza 1 (PCR) Parainfluenza 2 (PCR) Parainfluenza 3 (PCR) Parainfluenza 4 (PCR) RSV (PCR) Entero/Rhino (PCR) Specimen Rejected Volume 04/15/17 04/16/17 04/16/17 20:49 03:59 03:59 WBC 1.7 L RBC 2.98 L Hgb 8.6 L Hct 26.2 L MCV 87.9 MCH 28.9 MCHC 32.8 RDW 19.0 H Plt Count 40 L MPV TNP ESR Sodium 132 L Potassium 4.1 Chloride 101 Carbon Dioxide 24 BUN 36 H Creatinine 1.45 H Est GFR ( Amer) 43 L Est GFR (Non-Af Amer) 35 L BUN/Creatinine Ratio 25 Glucose 79 POC Glucose 124 H Calculated Osmolality 281 Calcium 8.2 L C-Reactive Protein 214 H Amylase 24 L Lipase 71 Rheumatoid Factor Chlamy pneumoniae PCR Adenovirus (PCR) B. pertussis DNA (PCR) B.parapertussis DNA PCR Coronavirus OC43 (PCR) Coronavirus HKU1 (PCR) Coronavirus 229E (PCR) Coronavirus NL63 (PCR) Hepatitis A IgM Ab Hep Bs Antigen Hep B Core IgM Ab Hepatitis C Ab Screen HIV Ag/Ab Combo Qual Human Metapneumovir PCR Influenza A (H1) PCR Influ A (H1N1/09) PCR Influenza A (H3) PCR Influenza A Untype (PCR) Influenza Type B (PCR) M.pneumoniae DNA (PCR) Parainfluenza 1 (PCR) Parainfluenza 2 (PCR) Parainfluenza 3 (PCR) Parainfluenza 4 (PCR) RSV (PCR) Entero/Rhino (PCR) Specimen Rejected Cultures: Serology 04/15/17 04/15/17 Range/Units 18:15 12:30 Chlamy pneumoniae PCR Not Detected (Not Detect) Adenovirus (PCR) Not Detected (Not Detect) B. pertussis DNA (PCR) Not Detected (Not Detect) B.parapertussis DNA PCR Not Detected (Not Detect) Coronavirus OC43 (PCR) Not Detected (Not Detect) Coronavirus HKU1 (PCR) Not Detected (Not Detect) Coronavirus 229E (PCR) Not Detected (Not Detect) Coronavirus NL63 (PCR) Not Detected (Not Detect) Hepatitis A IgM Ab Nonreactive (Nonreactive) Hep Bs Antigen Nonreactive (Nonreactive) Hep B Core IgM Ab Nonreactive (Nonreactive) Hepatitis C Ab Screen Nonreactive (Nonreactive) HIV Ag/Ab Combo Qual Nonreactive (Nonreactive) Human Metapneumovir PCR Not Detected (Not Detect) Influenza A (H1) PCR Not Detected (Not Detect) Influ A (H1N1/09) PCR Not Detected (Not Detect) Influenza A (H3) PCR Not Detected (Not Detect) Influenza A Untype (PCR) Not Detected (Not Detect) Influenza Type B (PCR) Not Detected (Not Detect) M.pneumoniae DNA (PCR) Not Detected (Not Detect) Parainfluenza 1 (PCR) Not Detected (Not Detect) Parainfluenza 2 (PCR) Not Detected (Not Detect) Parainfluenza 3 (PCR) Not Detected (Not Detect) Parainfluenza 4 (PCR) Not Detected (Not Detect) RSV (PCR) Not Detected (Not Detect) Entero/Rhino (PCR) Not Detected (Not Detect) - Impressions Impressions Chest X-Ray 04/15/17 10:23 IMPRESSION: No acute cardiopulmonary disease is identified. D/ / Steve Dave MD / Steve Dave MD Interpreting Provider: Steve Dave MD Abdomen/Pelvis CT 04/15/17 10:55 IMPRESSION: 1. There is mild distention of small-bowel loops with a large ventral hernia. There is no evidence of a bowel obstruction. 2. There is induration in the mesenteric fat with several prominent gastrohepatic and retroperitoneal lymph nodes. These are presumably reactive and may be related to an underlying panniculitis. 3. Benign left adrenal myelolipoma. 4. Splenomegaly. 5. Duodenal diverticulum. 6. Atherosclerotic disease. 7. There are areas of lucency noted along the left L5 transpedicular screw, concerning for instrumentation loosening. D/ / 04/15/2017 12:17:41 Steve España MD / jose Interpreting Provider: Steve España MD Chest CT 04/15/17 17:00 IMPRESSION: 1. No lung parenchymal abnormalities are identified to explain the patient's fever of unexplained origin. D/ / Umesh Lehman MD / Umesh Lehman MD Interpreting Provider: Umesh Lehman MD Exam - Constitutional Vitals: Temp Pulse Resp BP Pulse Ox 98.5 F 80 15 120/72 92 04/16/17 07:01 04/16/17 07:01 04/16/17 07:01 04/16/17 07:01 04/16/17 08:35 - Additional findings Additional findings: General: Flat affect, pleasant HEENT: Head atraumatic, normocephalic, EOMI, PERRL neck nontender to palpation, absent lymphadenopathy, Moist Mucous Membranes, full dentures Heart: Regular rate and rhythm with no murmur Lungs: Clear to auscultation bilaterally Abdomen: Soft mild tenderness to abdomen diffusely, nondistended positive bowel sounds Skin: warm and dry, absent rash Extremities: Absent pedal edema,absent joint effusions Neuro: alert oriented x3 Vascular: Pedal and radial pulses 2 out of 4 Consult Discharge Plan - Plan Referrals: Yash Hanley MD [Primary Care Provider] - - Attending Attestation I examined this patient and my medical decision-making was reviewed with the Resident Physician. I agree with the documented findings, disposition and treatment plan as described except to the extent set forth below. discussed with primary team and rheumatology service
--- NOTE | 2017-04-16 10:20 | Gastroenterology Consult Note ---
<Nabil Ruvalcaban Mac - Last Filed: 04/16/17 10:23> Date of Encounter: 04/16/17 Time of Encounter: 09:35 - Assessment and plan (1) Crohns disease Current Visit: Yes Status: Acute Assessment and plan: Has been controlled on remicade but has been off due to recent influenza infection. Will check GI panel and medicate for diarrhea if negative for C diff. Will also check fecal calprotectin to rule out Crohn's flare. Qualifiers: Gastrointestinal tract location: unspecified location Digestive disease complication type: without complication Qualified Code(s): K50.90 - Crohn's disease, unspecified, without complications (2) Fever of unknown origin (FUO) Current Visit: Yes Status: Acute Assessment and plan: Pt being seen by infectious disease and is currently on antibiotics. (3) Pancytopenia Current Visit: Yes Status: Acute Assessment and plan: Followed by oncology - Time Spent With Patient Total time spent is greater than 50% in coordination of care (as documented) at patient's floor/unit and/or counseling patient: GI History of Present Illness - Data of Consult Patient: known to practice within the last 3 years Consult date: 04/16/17 Requesting Physician: Vishnu Overton - Consult Narrative Reason for consult: Crohn's disease/diarrhea History of present illness: Ms Bryant is a 72 year old female with a history of Crohn's disease, DM, hyperlipidemia, hyptertension, parkinson's disease, anxiety, 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 She was diagnosed with Crohns in 1992. She has been on remicade since [id number] and had been doing well. She took Imuran in the past for 2-3 days but it caused increased Crohn's-like symptoms and was stopped. She is status post right hemicolectomy in 2014. In 2016 remicade dose was doubled due to undetectable levels and antibiodies to INF. She had recent influenza infection and subsequently had to miss one dose of remicade. She reports increased abdominal pain, nausea, and explosive diarrhea since having influenza. She recently has also had pancytopenia and has been evaluated by oncology. There was a question of MDS, combined with remicade and recent infection as the cause of pancytopenia but patient has refused bone marrow biopsy. She states she has not had BM since 3 am this morning but she has not ate in the past 2 days. She denies any bloody, tarry, mucus stools. She complains of weakness and fatique. She has also had fever of unknown origin which she states "broke this morning". Colonoscopy: 05/01 poor prep, severe active crohn's disease in sigmoid colon EGD: denies NSAIDS: denies Anticoagulants: denies Past Med Surg Social Fam HX - Past Medical History Medical history: asthma, diabetes, hyperlipidemia, hypertension, renal disease, other Psychiatric history: anxiety, depression - Past Surgical History Surgical History: appendectomy, cholecystectomy - Social History Smoking Status: Never smoker Smokeless Tobacco Status: No Alcohol use: none Drug use: none - Family History Mother Living Status: Hx Family Cardiac Disorders: No Hx Family Respiratory Disorders: Yes Hx Family Cancer: Yes Hx Family GI Disorders: No Hx Family Endocrine Disorder: No Hx Family Neuromuscular Disorders: No Hx Family Neurologic Disorders: No Hx Family HEENT Disorders: No Hx Family Autoimmune Disorders: No Father Living Status: Hx Family Cardiac Disorders: Yes Hx Family Respiratory Disorders: Yes (Parents smokers) Hx Family Cancer: Yes Hx Family GI Disorders: Yes (Sister ulcerative colitis) Hx Family Endocrine Disorder: Yes Hx Family Neuromuscular Disorders: No Hx Family Neurologic Disorders: No Hx Family HEENT Disorders: No Hx Family Autoimmune Disorders: No Review of Systems: GI: as per [place] GENERAL: fever, and chills EYES: denies yellow discoloration ENT: denies pain with swallowing or difficulty swallowing CARDIO: denies chest pain, palpitations RESP: No Shortness of breath with exertion : denies change in color of urine NEURO: weakness HEME: Denies any bruising MS: denies joint pain, joint swelling or back pain. DERM: denies rash or itching PSYCH: history of anxiety - Constitutional Vitals: Temp Pulse Resp BP Pulse Ox 98.5 F 80 15 120/72 92 04/16/17 07:01 04/16/17 07:01 04/16/17 07:01 04/16/17 07:01 04/16/17 08:35 Exam: CONSTITUTIONAL:~alert, no acute distress.~HEAD:~normocephalic.~EYES:~no jaundice.~NECK:~no obvious swelling.~HEART:~regular rate and rhythm, no murmurs. ~LUNGS:~bilateral fair air entry.~ABDOMEN:~non distended, soft, diffusely tender , no masses pulpable, no organomegaly, lower midline abdominal scar well healed , hernia noted.~RECTAL EXAM:~Deferred.~EXTREMITIES:~no clubbing, cyanosis or edema.~SKIN:~no stigmata of chronic liver disease, pallor noted.~NEUROLOGIC:~no obvious focal defect.~~~~ Results - Labs CBC & Chem 7: 04/16/17 03:59 04/16/17 03:59 Labs: Last Result ESR 77 mm/hr (0-15) H 04/15/17 18:15 Calcium 8.2 mg/dL (8.6-10.3) L 04/16/17 03:59 Troponin I < 0.03 ng/mL (< 0.04) 04/11/17 18:19 C-Reactive Protein 214 mg/L (Less than 10) H 04/16/17 03:59 Entire Visit Hgb 8.6 g/dL (11.5-15.4) L 04/16/17 03:59 Hct 26.2 % (35.3-44.9) L 04/16/17 03:59 PT 13.0 Seconds (9.4-12.1) H 04/11/17 18:19 Total Bilirubin 0.8 mg/dL (0.3-1.0) 04/14/17 06:59 AST 20 Units/L (13-39) 04/14/17 06:59 ALT 10 Units/L (7-52) 04/14/17 06:59 Amylase 24 Units/L (29-103) L 04/16/17 03:59 Lipase 71 Units/L (11-82) 04/16/17 03:59 - ABG ABG results: PT/INR, D-dimer PT 13.0 Seconds (9.4-12.1) H 04/11/17 18:19 - Impressions Impressions Chest X-Ray 04/15/17 10:23 IMPRESSION: No acute cardiopulmonary disease is identified. D/ / Steve Dave MD / Steve Dave MD Interpreting Provider: Steve Dave MD Abdomen/Pelvis CT 04/15/17 10:55 IMPRESSION: 1. There is mild distention of small-bowel loops with a large ventral hernia. There is no evidence of a bowel obstruction. 2. There is induration in the mesenteric fat with several prominent gastrohepatic and retroperitoneal lymph nodes. These are presumably reactive and may be related to an underlying panniculitis. 3. Benign left adrenal myelolipoma. 4. Splenomegaly. 5. Duodenal diverticulum. 6. Atherosclerotic disease. 7. There are areas of lucency noted along the left L5 transpedicular screw, concerning for instrumentation loosening. D/ / 04/15/2017 12:17:41 Steve España MD / jose Interpreting Provider: Steve España MD Chest CT 04/15/17 17:00 IMPRESSION: 1. No lung parenchymal abnormalities are identified to explain the patient's fever of unexplained origin. D/ / Umesh Lehman MD / Umesh Lehman MD Interpreting Provider: Umesh Lehman MD Consult Discharge Plan - Plan Referrals: Yash Hanley MD [Primary Care Provider] - <Josseline Alexander - Last Filed: 04/16/17 15:10> Date of Encounter: 04/16/17 Time of Encounter: 15:00 - Time Spent With Patient Total time spent is greater than 50% in coordination of care (as documented) at patient's floor/unit and/or counseling patient: GI History of Present Illness - Data of Consult Requesting Physician: Vishnu Overton - Consult Narrative History of present illness: Ms. Bryant is a 72 year old female - Constitutional Vitals: Temp Pulse Resp BP Pulse Ox 98.6 F 79 16 108/55 91 04/16/17 13:49 04/16/17 13:49 04/16/17 13:49 04/16/17 13:49 04/16/17 13:49 Results - Labs CBC & Chem 7: 01/31/18 03:59 04/16/17 03:59 Labs: Last Result ESR 77 mm/hr (0-15) H 04/15/17 18:15 Calcium 8.2 mg/dL (8.6-10.3) L 04/16/17 03:59 Troponin I < 0.03 ng/mL (< 0.04) 04/11/17 18:19 C-Reactive Protein 214 mg/L (Less than 10) H 04/16/17 03:59 Entire Visit Hgb 8.6 g/dL (11.5-15.4) L 04/16/17 03:59 Hct 26.2 % (35.3-44.9) L 04/16/17 03:59 PT 13.0 Seconds (9.4-12.1) H 04/11/17 18:19 Total Bilirubin 0.8 mg/dL (0.3-1.0) 04/14/17 06:59 AST 20 Units/L (13-39) 04/14/17 06:59 ALT 10 Units/L (7-52) 04/14/17 06:59 Amylase 24 Units/L (29-103) L 04/16/17 03:59 Lipase 71 Units/L (11-82) 04/16/17 03:59 - ABG ABG results: PT/INR, D-dimer PT 13.0 Seconds (9.4-12.1) H 04/11/17 18:19 - Impressions Impressions Chest CT 04/15/17 17:00 IMPRESSION: 1. No lung parenchymal abnormalities are identified to explain the patient's fever of unexplained origin. D/ / Umesh Lehman MD / Umesh Lehman MD Interpreting Provider: Umesh Lehman MD - Attending Attestation I examined this patient and my medical decision-making was reviewed with the LEAD CARE MANAGER. I agree with the documented findings, disposition and treatment plan as described except to the extent set forth below. Patient sent to 2-year-old female with long-standing history of Crohn disease currently on Remicade. Last infusion was 9 weeks ago. Patient admitted this time with pancytopenia. Currently does not have any active GI symptoms. One bowel movement yesterday and the day before no bowel movement. Doubt that she has any Crohn's flare at this point. Because of her being pancytopenic we will hold her Remicade infusion.
[2017-04-16] MEDS: Acetaminophen 325 MG TABLET PO PRN ×2 (12:03→20:20)
[2017-04-16] MEDS: 0.9 % Sodium Chloride 1,000 ML IVC SCH ×2 (12:04→22:16)
[2017-04-16 13:11] LABS: Lymphocytes # 0.5 K/mcL (0.6-4.6); Monocytes # 0.4 K/mcL (0.0-1.3); Neutrophils # 0.7 K/mcL (1.6-8.9); Platelet Estimate Decreased (Normal)
--- NOTE | 2017-04-16 16:51 | Nephrology Consult Note ---
<Parth Espinal - Last Filed: 04/16/17 19:43> Date of Encounter: 04/16/17 Time of Encounter: 16:50 Assessment and Plan (2) ISHAN (acute kidney injury) Status: Acute ISHAN on CKD stage III UA reveals 100 mg/dL proteinuria, elevated urine microalbumin/ creatinine ratio 2329 on 12/26/16 Urine protein/creatinine ratio pending MELISSA negative Urine eosinophils, C3 & C4 levels pending Hold home Lasix Continue IVF Avoid nephrotoxins, Vancomycin discontinued by ID Continue to monitor (3) CKD (chronic kidney disease) stage 3, GFR 30-59 ml/min Status: Chronic Baseline GFR 44 Avoid nephrotoxins Continue to monitor (5) Hyponatremia Status: Acute SrNa 132 Continue NS at 100cc/hr Continue to monitor (6) Fever of unknown origin (FUO) Status: Acute Avoid nephrotoxins, Vancomycin discontinued by ID Continue renally dosed Cefepime Tylenol prn fever, avoid NSAIDs Management per infectious disease and rheumatology (7) HTN (hypertension) Status: Chronic Continue home meds Management per primary team Qualifiers: Hypertension type: essential hypertension Qualified Code(s): I10 - Essential (primary) hypertension (8) Crohns disease Status: Acute Management per primary team Qualifiers: Gastrointestinal tract location: unspecified location Digestive disease complication type: without complication Qualified Code(s): K50.90 - Crohn's disease, unspecified, without complications (9) Diabetes mellitus, type 2 Status: Chronic Management per primary team Qualifiers: Diabetes mellitus complication status: with unspecified complications Diabetes mellitus senior care insulin use: with senior care use Qualified Code(s) : E11.8 - Type 2 diabetes mellitus with unspecified complications; 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; Z79.4 - [facility] (current) use of insulin; 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 Bryant is a 72 yo female with a PMH of CKD stage III, DM, anemia, chronic Remicade use for Crohns disease, and recent hospitalization 03/24/17 to 03/29/17 for influenza that was sent to the ED by her clinic director on 04/11/17 for pancytopenia with fatigue, malaise, and SOB on exertion concerning for symptomatic anemia. Patient has been on IV Vancomycin and Cefepime for fever of unknown origin since 04/14/17 and is also taking Lasix 20 mg PO BID. Nephrology was consulted 04/16/17 due to concerns for worsening renal function. Past Med Surg Social Fam HX - Past Medical History Medical history: asthma, diabetes, hyperlipidemia, hypertension, renal disease, other Psychiatric history: anxiety, depression - Past Surgical History Surgical History: appendectomy, cholecystectomy - Social History Smoking Status: Never smoker Smokeless Tobacco Status: No Alcohol use: none Drug use: none - Family History Mother Living Status: Hx Family Cardiac Disorders: No Hx Family Respiratory Disorders: Yes Hx Family Cancer: Yes Hx Family GI Disorders: No Hx Family Endocrine Disorder: No Hx Family Neuromuscular Disorders: No Hx Family Neurologic Disorders: No Hx Family HEENT Disorders: No Hx Family Autoimmune Disorders: No Father Living Status: Hx Family Cardiac Disorders: Yes Hx Family Respiratory Disorders: Yes (Parents smokers) Hx Family Cancer: Yes Hx Family GI Disorders: Yes (Sister ulcerative colitis) Hx Family Endocrine Disorder: Yes Hx Family Neuromuscular Disorders: No Hx Family Neurologic Disorders: No Hx Family HEENT Disorders: No Hx Family Autoimmune Disorders: No Medications and Allergies Amlodipine [Norvasc] 2.5 mg PO DAILY 01/06/15 [History] Escitalopram [Lexapro] 20 mg PO HS 01/06/15 [History] Ezetimibe [Zetia] 10 mg PO HS 01/06/15 [History] Ferrous Sulfate 325 mg PO DAILY 01/06/15 [History] Furosemide [Lasix] 20 mg PO BID 01/06/15 [History] Multivitamin/Iron/Folic Acid [Centrum Complete Multivit Tab] 1 tab PO DAILY [History] Omeprazole [PriLOSEC] 20 mg PO DAILY 01/06/15 [History] Potassium Chloride 20 meq PO DAILY 01/06/15 [History] InFLIXimab [Remicade] 100 mg IV Q8W 03/29/15 [History] Ascorbate Calcium [Vitamin C] 500 mg PO DAILY 09/15/15 [History] Cholecalciferol (D-3) [Vitamin D] 1,000 unit PO DAILY 09/15/15 [History] Cinnamon Bark [Cinnamon] 500 mg PO DAILY 09/15/15 [History] Lactobacillus Combination No.8 [Adult Probiotic] 1 cap PO DAILY 09/15/15 [ History] Turmeric Root Extract [Turmeric] 500 mg PO DAILY 09/15/15 [History] Vitamin B Complex 1 cap PO DAILY 09/15/15 [History] Vitamin E (Dl,Tocopheryl Acet) [Vitamin E] 1,000 unit PO DAILY 09/15/15 [History ] HYDROcodone/Acet 5/325 mg [Edison 5-325 mg] 1 tab PO Q6H PRN 03/24/17 [History] Insulin ASPART [Novolog Flexpen] 35 unit SQ TID 03/24/17 [History] Insulin DETEMIR [Levemir Flextouch] 40 unit SQ BID 03/24/17 [History] Linagliptin [Tradjenta] 5 mg PO DAILY 03/24/17 [History] Metoprolol XL (24 HR) Succ [Toprol Xl] 100 mg PO DAILY 03/24/17 [History] 3 Allergy/AdvReac Type Severity Reaction Status Date / Time influenza virus vaccine ts Allergy Vomiting Verified 04/10/17 15:35 [id number] (36 mos,up) [From Fluarix] Pneumococcal Vaccine Allergy Vomiting Verified 04/10/17 15:35 [From Prevnar] codeine AdvReac Mild Nausea Verified 04/10/17 15:35 penicillin G AdvReac Mild swelling Verified 04/10/17 15:35 Review of Systems Constitutional: chills, fatigue, fever(s), malaise, no weight gain, no weight loss Nose, mouth and throat: no nasal congestion, no sore throat Cardiovascular: dyspnea, no chest pain, no palpitations, no pedal edema Respiratory: dyspnea, no cough, no chest congestion Gastrointestinal: abdominal pain (hernia), change in bowel habits, diarrhea, hematemesis, hematochezia, nausea, no vomiting Genitourinary Female: no dysuria, no hematuria, no urinary frequency, no urinary urgency Integumentary: no lesions, no rash, no swelling Neurological: weakness, no confusion, no numbness, no tingling Psychiatric: no anxiety, no depression Endocrine: fatigue, no palpitations Hematologic/Lymphatic: no easy bleeding, no lymphadenopathy Exam - Vital Signs Vital signs: Initial Vital Signs Temp Pulse Resp BP Pulse Ox 99.3 F 86 14 154/57 98 04/11/17 17:53 04/11/17 17:53 04/11/17 17:53 04/11/17 17:53 04/11/17 17:53 Vital Signs - Last 8 Hours Temp Pulse Resp BP Pulse Ox 04/16/17 13:49 98.6 F 79 16 108/55 91 04/16/17 11:45 101.9 F H 04/16/17 11:14 100.3 F H 83 18 120/55 94 Intake and Output 04/16/17 04/16/17 04/16/17 07:59 15:59 23:59 Intake Total 320 / 320 1790 / 1790 Balance 320 / 320 1790 / 1790 Intake: IV Fluids 20 / 20 750 / 750 Maxipime 2,000 MG In Water for inj. (sterile) 20 ML @ 300 mls/ hr IVP Q12HR [facility] Rx#:[id number] Vancocin 1,250 MG In Dextrose 5 250 / 250 % 250 ML @ 167 mls/hr IVPB Q24H [facility] Rx#:[id number] Oral 300 / 300 1040 / 1040 Other: Meal water pitcher Percent of Meal Consumed 100% Stool Size Large Stool Color Green # Voids 1 # Bowel Movements 1 Weight 89.857 kg Blood Glucose* 104 200 Patient Weight 04/16/17 23:59 Weight 89.857 kg - General Appearance General appearance: well-developed, well-nourished, appears started age, obese EENT: ATNC, PERRL, mucous membranes moist Neck: supple Additional Comments: no adenopathy Respiratory: clear (CTAB anteriorly, patient would not sit up due to back discomfort) Cardiology: no murmurs, no rub, no gallops, no edema, regular rate, regular rhythm, normal S1, normal S2 Gastrointestinal: normoactive bowel sounds, tenderness (diffuse TTP all quadrants to light palpation), no guarding, obese Integumentary: no rash, warm and dry Neurologic: no focal deficit, alert and oriented x3 Musculoskeletal: no deformities, no erythema, no cyanosis Psychiatric: mood/affect appropriate, cooperative Results - Lab Results 04/16/17 03:59 04/16/17 03:59 Most recent lab results Calcium 8.2 mg/dL (8.6-10.3) L 04/16/17 03:59 Consult Discharge Plan - Plan Referrals: Yash Hanley MD [Primary Care Provider] - <Maryjane Conde Kacy - Last Filed: 04/23/17 14:03> Date of Encounter: 04/16/17 Exam - Vital Signs Vital signs: Initial Vital Signs Temp Pulse Resp BP Pulse Ox 99.3 F 86 14 154/57 98 04/11/17 17:53 04/11/17 17:53 04/11/17 17:53 04/11/17 17:53 04/11/17 17:53 Results - Lab Results 04/18/17 03:11 04/18/17 03:11 Most recent lab results Calcium 7.5 mg/dL (8.6-10.3) L 04/18/17 03:11 Urine Creatinine 135 mg/dL 04/17/17 08:49 Urine Total Protein 256 mg/dL 04/17/17 08:49 - Attending Attestation I examined this patient and my medical decision-making was reviewed with the Resident Physician/MANAGER OF HUMAN RESOURCES. I agree with the documented findings, disposition and treatment plan as described except to the extent set forth below. Pt seen and examined with PMH of CKD, anemia, crohns on remicade and DM admitted after a recent hospital stay for influenza illness and now with fever on unknown origin and also being treated for pancytopenia. Renal consulted for worsening SCr and proteinuria concerning for possible GN. Noted was exposure to iv vaanco and diuretics during stay. Will initiate workup for possible GN as cause of ISHAN vs sepsis. Will check ANCA, anti-GBM, complements, MELISSA , urine for proteinuria. in addition to urine sodium, ceratinine and eosinphils. Advised avoidance of nephrotoxins if possible including iv anco. Encourage fluids. No acute indication for MILK DRIVER at this time.
[2017-04-16 17:06] LABS: Bilirubin,Urine Negative (Negative); Blood,Urine Moderate (Negative); Clarity,Urine Cloudy (Clear); Color,Urine Dark Yellow (Yellow); Glucose,Urine (UA) Normal (Normal); Ketones,Urine Negative (Negative); Leukocyte Esterase,Urine Negative (Negative); Nitrite,Urine Negative (Negative); PH,Urine 5.5 pH Units (5.0-8.0); Protein,Urine 100 mg/dL (Neg-Trace); Specific Gravity,Urine 1.024 (1.010-1.025); Urobilinogen,Urine Normal (Normal)
[2017-04-16 17:08] LABS: RBC,Urine 15-30 per hpf (0-3); Squamous Epithelial Cell,Urine Many per lpf (None-Few)
[2017-04-16 17:18] LABS: Granular Casts,Urine Few per lpf (None Seen); Hyaline Casts,Urine Few per lpf (None-Few); Renal Epithelial Cells,Urine Few per hpf (None-Few)
[2017-04-16 17:19] LABS: Bacteria,Urine Few per hpf (None-Few)
--- NOTE | 2017-04-16 17:38 | Rheumatology Consult Note ---
Date of Encounter: 04/16/17 Time of Encounter: 16:15 Rheumatology Assess and Plan (1) Fever of unknown origin (FUO) Current Visit: Yes Status: Acute At this time, this is a patient with a history of an inflammatory bowel disease , previously well controlled. New findings are fevers and pancytopenia. - Creatinine slowly elevating; awaiting urinalysis - CT chest without nodules or lymphadenopathy - CT abdomen reviewed with hernia and mild lymphadenopathy - Agree with MELISSA as a potential cause of pancytopenia though she lacks other features of active autoimmune connective tissue disease - ROS for me from a rheumatologic standpoint is fairly unremarkable as far as an obvious cause at this time. Will need to watch renal function, urinalysis. - I think that looking at the bone marrow may be the best clue especially if the remainder of the workup is unrevealing. - I will continue to follow at this time. (2) Inflammatory bowel disease Current Visit: No Status: Acute GI has evaluated and workup pending. Reviewed note. Unclear if this is contributory to her clinical situation now. (3) CKD (chronic kidney disease) stage 3, GFR 30-59 ml/min Current Visit: No Status: Chronic Mildly worsening. Await renal opinion and UA. (4) Pancytopenia Current Visit: Yes Status: Acute Reviewed heme onc and they are continuing to work with patient regarding further testing. Rheumatology HPI Consult date: 04/16/17 Requesting physician: Alyx Lyon Consult reason: Fevers Chief complaint: Feeling unwell History of present illness: Ms. Bryant is a 72 year old female with PMH of Crohns, CKD 3, DM2, Anemia, HTN, depression who presents to the hospital with pancytopenia found to also have fevers. This patient reports shehad a hospitalization in the begining of 04/03 due to influenza. After going home she was complaining of fatigue, weakness and decreased appetite. After having abnormalities in her CBC, she was referred to hematology and once found to be dropping, she was sent to the hospital. Once at the hospital, she started having documented fevers. She reports that other than the fevers, fatigue, her only complain is abdominal pain that she is attributing to her known hernias. She also reports increased stools but she cannot say if she has had bloody diarrhea. Surgery did not find evidence of incarcerated or ischemic bowel. GI is working up active disease; no obvious inflammation on CT of bowels. Hematology has recommended bone marrow biopsy that she has refused. ID has followed. General - no recent weight loss, weight gain, + fatigue, +fevers Eyes - no redness, loss of vision, dryness/itching/foreign body sensation ENT - no dryness of mouth, oral ulcerations, nasal ulcerations, sore throat, frequent cavities, jaw claudication, tinnitus, or vertigo Cardiovascular - no chest pain, palpitations, lightheadedness, syncope Respiratory - no shortness of breath, difficulty breathing at night, pleuritic chest pain and no cough Gastrointestinal - no nausea, vomiting, diarrhea, bloating, black/tarry stools, blood in stools or heartburn Genitourinary - no pain on urination, hematuria, frothy urine or ulcerations. Musculoskeletal - no morning stiffness, joint swelling, muscle aches, tendon/ ligament swelling or tenderness and no inflammatory back pain Integumentary - no easy bruising, rashes, hives, photosensitivity, skin thickening, alopecia, color changes of hands. No tattoos Neurological - no muscle weakness or paresthesias Hematologic/lymphatic - no tender or swollen glands, history of anemia or blood clots Past Med Surg Social Fam HX - Past Medical History Medical history: asthma, diabetes, hyperlipidemia, hypertension, renal disease, other Psychiatric history: anxiety, depression - Past Surgical History Surgical History: appendectomy, cholecystectomy - Social History Smoking Status: Never smoker Smokeless Tobacco Status: No Alcohol use: none Drug use: none - Family History Mother Living Status: Hx Family Cardiac Disorders: No Hx Family Respiratory Disorders: Yes Hx Family Cancer: Yes Hx Family GI Disorders: No Hx Family Endocrine Disorder: No Hx Family Neuromuscular Disorders: No Hx Family Neurologic Disorders: No Hx Family HEENT Disorders: No Hx Family Autoimmune Disorders: No Father Living Status: Hx Family Cardiac Disorders: Yes Hx Family Respiratory Disorders: Yes (Parents smokers) Hx Family Cancer: Yes Hx Family GI Disorders: Yes (Sister ulcerative colitis) Hx Family Endocrine Disorder: Yes Hx Family Neuromuscular Disorders: No Hx Family Neurologic Disorders: No Hx Family HEENT Disorders: No Hx Family Autoimmune Disorders: No Medications and Allergies Amlodipine [Norvasc] 2.5 mg PO DAILY 01/06/15 [History] Escitalopram [Lexapro] 20 mg PO HS 01/06/15 [History] Ezetimibe [Zetia] 10 mg PO HS 01/06/15 [History] Ferrous Sulfate 325 mg PO DAILY 01/06/15 [History] Furosemide [Lasix] 20 mg PO BID 01/06/15 [History] Multivitamin/Iron/Folic Acid [Centrum Complete Multivit Tab] 1 tab PO DAILY [History] Omeprazole [PriLOSEC] 20 mg PO DAILY 01/06/15 [History] Potassium Chloride 20 meq PO DAILY 01/06/15 [History] InFLIXimab [Remicade] 100 mg IV Q8W 03/29/15 [History] Ascorbate Calcium [Vitamin C] 500 mg PO DAILY 09/15/15 [History] Cholecalciferol (D-3) [Vitamin D] 1,000 unit PO DAILY 09/15/15 [History] Cinnamon Bark [Cinnamon] 500 mg PO DAILY 09/15/15 [History] Lactobacillus Combination No.8 [Adult Probiotic] 1 cap PO DAILY 09/15/15 [ History] Turmeric Root Extract [Turmeric] 500 mg PO DAILY 09/15/15 [History] Vitamin B Complex 1 cap PO DAILY 09/15/15 [History] Vitamin E (Dl,Tocopheryl Acet) [Vitamin E] 1,000 unit PO DAILY 09/15/15 [History ] HYDROcodone/Acet 5/325 mg [[place] 5-325 mg] 1 tab PO Q6H PRN 03/24/17 [History] Insulin ASPART [Novolog Flexpen] 35 unit SQ TID 03/24/17 [History] Insulin DETEMIR [Levemir Flextouch] 40 unit SQ BID 03/24/17 [History] Linagliptin [Tradjenta] 5 mg PO DAILY 03/24/17 [History] Metoprolol XL (24 HR) Succ [Toprol Xl] 100 mg PO DAILY 03/24/17 [History] 3 Allergy/AdvReac Type Severity Reaction Status Date / Time influenza virus vaccine ts Allergy Vomiting Verified 04/10/17 15:35 [id number] (36 mos,up) [From Fluarix] Pneumococcal Vaccine Allergy Vomiting Verified 04/10/17 15:35 [From Prevnar] codeine AdvReac Mild Nausea Verified 04/10/17 15:35 penicillin G AdvReac Mild swelling Verified 04/10/17 15:35 All Systems Review: A 10-system review of systems was performed and is negative for pertinent findings except as documented above in the HPI. Rheumatology Exam Vital Signs, Last 4 Hours Temp Pulse Resp BP Pulse Ox 04/16/17 13:49 98.6 F 79 16 108/55 91 Exam: General - Alert and oriented x 3, no acute distress and appears comfortable HEENT - Conjunctiva clear, no alopecia or hair thinning, no facial rash, no nasal or oral mucosal lesions/ulcerations Heme/Lymph - No cervical or supraclavicular lymph node enlargement or tenderness. No pallor. Heart - S1S2 regular in rate and rhythm without murmurs, clicks or rubs. No peripheral edema. Lungs - Unlabored breathing, clear to auscultation bilaterally without wheezes or crackles on anterior exam; no decrease in chest expansion Abdomen - Abd exam deferred as patient reports pain from hernia Skin - No clubbing, nodules, tophi, psoriasis, erythema, petichiae, malar rash, telangiectasias, sclerodactyly, nail pitting, onycholysis, digital ulcers Neurological - Gait not assessed as she is in hospital bed, muscle strength 5/5 in all four extremities Musculoskeletal - Full ROM on exam while supine, no synovitis, no joint tenderness Rheumatology Results 04/16/17 03:59 04/16/17 03:59 Immunology Rheumatoid Factor 15 IU/mL (Less than 14) H 04/15/17 18:15 All other labs normal. Consult Discharge Plan - Plan Referrals: Yash Hanley MD [Primary Care Provider] -
[2017-04-16 18:13] LABS: Adenovirus F 40/41 PCR Not detected (Not detect); Astrovirus PCR Not detected (Not detect); C.difficile Toxin A/B by PCR Not detected (Not detect); Campylobacter by PCR Not detected (Not detect); Cryptosporidium by PCR Not detected (Not detect); Cyclospora cayetanensis PCR Not detected (Not detect); E. coli O157 by PCR Not detected (Not detect); Entamoeba histolytica PCR Not detected (Not detect); Enteroaggregative E.coli(EAEC) Not detected (Not detect); Enteropathogenic E.coli(EPEC) Not detected (Not detect); Enterotoxigenic E.coli (ETEC) Not detected (Not detect); Giardia lamblia PCR Not detected (Not detect); Norovirus GI/GII PCR Not detected (Not detect); Plesiomonas shigelloides PCR Not detected (Not detect); Rotavirus A PCR Not detected (Not detect); Salmonella PCR Not detected (Not detect); Sapovirus PCR Not detected (Not detect); Shig/EnteroinvasiveE coli EIEC Not detected (Not detect); Shigalike tox-prod E coli STEC Not detected (Not detect); Vibrio PCR Not detected (Not detect); Vibrio cholerae PCR Not detected (Not detect); Yersinia enterocolitica PCR Not detected (Not detect)
--- NOTE | 2017-04-16 18:44 | Internal Med Progress Note ---
Date of Encounter: 04/16/17 Time of Encounter: 17:45 - Assessment and plan (1) Abdominal hernia Current Visit: Yes Status: Acute Qualifiers: Hernia type: ventral Obstruction and gangrene presence: without obstruction or gangrene Qualified Code(s): K43.9 - Ventral hernia without obstruction or gangrene (2) Crohns disease Current Visit: Yes Status: Acute Qualifiers: Gastrointestinal tract location: unspecified location Digestive disease complication type: without complication Qualified Code(s): K50.90 - Crohn's disease, unspecified, without complications (3) Fever of unknown origin (FUO) Current Visit: Yes Status: Acute Assessment and plan: Patient initially presented to the emergency department from oncology with symptomatic anemia. Has had intermittent fevers throughout visit and including today. CT abdomen and pelvis showed complex mid to lower abdominal wall hernia with multiple loops of bowel some thickening. Respiratory infectious panel was negative. CT chest without any acute process. Patient has leukopenia, perhaps patient has M DDS and is on Remicade with recent influenza. Chest x-ray is negative she does not require any oxygen is not tachypneic, no tachycardia. Patient was given 1 dose of vancomycin was started on cefepime. Stool panel was negative after large amount of diarrhea. Urine primarily negative. Patient has been evaluated by infectious disease and rheumatology. She feels this is a fairly unremarkable case as far as the obvious cause. He feels that bone marrow biopsy is likely the best tool for determining the cause of fevers. Rheumatology we will continue to follow. Continue to monitor labs. Treat fevers with Tylenol. IV fluid hydration. Rheumatology, ID, GI, and oncology following. (4) Pancytopenia Current Visit: Yes Status: Acute Assessment and plan: Weight blood cell count 2.0, hemoglobin 8.6, platelets 40. Patient follows with hematology oncology on an outpatient basis and receives Remicade every 8 weeks. 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 Oncology has recommended bone marrow biopsy, patient has refused. Family at bedside tonight reports that patient will most likely end up having the test anyway. She need to monitor labs. I appreciate oncology, rheumatology, nephrology, infectious disease following this patient. (5) Symptomatic anemia Current Visit: Yes Status: Acute Assessment and plan: Pt was sent to ED for evaluation after Hbg wasd found to be 6.3 at oncology office. Pt reported general weakness and malise. Pt received 2 units PRBC and has no signs of bleeding. Hgb has remained steady at 8.6 today. Continue to monitor and transfuse for Hgb < 8g/dl. Most likely related to chronic disease. (6) Diabetes mellitus, type 2 Current Visit: Yes Status: Chronic Assessment and plan: Continue SSI, diabetic diet, and accuchecks ac/hs. A1c 8.6% in December. 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 Pt has been getting IV Vancomycin since 04/14 and is also on Lasix 20mg po bid. Nephrology has been consulted at the request of ID for possible auto immune disease vs infectious disease process. Continue to avoid nephrotoxins I appreciate Nephrology consultation and recommendations. Gentle IVF hydration prn (8) HLD (hyperlipidemia) Current Visit: Yes Status: Chronic Assessment and plan: Chronic. Continue home medications l Qualifiers: Hyperlipidemia type: mixed hyperlipidemia Qualified Code(s): E78.2 - Mixed hyperlipidemia (9) HTN (hypertension) Current Visit: Yes Status: Chronic Assessment and plan: BP is well controlled, continue home medications. Qualifiers: Hypertension type: essential hypertension Qualified Code(s): I10 - Essential (primary) hypertension (10) Crohn's disease, acute Current Visit: Yes Status: Chronic Assessment and plan: Pt with prior history of Crohn's Ds and gets Remicade every 8 weeks. Pt follows with GI. Reports unchanged abd pain to epigastric area and normal diarrhea. GI has seen pt today and will check GI panel and medicated for diarrhea if negative for Cdiff, also will chec fecal calprotectin to rule out Crohn's flare. Qualifiers: Digestive disease complication type: unspecified complication Qualified Code(s): K50.919 - Crohn's disease, unspecified, with unspecified complications (11) DVT prophylaxis Current Visit: Yes Status: Acute Assessment and plan: SCDs ordered. - Time Spent With Patient less than 15 minutes - Subjective Interval history: Pt was seen and assessed at 1750, multiple family members at bedside, multiple questions answered. Pt reports abd pain and requested pain medication while I was in the room, abd is distended and tender to palpation in epigastric area, states this is her normal pain, unchanged from normal. She denies chest pain, SOB, n/v, headache, or dizziness. She reports diarrhea, which is also normal for her. - Constitutional Vitals: Temp Pulse Resp BP Pulse Ox 98.6 F 79 16 108/55 91 04/16/17 13:49 04/16/17 13:49 04/16/17 13:49 04/16/17 13:49 04/16/17 13:49 General appearance: Present: cooperative, A&O X 3, pleasant, no acute distress, obese, answers questions appropriately - Head Head exam: Present: atraumatic, normal inspection, normocephalic - Eye Eye exam: Present: normal appearance, conjuntiva pink, sclera anicteric - Neck Neck exam general surgery: Present: supple, trachea midline. Absent: lymphadenopathy - Respiratory Respiratory exam: Present: CTAB. Absent: accessory muscle use, rales, rhonchi, wheezes - Cardiovascular Cardiovascular exam: Present: RRR, +S1, +S2. Absent: bradycardia, diastolic murmur, gallop, rubs, systolic murmur - GI/Abdominal GI/Abdominal exam: Present: normal bowel sounds, soft, tenderness. Absent: distended, hepatomegaly - Extremities Exam Extremities exam: Present: normal capillary refill, normal inspection, warm, radial pulses palpable and symmetrical. Absent: calf tenderness, cyanotic, pedal edema, tenderness - Neurological Exam Neurological exam: Present: alert, oriented X3, no focal deficits. Absent: altered, facial droop, speech deficit - Skin Skin exam: Present: dry, intact, normal color, warm. Absent: rash Internal Medicine: Result - Labs CBC & Chem 7: 04/16/17 03:59 01/31/18 03:59 Labs: Short CBC 04/16/17 Range/Units 03:59 WBC 1.7 L (4.3-11.1) K/mcL Hgb 8.6 L (11.5-15.4) g/dL Hct 26.2 L (35.3-44.9) % Plt Count 40 L (140-400) K/mcL Neutrophils # 0.7 L (1.6-8.9) K/mcL BMP 04/16/17 03:59 Sodium 132 L Potassium 4.1 Chloride 101 Carbon Dioxide 24 BUN 36 H Creatinine 1.45 H Glucose 79 Calcium 8.2 L Urine 04/16/17 Range/Units 16:47 Urine Color Dark Yellow (Yellow) Urine Clarity Cloudy A (Clear) Urine pH 5.5 (5.0-8.0) pH Units Ur Specific [place] 1.024 (1.010-1.025) Urine Protein 100 H (Neg-Trace) mg/dL Urine Glucose (UA) Normal (Normal) mg/dL - ABG Interpretation ABG results: PT/INR, D-dimer PT 13.0 Seconds (9.4-12.1) H 04/11/17 18:19 - Impressions Impressions Chest CT 04/15/17 17:00 IMPRESSION: 1. No lung parenchymal abnormalities are identified to explain the patient's fever of unexplained origin. D/ / Umesh Lehman MD / Umesh Lehman MD Interpreting Provider: Umesh Lehman MD Consult Discharge Plan - Plan Referrals: Yash Hanley MD [Primary Care Provider] -
[2017-04-16] MEDS: ZETIA 10MG PO SCH (20:24)
[2017-04-16] MEDS: Ondansetron 4 MG/2 ML VIAL IVP PRN (23:47)
[2017-04-17] MEDS: Acetaminophen 325 MG TABLET PO PRN ×2 (03:26→19:34)
[2017-04-17 04:44] LABS: Red Cell Distribution Width 18.6 % (11.5-14.5)
[2017-04-17 04:45] LABS: Hemoglobin 7.7 g/dL (11.5-15.4); Mean Corpuscular HGB Conc 32.1 g/dL (31.6-35.5); Mean Corpuscular Hemoglobin 28.3 pg (28.0-33.3); Mean Corpuscular Volume 88.2 fL (83.0-100.0); Red Blood Count 2.72 M/mcL (3.82-4.97)
[2017-04-17 05:03] LABS: Calcium 7.6 mg/dL (8.6-10.3); Potassium 4.1 mEq/L (3.5-5.1)
[2017-04-17 05:34] LABS: Platelet Count 35 K/mcL (140-400)
[2017-04-17] MEDS: Cefepime HCl 2,000 MG in Water for inj. (sterile) 20 ML 20 ML IVP SCH ×2 (06:12→16:52)
--- NOTE | 2017-04-17 07:19 | Nephrology Progress Note ---
<Parth Espinal - Last Filed: 04/17/17 17:22> Date of Encounter: 04/17/17 Time of Encounter: 07:19 - Assessment and Plan (2) ISHAN (acute kidney injury) Status: Acute ISHAN on CKD stage III SrCr slowly improving Elevated urine microalbumin/ creatinine ratio 2329 on 12/26/16 UA reveals RBCs, 100 mg/dL proteinuria, few granular casts Urine protein/creatinine ratio 1.90, non-nephrotic range Urine eosinophils negative MELISSA negative ANCA, IgG, IgA, IgM, C3 & C4 levels pending Continue to hold home Lasix Continue IVF Avoid nephrotoxins, Vancomycin discontinued by ID Measure I&Os Continue to monitor (3) CKD (chronic kidney disease) stage 3, GFR 30-59 ml/min Status: Chronic Baseline GFR 44 Avoid nephrotoxins Continue to monitor (5) Hyponatremia Status: Acute SrNa 130 Continue NS at 100cc/hr Continue to monitor (6) Fever of unknown origin (FUO) Status: Acute Avoid nephrotoxins, Vancomycin discontinued by ID Continue renally dosed Cefepime Tylenol prn fever, avoid NSAIDs Management per infectious disease and rheumatology (7) HTN (hypertension) Status: Chronic Continue home meds Management per primary team (8) Crohns disease Status: Acute Management per primary team (9) Diabetes mellitus, type 2 Status: Chronic Management per primary team (10) Hernia of abdominal cavity Status: Chronic Management per surgery (11) Obesity (BMI 30.0-34.9) Status: Chronic Management per primary team (12) Pancytopenia Status: Acute Hold iron supplementation Management per hematology Subjective Principal diagnosis: Fever Interval history: Patient seen and examined resting comfortably in bed. Patient reports recurrent fever last PM and ongoing abd pain. She had 850 urine output today and is scheduled for bone marrow biopsy today. Case discussed with nursing at bedside. Objective - Vital Signs Vital signs: Vital Signs Temp Pulse Resp BP Pulse Ox 04/17/17 06:59 98.2 F 81 15 117/58 95 04/17/17 03:22 102.6 F H 94 18 143/67 90 04/17/17 00:26 99.8 F H 81 16 118/66 93 04/16/17 21:19 101.2 F H 92 04/16/17 20:11 103.3 F H 93 17 148/71 89 04/16/17 13:49 98.6 F 79 16 108/55 91 04/16/17 11:45 101.9 F H 04/16/17 11:14 100.3 F H 83 18 120/55 94 04/16/17 08:35 92 Intake and Output 04/16/17 04/16/17 04/17/17 15:59 23:59 07:59 Intake Total 1790 / 1790 1020 / 1020 Balance 1790 / 1790 1020 / 1020 Intake: IV Fluids 750 / 750 1020 / 1020 0.9 % Sodium Chloride 1,000 ML 1000 / 1000 @ 100 mls/hr IVC .Q10H [facility] Rx#: [id number] Maxipime 2,000 MG In Water for 20 / inj. (sterile) 20 ML @ 300 mls/ hr IVP Q12HR [facility] Rx#:[id number] Vancocin 1,250 MG In Dextrose 5 250 / 250 % 250 ML @ 167 mls/hr IVPB Q24H [facility] Rx#:[id number] Oral 1040 / 1040 Other: Meal water pitcher Percent of Meal Consumed 100% Stool Size Large Stool Color Green # Voids 1 1 # Bowel Movements 1 Blood Glucose* 200 175 140 - General Appearance General appearance: Present: well-developed, well-nourished, obese Exam: mild distress EENT: Present: ATNC, PERRL, mucous membranes moist Neck: Present: supple Additional Comments: no adenopathy Respiratory: Present: clear (CTAB anteriorly, patient would not sit up due to abd discomfort) Cardiology: Present: no murmurs, no rub, no gallops, no edema, regular rate, regular rhythm, normal S1, normal S2 Gastrointestinal: Present: hypoactive bowel sounds, tenderness (diffuse TTP all quadrants to light palpation, incisional hernia, midline incision well healed), no guarding, obese Integumentary: Present: no rash, warm and dry Neurologic: Present: no focal deficit, alert and oriented x3 Musculoskeletal: Present: no deformities, no erythema, no cyanosis Psychiatric: Present: agitated, cooperative - Lab 04/17/17 03:29 04/17/17 03:29 Most recent lab results Calcium 7.6 mg/dL (8.6-10.3) L 04/17/17 03:29 Consult Discharge Plan - Plan Referrals: Yash Hanley MD [Primary Care Provider] - <Maryjane Conde - Last Filed: 05/14/17 00:12> Date of Encounter: 04/17/17 Objective - Lab 04/18/17 03:11 04/18/17 03:11 Most recent lab results Calcium 7.5 mg/dL (8.6-10.3) L 04/18/17 03:11 Urine Creatinine 135 mg/dL 04/17/17 08:49 Urine Total Protein 256 mg/dL 04/17/17 08:49 - Attending Attestation I examined this patient and my medical decision-making was reviewed with the Resident Physician. I agree with the documented findings, disposition and treatment plan as described except to the extent set forth below. Pt seen and examined, bome marrow biopsy planned today. UOPnot documented yesterday SCr improving at 1.36, GFR 38. Continue to avoid nephrotoxins if possible, will discuss with primary team whether vanco, a nephrotoxin needed. No acute indication for PRODUCTION WELDER at this time. Continue IVF.
[2017-04-17] MEDS: Insulin LISPRO 300 UNITS/3 ML VIAL SQ SCH ×7 (08:24→22:08)
[2017-04-17] MEDS: 0.9 % Sodium Chloride 1,000 ML IVC SCH ×2 (08:24→19:35)
[2017-04-17] MEDS: Metoprolol XL (24 HR) Succ 50 MG TAB.ER.24H PO SCH (08:25)
[2017-04-17] MEDS: Ascorbic Acid 500 MG TABLET PO SCH (08:26)
[2017-04-17] MEDS: Vitamin B Complex/Vit C/Vit E 1 EACH TABLET PO SCH (08:26)
[2017-04-17] MEDS: (Linagliptin [Tradjenta] 5 MG PO SCH (08:26)
[2017-04-17] MEDS: amLODIPine 5 MG TABLET PO SCH (08:26)
[2017-04-17] MEDS: Cholecalciferol (D-3) 1,000 UNIT TABLET PO SCH (08:27)
[2017-04-17] MEDS: Insulin DETEMIR 100 UNIT/ML X5UNITS SQ SCH ×2 (08:34→22:09)
--- NOTE | 2017-04-17 10:07 | Oncology Inp Progress Note ---
<Lucila Mckeon L - Last Filed: 04/17/17 16:39> Date of Encounter: 04/17/17 Time of Encounter: 10:06 (1) Pancytopenia Current Visit: Yes Status: Acute Assessment and plan: 1. Refractory pancytopenia without definite etiology at this time. Counts decreased since yesterday. She is not neutropenic. Continue to monitor and treat supportively with transfusion if needed for hgb <7, platelets <10 or if patient becomes symptomatic. Suspected MDS, although leukemia cannot be excluded. She also has Crohn Disease and has taken Remicade for about 10 years, this could play a role in her pancytopenia as well. Missed dose earlier this month due to influenza. ID following, reviewed recommendations, fever of unknown origin at this time. Believe Infectious etiology less likely, will continue cefepime renal dosed Rheumatology- Agree with MELISSA as a potential cause of pancytopenia although connective tissue disorder unlikely, ROS fairly unremarkable from rheumatologic standpoint. Bone marrow biopsy may be helpful GI on board. Reviewed note. Ordered fecal calprotectin to rule out Crohn's flare. Ct chest with no acute finding. CT Abdomen/Pelvis as described below, evaluated by surgery, no acute abdomen, not a surgical candidate at this time. She is now agreeable to bone marrow biopsy which will be performed today and sent for FISH/Cytogenetics and Pathology Review. Order placed, IR aware. Please refer to Dr. Griggs attestation below for further details Oncology: Subj Interval history: Resting in bed. Denies diarrhea recently/overnight. Continues to experience fevers/chills and abdominal pain. Reviewed ID and Rheumatology consults with patient. She is agreeable to bone marrow biopsy, which is to be performed today , Nursing and ID aware. - Constitutional Vitals: Vital Signs Temp Pulse Resp BP Pulse Ox 04/17/17 06:59 98.2 F 81 15 117/58 95 04/17/17 03:22 102.6 F H 94 18 143/67 90 04/17/17 00:26 99.8 F H 81 16 118/66 93 04/16/17 21:19 101.2 F H 92 04/16/17 20:11 103.3 F H 93 17 148/71 89 04/16/17 13:49 98.6 F 79 16 108/55 91 04/16/17 11:45 101.9 F H 04/16/17 11:14 100.3 F H 83 18 120/55 94 Intake and Output 04/16/17 04/17/17 04/17/17 23:59 07:59 15:59 Intake Total 1020 / 1020 1000 / 1000 Output Total 850 / 850 Balance 1020 / 1020 150 / 150 Intake: IV Fluids 1020 / 1020 1000 / 1000 0.9 % Sodium Chloride 1,000 ML 1000 / 1000 1000 / 1000 @ 100 mls/hr IVC .Q10H [facility] Rx#: [id number] Maxipime 2,000 MG In Water for inj. (sterile) 20 ML @ 300 mls/ hr IVP Q12HR [facility] Rx#:[id number] Output: Urine 850 / 850 Other: # Voids 1 Blood Glucose* 175 140 General appearance: cooperative, no acute distress, no febrile - Head Head exam: Present: atraumatic - Respiratory Respiratory exam: Present: CTAB - Cardiovascular Cardiovascular exam: Present: RRR, +S1, +S2 - GI/Abdominal GI/Abdominal exam: Present: normal bowel sounds, soft, tenderness. Absent: guarding, rebound - Extremities Exam Extremities exam: Present: pedal edema. Absent: calf tenderness - Neurological Exam Neurological exam: Present: alert, oriented X3, no focal deficits, strengths equal and symetr throughout - Psychiatric Psychiatric exam: Present: normal affect, normal mood - Skin Skin exam: Present: pallor, warm Oncology: Obj Data - Labs CBC & Chem 7: 04/17/17 03:29 04/17/17 03:29 - ABG Interpretation ABG results: PT/INR, D-dimer PT 13.0 Seconds (9.4-12.1) H 04/11/17 18:19 Consult Discharge Plan - Plan Referrals: Yash Hanley MD [Primary Care Provider] - <Karlie Cordero - Last Filed: 04/18/17 08:36> Date of Encounter: 04/18/17 Oncology: Subj Interval history: PAtient c/o abd discomfort today, no diarrhea/nausea. She has agreed for BM procedure that is to be performed 04/17/17, risk benefits reviewed I examined this patient and my medical decision-making was reviewed with the Advanced Practice Nurse, Lucila Mckeon. I agree with the documented findings, disposition and treatment plan as described except to the extent set forth below. - Constitutional Vitals: Vital Signs Temp Pulse Resp BP Pulse Ox 04/18/17 07:36 100.2 F H 95 17 127/63 90 04/18/17 03:12 99.6 F 80 16 135/70 90 04/17/17 22:22 98.3 F 79 18 143/63 90 04/17/17 22:00 98.3 F 04/17/17 19:14 103 F H 95 18 148/65 91 04/17/17 16:15 98.2 F 93 18 160/66 92 04/17/17 13:44 82 20 123/45 99 04/17/17 13:37 79 18 123/44 04/17/17 10:45 98.5 F 86 15 134/67 92 Intake and Output 04/17/17 04/18/17 04/18/17 23:59 07:59 15:59 Intake Total 1020 / 1020 1200 / 1200 Balance 1020 / 1020 1200 / 1200 Intake: IV Fluids 1020 / 1020 1000 / 1000 0.9 % Sodium Chloride 1,000 ML 1000 / 1000 1000 / 1000 @ 100 mls/hr IVC .Q10H [facility] Rx#: [id number] Maxipime 2,000 MG In Water for 20 / 20 inj. (sterile) 20 ML @ 300 mls/ hr IVP Q12HR [facility] Rx#:[id number] Oral 200 / 200 Other: # Voids 1 Weight 90.265 kg Blood Glucose* 117 94 Patient Weight 04/18/17 23:59 Weight 90.265 kg Oncology: Obj Data - Labs CBC & Chem 7: 04/18/17 03:11 04/18/17 03:11 Labs: Laboratory Results - last 24 hr 04/17/17 04/17/17 04/17/17 03:29 05:51 08:49 WBC 1.9 L RBC 2.72 L Hgb 7.7 L Hct 24.0 L MCV 88.2 MCH 28.3 MCHC 32.1 RDW 18.6 H Plt Count 35 L MPV TNP Immature Gran % Test Not Performed Seg Neutrophils % 32.0 Band Neutrophils % 8.0 H Lymphocytes % 36.0 Monocytes % 22.0 Eosinophils % Test Not Performed Basophils % Test Not Performed Metamyelocytes % 2.0 H Neutrophils # 0.8 L Lymphocytes # 0.7 Monocytes # 0.4 Eosinophils # Test Not Performed Basophils # Test Not Performed Nucleated RBCs/100 WBC Reactive Lymphocytes Present A Platelet Estimate Marked Decrease L Immature Plt Fraction Polychromasia 1+ A Poikilocytosis Anisocytosis 1+ A Sodium Potassium Chloride Carbon Dioxide BUN Creatinine Est GFR ( Amer) Est GFR (Non-Af Amer) BUN/Creatinine Ratio Glucose POC Glucose 140 H Calculated Osmolality Calcium Urine Creatinine 135 Protein/Creatinin Ratio 1.90 H Urine Total Protein 256 04/17/17 04/17/17 04/17/17 11:46 14:31 16:17 WBC RBC Hgb Hct MCV MCH MCHC RDW Plt Count MPV Immature Gran % Seg Neutrophils % Band Neutrophils % Lymphocytes % Monocytes % Eosinophils % Basophils % Metamyelocytes % Neutrophils # Lymphocytes # Monocytes # Eosinophils # Basophils # Nucleated RBCs/100 WBC Reactive Lymphocytes Platelet Estimate Immature Plt Fraction Polychromasia Poikilocytosis Anisocytosis Sodium Potassium Chloride Carbon Dioxide BUN Creatinine Est GFR ( Amer) Est GFR (Non-Af Amer) BUN/Creatinine Ratio Glucose POC Glucose 59 51 L 80 Calculated Osmolality Calcium Urine Creatinine Protein/Creatinin Ratio Urine Total Protein 04/17/17 04/18/17 04/18/17 22:05 03:11 03:11 WBC 1.9 L RBC 2.64 L Hgb 7.5 L Hct 23.9 L MCV 90.5 MCH 28.4 MCHC 31.4 L RDW 19.1 H Plt Count 29 L* MPV Immature Gran % 3.1 Seg Neutrophils % 48.8 Band Neutrophils % Lymphocytes % 18.8 Monocytes % 28.8 Eosinophils % 0.0 Basophils % 0.5 Metamyelocytes % Neutrophils # 0.9 L Lymphocytes # 0.4 L Monocytes # 0.6 Eosinophils # 0.0 Basophils # 0.0 Nucleated RBCs/100 WBC 1.0 H Reactive Lymphocytes Platelet Estimate Decreased L Immature Plt Fraction 15.1 H Polychromasia Poikilocytosis 1+ A Anisocytosis 1+ A Sodium 134 L Potassium 4.0 Chloride 109 H Carbon Dioxide 19 L BUN 35 H Creatinine 1.30 H Est GFR ( Amer) 49 L Est GFR (Non-Af Amer) 40 L BUN/Creatinine Ratio 27 H Glucose 68 L POC Glucose 117 H Calculated Osmolality 284 Calcium 7.5 L Urine Creatinine Protein/Creatinin Ratio Urine Total Protein - Impressions Impressions Biopsy CT 04/17/17 00:00 IMPRESSION: 1. CT guided bone marrow aspiration and core needle bone biopsy as discussed above. D/ / Kade Suazo MD / Kade Suazo MD Interpreting Provider: Kade Suazo MD Bone Marrow Biopsy w/ CT 04/17/17 00:00 IMPRESSION: 1. CT guided bone marrow aspiration and core needle bone biopsy as discussed above. D/ / Kade Suazo MD / Kade Suaoz MD Interpreting Provider: Kade Suazo MD Retroperitoneum Ultrasound 04/17/17 21:00 IMPRESSION: Unremarkable ultrasound of the kidneys and urinary bladder. D/ / Collette Pierson MD / Collette Pierson MD Interpreting Provider: Collette Pierson MD - ABG Interpretation ABG results: PT/INR, D-dimer PT 13.0 Seconds (9.4-12.1) H 04/11/17 18:19
--- NOTE | 2017-04-17 10:16 | Infectious Disease Progress No ---
Date of Encounter: 04/17/17 Time of Encounter: 10:14 - Assessment and Plan (1) Fever of unknown origin (FUO) Current Visit: Yes Status: Acute 72-year-old female initially presented with anemia. 1 episode of fever on 04/11. Fever recurred on 04/13 and has been persistent. Maximum temperature is 103. CT abdomen and pelvis on 04/11 showed complex mid to lower abdominal wall hernia containing multiple loops of bowel with some thickening This was confirmed by CT abdomen and pelvis on 04/15. RIP was negative. Patient also has leukopenia. WBC 3.0. 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 Resulting labs: ESR 77, CRP 214, Amylase and lipase WNL, RF 15, Hepatitis panel is negative, HIV negative, stool panel negative urine pneumococcal and legionella antigens negative, urinalysis negative for infection shows proteinuria and granular casts. pending:blood cultures, procalcitonin, MELISSA, Parvo B19, quantiferon gold, peripheral smear, ANCA, C3,C4 Ct chest negative for any infectious process or acute abnormalities continues to be febrile: 103 WBC 1.9 Unclear etiology infectious vs malignancy vs autoimmune vs other plan: awaiting pending labs. infectious etiology less likely, will continue cefepime. (2) ISHAN (acute kidney injury) Current Visit: Yes Status: Acute improving Crcl 41 dose antibiotics accordingly patient on lasix 20 mg BID management as per primary. nephrology on board (3) Pancytopenia Current Visit: Yes Status: Acute WBC of 2.7, hemoglobin 7.0, platelet count of 47 on admission. Follows with hematology oncology outpatient. Oncology notes likely secondary to MDS and exacerbated by recent influenza along with being on Remicade for Crohn's disease. Patient has been offered bone marrow biopsy but has refused. WBC decreased: no diff ordered notified lab to order differential. Patient will need differential everyday GI recommends hold remicade until patients acute setting improves Peripheral smear path report pending. (4) Diarrhea Current Visit: Yes Status: Acute She had acute onset of diarrhea 04/15/2017. According to nurse diarrhea was all over the floor and wall. Patient did not have diarrhea before admission. No blood noted in diarrhea. GI stool panel negative BM yesterday more formed. Unlikely infectious Qualifiers: Diarrhea type: unspecified type Qualified Code(s): R19.7 - Diarrhea, unspecified (5) Diabetes mellitus, type 2 Current Visit: Yes Status: Chronic Insulin-dependent diabetes. Management as per primar Qualifiers: Diabetes mellitus complication status: with unspecified complications Diabetes mellitus fci insulin use: with exterminator helper termite use Qualified Code(s) : E11.8 - Type 2 diabetes mellitus with unspecified complications; Z79.4 - emt intermediate (current) use of insulin; Z79.4 - emt intermediate (current) use of insulin; Z79.4 - prison (current) use of insulin; Z79.4 - prison (current) use of insulin (6) Crohns disease Current Visit: Yes Status: Acute Stable. History of Crohn's disease diagnosed in 1995. For last 10 years patient has been on Remicade and in remission. Patient denies diarrhea before admission, hematochezia, melena. Patient has chronic abdominal pain since her sigmoid resection. States this is unchanged. patient missed dose of remicade during recent influenza admission. remicade on hold. 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 Reports chronic abdominal pain that is intermittent and nonradiating in the right lower quadrant. CT abdomen/pelvis does not show any acute changes. Surgery were's consult and reports patient does not have an acute abdomen. stable. unchanged from yesterday (8) Penicillin allergy Current Visit: Yes Status: Chronic swelling of arm - Subjective Interval history: Reports additional BM which was more formed. Patient was febrile overnight with temperature of 103. She denies chills, night sweats, sob sputum production , dysuria, urinary frequency. Infect Dis PN-Objective Data - Labs CBC & Chem 7: 04/17/17 03:29 04/17/17 03:29 Labs: Laboratory Results - last 24 hr 04/15/17 04/15/17 04/16/17 04:32 04:32 03:59 WBC RBC Hgb Hct MCV MCH MCHC RDW Plt Count MPV Seg Neutrophils % 34.0 Band Neutrophils % 6.0 H Lymphocytes % 30.0 Monocytes % 24.0 Metamyelocytes % 4.0 H Myelocytes % 2.0 H Neutrophils # 0.7 L Lymphocytes # 0.5 L Monocytes # 0.4 Platelet Estimate Decreased L Smear Path Review Sodium Potassium Chloride Carbon Dioxide BUN Creatinine Est GFR ( Amer) Est GFR (Non-Af Amer) BUN/Creatinine Ratio Glucose POC Glucose Calculated Osmolality Calcium Ceruloplasmin 38 Urine Color Urine Clarity Urine pH Ur Specific [place] Urine Protein Urine Glucose (UA) Urine Ketones Urine Blood Urine Nitrite Urine Bilirubin Urine Urobilinogen Ur Leukocyte Esterase Urine Microscopic RBC Urine Microscopic WBC Ur Eosinophil Smear Ur Squamous Epith Cells Ur Renal Epithelial Cell Urine Bacteria Hyaline Casts Granular Casts Ur Culture Indicated? Stl C. cayetanensis PCR Stool Rotavirus A PCR Stl Adenov F 40/41 PCR Stool Astrovirus (PCR) Stool Campylobacter PCR Stl C. diff Tox B Gene Stl C. diff Tox A/B PCR Stool Cryptosporidium PCR Stl Sh Tox Pr E STEC PCR Stool E coli O157 PCR Stl Enterotoxigenic E PCR Stool EPEC (PCR) Stool EAEC (PCR) Stl E. histolytica PCR Stool Giardia Lamblia PCR Stool Salmonella PCR Stool Sapovirus (PCR) Stl P. shigelloides PCR Stl Shigella/EIEC PCR St Y.enterocolitica PCR Stool Vibrio (PCR) Stl Vibrio cholerae PCR Stl Norovirus GI/GII PCR Stl GI Panel (PCR) Com Copper 179 H 04/16/17 04/16/17 04/16/17 06:59 10:15 11:39 WBC RBC Hgb Hct MCV MCH MCHC RDW Plt Count MPV Seg Neutrophils % Band Neutrophils % Lymphocytes % Monocytes % Metamyelocytes % Myelocytes % Neutrophils # Lymphocytes # Monocytes # Platelet Estimate Smear Path Review See Below Sodium Potassium Chloride Carbon Dioxide BUN Creatinine Est GFR ( Amer) Est GFR (Non-Af Amer) BUN/Creatinine Ratio Glucose POC Glucose 104 H 116 H Calculated Osmolality Calcium Ceruloplasmin Urine Color Urine Clarity Urine pH Ur Specific [place] Urine Protein Urine Glucose (UA) Urine Ketones Urine Blood Urine Nitrite Urine Bilirubin Urine Urobilinogen Ur Leukocyte Esterase Urine Microscopic RBC Urine Microscopic WBC Ur Eosinophil Smear Ur Squamous Epith Cells Ur Renal Epithelial Cell Urine Bacteria Hyaline Casts Granular Casts Ur Culture Indicated? Stl C. cayetanensis PCR Stool Rotavirus A PCR Stl Adenov F PCR Stool Astrovirus (PCR) Stool Campylobacter PCR Stl C. diff Tox B Gene Stl C. diff Tox A/B PCR Stool Cryptosporidium PCR Stl Sh Tox Pr E STEC PCR Stool E coli O157 PCR Stl Enterotoxigenic E PCR Stool EPEC (PCR) Stool EAEC (PCR) Stl E. histolytica PCR Stool Giardia Lamblia PCR Stool Salmonella PCR Stool Sapovirus (PCR) Stl P. shigelloides PCR Stl Shigella/EIEC PCR St Y.enterocolitica PCR Stool Vibrio (PCR) Stl Vibrio cholerae PCR Stl Norovirus GI/GII PCR Stl GI Panel (PCR) Com Copper 04/16/17 04/16/17 04/16/17 14:20 14:20 15:53 WBC RBC Hgb Hct MCV MCH MCHC RDW Plt Count MPV Seg Neutrophils % Band Neutrophils % Lymphocytes % Monocytes % Metamyelocytes % Myelocytes % Neutrophils # Lymphocytes # Monocytes # Platelet Estimate Smear Path Review Sodium Potassium Chloride Carbon Dioxide BUN Creatinine Est GFR ( Amer) Est GFR (Non-Af Amer) BUN/Creatinine Ratio Glucose POC Glucose 200 H Calculated Osmolality Calcium Ceruloplasmin Urine Color Urine Clarity Urine pH Ur Specific [place] Urine Protein Urine Glucose (UA) Urine Ketones Urine Blood Urine Nitrite Urine Bilirubin Urine Urobilinogen Ur Leukocyte Esterase Urine Microscopic RBC Urine Microscopic WBC Ur Eosinophil Smear Ur Squamous Epith Cells Ur Renal Epithelial Cell Urine Bacteria Hyaline Casts Granular Casts Ur Culture Indicated? Stl C. cayetanensis PCR Not detected Stool Rotavirus A PCR Not detected Stl Adenov F PCR Not detected Stool Astrovirus (PCR) Not detected Stool Campylobacter PCR Not detected Stl C. diff Tox B Gene Negative Stl C. diff Tox A/B PCR Not detected Stool Cryptosporidium PCR Not detected Stl Sh Tox Pr E STEC PCR Not detected Stool E coli O157 PCR Not detected Stl Enterotoxigenic E PCR Not detected Stool EPEC (PCR) Not detected Stool EAEC (PCR) Not detected Stl E. histolytica PCR Not detected Stool Giardia Lamblia PCR Not detected Stool Salmonella PCR Not detected Stool Sapovirus (PCR) Not detected Stl P. shigelloides PCR Not detected Stl Shigella/EIEC PCR Not detected St Y.enterocolitica PCR Not detected Stool Vibrio (PCR) Not detected Stl Vibrio cholerae PCR Not detected Stl Norovirus GI/GII PCR Not detected Stl GI Panel (PCR) Com See below Copper 04/16/17 04/16/17 04/16/17 16:47 17:00 20:08 WBC RBC Hgb Hct MCV MCH MCHC RDW Plt Count MPV Seg Neutrophils % Band Neutrophils % Lymphocytes % Monocytes % Metamyelocytes % Myelocytes % Neutrophils # Lymphocytes # Monocytes # Platelet Estimate Smear Path Review Sodium Potassium Chloride Carbon Dioxide BUN Creatinine Est GFR ( Amer) Est GFR (Non-Af Amer) BUN/Creatinine Ratio Glucose POC Glucose 175 H Calculated Osmolality Calcium Ceruloplasmin Urine Color Dark Yellow Urine Clarity Cloudy A Urine pH 5.5 Ur Specific [place] 1.024 Urine Protein 100 H Urine Glucose (UA) Normal Urine Ketones Negative Urine Blood Moderate H Urine Nitrite Negative Urine Bilirubin Negative Urine Urobilinogen Normal Ur Leukocyte Esterase Negative Urine Microscopic RBC 15-30 H Urine Microscopic WBC 5-15 H Ur Eosinophil Smear 0 Ur Squamous Epith Cells Many H Ur Renal Epithelial Cell Few Urine Bacteria Few Hyaline Casts Few Granular Casts Few H Ur Culture Indicated? NO Stl C. cayetanensis PCR Stool Rotavirus A PCR Stl Adenov F 40/41 PCR Stool Astrovirus (PCR) Stool Campylobacter PCR Stl C. diff Tox B Gene Stl C. diff Tox A/B PCR Stool Cryptosporidium PCR Stl Sh Tox Pr E STEC PCR Stool E coli O157 PCR Stl Enterotoxigenic E PCR Stool EPEC (PCR) Stool EAEC (PCR) Stl E. histolytica PCR Stool Giardia Lamblia PCR Stool Salmonella PCR Stool Sapovirus (PCR) Stl P. shigelloides PCR Stl Shigella/EIEC PCR St Y.enterocolitica PCR Stool Vibrio (PCR) Stl Vibrio cholerae PCR Stl Norovirus GI/GII PCR Stl GI Panel (PCR) Com Copper 04/17/17 04/17/17 03:29 03:29 WBC 1.9 L RBC 2.72 L Hgb 7.7 L Hct 24.0 L MCV 88.2 MCH 28.3 MCHC 32.1 RDW 18.6 H Plt Count 35 L MPV TNP Seg Neutrophils % Band Neutrophils % Lymphocytes % Monocytes % Metamyelocytes % Myelocytes % Neutrophils # Lymphocytes # Monocytes # Platelet Estimate Smear Path Review Sodium 130 L Potassium 4.1 Chloride 104 Carbon Dioxide 17 L BUN 37 H Creatinine 1.36 H Est GFR ( Amer) 46 L Est GFR (Non-Af Amer) 38 L BUN/Creatinine Ratio 27 H Glucose 145 H POC Glucose Calculated Osmolality 281 Calcium 7.6 L Ceruloplasmin Urine Color Urine Clarity Urine pH Ur Specific [place] Urine Protein Urine Glucose (UA) Urine Ketones Urine Blood Urine Nitrite Urine Bilirubin Urine Urobilinogen Ur Leukocyte Esterase Urine Microscopic RBC Urine Microscopic WBC Ur Eosinophil Smear Ur Squamous Epith Cells Ur Renal Epithelial Cell Urine Bacteria Hyaline Casts Granular Casts Ur Culture Indicated? Stl C. cayetanensis PCR Stool Rotavirus A PCR Stl Adenov F 40/41 PCR Stool Astrovirus (PCR) Stool Campylobacter PCR Stl C. diff Tox B Gene Stl C. diff Tox A/B PCR Stool Cryptosporidium PCR Stl Sh Tox Pr E STEC PCR Stool E coli O157 PCR Stl Enterotoxigenic E PCR Stool EPEC (PCR) Stool EAEC (PCR) Stl E. histolytica PCR Stool Giardia Lamblia PCR Stool Salmonella PCR Stool Sapovirus (PCR) Stl P. shigelloides PCR Stl Shigella/EIEC PCR St Y.enterocolitica PCR Stool Vibrio (PCR) Stl Vibrio cholerae PCR Stl Norovirus GI/GII PCR Stl GI Panel (PCR) Com Copper Cultures: Cultures 04/15/17 11:09 Blood Culture - Preliminary Peripheral Venipuncture No growth. 04/15/17 11:09 Blood Culture - Preliminary Peripheral Venipuncture No growth. 04/16/17 16:47 Legionella Antigen - Final Urine,Clean Catch Streptococcus pneumoniae Antigen (M - Final Serology 04/16/17 04/16/17 04/16/17 Range/Units 17:00 16:47 14:20 Urine Color Dark Yellow (Yellow) Urine Clarity Cloudy A (Clear) Urine pH 5.5 (5.0-8.0) pH Units Ur Specific [place] 1.024 (1.010-1.025) Urine Protein 100 H (Neg-Trace) mg/dL Urine Glucose (UA) Normal (Normal) mg/dL Urine Ketones Negative (Negative) mg/dL Urine Blood Moderate H (Negative) Urine Nitrite Negative (Negative) Urine Bilirubin Negative (Negative) Urine Urobilinogen Normal (Normal) mg/dL Ur Leukocyte Esterase Negative (Negative) Urine Microscopic RBC 15-30 H (0-3) per hpf Urine Microscopic WBC 5-15 H (0-3) per hpf Ur Eosinophil Smear 0 (None Seen) % Ur Squamous Epith Cells Many H (None-Few) per lpf Ur Renal Epithelial Cell Few (None-Few) per hpf Urine Bacteria Few (None-Few) per hpf Hyaline Casts Few (None-Few) per lpf Granular Casts Few H (None Seen) per lpf Ur Culture Indicated? NO (NO) Stl C. cayetanensis PCR Not detected (Not detect) Stool Rotavirus A PCR Not detected (Not detect) Stl Adenov F 40/41 PCR Not detected (Not detect) Stool Astrovirus (PCR) Not detected (Not detect) Stool Campylobacter PCR Not detected (Not detect) Stl C. diff Tox B Gene (Negative) Stl C. diff Tox A/B PCR Not detected (Not detect) Stool Cryptosporidium PCR Not detected (Not detect) Stl Sh Tox Pr E STEC PCR Not detected (Not detect) Stool E coli O157 PCR Not detected (Not detect) Stl Enterotoxigenic E PCR Not detected (Not detect) Stool EPEC (PCR) Not detected (Not detect) Stool EAEC (PCR) Not detected (Not detect) Stl E. histolytica PCR Not detected (Not detect) Stool Giardia Lamblia PCR Not detected (Not detect) Stool Salmonella PCR Not detected (Not detect) Stool Sapovirus (PCR) Not detected (Not detect) Stl P. shigelloides PCR Not detected (Not detect) Stl Shigella/EIEC PCR Not detected (Not detect) St Y.enterocolitica PCR Not detected (Not detect) Stool Vibrio (PCR) Not detected (Not detect) Stl Vibrio cholerae PCR Not detected (Not detect) Stl Norovirus GI/GII PCR Not detected (Not detect) Stl GI Panel (PCR) Com See below Chlamy pneumoniae PCR (Not Detect) Adenovirus (PCR) (Not Detect) B. pertussis DNA (PCR) (Not Detect) B.parapertussis DNA PCR (Not Detect) Coronavirus OC43 (PCR) (Not Detect) Coronavirus HKU1 (PCR) (Not Detect) Coronavirus 229E (PCR) (Not Detect) Coronavirus NL63 (PCR) (Not Detect) Hepatitis A IgM Ab (Nonreactive) Hep Bs Antigen (Nonreactive) Hep B Core IgM Ab (Nonreactive) Hepatitis C Ab Screen (Nonreactive) HIV Ag/Ab Combo Qual (Nonreactive) Human Metapneumovir PCR (Not Detect) Influenza A (H1) PCR (Not Detect) Influ A (H1N1/09) PCR (Not Detect) Influenza A (H3) PCR (Not Detect) Influenza A Untype (PCR) (Not Detect) Influenza Type B (PCR) (Not Detect) M.pneumoniae DNA (PCR) (Not Detect) Parainfluenza 1 (PCR) (Not Detect) Parainfluenza 2 (PCR) (Not Detect) Parainfluenza 3 (PCR) (Not Detect) Parainfluenza 4 (PCR) (Not Detect) RSV (PCR) (Not Detect) Entero/Rhino (PCR) (Not Detect) 04/16/17 04/15/17 04/15/17 Range/Units 14:20 18:15 12:30 Urine Color (Yellow) Urine Clarity (Clear) Urine pH (5.0-8.0) pH Units Ur Specific [place] (1.010-1.025) Urine Protein (Neg-Trace) mg/dL Urine Glucose (UA) (Normal) mg/dL Urine Ketones (Negative) mg/dL Urine Blood (Negative) Urine Nitrite (Negative) Urine Bilirubin (Negative) Urine Urobilinogen (Normal) mg/dL Ur Leukocyte Esterase (Negative) Urine Microscopic RBC (0-3) per hpf Urine Microscopic WBC (0-3) per hpf Ur Eosinophil Smear (None Seen) % Ur Squamous Epith Cells (None-Few) per lpf Ur Renal Epithelial Cell (None-Few) per hpf Urine Bacteria (None-Few) per hpf Hyaline Casts (None-Few) per lpf Granular Casts (None Seen) per lpf Ur Culture Indicated? (NO) Stl C. cayetanensis PCR (Not detect) Stool Rotavirus A PCR (Not detect) Stl Adenov F 40/41 PCR (Not detect) Stool Astrovirus (PCR) (Not detect) Stool Campylobacter PCR (Not detect) Stl C. diff Tox B Gene Negative (Negative) Stl C. diff Tox A/B PCR (Not detect) Stool Cryptosporidium PCR (Not detect) Stl Sh Tox Pr E STEC PCR (Not detect) Stool E coli O157 PCR (Not detect) Stl Enterotoxigenic E PCR (Not detect) Stool EPEC (PCR) (Not detect) Stool EAEC (PCR) (Not detect) Stl E. histolytica PCR (Not detect) Stool Giardia Lamblia PCR (Not detect) Stool Salmonella PCR (Not detect) Stool Sapovirus (PCR) (Not detect) Stl P. shigelloides PCR (Not detect) Stl Shigella/EIEC PCR (Not detect) St Y.enterocolitica PCR (Not detect) Stool Vibrio (PCR) (Not detect) Stl Vibrio cholerae PCR (Not detect) Stl Norovirus GI/GII PCR (Not detect) Stl GI Panel (PCR) Com Chlamy pneumoniae PCR Not Detected (Not Detect) Adenovirus (PCR) Not Detected (Not Detect) B. pertussis DNA (PCR) Not Detected (Not Detect) B.parapertussis DNA PCR Not Detected (Not Detect) Coronavirus OC43 (PCR) Not Detected (Not Detect) Coronavirus HKU1 (PCR) Not Detected (Not Detect) Coronavirus 229E (PCR) Not Detected (Not Detect) Coronavirus NL63 (PCR) Not Detected (Not Detect) Hepatitis A IgM Ab Nonreactive (Nonreactive) Hep Bs Antigen Nonreactive (Nonreactive) Hep B Core IgM Ab Nonreactive (Nonreactive) Hepatitis C Ab Screen Nonreactive (Nonreactive) HIV Ag/Ab Combo Qual Nonreactive (Nonreactive) Human Metapneumovir PCR Not Detected (Not Detect) Influenza A (H1) PCR Not Detected (Not Detect) Influ A (H1N1/09) PCR Not Detected (Not Detect) Influenza A (H3) PCR Not Detected (Not Detect) Influenza A Untype (PCR) Not Detected (Not Detect) Influenza Type B (PCR) Not Detected (Not Detect) M.pneumoniae DNA (PCR) Not Detected (Not Detect) Parainfluenza 1 (PCR) Not Detected (Not Detect) Parainfluenza 2 (PCR) Not Detected (Not Detect) Parainfluenza 3 (PCR) Not Detected (Not Detect) Parainfluenza 4 (PCR) Not Detected (Not Detect) RSV (PCR) Not Detected (Not Detect) Entero/Rhino (PCR) Not Detected (Not Detect) Exam - Constitutional Vitals: Temp Pulse Resp BP Pulse Ox 98.2 F 81 15 117/58 95 04/17/17 06:59 04/17/17 06:59 04/17/17 06:59 04/17/17 06:59 04/17/17 06:59 - Additional findings Additional findings: General: Flat affect, pleasant Mouth: dentures, absent sores, absent thrush Heart: Regular rate and rhythm with no murmur Lungs: Clear to auscultation bilaterally Abdomen: Soft mild tenderness to abdomen diffusely, nondistended positive bowel sounds Skin: warm and dry, absent rash Extremities: Absent pedal edema,absent joint effusions Neuro: alert oriented x3 Vascular: Pedal and radial pulses 2 out of 4 Consult Discharge Plan - Plan Referrals: Yash Hanley MD [Primary Care Provider] - - Attending Attestation I examined this patient and my medical decision-making was reviewed with the Resident Physician. I agree with the documented findings, disposition and treatment plan as described except to the extent set forth below. Patient seen and examined. Related no signs or complaints or any signs of infection. Urine suggestive of proteinuria and 2 granular cytes. still concerned for autoimmune vs vasculitis vs other will wait for bone marrow results probably d/c cefepime soon, but not yet
[2017-04-17 10:24] LABS: Lymphocytes # 0.7 K/mcL (0.6-4.6); Monocytes # 0.4 K/mcL (0.0-1.3); Neutrophils # 0.8 K/mcL (1.6-8.9); Platelet Estimate Marked Decrease (Normal); Polychromasia 1+ (Not Present)
[2017-04-17 10:25] LABS: Anisocytosis 1+ (Not Present)
[2017-04-17 10:26] LABS: Reactive Lymphocytes Present (Not Present)
[2017-04-17] MEDS ORDERED: *HR* FentaNYL (PF) 100 MCG/2 ML VIAL IVP ONE (12:42)
[2017-04-17] MEDS ORDERED: *HR* Midazolam HCl 2 MG/2 ML VIAL IVP ONE (12:42)
[2017-04-17] MEDS ORDERED: 0.9 % Sodium Chloride 500 ML ONE (13:33)
--- NOTE | 2017-04-17 13:48 | IR Procedure Note ---
Date of procedure: 04/17/17 Consent Obtained: Written consent Timeout: Correct patient and procedure verified, Time out performed, Skin prep completed Local anesthetic: Lidocaine 1% Indications: Pancytopenia Procedure Performed: Bone marrow asp/biopsy Was there an medical assistant per diem present: No Estimated blood loss (cc): 2 Complications: None; Tolerated procedure well Post Procedure Treatment Plan: Monitor on floor Specimen: samples sent
[2017-04-17 14:08] LABS: Protein/Creatinine Ratio,Urine 1.9 mg/mg (0.00-0.20)
--- NOTE | 2017-04-17 17:22 | Rheumatology Progress Note ---
Date of Encounter: 04/17/17 Time of Encounter: 12:00 Rheumatology Assess and Plan (1) Fever of unknown origin (FUO) Current Visit: Yes Status: Acute Continues to have fevers - She is agreeable to bone marrow biopsy and hematology following - Due to abnormal UA, abnormal creatinine, will add ANCAs - MELISSA pending - Continue to follow and await further results (2) Inflammatory bowel disease Current Visit: No Status: Acute Continues to have diarrhea but unclear if due to active inflammatory bowel disease, GI following (3) CKD (chronic kidney disease) stage 3, GFR 30-59 ml/min Current Visit: Yes Status: Chronic UA with RBCs and protein, Nephrology following ANCAs added. (4) Pancytopenia Current Visit: Yes Status: Acute Bone marrow pending (5) Non-nephrotic range proteinuria Current Visit: Yes Status: Acute On spot protein:Cr ratio. Await nephrology opinion. - Subjective Interval history: Patient seen and examined. She has had fevers overnight but states that otherwise nothing has changed. She has no new rashes, no paresthesias, no cough , no shortness of breath, no chest pain, no joint pain or swelling. ROS is otherwise negative. Exam Vital Signs, Last 4 Hours Temp Pulse Resp BP Pulse Ox 04/17/17 16:15 98.2 F 93 18 160/66 92 04/17/17 13:44 82 20 123/45 99 04/17/17 13:37 79 18 123/44 Exam: General - Alert and oriented x 3, no acute distress Psych - Affect flat Eyes - Conjunctiva clear Heart - S1 S2 regular in rate and rhythm without murmurs or extra heart sounds Lungs - Clear to auscultation bilaterally Skin - No rashes, no ulcerations MSK - No joint synovitis in lower or upper extremities Objective Data 04/17/17 03:29 04/17/17 03:29 Immunology Rheumatoid Factor 15 IU/mL (Less than 14) H 04/15/17 18:15 All other labs normal. Consult Discharge Plan - Plan Referrals: Yash Hanley MD [Primary Care Provider] -
--- NOTE | 2017-04-17 18:35 | Internal Med Progress Note ---
Date of Encounter: 04/17/17 Time of Encounter: 07:45 - Assessment and plan (1) Abdominal hernia Current Visit: Yes Status: Acute Assessment and plan: ABD CT showed anterior abdominal wall hernia containing multiple loops, some of small bowel loops within the rightward aspect of hernia with wall thickening and increased mucosal enhancement/edema, findings concerning for enteritis or vascular compromise due to entrapment. Evaluated by General Surgery who noted no acute surgical intervention indicated at this time warranted as there is no evidence of ischemic bowel. Furthermore she is pancytopenic and high surgical candidate. Will need to follow-up with Dr Whitaker as outpatient. Abdomen remains distended, patient denies abdominal pain, no diarrhea. It is no longer tender to palpation today. Qualifiers: Hernia type: ventral Obstruction and gangrene presence: without obstruction or gangrene Qualified Code(s): K43.9 - Ventral hernia without obstruction or gangrene (2) Crohns disease Current Visit: Yes Status: Acute Assessment and plan: Chronic. Follows with GI. On ramicade every [facility] abdomen and pelvis showed complex abdominal wall hernia and mild central mesenteric edema, similar to increase it since prior study, likely reactive. GI consulted, GI panel ordered and negative. Fecal, protective has not been resulted yet. GI continues to follow. Qualifiers: Gastrointestinal tract location: unspecified location Digestive disease complication type: without complication Qualified Code(s): K50.90 - Crohn's disease, unspecified, without complications (3) Fever of unknown origin (FUO) Current Visit: Yes Status: Acute Assessment and plan: Rheumatology, infectious disease,, oncology following. Patient with fevers and pancytopenia. Bone marrow biopsy completed today. Due to abnormal UA and creatinine, ANCA's or added. MELISSA is still pending. Continue to monitor patient, treat fevers, test results pending. (4) Pancytopenia Current Visit: Yes Status: Acute Assessment and plan: White count 1.9 today. Hemoglobin 7.7, platelet count 35. Bone marrow biopsy was performed today, results are pending. Prepare to transfuse if hemoglobin below 7. (5) Symptomatic anemia Current Visit: Yes Status: Acute Assessment and plan: Pt was sent to ED for evaluation after Hbg wasd found to be 6.3 at oncology office. Pt reported general weakness and malaise. Pt received 2 units PRBC and has no signs of bleeding. Hemoglobin 7.7 today. Continue to monitor and transfuse if less than 7. Most likely related to chronic disease. Patient also being evaluated for pancytopenia. (6) Diabetes mellitus, type 2 Current Visit: Yes Status: Chronic Assessment and plan: Continue SSI, diabetic diet, and accuchecks ac/hs. A1c 8.6% in December. 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 Nephrology is following. Continue to avoid nephrotoxins and NSAIDs. (8) HLD (hyperlipidemia) Current Visit: Yes Status: Chronic Assessment and plan: Chronic. Continue home medications l Qualifiers: Hyperlipidemia type: mixed hyperlipidemia Qualified Code(s): E78.2 - Mixed hyperlipidemia (9) HTN (hypertension) Current Visit: Yes Status: Chronic Assessment and plan: BP is well controlled, continue home medications. Continue to monitor vital signs per admission orders. Qualifiers: Hypertension type: essential hypertension Qualified Code(s): I10 - Essential (primary) hypertension (10) DVT prophylaxis Current Visit: Yes Status: Acute Assessment and plan: SCDs ordered. No pharmacologic prophylaxis due to anemia and pancytopenia. - Time Spent With Patient less than 15 minutes - Subjective Interval history: Pt was seen and assessed at 0745, patient is alert and awake and states that she actually feels a little bit better today. She appears to be more agreeable to a bone marrow biopsy. She denies chest pain, SOB, n/v, headache, or dizziness. She reports diarrhea, which is also normal for her. She is aware of multiple visits from multiple physicians. She states she is drowsy and did not sleep well last night. - Constitutional Vitals: Temp Pulse Resp BP Pulse Ox 98.2 F 93 18 160/66 92 02/01/18 16:15 04/17/17 16:15 04/17/17 16:15 04/17/17 16:15 04/17/17 16:15 General appearance: Present: cooperative, A&O X 3, pleasant, no acute distress, obese, answers questions appropriately - Head Head exam: Present: atraumatic, normal inspection, normocephalic - Eye Eye exam: Present: normal appearance, conjuntiva pink, sclera anicteric - Neck Neck exam general surgery: Present: supple, trachea midline. Absent: lymphadenopathy, tenderness - Respiratory Respiratory exam: Present: CTAB. Absent: accessory muscle use, chest wall tenderness, decreased breath sounds, rales, rhonchi, wheezes - Cardiovascular Cardiovascular exam: Present: RRR, +S1, +S2. Absent: diastolic murmur, gallop, rubs, systolic murmur - GI/Abdominal GI/Abdominal exam: Present: distended, normal bowel sounds, soft, tenderness - Extremities Exam Extremities exam: Present: normal capillary refill, normal inspection, warm, radial pulses palpable and symmetrical. Absent: calf tenderness, cyanotic, pedal edema, tenderness - Neurological Exam Neurological exam: Present: alert, oriented X3, no focal deficits. Absent: facial droop, speech deficit - Skin Skin exam: Present: dry, intact, normal color, warm. Absent: rash Internal Medicine: Result - Labs CBC & Chem 7: 04/17/17 03:29 04/17/17 03:29 Labs: Short CBC 04/17/17 Range/Units 03:29 WBC 1.9 L (4.3-11.1) K/mcL Hgb 7.7 L (11.5-15.4) g/dL Hct 24.0 L (35.3-44.9) % Plt Count 35 L (140-400) K/mcL Neutrophils # 0.8 L (1.6-8.9) K/mcL BMP 04/17/17 03:29 Sodium 130 L Potassium 4.1 Chloride 104 Carbon Dioxide 17 L BUN 37 H Creatinine 1.36 H Glucose 145 H Calcium 7.6 L - ABG Interpretation ABG results: PT/INR, D-dimer PT 13.0 Seconds (9.4-12.1) H 04/11/17 18:19 - Impressions Impressions Biopsy CT 04/17/17 00:00 IMPRESSION: 1. CT guided bone marrow aspiration and core needle bone biopsy as discussed above. D/ / Kade Suazo MD / Kade Suazo MD Interpreting Provider: Kade Suazo MD Bone Marrow Biopsy w/ CT 04/17/17 00:00 IMPRESSION: 1. CT guided bone marrow aspiration and core needle bone biopsy as discussed above. D/ / Kade Suazo MD / Kade Suazo MD Interpreting Provider: Kade Suazo MD Consult Discharge Plan - Plan Referrals: Yash Hanley MD [Primary Care Provider] -
[2017-04-17] MEDS: *HR* HYDROcodone/Acet 5/325 mg TABLET PO PRN (22:07)
[2017-04-17] MEDS: ZETIA 10MG PO SCH (22:08)
[2017-04-18 04:08] LABS: Basophils % 0.5 %; Hemoglobin 7.5 g/dL (11.5-15.4)
[2017-04-18 04:10] LABS: Hematocrit 23.9 % (35.3-44.9); Immature Granulocytes % 3.1 % (0-4); Immature Platelets 15.1 % (1.1-6.1); Lymphocytes # 0.4 K/mcL (0.6-4.6); Lymphocytes % 18.8 %; Mean Corpuscular HGB Conc 31.4 g/dL (31.6-35.5); Mean Corpuscular Hemoglobin 28.4 pg (28.0-33.3); Mean Corpuscular Volume 90.5 fL (83.0-100.0); Monocytes # 0.6 K/mcL (0.0-1.3); Monocytes % 28.8 %; Neutrophils # 0.9 K/mcL (1.6-8.9); Red Blood Count 2.64 M/mcL (3.82-4.97); Red Cell Distribution Width 19.1 % (11.5-14.5); Segmented Neutrophils % 48.8 %
[2017-04-18] MEDS: *HR* HYDROcodone/Acet 5/325 mg TABLET PO PRN (04:17)
[2017-04-18 04:27] LABS: Calcium 7.5 mg/dL (8.6-10.3)
[2017-04-18 04:54] LABS: Platelet Count 29 K/mcL (140-400)
[2017-04-18 04:55] LABS: Anisocytosis 1+ (Not Present); Platelet Estimate Decreased (Normal); Poikilocytosis 1+ (Not Present)
[2017-04-18] MEDS: 0.9 % Sodium Chloride 1,000 ML IVC SCH (06:36)
[2017-04-18] MEDS: Cefepime HCl 2,000 MG in Water for inj. (sterile) 20 ML 20 ML IVP SCH (06:37)
--- NOTE | 2017-04-18 08:00 | Nephrology Progress Note ---
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 (2) ISHAN (acute kidney injury) Current Visit: Yes Status: Acute ISHAN on CKD stage III SrCr slowly improving Elevated urine microalbumin/ creatinine ratio 2329 on 12/26/16 UA reveals RBCs, 100 mg/dL proteinuria, few granular casts Urine protein/creatinine ratio 1.90, subnephrotic range proteinuria Urine eosinophils negative MELISSA negative ANCA, IgG, IgA, IgM, C3 & C4 levels pending Continue to hold home Lasix Continue IVF Avoid nephrotoxins, Vancomycin discontinued by ID Measure I&Os Continue to monitor (3) CKD (chronic kidney disease) stage 3, GFR 30-59 ml/min Current Visit: Yes Status: Chronic Baseline GFR 44 Avoid nephrotoxins Continue to monitor (4) Anemia Current Visit: Yes Status: Acute Anemia work up 03/24/17 Iron 64 % saturation 41% Transferrin 111 Ferritin > 1350 Vit B12 3611 Folate 25.0 Vit D level pending Qualifiers: Chronic kidney disease stage: stage 3 (moderate) Qualified Code(s): N18.3 - Chronic kidney disease, stage 3 (moderate); D63.1 - Anemia in chronic kidney disease; D63.1 - Anemia in chronic kidney disease (5) Hyponatremia Current Visit: Yes Status: Acute SrNa 134 Continue NS at 100cc/hr Continue to monitor (6) Fever of unknown origin (FUO) Current Visit: Yes Status: Acute Avoid nephrotoxins, Vancomycin discontinued by ID Continue renally dosed Cefepime Tylenol prn fever, avoid NSAIDs Management per infectious disease and rheumatology (7) HTN (hypertension) Current Visit: Yes Status: Chronic Continue home meds Management per primary team Qualifiers: Hypertension type: essential hypertension Qualified Code(s): I10 - Essential (primary) hypertension (8) Crohns disease Current Visit: Yes Status: Acute Management per primary team Qualifiers: Gastrointestinal tract location: unspecified location Digestive disease complication type: without complication Qualified Code(s): K50.90 - Crohn's disease, unspecified, without complications (9) Diabetes mellitus, type 2 Current Visit: Yes Status: Chronic Management per primary team Qualifiers: Diabetes mellitus complication status: with unspecified complications Diabetes mellitus detention insulin use: with detention use Qualified Code(s) : E11.8 - Type 2 diabetes mellitus with unspecified complications; 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 Patient reports recurrent fever last PM and ongoing abd pain. She had 850 urine output documented yesterday and reports missing the toilet today for UOP measurement. Of note, bone marrow biopsy suggests acute leukemia. Anticipate transfer to [facility] for treatment. Case discussed with nursing at bedside. Objective - Vital Signs Vital signs: Vital Signs Temp Pulse Resp BP Pulse Ox 04/18/17 07:36 100.2 F H 95 17 127/63 90 04/18/17 03:12 99.6 F 80 16 135/70 90 04/17/17 22:22 98.3 F 79 18 143/63 90 04/17/17 22:00 98.3 F 04/17/17 19:14 103 F H 95 18 148/65 91 04/17/17 16:15 98.2 F 93 18 160/66 92 04/17/17 13:44 82 20 123/45 99 04/17/17 13:37 79 18 123/44 04/17/17 10:45 98.5 F 86 15 134/67 92 Intake and Output 04/17/17 04/18/17 04/18/17 23:59 07:59 15:59 Intake Total 1020 / 1020 1200 / 1200 Balance 1020 / 1020 1200 / 1200 Intake: IV Fluids 1020 / 1020 1000 / 1000 0.9 % Sodium Chloride 1,000 ML 1000 / 1000 1000 / 1000 @ 100 mls/hr IVC .Q10H SHIVANI Rx#: [id number] Maxipime 2,000 MG In Water for 20 / 20 inj. (sterile) 20 ML @ 300 mls/ hr IVP Q12HR SHIVANI Rx#:[id number] Oral 200 / 200 Other: # Voids 1 Weight 90.265 kg Blood Glucose* 117 Patient Weight 04/18/17 23:59 Weight 90.265 kg - General Appearance General appearance: Present: well-developed, well-nourished, obese EENT: Present: ATNC, PERRL, mucous membranes moist Neck: Present: supple Additional Comments: no adenopathy Respiratory: Present: clear (CTAB anteriorly, patient would not sit up due to abd discomfort) Cardiology: Present: no murmurs, no rub, no gallops, no edema, regular rate, regular rhythm, normal S1, normal S2 Gastrointestinal: Present: normoactive bowel sounds, tenderness (diffuse TTP all quadrants to light palpation, incisional hernia, midline incision well healed), no guarding, obese Integumentary: Present: no rash, warm and dry Neurologic: Present: no focal deficit, alert and oriented x3 Musculoskeletal: Present: no deformities, no erythema, no cyanosis Psychiatric: Present: mood/affect appropriate, cooperative Additional Comments: flat affect - Lab 04/18/17 03:11 04/18/17 03:11 Most recent lab results Calcium 7.5 mg/dL (8.6-10.3) L 04/18/17 03:11 Urine Creatinine 135 mg/dL 04/17/17 08:49 Urine Total Protein 256 mg/dL 04/17/17 08:49 Consult Discharge Plan - Plan Referrals: Yash Hanley MD [Primary Care Provider] -
[2017-04-18] MEDS: Insulin DETEMIR 100 UNIT/ML X5UNITS SQ SCH (08:14)
[2017-04-18] MEDS: amLODIPine 5 MG TABLET PO SCH (08:15)
[2017-04-18] MEDS: Ascorbic Acid 500 MG TABLET PO SCH (08:15)
[2017-04-18] MEDS: Cholecalciferol (D-3) 1,000 UNIT TABLET PO SCH (08:16)
[2017-04-18] MEDS: Vitamin B Complex/Vit C/Vit E 1 EACH TABLET PO SCH (08:16)
[2017-04-18] MEDS: (Linagliptin [Tradjenta] 5 MG PO SCH (08:16)
[2017-04-18] MEDS: Metoprolol XL (24 HR) Succ 50 MG TAB.ER.24H PO SCH (08:16)
[2017-04-18] MEDS: Insulin LISPRO 300 UNITS/3 ML VIAL SQ SCH ×4 (08:20→11:19)
--- NOTE | 2017-04-18 09:19 | Event Note ---
Date of Encounter: 04/18/17 Time of Encounter: 09:00 Patient is s/p bone marro wprocedure on 04/17/17. Received call from pathology, [facility]--dyserythropoesis, dysmegakaryopoesis with ~30% blasts, (morphology, ?monoblasts), flow pending. Will review with patient/staff and refer to [facility] for further diagnostics/ management.
--- NOTE | 2017-04-18 10:19 | Infectious Disease Progress No ---
Date of Encounter: 04/18/17 Time of Encounter: 10:17 - Assessment and Plan (1) Fever of unknown origin (FUO) Current Visit: Yes Status: Acute 72-year-old female initially presented with anemia. 1 episode of fever on 04/11. Fever recurred on 04/13 and has been persistent. Maximum temperature is 103. CT abdomen and pelvis on 04/11 showed complex mid to lower abdominal wall hernia containing multiple loops of bowel with some thickening This was confirmed by CT abdomen and pelvis on 04/15. RIP was negative. Patient also has leukopenia. WBC 3.0. 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 Resulting labs: ESR 77, CRP 214, Amylase and lipase WNL, RF 15, Hepatitis panel is negative, HIV negative, stool panel negative urine pneumococcal and legionella antigens negative, urinalysis negative for infection shows proteinuria and granular casts. Peripheral smear path report reads pancytopenia. pending:blood cultures, procalcitonin, MELISSA, Parvo B19, quantiferon gold, ANCA, C3,C4 Ct chest negative for any infectious process or acute abnormalities WBC 1.9 continues to be febrile: 103 Unclear etiology I went bone marrow biopsy yesterday: Pending results. infectious vs malignancy vs autoimmune vs other plan: awaiting pending labs. infectious etiology less likely, will continue cefepime. (2) ISHAN (acute kidney injury) Current Visit: Yes Status: Acute improving Crcl 43 dose antibiotics accordingly management as per primary. nephrology on board (3) Pancytopenia Current Visit: Yes Status: Acute WBC of 2.7, hemoglobin 7.0, platelet count of 47 on admission. Follows with hematology oncology outpatient. Oncology notes likely secondary to MDS and exacerbated by recent influenza along with being on Remicade for Crohn's disease. Bone marrow biopsy completed: Awaiting results GI recommends hold remicade until patients acute setting improves Peripheral smear path report. Pancytopenia. ANC is stable at 900. Platelets 29,000. No signs of bleeding. Hemoglobin 7.5. Continue to monitor. (4) Diarrhea Current Visit: Yes Status: Acute She had acute onset of diarrhea 04/15/2017. According to nurse diarrhea was all over the floor and wall. Patient did not have diarrhea before admission. No blood noted in diarrhea. GI stool panel negative Patient continues to have diarrhea. Unlikely infectious Qualifiers: Diarrhea type: unspecified type Qualified Code(s): R19.7 - Diarrhea, unspecified (5) Diabetes mellitus, type 2 Current Visit: Yes Status: Chronic Insulin-dependent diabetes. Management as per primary Qualifiers: Diabetes mellitus complication status: with unspecified complications Diabetes mellitus manager intermediate insulin use: with manager intermediate use Qualified Code(s) : E11.8 - Type 2 diabetes mellitus with unspecified complications; Z79.4 - correction (current) use of insulin; Z79.4 - parts counterman (current) use of insulin; Z79.4 - correction (current) use of insulin; Z79.4 - parts counterman (current) use of insulin (6) Crohns disease Current Visit: Yes Status: Acute Stable. History of Crohn's disease diagnosed in 1995. For last 10 years patient has been on Remicade and in remission. Patient denies diarrhea before admission, hematochezia, melena. Patient has chronic abdominal pain since her sigmoid resection. States this is unchanged. patient missed dose of remicade during recent influenza admission. remicade on hold. 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 Reports chronic abdominal pain that is intermittent and nonradiating in the right lower quadrant. CT abdomen/pelvis does not show any acute changes. Surgery were's consult and reports patient does not have an acute abdomen. stable. unchanged from yesterday (8) Penicillin allergy Current Visit: Yes Status: Chronic swelling of arm - Subjective Interval history: Patient is sitting up in bed eating breakfast. Looked in mild distress with chills/shakes. Reports having additional bout of diarrhea. Denies chest pain, shortness of breath. Reports abdominal pain is unchanged. She is tolerating her diet. Patient was febrile overnight with temperature 103. Infect Dis PN-Objective Data - Labs CBC & Chem 7: 04/18/17 03:11 04/18/17 03:11 Labs: Laboratory Results - last 24 hr 04/17/17 04/17/17 04/17/17 03:29 05:51 08:49 WBC RBC Hgb Hct MCV MCH MCHC RDW Plt Count Immature Gran % Test Not Performed Seg Neutrophils % 32.0 Band Neutrophils % 8.0 H Lymphocytes % 36.0 Monocytes % 22.0 Eosinophils % Test Not Performed Basophils % Test Not Performed Metamyelocytes % 2.0 H Neutrophils # 0.8 L Lymphocytes # 0.7 Monocytes # 0.4 Eosinophils # Test Not Performed Basophils # Test Not Performed Nucleated RBCs/100 WBC Reactive Lymphocytes Present A Platelet Estimate Marked Decrease L Immature Plt Fraction Polychromasia 1+ A Poikilocytosis Anisocytosis 1+ A Sodium Potassium Chloride Carbon Dioxide BUN Creatinine Est GFR ( Amer) Est GFR (Non-Af Amer) BUN/Creatinine Ratio Glucose POC Glucose 140 H Calculated Osmolality Calcium Urine Creatinine 135 Protein/Creatinin Ratio 1.90 H Urine Total Protein 256 04/17/17 04/17/17 04/17/17 11:46 14:31 16:17 WBC RBC Hgb Hct MCV MCH MCHC RDW Plt Count Immature Gran % Seg Neutrophils % Band Neutrophils % Lymphocytes % Monocytes % Eosinophils % Basophils % Metamyelocytes % Neutrophils # Lymphocytes # Monocytes # Eosinophils # Basophils # Nucleated RBCs/100 WBC Reactive Lymphocytes Platelet Estimate Immature Plt Fraction Polychromasia Poikilocytosis Anisocytosis Sodium Potassium Chloride Carbon Dioxide BUN Creatinine Est GFR ( Amer) Est GFR (Non-Af Amer) BUN/Creatinine Ratio Glucose POC Glucose 59 51 L 80 Calculated Osmolality Calcium Urine Creatinine Protein/Creatinin Ratio Urine Total Protein 04/17/17 04/18/17 04/18/17 22:05 03:11 03:11 WBC 1.9 L RBC 2.64 L Hgb 7.5 L Hct 23.9 L MCV 90.5 MCH 28.4 MCHC 31.4 L RDW 19.1 H Plt Count 29 L* Immature Gran % 3.1 Seg Neutrophils % 48.8 Band Neutrophils % Lymphocytes % 18.8 Monocytes % 28.8 Eosinophils % 0.0 Basophils % 0.5 Metamyelocytes % Neutrophils # 0.9 L Lymphocytes # 0.4 L Monocytes # 0.6 Eosinophils # 0.0 Basophils # 0.0 Nucleated RBCs/100 WBC 1.0 H Reactive Lymphocytes Platelet Estimate Decreased L Immature Plt Fraction 15.1 H Polychromasia Poikilocytosis 1+ A Anisocytosis 1+ A Sodium 134 L Potassium 4.0 Chloride 109 H Carbon Dioxide 19 L BUN 35 H Creatinine 1.30 H Est GFR ( Amer) 49 L Est GFR (Non-Af Amer) 40 L BUN/Creatinine Ratio 27 H Glucose 68 L POC Glucose 117 H Calculated Osmolality 284 Calcium 7.5 L Urine Creatinine Protein/Creatinin Ratio Urine Total Protein Cultures: Cultures 04/15/17 11:09 Blood Culture - Preliminary Peripheral Venipuncture No growth. 04/15/17 11:09 Blood Culture - Preliminary Peripheral Venipuncture No growth. 04/16/17 16:47 Legionella Antigen - Final Urine,Clean Catch Streptococcus pneumoniae Antigen (M - Final Serology 04/17/17 04/16/17 04/16/17 Range/Units 08:49 17:00 16:47 Urine Color Dark Yellow (Yellow) Urine Clarity Cloudy A (Clear) Urine pH 5.5 (5.0-8.0) pH Units Ur Specific [place] 1.024 (1.010-1.025) Urine Protein 100 H (Neg-Trace) mg/dL Urine Glucose (UA) Normal (Normal) mg/dL Urine Ketones Negative (Negative) mg/dL Urine Blood Moderate H (Negative) Urine Nitrite Negative (Negative) Urine Bilirubin Negative (Negative) Urine Urobilinogen Normal (Normal) mg/dL Ur Leukocyte Esterase Negative (Negative) Urine Microscopic RBC 15-30 H (0-3) per hpf Urine Microscopic WBC 5-15 H (0-3) per hpf Ur Eosinophil Smear 0 (None Seen) % Ur Squamous Epith Cells Many H (None-Few) per lpf Ur Renal Epithelial Cell Few (None-Few) per hpf Urine Bacteria Few (None-Few) per hpf Hyaline Casts Few (None-Few) per lpf Granular Casts Few H (None Seen) per lpf Ur Culture Indicated? NO (NO) Urine Creatinine 135 mg/dL Protein/Creatinin Ratio 1.90 H (0.00-0.20) mg/mg Urine Total Protein 256 mg/dL Stl C. cayetanensis PCR (Not detect) Stool Rotavirus A PCR (Not detect) Stl Adenov F 40/41 PCR (Not detect) Stool Astrovirus (PCR) (Not detect) Stool Campylobacter PCR (Not detect) Stl C. diff Tox B Gene (Negative) Stl C. diff Tox A/B PCR (Not detect) Stool Cryptosporidium PCR (Not detect) Stl Sh Tox Pr E STEC PCR (Not detect) Stool E coli O157 PCR (Not detect) Stl Enterotoxigenic E PCR (Not detect) Stool EPEC (PCR) (Not detect) Stool EAEC (PCR) (Not detect) Stl E. histolytica PCR (Not detect) Stool Giardia Lamblia PCR (Not detect) Stool Salmonella PCR (Not detect) Stool Sapovirus (PCR) (Not detect) Stl P. shigelloides PCR (Not detect) Stl Shigella/EIEC PCR (Not detect) St Y.enterocolitica PCR (Not detect) Stool Vibrio (PCR) (Not detect) Stl Vibrio cholerae PCR (Not detect) Stl Norovirus GI/GII PCR (Not detect) Stl GI Panel (PCR) Com Chlamy pneumoniae PCR (Not Detect) Adenovirus (PCR) (Not Detect) B. pertussis DNA (PCR) (Not Detect) B.parapertussis DNA PCR (Not Detect) Coronavirus OC43 (PCR) (Not Detect) Coronavirus HKU1 (PCR) (Not Detect) Coronavirus 229E (PCR) (Not Detect) Coronavirus NL63 (PCR) (Not Detect) Hepatitis A IgM Ab (Nonreactive) Hep Bs Antigen (Nonreactive) Hep B Core IgM Ab (Nonreactive) Hepatitis C Ab Screen (Nonreactive) HIV Ag/Ab Combo Qual (Nonreactive) Human Metapneumovir PCR (Not Detect) Influenza A (H1) PCR (Not Detect) Influ A (H1N1/09) PCR (Not Detect) Influenza A (H3) PCR (Not Detect) Influenza A Untype (PCR) (Not Detect) Influenza Type B (PCR) (Not Detect) M.pneumoniae DNA (PCR) (Not Detect) Parainfluenza 1 (PCR) (Not Detect) Parainfluenza 2 (PCR) (Not Detect) Parainfluenza 3 (PCR) (Not Detect) Parainfluenza 4 (PCR) (Not Detect) RSV (PCR) (Not Detect) Entero/Rhino (PCR) (Not Detect) 01/31/18 01/31/18 01/30/18 Range/Units 14:20 14:20 18:15 Urine Color (Yellow) Urine Clarity (Clear) Urine pH (5.0-8.0) pH Units Ur Specific [place] (1.010-1.025) Urine Protein (Neg-Trace) mg/dL Urine Glucose (UA) (Normal) mg/dL Urine Ketones (Negative) mg/dL Urine Blood (Negative) Urine Nitrite (Negative) Urine Bilirubin (Negative) Urine Urobilinogen (Normal) mg/dL Ur Leukocyte Esterase (Negative) Urine Microscopic RBC (0-3) per hpf Urine Microscopic WBC (0-3) per hpf Ur Eosinophil Smear (None Seen) % Ur Squamous Epith Cells (None-Few) per lpf Ur Renal Epithelial Cell (None-Few) per hpf Urine Bacteria (None-Few) per hpf Hyaline Casts (None-Few) per lpf Granular Casts (None Seen) per lpf Ur Culture Indicated? (NO) Urine Creatinine mg/dL Protein/Creatinin Ratio (0.00-0.20) mg/mg Urine Total Protein mg/dL Stl C. cayetanensis PCR Not detected (Not detect) Stool Rotavirus A PCR Not detected (Not detect) Stl Adenov F 40/41 PCR Not detected (Not detect) Stool Astrovirus (PCR) Not detected (Not detect) Stool Campylobacter PCR Not detected (Not detect) Stl C. diff Tox B Gene Negative (Negative) Stl C. diff Tox A/B PCR Not detected (Not detect) Stool Cryptosporidium PCR Not detected (Not detect) Stl Sh Tox Pr E STEC PCR Not detected (Not detect) Stool E coli O157 PCR Not detected (Not detect) Stl Enterotoxigenic E PCR Not detected (Not detect) Stool EPEC (PCR) Not detected (Not detect) Stool EAEC (PCR) Not detected (Not detect) Stl E. histolytica PCR Not detected (Not detect) Stool Giardia Lamblia PCR Not detected (Not detect) Stool Salmonella PCR Not detected (Not detect) Stool Sapovirus (PCR) Not detected (Not detect) Stl P. shigelloides PCR Not detected (Not detect) Stl Shigella/EIEC PCR Not detected (Not detect) St Y.enterocolitica PCR Not detected (Not detect) Stool Vibrio (PCR) Not detected (Not detect) Stl Vibrio cholerae PCR Not detected (Not detect) Stl Norovirus GI/GII PCR Not detected (Not detect) Stl GI Panel (PCR) Com See below Chlamy pneumoniae PCR (Not Detect) Adenovirus (PCR) (Not Detect) B. pertussis DNA (PCR) (Not Detect) B.parapertussis DNA PCR (Not Detect) Coronavirus OC43 (PCR) (Not Detect) Coronavirus HKU1 (PCR) (Not Detect) Coronavirus 229E (PCR) (Not Detect) Coronavirus NL63 (PCR) (Not Detect) Hepatitis A IgM Ab Nonreactive (Nonreactive) Hep Bs Antigen Nonreactive (Nonreactive) Hep B Core IgM Ab Nonreactive (Nonreactive) Hepatitis C Ab Screen Nonreactive (Nonreactive) HIV Ag/Ab Combo Qual Nonreactive (Nonreactive) Human Metapneumovir PCR (Not Detect) Influenza A (H1) PCR (Not Detect) Influ A (H1N1/09) PCR (Not Detect) Influenza A (H3) PCR (Not Detect) Influenza A Untype (PCR) (Not Detect) Influenza Type B (PCR) (Not Detect) M.pneumoniae DNA (PCR) (Not Detect) Parainfluenza 1 (PCR) (Not Detect) Parainfluenza 2 (PCR) (Not Detect) Parainfluenza 3 (PCR) (Not Detect) Parainfluenza 4 (PCR) (Not Detect) RSV (PCR) (Not Detect) Entero/Rhino (PCR) (Not Detect) 04/15/17 Range/Units 12:30 Urine Color (Yellow) Urine Clarity (Clear) Urine pH (5.0-8.0) pH Units Ur Specific [place] (1.010-1.025) Urine Protein (Neg-Trace) mg/dL Urine Glucose (UA) (Normal) mg/dL Urine Ketones (Negative) mg/dL Urine Blood (Negative) Urine Nitrite (Negative) Urine Bilirubin (Negative) Urine Urobilinogen (Normal) mg/dL Ur Leukocyte Esterase (Negative) Urine Microscopic RBC (0-3) per hpf Urine Microscopic WBC (0-3) per hpf Ur Eosinophil Smear (None Seen) % Ur Squamous Epith Cells (None-Few) per lpf Ur Renal Epithelial Cell (None-Few) per hpf Urine Bacteria (None-Few) per hpf Hyaline Casts (None-Few) per lpf Granular Casts (None Seen) per lpf Ur Culture Indicated? (NO) Urine Creatinine mg/dL Protein/Creatinin Ratio (0.00-0.20) mg/mg Urine Total Protein mg/dL Stl C. cayetanensis PCR (Not detect) Stool Rotavirus A PCR (Not detect) Stl Adenov F 40/41 PCR (Not detect) Stool Astrovirus (PCR) (Not detect) Stool Campylobacter PCR (Not detect) Stl C. diff Tox B Gene (Negative) Stl C. diff Tox A/B PCR (Not detect) Stool Cryptosporidium PCR (Not detect) Stl Sh Tox Pr E STEC PCR (Not detect) Stool E coli O157 PCR (Not detect) Stl Enterotoxigenic E PCR (Not detect) Stool EPEC (PCR) (Not detect) Stool EAEC (PCR) (Not detect) Stl E. histolytica PCR (Not detect) Stool Giardia Lamblia PCR (Not detect) Stool Salmonella PCR (Not detect) Stool Sapovirus (PCR) (Not detect) Stl P. shigelloides PCR (Not detect) Stl Shigella/EIEC PCR (Not detect) St Y.enterocolitica PCR (Not detect) Stool Vibrio (PCR) (Not detect) Stl Vibrio cholerae PCR (Not detect) Stl Norovirus GI/GII PCR (Not detect) Stl GI Panel (PCR) Com Chlamy pneumoniae PCR Not Detected (Not Detect) Adenovirus (PCR) Not Detected (Not Detect) B. pertussis DNA (PCR) Not Detected (Not Detect) B.parapertussis DNA PCR Not Detected (Not Detect) Coronavirus OC43 (PCR) Not Detected (Not Detect) Coronavirus HKU1 (PCR) Not Detected (Not Detect) Coronavirus 229E (PCR) Not Detected (Not Detect) Coronavirus NL63 (PCR) Not Detected (Not Detect) Hepatitis A IgM Ab (Nonreactive) Hep Bs Antigen (Nonreactive) Hep B Core IgM Ab (Nonreactive) Hepatitis C Ab Screen (Nonreactive) HIV Ag/Ab Combo Qual (Nonreactive) Human Metapneumovir PCR Not Detected (Not Detect) Influenza A (H1) PCR Not Detected (Not Detect) Influ A (H1N1/09) PCR Not Detected (Not Detect) Influenza A (H3) PCR Not Detected (Not Detect) Influenza A Untype (PCR) Not Detected (Not Detect) Influenza Type B (PCR) Not Detected (Not Detect) M.pneumoniae DNA (PCR) Not Detected (Not Detect) Parainfluenza 1 (PCR) Not Detected (Not Detect) Parainfluenza 2 (PCR) Not Detected (Not Detect) Parainfluenza 3 (PCR) Not Detected (Not Detect) Parainfluenza 4 (PCR) Not Detected (Not Detect) RSV (PCR) Not Detected (Not Detect) Entero/Rhino (PCR) Not Detected (Not Detect) - Impressions Impressions Biopsy CT 04/17/17 00:00 IMPRESSION: 1. CT guided bone marrow aspiration and core needle bone biopsy as discussed above. D/ / Kade Suazo MD / Kade Suazo MD Interpreting Provider: Kade Suazo MD Bone Marrow Biopsy w/ CT 04/17/17 00:00 IMPRESSION: 1. CT guided bone marrow aspiration and core needle bone biopsy as discussed above. D/ / Kade Suazo MD / Kade Suazo MD Interpreting Provider: Kade Suazo MD Retroperitoneum Ultrasound 04/17/17 21:00 IMPRESSION: Unremarkable ultrasound of the kidneys and urinary bladder. D/ / Collette Pierson MD / Collette Pierson MD Interpreting Provider: Collette Pierson MD Exam - Constitutional Vitals: Temp Pulse Resp BP Pulse Ox 100.2 F H 95 17 127/63 90 04/18/17 07:36 04/18/17 07:36 04/18/17 07:36 04/18/17 07:36 04/18/17 07:36 - Additional findings Additional findings: General: Flat affect, pleasant, mild distress Mouth: dentures, absent sores, absent thrush Heart: Regular rate and rhythm with no murmur Lungs: Clear to auscultation bilaterally Abdomen: Soft mild tenderness to abdomen diffusely, nondistended positive bowel sounds Skin: warm and dry, absent rash Extremities: Absent pedal edema,absent joint effusions Neuro: alert oriented x3 Vascular: Pedal and radial pulses 2 out of 4 Consult Discharge Plan - Plan Referrals: Yash Hanley MD [Primary Care Provider] - - Attending Attestation I examined this patient and my medical decision-making was reviewed with the Resident Physician. I agree with the documented findings, disposition and treatment plan as described except to the extent set forth below. pt very sad and feeling down diagnosed with acute leukemia pt being transferred to [facility] d/c all antibiotics and observe
[2017-04-18] MEDS: Acetaminophen 325 MG TABLET PO PRN (11:20)
[2017-04-18 13:44] LABS: ANA IgG by ELISA NONE DETECTED (None Detected)
--- NOTE | 2017-04-18 15:06 | Discharge Summary ---
Date of Encounter: 04/18/17 Time of Encounter: 09:00 - Discharge Diagnosis (1) Abdominal hernia Priority: Primary Status: Acute Comments: ABD CT showed anterior abdominal wall hernia containing multiple loops, some of small bowel loops within the rightward aspect of hernia with wall thickening and increased mucosal enhancement/edema, findings concerning for enteritis or vascular compromise due to entrapment. Evaluated by General Surgery who noted no acute surgical intervention indicated at this time warranted as there is no evidence of ischemic bowel. Furthermore she is pancytopenic and high surgical candidate. Will need to follow-up with Dr Whitaker as outpatient. Abdomen remains distended, patient denies abdominal pain, no diarrhea. Non- tender to palpation, no diarrhea, n/v. Qualifiers: Hernia type: ventral Obstruction and gangrene presence: without obstruction or gangrene Qualified Code(s): K43.9 - Ventral hernia without obstruction or gangrene (2) Crohns disease Priority: Secondary Status: Chronic Comments: Chronic. Follows with GI. On Remicade every 8 weeks outpatient at the [facility]. CT abdomen and pelvis showed complex abdominal wall hernia and mild central mesenteric edema, similar to increase it since prior study, likely reactive. GI consulted, GI panel ordered and negative. Fecal calprotectin has not been resulted yet. Follow up when not acutely ill. 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 Patient remains intermittently febrile. She was evaluated by infectious disease today, cefepime has been stopped. Patient is being transferred to [facility] for further evaluation. Accepting physician is Dr. Parth Berrios. (4) Pancytopenia Priority: Secondary Status: Acute Comments: White count 1.9 today. Hemoglobin 7.5, platelet count 29. Bone marrow biopsy performed yesterday. Results as above. Patient has been evaluated by oncology and recommended transfer to [facility]. Prepare to transfuse if hemoglobin below 7. (5) Symptomatic anemia Priority: Secondary Status: Acute Comments: Pt was sent to ED for evaluation after Hbg wasd found to be 6.3 at oncology office. Pt reported general weakness and malaise. Pt received 2 units PRBC and has no signs of bleeding. Hemoglobin 7.5 today. Most likely related to chronic disease. Patient also being evaluated for pancytopenia. He is being transferred to [facility] for evaluation of pancytopenia and bone marrow biopsy results. (6) Diabetes mellitus, type 2 Priority: Secondary Status: Chronic Comments: Most recent A1c is 8.6. 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 Creatinine 1.30 GFR is 40. Patient has been evaluated by nephrology. Continue to try to avoid nephrotoxins, gentle IV fluid hydration as needed. (8) HLD (hyperlipidemia) Priority: Secondary Status: Chronic Comments: Chronic. Continue home medications. Qualifiers: Hyperlipidemia type: mixed hyperlipidemia Qualified Code(s): E78.2 - Mixed hyperlipidemia (9) HTN (hypertension) Priority: Secondary Status: Chronic Comments: Well-controlled. Continue home medications. Qualifiers: Hypertension type: essential hypertension Qualified Code(s): I10 - Essential (primary) hypertension (10) DVT prophylaxis Priority: Secondary Status: Acute Comments: SCDs ordered. - Discharge Medications Home Medications: Amlodipine [Norvasc] 2.5 mg PO DAILY 01/06/15 [History] Escitalopram [Lexapro] 20 mg PO HS 01/06/15 [History] Ezetimibe [Zetia] 10 mg PO HS 01/06/15 [History] Ferrous Sulfate 325 mg PO DAILY 01/06/15 [History] Furosemide [Lasix] 20 mg PO BID 01/06/15 [History] Multivitamin/Iron/Folic Acid [Centrum Complete Multivit Tab] 1 tab PO DAILY [History] Omeprazole [PriLOSEC] 20 mg PO DAILY 01/06/15 [History] Potassium Chloride 20 meq PO DAILY 01/06/15 [History] InFLIXimab [Remicade] 100 mg IV Q8W 03/29/15 [History] Ascorbate Calcium [Vitamin C] 500 mg PO DAILY 09/15/15 [History] Cholecalciferol (D-3) [Vitamin D] 1,000 unit PO DAILY 09/15/15 [History] Cinnamon Bark [Cinnamon] 500 mg PO DAILY 09/15/15 [History] Lactobacillus Combination No.8 [Adult Probiotic] 1 cap PO DAILY 09/15/15 [ History] Turmeric Root Extract [Turmeric] 500 mg PO DAILY 09/15/15 [History] Vitamin B Complex 1 cap PO DAILY 09/15/15 [History] Vitamin E (Dl,Tocopheryl Acet) [Vitamin E] 1,000 unit PO DAILY 09/15/15 [History ] HYDROcodone/Acet 5/325 mg [[place] 5-325 mg] 1 tab PO Q6H PRN 03/24/17 [History] Insulin ASPART [Novolog Flexpen] 35 unit SQ TID 03/24/17 [History] Insulin DETEMIR [Levemir Flextouch] 40 unit SQ BID 03/24/17 [History] Linagliptin [Tradjenta] 5 mg PO DAILY 03/24/17 [History] Metoprolol XL (24 HR) Succ [Toprol Xl] 100 mg PO DAILY 03/24/17 [History] Allergies/Adverse Reactions: 3 Allergy/AdvReac Type Severity Reaction Status Date / Time influenza virus vaccine ts Allergy Vomiting Verified 04/10/17 15:35 [id number] (36 mos,up) [From Fluarix] Pneumococcal Vaccine Allergy Vomiting Verified 04/10/17 15:35 [From Prevnar] codeine AdvReac Mild Nausea Verified 04/10/17 15:35 penicillin G AdvReac Mild swelling Verified 04/10/17 15:35 Procedures/tests Complete & Pending: Procedures Performed prior 72 hours Category Date Time Status CT chest w/o contrast [CT chest wo con] [CT] Routine Cat Scan 04/15/17 17:[address] guided biopsy [CT] Routine Cat Scan 04/17/[address] biopsy bone marrow [CT] Routine Exams 04/17/17 Completed Retroperitoneal Ultrasound - Complete [US Exams 04/17/17 21:00 Completed retroperitoneal comp] [US] Routine Date of admission: 04/12/17 19:50 Primary care physician: Yash Hanley MD Consults: 04/15/17 07:55 Consult to Shingles Roofer Helper [CONS] Routine Reason for SW Consult: pt has [facility] and passport 04/15/17 10:24 Consult to Gastroenterology [CONS] Routine Consulting Provider: Gastroenterology [place] Reason for Consult: Hx Crohns dx Call Completed: Yes 04/15/17 10:47 Consult to Infectious Diseases [CONS] Routine Consulting Provider: Infectious Disease [place] Reason for Consult: FUO Call Completed: Yes 04/16/17 16:22 Consult to Rheumatology [CONS] Routine Consulting Provider: Fermin Fulton Reason for Consult: suspected auto immune disorder, history of Crohn's. Time Notified: 16:23 Call Completed: Yes 04/16/17 16:23 Consult to Nephrology [CONS] Routine Consulting Provider: Kidney [place]/TARA/ELYSIA/WINNIE Reason for Consult: Possible auto immune disease, renal function declining. Time Notified: 16:24 Call Completed: Yes 04/17/17 10:33 Consult to Interventional Radiology [CONS] Routine Consulting Provider: Radiology Interventional [facility] Reason for Consult: Bone marrow biopsy aspiration. Pathology review. Please send for FISH and Cytogenetics. RN already called floor. Patient has been NPO. Call Completed: Yes Discharging clinician: Alyx Lyon Anticipated date of discharge: 04/18/17 - Patient Status Disposition: Transfer [facility] Condition: Good Functional capacity at discharge: uses cane/walker Overall status at discharge: patient is progressing back to baseline - Discharge Instructions Follow Up With: Yash Hanley MD [Primary Care Provider] - - Diet and Activity Activity: as per physical therapy Diet: advance to your usual diet Hospital course: Ms. Bryant is a 72 year old female with past medical history including Crohn's disease with regular Remicade injections, diverticulitis, inflammatory bowel disease, morbid obesity, depression, recent influenza A, abdominal hernia, chronic kidney disease stage III. Patient presented to the emergency department on April 13 with worsening anemia and pancytopenia and was sent by hematology for evaluation. She has reported increased fatigue, malaise and shortness of breath with exertion. She received 1 unit of packed red blood cells and was admitted for continued anemia. Patient had intermittent fevers and was evaluated by infectious disease, rheumatology, oncology, nephrology, and GI. Patient was found to have hernia with multiple bowel loops, not a surgical candidate at this time there is no strangulation or entrapment. Patient's renal function is at her baseline. Rheumatology was brought in for evaluation of possible subsequent autoimmune disorder. Rheumatoid factor was elevated at 15, MELISSA was negative. She was also evaluated by infectious disease and started on cefepime with little to no change in labs. Cefepime was stopped after preliminary results of bone marrow biopsy. Bone marrow biopsy was completed yesterday. 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 Will review with patient/staff and refer to [facility] for further diagnostics/management. Patient is being transferred to [facility] for further evaluation and workup. Accepting physician is Dr. Parth Berrios. Patient is ready for transfer. - Time Spent with Patient Total time spent providing and/or coordinating discharge services: Less than 30 minutes - Constitutional Vitals: Temp Pulse Resp BP Pulse Ox 102.3 F H 90 17 145/68 89 04/18/17 11:01 04/18/17 11:01 04/18/17 11:01 04/18/17 11:01 04/18/17 11:01 General appearance: Present: cooperative, A&O X 3, pleasant, no acute distress, obese, answers questions appropriately - Head Head exam: Present: atraumatic, normal inspection, normocephalic - Eye Eye exam: Present: normal appearance, conjuntiva pink, sclera anicteric - Neck Neck exam general surgery: Present: normal inspection, supple, trachea midline. Absent: lymphadenopathy, tenderness - Respiratory Respiratory exam: Present: decreased breath sounds, CTAB. Absent: accessory muscle use, rales, rhonchi, wheezes - Cardiovascular Cardiovascular exam: Present: RRR, +S1, +S2. Absent: diastolic murmur, gallop, rubs, systolic murmur - GI/Abdominal GI/Abdominal exam: Present: normal bowel sounds, soft, no peritoneal signs. Absent: distended, hepatomegaly, tenderness - Extremities Exam Extremities exam: Present: normal capillary refill, normal inspection, warm, radial pulses palpable and symmetrical. Absent: calf tenderness, cyanotic, pedal edema, tenderness - Neurological Exam Neurological exam: Present: alert, oriented X3, no focal deficits. Absent: facial droop, speech deficit - Skin Skin exam: Present: dry, intact, normal color, warm. Absent: rash
[2017-04-18 15:36] VITALS: BP 120/69
[2017-04-18 16:36] LABS: QuantiFERON Mitogen minus NIL >10.00 IU/mL
[2017-04-21 08:03] LABS: QuantiFERON-TB Gold In-Tube NEGATIVE (Negative)
[2017-04-21 08:03] LABS: Parvovirus B19, IgM 0.42 IV (<=0.89)
[2017-04-21 08:05] LABS: Complement Component 3 174 mg/dL (88-201); Complement Component 4 31 mg/dL (10-40)
[2017-04-21 08:53] LABS: Myeloperoxidase Ab 1 AU/mL (0-19); Serine Protease-3 Antibody 1 AU/mL (0-19)
[2017-04-21 09:26] LABS: Immunoglobulin A 225 mg/dL (68-408); Immunoglobulin G 1590 mg/dL (768-1632); Immunoglobulin M 156 mg/dL (35-263)
== END 2017-04-18 16:58 | disposition other institution (70) | DRG 809 ==
LOC: 3NENU 17:52 → EMEROO 17:52 → 3NENU 23:36 → 1NENUPED 04-14 11:10 → 3BNU 04-15 16:45
PROVIDERS: ADMIT Internal Medicine; ATTEND Internal Medicine

== ENCOUNTER 2017-05-16 21:52 | Inpatient (IN) ==
[2017-05-16] MEDS ORDERED: Ondansetron 4 MG/2 ML VIAL IVP ONE (21:57)
[2017-05-16] MEDS ORDERED: Ibuprofen 600 MG TABLET PO ONE ×2 (22:05→22:11)
--- NOTE | 2017-05-16 22:11 | Emergency Department Note ---
Disposition Clinical Impression: Fever of unknown origin Disposition: Admitted As Inpatient Condition: Fair Time of Disposition: 03:55 Nausea/Vomiting/Diarrhea HPI - General Chief complaint: ED Nausea/Vomiting/Diarrhea Stated complaint: NVD/ Fever Time Seen by Provider: 05/16/17 21:55 Source: patient, family, EMS Limitations: no limitations Nursing Notes Reviewed: Yes Vital Signs Reviewed: Yes - History of Present Illness HPI Narrative: MS Bryant is a 72 yo F with 3 day history of Fever max 102, and 1 day hx of nausea and vomiting. Patient currently lives in a senior care. She has associated chills, myalgias, weakness. Fever has been treated with tylenol with minimal relief of fever. patient has not been able to hold down fluid or food since lunch. Patient denies chest pain, sob. PMH she was released from [place] for Influenzae A infection, and she also has AML, crohns, and was anemic this week and received 2 units prbc. - Related Data Home Medications Medication Instructions Recorded Confirmed Amlodipine [Norvasc] 5 mg PO DAILY 01/06/15 05/17/17 Escitalopram [Lexapro] 40 mg PO HS 01/06/15 05/17/17 Furosemide [Lasix] 40 mg PO DAILY 01/06/15 05/17/17 Omeprazole [PriLOSEC] 20 mg PO DAILY 01/06/15 05/17/17 Potassium Chloride 20 meq PO DAILY 01/06/15 05/17/17 InFLIXimab [Remicade] 100 mg IV Q8W 03/29/15 05/06/17 Ascorbate Calcium [Vitamin C] 500 mg PO DAILY 09/15/15 05/17/17 Vitamin E (Dl,Tocopheryl Acet) 1,000 unit PO DAILY 09/15/15 05/17/17 [Vitamin E] HYDROcodone/Acet 5/325 mg [[place] 1 tab PO Q6H PRN 03/24/17 05/17/17 5-325 mg] Insulin ASPART [Novolog Flexpen] 2 - 15 unit SQ TID 03/24/17 05/17/17 Insulin DETEMIR [Levemir Flextouch] 20 unit SQ BID 03/24/17 05/17/17 Metoprolol XL (24 HR) Succ [Toprol 100 mg PO DAILY 03/24/17 05/17/17 Xl] Gabapentin [Neurontin] 300 mg PO BID 05/13/17 05/17/17 Magnesium Oxide [Magnesium] 400 mg PO DAILY 05/13/17 05/17/17 Mesalamine [Asacol Hd] 800 mg PO DAILY 05/13/17 05/17/17 Nystatin POWDER [Nystop] 1 appl TP BID 05/13/17 05/17/17 Allergies Allergy/AdvReac Type Severity Reaction Status Date / Time influenza virus vaccine ts Allergy Vomiting Verified 05/06/17 11:39 [id number] (36 mos,up) [From Fluarix] Pneumococcal Vaccine Allergy Vomiting Verified 05/06/17 11:39 [From Prevnar] codeine AdvReac Mild Nausea Verified 05/06/17 11:39 penicillin G AdvReac Mild swelling Verified 05/06/17 11:39 All systems ED: reviewed and negative except as stated. Review of Systems: As Per HPI Past Medical History - Past Medical History Attestation: Yes The following information was validated with the patient. Medical history: Reports: asthma, diabetes, hyperlipidemia, hypertension, renal disease, other Surgical history: Reports: appendectomy, cholecystectomy Psychiatric history: Reports: anxiety, depression DRENCHER history: Reports: no DRENCHER history - Social History Smoking Status: Never smoker Smokeless Tobacco Status: No Alcohol use: Reports: none Drug use: Reports: none Physical Exam - General Limitations: no limitations General appearance: alert, in no apparent distress - Head Head exam: atraumatic, normocephalic, normal inspection - Eye Eye exam: Present: normal appearance, PERRL, EOMI - ENT ENT exam: normal exam, normal oropharynx, mucous membranes dry - Neck Neck exam: Present: normal inspection, full ROM, trachea midline - Chest Chest inspection: Present: normal inspection, symmetric chest wall rise. Absent : tenderness, rash, abscess - Respiratory Respiratory exam: Present: normal lung sounds bilaterally. Absent: respiratory distress, wheezes, stridor, accessory muscle use, prolonged expiratory phase - Cardiovascular Cardiovascular exam: Present: regular rate, normal rhythm, normal heart sounds. Absent: bradycardia, tachycardia, irregular rhythm, systolic murmur, diastolic murmur, JVD - Abdominal Exam Abdominal exam: Present: soft, Non-Tender. Absent: tenderness, distention, guarding, rebound, rigidity Course Course Narrative: influenza swab, motrin 400 (lower dose due to crohns), cxr, and labs pending. - Reevaluation(s) Reevaluation #1: cxr and ct abd pending Time: 01:39 Vital Signs Temperature 102.8 F H 05/16/17 21:57 Pulse Rate 89 05/16/17 21:57 Respiratory Rate 16 05/16/17 21:57 Blood Pressure 147/66 05/16/17 21:57 O2 Sat by Pulse Oximetry 91 05/16/17 21:57 Temperature 98.8 F 05/17/17 07:21 Pulse Rate 80 05/17/17 07:21 Respiratory Rate 16 05/17/17 07:21 Blood Pressure 104/58 05/17/17 07:21 O2 Sat by Pulse Oximetry 93 05/17/17 07:21 Oxygen Delivery Oxygen Delivery Room Air Nausea/Vomiting/Diarrhea - Medical Records Medical records reviewed: Yes I reviewed the patient's medical records. - Lab Data Lab results reviewed: Yes I reviewed the patient's lab results. Result diagrams: 05/16/17 22:02 05/16/17 22:02 Lab Results 05/16/17 05/16/17 05/16/17 Range/Units 22:02 22:02 22:22 WBC 2.3 L (4.3-11.1) K/mcL RBC 3.09 L (3.82-4.97) M/mcL Hgb 8.6 L (11.5-15.4) g/dL Hct 26.2 L (35.3-44.9) % MCV 84.8 (83.0-100.0) fL MCH 27.8 L (28.0-33.3) pg MCHC 32.8 (31.6-35.5) g/dL RDW 17.3 H (11.5-14.5) % Plt Count 73 L (140-400) K/mcL MPV 11.7 (9.4-12.4) fL Immature Gran % 1.3 (0-4) % Seg Neutrophils % 47.5 % Lymphocytes % 19.1 % Monocytes % 29.1 % Eosinophils % 2.6 % Basophils % 0.4 % Neutrophils # 1.1 L (1.6-8.9) K/mcL Lymphocytes # 0.4 L (0.6-4.6) K/mcL Monocytes # 0.7 (0.0-1.3) K/mcL Eosinophils # 0.1 (0.0-0.6) K/mcL Basophils # 0.0 (0.0-0.2) K/mcL Platelet Estimate Decreased L (Normal) Immature Plt Fraction 9.7 H (1.1-6.1) % Anisocytosis 1+ A (Not Present) Sodium 131 L (136-145) mEq/L Potassium 4.6 (3.5-5.1) mEq/L Chloride 98 (98-107) mEq/L Carbon Dioxide 23 (23-29) mEq/L BUN 46 H (8-23) mg/dL Creatinine 1.13 (0.60-1.20) mg/dL Est GFR ( Amer) 57 L (> 60) Est GFR (Non-Af Amer) 47 L (> 60) BUN/Creatinine Ratio 41 H (6-26) Glucose 181 H (70-105) mg/dL Calculated Osmolality 288 (280-300) Calcium 8.9 (8.6-10.3) mg/dL Urine Color Yellow (Yellow) Urine Clarity Clear (Clear) Urine pH 5.5 (5.0-8.0) pH Units Ur Specific [place] 1.015 (1.010-1.025) Urine Protein 100 H (Neg-Trace) mg/dL Urine Glucose (UA) Normal (Normal) mg/dL Urine Ketones Negative (Negative) mg/dL Urine Blood Trace H (Negative) Urine Nitrite Negative (Negative) Urine Bilirubin Negative (Negative) Urine Urobilinogen Normal (Normal) mg/dL Ur Leukocyte Esterase Negative (Negative) Urine Microscopic RBC 3-5 H (0-3) per hpf Urine Microscopic WBC 0-3 (0-3) per hpf Ur Squamous Epith Cells Many H (None-Few) per lpf Urine Bacteria None Seen (None-Few) per hpf Hyaline Casts None Seen (None-Few) per lpf Ur Culture Indicated? NO (NO) - Radiology Data Radiology results reviewed: Yes I reviewed the patient's radiology results. Chest X-Ray 05/17/17 01:22 IMPRESSION: No acute airspace disease. D/ / Yfn Manzanares MD / Yfn Manzanares MD Interpreting Provider: Yfn Manzanares MD Abdomen/Pelvis CT 05/17/17 01:26 IMPRESSION: Mesenteric edema is perhaps mildly increased since prior study. This is in association with shotty mesenteric adenopathy. Findings are nonspecific although lymphoma is not excluded. Otherwise stable examination. D/ / Crescencio Seth MD / Crescencio Seth MD Interpreting Provider: Crescencio Seth MD Attestation Statement - Attestation Attestation: I, Ricky Kay MD, personally evaluated this patient and discussed their management with the resident physician. I reviewed the resident's note and agree with the documented findings, medical decision making, and plan of care. 72-year-old female sent from a local senior care with a complaint of fever for the past 3 days. She has had some diarrhea. They gave her Imodium and the diarrhea improved today but then she started vomiting. She does complain of abdominal pain but has a large ventral hernia and states the abdominal pain is chronic however seems worse than usual. Family concerned about a bowel obstruction. No cough or difficulty breathing. No chest pain. No shortness of breath. Patient has a history of leukemia recently diagnosed and has not started chemotherapy but is scheduled to start next week. On examination patient is a well-developed well-nourished elderly female in no acute distress. She is alert and answers questions appropriate. She is hard of hearing. There is no cyanosis or diaphoresis. Neck is supple and nontender with no meningismus. Breath sounds are clear and equal bilaterally. Heart regular rate and rhythm. Abdomen is soft with moderate diffuse tenderness to palpation. There is a large mid to lower abdominal ventral hernia. Bowel sounds normal. Labs reviewed. Pancytopenia which appears to be baseline. Chest x-ray negative. CT of abdomen and pelvis shows no acute abnormality. Some mesenteric edema and shotty mesenteric adenopathy. The hospitalist, Dr. Whitlock, was consulted and accepted admission of the patient.
[2017-05-16] MEDS ORDERED: 0.9 % Sodium Chloride 500 ML IVC ONE (22:12)
[2017-05-16 22:33] LABS: Bilirubin,Urine Negative (Negative); Blood,Urine Trace (Negative); Clarity,Urine Clear (Clear); Color,Urine Yellow (Yellow); Glucose,Urine (UA) Normal (Normal); Ketones,Urine Negative (Negative); Leukocyte Esterase,Urine Negative (Negative); Nitrite,Urine Negative (Negative); PH,Urine 5.5 pH Units (5.0-8.0); Protein,Urine 100 mg/dL (Neg-Trace); Specific Gravity,Urine 1.015 (1.010-1.025); Urobilinogen,Urine Normal (Normal)
[2017-05-16 22:34] LABS: Bacteria,Urine None Seen per hpf (None-Few); Hyaline Casts,Urine None Seen per lpf (None-Few); Squamous Epithelial Cell,Urine Many per lpf (None-Few); WBC,Urine 0-3 per hpf (0-3)
[2017-05-16 22:56] LABS: Basophils % 0.4 %; Hemoglobin 8.6 g/dL (11.5-15.4)
[2017-05-16 22:58] LABS: Eosinophils # 0.1 K/mcL (0.0-0.6); Eosinophils % 2.6 %; Hematocrit 26.2 % (35.3-44.9); Immature Granulocytes % 1.3 % (0-4); Immature Platelets 9.7 % (1.1-6.1); Lymphocytes # 0.4 K/mcL (0.6-4.6); Lymphocytes % 19.1 %; Mean Corpuscular HGB Conc 32.8 g/dL (31.6-35.5); Mean Corpuscular Hemoglobin 27.8 pg (28.0-33.3); Mean Corpuscular Volume 84.8 fL (83.0-100.0); Mean Platelet Volume 11.7 fL (9.4-12.4); Monocytes # 0.7 K/mcL (0.0-1.3); Monocytes % 29.1 %; Neutrophils # 1.1 K/mcL (1.6-8.9); Red Blood Count 3.09 M/mcL (3.82-4.97); Red Cell Distribution Width 17.3 % (11.5-14.5); Segmented Neutrophils % 47.5 %
[2017-05-16 22:59] LABS: Platelet Count 73 K/mcL (140-400)
[2017-05-16 23:10] LABS: Calcium 8.9 mg/dL (8.6-10.3); Potassium 4.6 mEq/L (3.5-5.1)
[2017-05-16 23:41] LABS: Anisocytosis 1+ (Not Present); Platelet Estimate Decreased (Normal)
[2017-05-17] MEDS ORDERED: Ondansetron 4 MG/2 ML VIAL IVP ONE (00:37)
[2017-05-17] MEDS ORDERED: 0.9 % Sodium Chloride 1,000 ML IVC ONE (01:40)
[2017-05-17] MEDS ORDERED: Naloxone 0.4 MG/ML INJ IVP PRN (04:31)
[2017-05-17] MEDS ORDERED: *HR* Dextrose 50 % in Water (Syg) 50 ML SYRINGE IVP PRN (04:34)
[2017-05-17] MEDS ORDERED: Dextrose Gel 15 GM/37.5 ML TUBE PO PRN ×2 (04:34)
[2017-05-17] MEDS ORDERED: D5% in Water 1,000 ML IVC PRN (04:34)
--- NOTE | 2017-05-17 04:48 | Internal Med History&Physical ---
Date of Encounter: 05/17/17 Time of Encounter: 04:00 Assessment and Plan (1) Acute gastroenteritis Current visit: Yes Status: Acute Patient has nausea vomiting or diarrhea for one day. CT abdominal is unremarkable. Consider acute gastroenteritis. Patient has a recent hospitalization, need to rule out C. difficile. - Check stool GI panel - IV fluid clear liquid diet - Start Cipro and Flagyl IV as patient has AML and pancytopenia. - Blood culture (2) Acute myeloid leukemia Current visit: Yes Status: Acute Patient also has fever and pancytopenia. We will consult oncology in AM. Qualifiers: Leukemia Active/Remission status: without remission Qualified Code(s): C92.00 - Acute myeloblastic leukemia, not having achieved remission (3) DVT prophylaxis Current visit: No Status: Acute EPCD, no AC because of thrombocytopenia (4) HTN (hypertension) Current visit: No Status: Chronic Continue home medications Qualifiers: Hypertension type: essential hypertension Qualified Code(s): I10 - Essential (primary) hypertension (5) Diabetes mellitus, type 2 Current visit: No Status: Chronic Continue basal and sliding scale insulin Qualifiers: Diabetes mellitus complication status: with unspecified complications Diabetes mellitus detention insulin use: with buttermaker continuous churn use Qualified Code(s) : E11.8 - Type 2 diabetes mellitus with unspecified complications; Z79.4 - halfway (current) use of insulin; Z79.4 - halfway (current) use of insulin; Z79.4 - termite control technician (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 Patient has complicated workup and consult ID on last admission (See ID note on 04/18/17). Patient was found AML, probably accounting for the fever. Will consult oncology. Place patient on Tylenol as needed Qualifiers: Fever type: due to other condition Qualified Code(s): R50.81 - Fever presenting with conditions classified elsewhere Internal Medicine - H&P: HPI Chief complaint: Nausea vomiting and diarrhea Admitted From: Long-term Nursing Facility Plans for Post Hospital Care: Transfer Residential Facility History of present illness: Ms. Bryant is a 72 year old female with history of AML, diabetes, hypertension, crohn's disease sent from [facility] to ER for nausea vomiting and the diarrhea. Patient said she has diarrhea since yesterday, which is watery, stool color is yellow, no blood in it. Since today, patient has nausea and vomited twice, the vomiting are food patient had eaten, no blood in it. Patient was sent to emergency room because she cannot eat as that she has nausea and a poor intake. Patient also has on and off fever for about one month. Patient has night sweating and 26 pounds body weight loss over 2 months. Patient was counseled ID last time when she was in the hospital. Finally, she was found AML by bone marrow biopsy. Patient denies headache, sore throat, runny nose, abdominal pain, dysuria or burning on urinating. Patient has a chronic mild cough with clear sputum. I have discussed the CODE STATUS with patient. Patient is awake alert oriented 3. She clearly told me she does not want CPR or intubation. DNR/DNI placed. Past Med Surg Social Fam HX - Past Medical History Medical history: asthma, diabetes, hyperlipidemia, hypertension, renal disease, other Psychiatric history: anxiety, depression - Past Surgical History Surgical History: appendectomy, cholecystectomy - Social History Smoking Status: Never smoker Smokeless Tobacco Status: No Alcohol use: none Drug use: none - Family History Mother Living Status: Hx Family Cardiac Disorders: No Hx Family Respiratory Disorders: Yes Hx Family Cancer: Yes Hx Family GI Disorders: No Hx Family Endocrine Disorder: No Hx Family Neuromuscular Disorders: No Hx Family Neurologic Disorders: No Hx Family HEENT Disorders: No Hx Family Autoimmune Disorders: No Father Living Status: Hx Family Cardiac Disorders: Yes Hx Family Respiratory Disorders: Yes (Parents smokers) Hx Family Cancer: Yes Hx Family GI Disorders: Yes (Sister ulcerative colitis) Hx Family Endocrine Disorder: Yes Hx Family Neuromuscular Disorders: No Hx Family Neurologic Disorders: No Hx Family HEENT Disorders: No Hx Family Autoimmune Disorders: No Internal Medicine - H&P: Meds Amlodipine [Norvasc] 5 mg PO DAILY 01/06/15 [History] Escitalopram [Lexapro] 40 mg PO HS 01/06/15 [History] Furosemide [Lasix] 40 mg PO DAILY 01/06/15 [History] Omeprazole [PriLOSEC] 20 mg PO DAILY 01/06/15 [History] Potassium Chloride 20 meq PO DAILY 01/06/15 [History] InFLIXimab [Remicade] 100 mg IV Q8W 03/29/15 [History] Ascorbate Calcium [Vitamin C] 500 mg PO DAILY 09/15/15 [History] Vitamin E (Dl,Tocopheryl Acet) [Vitamin E] 1,000 unit PO DAILY 09/15/15 [History ] HYDROcodone/Acet 5/325 mg [[place] 5-325 mg] 1 tab PO Q6H PRN 03/24/17 [History] Insulin ASPART [Novolog Flexpen] 2 - 15 unit SQ TID 03/24/17 [History] Insulin DETEMIR [Levemir Flextouch] 20 unit SQ BID 03/24/17 [History] Metoprolol XL (24 HR) Succ [Toprol Xl] 100 mg PO DAILY 03/24/17 [History] Gabapentin [Neurontin] 300 mg PO BID 05/13/17 [History] Magnesium Oxide [Magnesium] 400 mg PO DAILY 05/13/17 [History] Mesalamine [Asacol Hd] 800 mg PO DAILY 05/13/17 [History] Nystatin POWDER [Nystop] 1 appl TP BID 05/13/17 [History] 3 Allergy/AdvReac Type Severity Reaction Status Date / Time influenza virus vaccine ts Allergy Vomiting Verified 05/06/17 11:39 [id number] (36 mos,up) [From Fluarix] Pneumococcal Vaccine Allergy Vomiting Verified 05/06/17 11:39 [From Prevnar] codeine AdvReac Mild Nausea Verified 05/06/17 11:39 penicillin G AdvReac Mild swelling Verified 05/06/17 11:39 All Systems PM: A 10-system review of systems was performed and is negative for pertinent findings except as documented above in the HPI. - Constitutional Vitals: Temp Pulse Resp BP Pulse Ox 102.8 F H 71 20 109/50 96 05/16/17 21:57 05/17/17 02:50 05/17/17 04:20 05/17/17 04:20 05/17/17 02:50 General appearance: Present: A&O X 3, no acute distress, answers questions appropriately - Head Head exam: Present: atraumatic, normocephalic - Eye Eye exam: Present: PERRL, conjuntiva pink, sclera anicteric Pupils: Present: PERRL - Neck Neck exam general surgery: Present: supple, trachea midline. Absent: lymphadenopathy - Respiratory Respiratory exam: Present: CTAB. Absent: accessory muscle use, rales, rhonchi, wheezes - Cardiovascular Cardiovascular exam: Present: RRR, +S1, +S2. Absent: diastolic murmur, gallop, rubs, systolic murmur - GI/Abdominal GI/Abdominal exam: Present: normal bowel sounds, soft, tenderness (Mild tenderness on bilateral lower abdomen, without rebound or guarding), no peritoneal signs. Absent: distended - Extremities Exam Extremities exam: Present: warm, radial pulses palpable and symmetrical. Absent : calf tenderness, cyanotic, pedal edema - Neurological Exam Neurological exam: Present: CN II-XII intact, oriented X3, no focal deficits. Absent: pronater drift, facial droop, speech deficit - Skin Skin exam: Present: dry, intact Internal Med - H&P Results - Labs CBC & Chem 7: 05/16/17 22:02 05/16/17 22:02 - EKG Data -: EKG Interpreted by Myself EKG shows normal: sinus rhythm Rate: normal
[2017-05-17] MEDS: 0.9 % Sodium Chloride 1,000 ML IVC SCH ×2 (05:24→16:39)
[2017-05-17] MEDS ORDERED: Ondansetron 4 MG/2 ML VIAL IVP PRN (05:38)
[2017-05-17] MEDS: Insulin LISPRO 300 UNITS/3 ML VIAL SQ SCH ×4 (09:35→20:30)
[2017-05-17] MEDS: MetroNIDAZOLE 500 MG/100 ML 500 MG/100 ML BAG IVPB SCH ×3 (09:45→23:21)
[2017-05-17] MEDS: amLODIPine 5 MG TABLET PO SCH (09:48)
[2017-05-17] MEDS: Furosemide 20 MG TABLET PO SCH (09:48)
[2017-05-17] MEDS: Gabapentin 300 MG CAPSULE PO SCH ×2 (09:48→20:42)
[2017-05-17] MEDS: Magnesium Oxide 400 MG TABLET PO SCH (09:49)
[2017-05-17] MEDS: Ascorbic Acid 500 MG TABLET PO SCH (09:49)
[2017-05-17] MEDS: Metoprolol XL (24 HR) Succ 50 MG TAB.ER.24H PO SCH (09:49)
[2017-05-17] MEDS: *HR* HYDROcodone/Acet 5/325 mg TABLET PO PRN ×2 (09:53→23:17)
[2017-05-17] MEDS: Insulin DETEMIR 100 UNIT/ML X5UNITS SQ SCH ×2 (09:55→20:42)
[2017-05-17] MEDS: Nystatin POWDER 30 GM BOTTLE TP SCH ×2 (09:56→20:43)
[2017-05-17 16:54] LABS: Adenovirus F 40/41 PCR Not detected (Not detect); Astrovirus PCR Not detected (Not detect); C.difficile Toxin A/B by PCR See reflex test (Not detect); Campylobacter by PCR Not detected (Not detect); Cryptosporidium by PCR Not detected (Not detect); Cyclospora cayetanensis PCR Not detected (Not detect); E. coli O157 by PCR Not detected (Not detect); Entamoeba histolytica PCR Not detected (Not detect); Enteroaggregative E.coli(EAEC) Not detected (Not detect); Enteropathogenic E.coli(EPEC) Not detected (Not detect); Enterotoxigenic E.coli (ETEC) Not detected (Not detect); Giardia lamblia PCR Not detected (Not detect); Norovirus GI/GII PCR Not detected (Not detect); Plesiomonas shigelloides PCR Not detected (Not detect); Rotavirus A PCR Not detected (Not detect); Salmonella PCR Not detected (Not detect); Sapovirus PCR Not detected (Not detect); Shig/EnteroinvasiveE coli EIEC Not detected (Not detect); Shigalike tox-prod E coli STEC Not detected (Not detect); Vibrio PCR Not detected (Not detect); Vibrio cholerae PCR Not detected (Not detect); Yersinia enterocolitica PCR Not detected (Not detect)
--- NOTE | 2017-05-17 17:35 | Internal Med Progress Note ---
Date of Encounter: 05/17/17 Time of Encounter: 09:30 - Assessment and plan (1) Acute gastroenteritis Current Visit: Yes Status: Acute Assessment and plan: Patient presented to the emergency department with nausea, vomiting, and diarrhea for one day prior to arrival. CT abdomen was unremarkable. Abdomen is tender to palpation especially in large ventral hernia. GI panel returned positive C. difficile results. Patient was started on Cipro and Flagyl prior to results prophylactically for AML and pancytopenia. Continue IV fluids and clear liquid diet. (2) Acute myeloid leukemia Current Visit: Yes Status: Acute Assessment and plan: Patient has had fever, pancytopenia. Fever most likely due to C. difficile. 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 We will continue to monitor. Qualifiers: Leukemia Active/Remission status: without remission Qualified Code(s): C92.00 - Acute myeloblastic leukemia, not having achieved remission (3) Crohns disease Current Visit: Yes Status: Chronic Assessment and plan: Chronic. Follow with GI outpatient. Qualifiers: Gastrointestinal tract location: unspecified location Digestive disease complication type: without complication Qualified Code(s): K50.90 - Crohn's disease, unspecified, without complications (4) Diabetes mellitus, type 2 Current Visit: Yes Status: Chronic Assessment and plan: Continue sliding scale insulin, Accu-Cheks before meals at bedtime, diabetic diet when patient is able to eat. Clear liquid diet currently. A1c ordered for morning. Qualifiers: Diabetes mellitus complication status: with unspecified complications Diabetes mellitus terminologist insulin use: with terminologist use Qualified Code(s) : E11.8 - Type 2 diabetes mellitus with unspecified complications; Z79.4 - custodial (current) use of insulin; Z79.4 - custodial (current) use of insulin; Z79.4 - custodial (current) use of insulin; Z79.4 - custodial (current) use of insulin (5) DVT prophylaxis Current Visit: Yes Status: Acute Assessment and plan: SCDs ordered. No anticoagulation due to chronic thrombocytopenia. (6) Fever Current Visit: Yes Status: Acute Assessment and plan: Patient has intermittent fever for one month, night sweats and weight loss. Less than patient was here in March for the flu, she had infectious disease consulted. He will probably accounting for fever, also patient is positive for C. difficile. Tylenol as needed for pain and fever. Qualifiers: Fever type: due to other condition Qualified Code(s): R50.81 - Fever presenting with conditions classified elsewhere (7) HTN (hypertension) Current Visit: Yes Status: Chronic Assessment and plan: Chronic. Continue home medications. Qualifiers: Hypertension type: essential hypertension Qualified Code(s): I10 - Essential (primary) hypertension - Time Spent With Patient less than 15 minutes - Subjective Interval history: Patient was seen and assessed at bedside at 9:30 AM. Patient reports that she has not felt well since she was admitted here in March with food. Current flu is negative. Patient is very flat and reports pain with palpation to central abdomen where she has a large hernia. She denies nausea, vomiting, or diarrhea now. She denies headache, blurred vision, dizziness, chest pain, and shortness of breath. Patient was not eating her breakfast tray states that she is not hungry. - Constitutional Vitals: Temp Pulse Resp BP Pulse Ox 98.2 F 72 16 99/60 95 05/17/17 15:37 05/17/17 15:37 05/17/17 15:37 05/17/17 15:37 05/17/17 15:37 General appearance: Present: cooperative, A&O X 3, pleasant, no acute distress, answers questions appropriately - Head Head exam: Present: atraumatic, normal inspection, normocephalic - Eye Eye exam: Present: normal appearance, conjuntiva pink, sclera anicteric - Neck Neck exam general surgery: Present: normal inspection, supple, trachea midline. Absent: lymphadenopathy - Respiratory Respiratory exam: Present: CTAB. Absent: accessory muscle use, rales, respiratory distress, rhonchi, wheezes - Cardiovascular Cardiovascular exam: Present: RRR, +S1, +S2. Absent: diastolic murmur, gallop, rubs, systolic murmur - GI/Abdominal GI/Abdominal exam: Present: hernia, normal bowel sounds, soft, tenderness. Absent: distended, hepatomegaly - Extremities Exam Extremities exam: Present: normal capillary refill, normal inspection, warm, radial pulses palpable and symmetrical. Absent: calf tenderness, cyanotic, pedal edema, tenderness - Neurological Exam Neurological exam: Present: alert, oriented X3, no focal deficits. Absent: facial droop, speech deficit - Skin Skin exam: Present: dry, intact, normal color, warm. Absent: rash Internal Medicine: Result - Labs CBC & Chem 7: 05/16/17 22:02 05/16/17 22:02 - VTE Documentation of Mechanical Device: Intermittent pneumatic compression device Consult Discharge Plan - Plan Referrals: Yash Hanley MD [Primary Care Provider] -
--- NOTE | 2017-05-17 18:27 | Oncology Inp Consult Note ---
Date of Encounter: 05/17/17 Time of Encounter: 18:00 Assessment and Plan (1) Acute myeloid leukemia Status: Acute Assessment and plan: AML, complex cytogenetics, not started therapy yet. Complex cytogenetics? per history outpatient treatment with hypomethylating agents planned. ANC>1000, Hgb/ Plt stable. C diff colitis, reactive adenopathy, no dilatation of bowels in imaging on Iv abx and flagyl with boderline ANC. Symptomatic with diarrhe and abdominal discomfort. Consider PO VAnco/ID eval if no improvement. Hx chronic diarrhea symptoms and crohns colitis. On meds, by GI Discussed plan with patient/daughter bedside. Qualifiers: Leukemia Active/Remission status: without remission Qualified Code(s): C92.00 - Acute myeloblastic leukemia, not having achieved remission - Data of Consult Requesting Physician: Alyx Lyon CNP Primary Care Provider: Yash Hanley MD - Consult Narrative Reason for consult: acute leukemia History of present illness: Ms. 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 These results are consistent with gains of ABL 1, BCR and KMT2A. She was hospitalized with influenza A positive by PCR 03/24/2017 and had cytopenia. She had anemia dating back to 01/06/2015. Hemoglobin ranged between 10 and 11 and this could be from her Crohn's disease and she being on Remicade Her anemia got worse with hemoglobin 8 during hospitalization She follows up with Dr. 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 She has been getting Remicade every 8 weeks for last 10 years for Crohn's disease, per Dr Sharma's notes. She has some fatty liver but no obvious cirrhosis. No splenomegaly CT Abd/Pelvis in 2014 revealed hepatomegaly/splenomegaly with severe hepatic steatosis She has to be hospitalized dehydration and then transferred to [facility] discharge 11/2017 CXR 05/17/17--no ac findings. Ct abd shotty mesentric adenopathy, mesentric edema. She was seen few day sago in clinic for AML by Dr Sharma. She has complex cytogenetics nad nogt a candidate for aggressive therapy. Rx with hypomethylating agents was planned. Patient presented with diarrhea, C diff. Past Med Surg Social Fam HX - Past Medical History Medical history: asthma, diabetes, hyperlipidemia, hypertension, renal disease, other Psychiatric history: anxiety, depression - Past Surgical History Surgical History: appendectomy, cholecystectomy - Social History Smoking Status: Never smoker Smokeless Tobacco Status: No Alcohol use: none Drug use: none - Family History Mother Living Status: Hx Family Cardiac Disorders: No Hx Family Respiratory Disorders: Yes Hx Family Cancer: Yes Hx Family GI Disorders: No Hx Family Endocrine Disorder: No Hx Family Neuromuscular Disorders: No Hx Family Neurologic Disorders: No Hx Family HEENT Disorders: No Hx Family Autoimmune Disorders: No Father Living Status: Hx Family Cardiac Disorders: Yes Hx Family Respiratory Disorders: Yes (Parents smokers) Hx Family Cancer: Yes Hx Family GI Disorders: Yes (Sister ulcerative colitis) Hx Family Endocrine Disorder: Yes Hx Family Neuromuscular Disorders: No Hx Family Neurologic Disorders: No Hx Family HEENT Disorders: No Hx Family Autoimmune Disorders: No Medications and Allergies Amlodipine [Norvasc] 2.5 mg PO DAILY 01/06/15 [History] Escitalopram [Lexapro] 40 mg PO HS 01/06/15 [History] Furosemide [Lasix] 40 mg PO DAILY 01/06/15 [History] Omeprazole [PriLOSEC] 20 mg PO DAILY 01/06/15 [History] Potassium Chloride 20 meq PO DAILY 01/06/15 [History] InFLIXimab [Remicade] 100 mg IV Q8W 03/29/15 [History] Ascorbate Calcium [Vitamin C] 500 mg PO DAILY 09/15/15 [History] Vitamin E (Dl,Tocopheryl Acet) [Vitamin E] 1,000 unit PO DAILY 09/15/15 [History ] HYDROcodone/Acet 5/325 mg [[place] 5-325 mg] 1 tab PO Q6H PRN 03/24/17 [History] Insulin ASPART [Novolog Flexpen] 2 - 15 unit SQ TID 03/24/17 [History] Insulin DETEMIR [Levemir Flextouch] 20 unit SQ BID 03/24/17 [History] Metoprolol XL (24 HR) Succ [Toprol Xl] 100 mg PO DAILY 03/24/17 [History] Gabapentin [Neurontin] 300 mg PO BID 05/13/17 [History] Magnesium Oxide [Magnesium] 400 mg PO DAILY 05/13/17 [History] Mesalamine [Asacol Hd] 800 mg PO DAILY 05/13/17 [History] Nystatin POWDER [Nystop] 1 appl TP BID 05/13/17 [History] Ezetimibe [Ezetimibe] 10 mg PO DAILY 05/17/17 [History] 3 Allergy/AdvReac Type Severity Reaction Status Date / Time influenza virus vaccine ts Allergy Vomiting Verified 05/06/17 11:39 [id number] (36 mos,up) [From Fluarix] Pneumococcal Vaccine Allergy Vomiting Verified 05/06/17 11:39 [From Prevnar] codeine AdvReac Mild Nausea Verified 05/06/17 11:39 penicillin G AdvReac Mild swelling Verified 05/06/17 11:39 Constitutional: Present: lethargy Cardiovascular: Present: as per HPI Respiratory: Present: as per HPI Gastrointestinal: Present: diarrhea, nausea Neurological: Present: as per HPI Oncology - Exam - Constitutional Vitals: Temp Pulse Resp BP Pulse Ox 98.2 F 72 16 99/60 95 05/17/17 15:37 05/17/17 15:37 05/17/17 15:37 05/17/17 15:37 05/17/17 15:37 General appearance: average body habitus, morbidly obese, obese - Head Head exam: Present: atraumatic, normal inspection - Eye Eye exam: Present: sclera anicteric - Neck Neck exam: Present: full ROM - Respiratory Respiratory exam: Present: CTAB - GI/Abdominal GI/Abdominal exam: Present: soft Additional comments: non tender - Extremities Exam Extremities exam: Present: pedal edema - Neurological Exam Neurological exam: Present: CN II-XII intact, oriented X3 - Psychiatric Psychiatric exam: Present: normal affect - Skin Skin exam: Present: pallor, urticaria, warm Consult Discharge Plan - Plan Referrals: Yash Hanley MD [Primary Care Provider] -
[2017-05-17] MEDS: Acetaminophen 325 MG TABLET PO PRN (23:18)
[2017-05-18] MEDS ORDERED: Acetaminophen 325 MG TABLET PO ONE (00:35)
[2017-05-18 08:23] LABS: Basophils % 0.5 %; Hematocrit 21.7 % (35.3-44.9); Mean Corpuscular Volume 88.6 fL (83.0-100.0); Mean Platelet Volume 13.1 fL (9.4-12.4); Red Blood Count 2.45 M/mcL (3.82-4.97)
[2017-05-18 08:25] LABS: Hemoglobin 6.8 g/dL (11.5-15.4); Immature Granulocytes % 1.6 % (0-4); Immature Platelets 10.8 % (1.1-6.1); Lymphocytes # 0.4 K/mcL (0.6-4.6); Lymphocytes % 20.2 %; Mean Corpuscular HGB Conc 31.3 g/dL (31.6-35.5); Mean Corpuscular Hemoglobin 27.8 pg (28.0-33.3); Monocytes # 0.6 K/mcL (0.0-1.3); Monocytes % 33.2 %; Neutrophils # 0.8 K/mcL (1.6-8.9); Nucleated Red Blood Cells 2.1 /100 WBC (0); Platelet Count 50 K/mcL (140-400); Red Cell Distribution Width 17.4 % (11.5-14.5); Segmented Neutrophils % 43.5 %
[2017-05-18 08:39] LABS: Calcium 7.9 mg/dL (8.6-10.3); Magnesium 1.5 mg/dL (1.6-2.6); Potassium 3.4 mEq/L (3.5-5.1)
[2017-05-18] MEDS: Acetaminophen 325 MG TABLET PO PRN ×3 (08:40→23:29)
[2017-05-18] MEDS: Metoprolol XL (24 HR) Succ 50 MG TAB.ER.24H PO SCH (08:40)
[2017-05-18] MEDS: amLODIPine 5 MG TABLET PO SCH (08:40)
[2017-05-18] MEDS: Gabapentin 300 MG CAPSULE PO SCH ×2 (08:40→20:27)
[2017-05-18] MEDS: Magnesium Oxide 400 MG TABLET PO SCH (08:40)
[2017-05-18] MEDS: MetroNIDAZOLE 500 MG/100 ML 500 MG/100 ML BAG IVPB SCH ×2 (08:41→20:25)
[2017-05-18] MEDS: Insulin LISPRO 300 UNITS/3 ML VIAL SQ SCH ×4 (08:41→21:45)
[2017-05-18] MEDS: Ascorbic Acid 500 MG TABLET PO SCH (08:43)
[2017-05-18] MEDS: Nystatin POWDER 30 GM BOTTLE TP SCH ×2 (08:43→20:36)
[2017-05-18] MEDS: Furosemide 20 MG TABLET PO SCH (08:43)
[2017-05-18] MEDS: Insulin DETEMIR 100 UNIT/ML X5UNITS SQ SCH ×2 (08:43→20:28)
[2017-05-18 10:10] LABS: Platelet Estimate Decreased (Normal)
[2017-05-18] MEDS ORDERED: 0.9 % Sodium Chloride 250 ML ONE ×2 (13:24→18:06)
--- NOTE | 2017-05-18 17:10 | Internal Med Progress Note ---
Date of Encounter: 05/18/17 Time of Encounter: 11:20 - Assessment and plan (1) Acute gastroenteritis Current Visit: Yes Status: Acute Assessment and plan: Patient presented to the emergency department with nausea, vomiting, and diarrhea for one day prior to arrival. CT abdomen was unremarkable. Abdomen is soft, rounded, bowel sounds present. GI panel returned positive C. difficile results. Flagyl 500 mg by mouth 3 times daily for 10 days. Continue IV fluids and clear liquid diet. (2) Acute myeloid leukemia Current Visit: Yes Status: Acute Assessment and plan: Patient has had fever, pancytopenia. Patient follows with [facility] for AML. 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 We will continue to monitor. Leukopenia worsening, thrombocytopenia worsening, anemia worsening today. Patient being infused with 2 units of packed red blood cells. Discussed with oncologist money laundering investigator, and he agrees with transfusing red blood cells, does not recommend transfusing with platelets until they are less than 10. Patient is aware and verbalized understanding. Continue to monitor labs. Qualifiers: Leukemia Active/Remission status: without remission Qualified Code(s): C92.00 - Acute myeloblastic leukemia, not having achieved remission (3) Crohns disease Current Visit: Yes Status: Chronic Assessment and plan: Chronic. Follow with GI outpatient. Qualifiers: Gastrointestinal tract location: unspecified location Digestive disease complication type: without complication Qualified Code(s): K50.90 - Crohn's disease, unspecified, without complications (4) Diabetes mellitus, type 2 Current Visit: Yes Status: Chronic Assessment and plan: Continue sliding scale insulin, Accu-Cheks before meals at bedtime, diabetic diet when patient is able to eat. Clear liquid diet currently. A1c ordered, not completed due to lab complication. Qualifiers: Diabetes mellitus complication status: with unspecified complications Diabetes mellitus residential insulin use: with intermediate frame tender use Qualified Code(s) : E11.8 - Type 2 diabetes mellitus with unspecified complications; Z79.4 - manager terminal (current) use of insulin; Z79.4 - group home (current) use of insulin; Z79.4 - manager terminal (current) use of insulin; Z79.4 - manager terminal (current) use of insulin (5) DVT prophylaxis Current Visit: Yes Status: Acute Assessment and plan: SCDs ordered. No anticoagulation due to chronic thrombocytopenia. (6) Fever Current Visit: Yes Status: Acute Assessment and plan: Patient has intermittent fever for one month, night sweats and weight loss. Last time patient was here in March for the flu, she had infectious disease consulted. He will probably accounting for fever, also patient is positive for C. difficile. Tylenol as needed for pain and fever. Qualifiers: Fever type: due to other condition Qualified Code(s): R50.81 - Fever presenting with conditions classified elsewhere (7) HTN (hypertension) Current Visit: Yes Status: Chronic Assessment and plan: Chronic. Continue home medications. Monitor vitals per admission order. Qualifiers: Hypertension type: essential hypertension Qualified Code(s): I10 - Essential (primary) hypertension (8) Clostridium difficile diarrhea Current Visit: Yes Status: Acute Assessment and plan: C. difficile per stool panel. Patient reports that she is still having intermittent diarrhea. Her abdomen is soft and slightly tender, bowel sounds are present. IV Flagyl and IV Cipro have been stopped, patient will have Flagyl 500 mg by mouth 3 times daily. Patient denies hematochezia. Continue by mouth Flagyl Patient is in isolation precautions. (9) Anemia Current Visit: Yes Status: Acute Assessment and plan: Anemia due to pancytopenia secondary to AML. Hemoglobin 6.8 this morning. Patient being transfused with 2 L of packed red cells. Monitor labs after transfusion, in the a.m. as well. Transfuse if hemoglobin less than 7. Qualifiers: Anemia type: other cause Other causes of anemia: chronic disease, neoplastic Qualified Code(s): D63.0 - Anemia in neoplastic disease - Time Spent With Patient less than 15 minutes - Subjective Interval history: Patient was seen and assessed at bedside at 9:30 AM. Patient is alert and awake, pleasant, and reports pain with palpation to central abdomen where she has a large hernia. She denies nausea, vomiting, or diarrhea now. She denies headache, blurred vision, dizziness, chest pain, and shortness of breath. She denies martin hematuria or blood from rectum. - Constitutional Vitals: Temp Pulse Resp BP Pulse Ox 100.2 F H 83 18 114/60 91 05/18/17 15:50 05/18/17 15:50 05/18/17 15:50 05/18/17 15:50 05/18/17 15:50 General appearance: Present: cooperative, A&O X 3, pleasant, no acute distress, answers questions appropriately - Head Head exam: Present: atraumatic, normal inspection, normocephalic - Eye Eye exam: Present: normal appearance, conjuntiva pink, sclera anicteric - Neck Neck exam general surgery: Present: supple, trachea midline. Absent: lymphadenopathy, tenderness - Respiratory Respiratory exam: Present: CTAB. Absent: accessory muscle use, chest wall tenderness, rales, respiratory distress, rhonchi, wheezes - Cardiovascular Cardiovascular exam: Present: RRR, +S1, +S2. Absent: diastolic murmur, gallop, rubs, systolic murmur - GI/Abdominal GI/Abdominal exam: Present: normal bowel sounds, soft, no peritoneal signs. Absent: distended, tenderness - Extremities Exam Extremities exam: Present: warm, radial pulses palpable and symmetrical. Absent : calf tenderness, cyanotic, pedal edema - Neurological Exam Neurological exam: Present: alert, oriented X3, no focal deficits. Absent: facial droop, speech deficit - Skin Skin exam: Present: dry, intact, normal color, warm. Absent: rash Internal Medicine: Result - Labs CBC & Chem 7: 05/18/17 06:50 05/18/17 06:50 Labs: Short CBC 05/18/17 Range/Units 06:50 WBC 1.9 L (4.3-11.1) K/mcL Hgb 6.8 L D (11.5-15.4) g/dL Hct 21.7 L (35.3-44.9) % Plt Count 50 L (140-400) K/mcL Neutrophils # 0.8 L (1.6-8.9) K/mcL BMP 05/18/17 06:50 Sodium 136 Potassium 3.4 L Chloride 105 Carbon Dioxide 23 BUN 41 H Creatinine 1.28 H Glucose 59 L Calcium 7.9 L - VTE Documentation of Mechanical Device: Intermittent pneumatic compression device Consult Discharge Plan - Plan Referrals: Yash Hanley MD [Primary Care Provider] -
[2017-05-18] MEDS: metroNIDAZOLE 500 MG TABLET PO SCH (20:28)
[2017-05-18] MEDS: 0.9 % Sodium Chloride 1,000 ML IVC SCH ×2 (21:50→23:09)
[2017-05-18] MEDS ORDERED: Furosemide 20 MG/2 ML VIAL IVP ONE (23:07)
[2017-05-19 01:12] LABS: Basophils % 0.4 %; Eosinophils % 0.7 %; Hematocrit 26.7 % (35.3-44.9); Hemoglobin 8.8 g/dL (11.5-15.4); Immature Platelets 10.5 % (1.1-6.1); Lymphocytes # 0.4 K/mcL (0.6-4.6); Lymphocytes % 13.1 %; Mean Corpuscular Hemoglobin 28.5 pg (28.0-33.3); Mean Corpuscular Volume 86.4 fL (83.0-100.0); Monocytes # 0.8 K/mcL (0.0-1.3); Monocytes % 27.6 %; Red Blood Count 3.09 M/mcL (3.82-4.97); Red Cell Distribution Width 16.6 % (11.5-14.5); Segmented Neutrophils % 58.2 %
[2017-05-19 01:38] LABS: Potassium 3.5 mEq/L (3.5-5.1)
[2017-05-19 01:42] LABS: Neutrophils # 1.6 K/mcL (1.6-8.9)
[2017-05-19 01:43] LABS: Platelet Count 55 K/mcL (140-400)
[2017-05-19 02:24] LABS: Anisocytosis 1+ (Not Present); Microcytosis Present (Not Present); Platelet Estimate Decreased (Normal); Reactive Lymphocytes Present (Not Present)
[2017-05-19] MEDS: Insulin LISPRO 300 UNITS/3 ML VIAL SQ SCH ×5 (07:41→22:16)
[2017-05-19] MEDS: amLODIPine 5 MG TABLET PO SCH (08:00)
[2017-05-19] MEDS: Gabapentin 300 MG CAPSULE PO SCH ×2 (08:00→20:46)
[2017-05-19] MEDS: metroNIDAZOLE 500 MG TABLET PO SCH ×3 (08:00→20:45)
[2017-05-19] MEDS: Nystatin POWDER 30 GM BOTTLE TP SCH ×2 (08:00→20:48)
[2017-05-19] MEDS: Metoprolol XL (24 HR) Succ 50 MG TAB.ER.24H PO SCH (08:00)
[2017-05-19] MEDS: Ascorbic Acid 500 MG TABLET PO SCH ×2 (08:00→08:05)
[2017-05-19] MEDS: Magnesium Oxide 400 MG TABLET PO SCH ×2 (08:01→08:05)
[2017-05-19] MEDS: Furosemide 20 MG TABLET PO SCH (08:01)
[2017-05-19] MEDS: Insulin DETEMIR 100 UNIT/ML X5UNITS SQ SCH ×2 (08:05→20:46)
[2017-05-19 08:34] LABS: Basophils % 0.7 %; Hemoglobin 8.5 g/dL (11.5-15.4)
[2017-05-19 08:36] LABS: Eosinophils % 0.3 %; Hematocrit 25.5 % (35.3-44.9); Immature Platelets 11.2 % (1.1-6.1); Lymphocytes # 0.9 K/mcL (0.6-4.6); Lymphocytes % 29.7 %; Mean Corpuscular HGB Conc 33.3 g/dL (31.6-35.5); Mean Corpuscular Hemoglobin 28.7 pg (28.0-33.3); Mean Corpuscular Volume 86.1 fL (83.0-100.0); Mean Platelet Volume 12.1 fL (9.4-12.4); Monocytes # 0.7 K/mcL (0.0-1.3); Monocytes % 22.7 %; Neutrophils # 1.4 K/mcL (1.6-8.9); Nucleated Red Blood Cells 0.7 /100 WBC (0); Red Blood Count 2.96 M/mcL (3.82-4.97); Red Cell Distribution Width 16.7 % (11.5-14.5); Segmented Neutrophils % 46.6 %
[2017-05-19 08:50] LABS: Platelet Count 59 K/mcL (140-400)
[2017-05-19 09:31] LABS: Anisocytosis 1+ (Not Present); Macrocytosis Present (Not Present); Platelet Estimate Decreased (Normal); Toxic Granulation Present (Not Present)
[2017-05-19] MEDS: 0.9 % Sodium Chloride 1,000 ML IVC SCH ×2 (13:41→22:16)
--- NOTE | 2017-05-19 18:14 | Internal Med Progress Note ---
Date of Encounter: 05/19/17 Time of Encounter: 09:30 - Assessment and plan (1) Acute gastroenteritis Current Visit: Yes Status: Acute Assessment and plan: Pt reports continued abd pain, diarrhea, and tenderness with palpation.. GI panel returned positive C. difficile results. Flagyl 500 mg by mouth 3 times daily for 10 days. Continue IV fluids and clear liquid diet, tolerating well. (2) Acute myeloid leukemia Current Visit: Yes Status: Acute Assessment and plan: Patient has had fever, pancytopenia. Fever overnight, as well. Patient follows with [facility] for AML. 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 Patient received 2 units of packed red cells, hemoglobin increased to 8.8. White count and platelets also improved. Discussed with oncologist organizational effectiveness director, and he agrees with transfusing red blood cells, does not recommend transfusing with platelets until they are less than 10. Patient is aware and verbalized understanding. Continue to monitor labs. Qualifiers: Leukemia Active/Remission status: without remission Qualified Code(s): C92.00 - Acute myeloblastic leukemia, not having achieved remission (3) Crohns disease Current Visit: Yes Status: Chronic Assessment and plan: Chronic. Follow with GI outpatient. Qualifiers: Gastrointestinal tract location: unspecified location Digestive disease complication type: without complication Qualified Code(s): K50.90 - Crohn's disease, unspecified, without complications (4) Diabetes mellitus, type 2 Current Visit: Yes Status: Chronic Assessment and plan: Continue sliding scale insulin, Accu-Cheks before meals at bedtime, diabetic diet when patient is able to eat. Clear liquid diet currently. A1c ordered Qualifiers: Diabetes mellitus complication status: with unspecified complications Diabetes mellitus landscape designer insulin use: with correction use Qualified Code(s) : E11.8 - Type 2 diabetes mellitus with unspecified complications; Z79.4 - nursing home (current) use of insulin; Z79.4 - farm implement mechanic (current) use of insulin; Z79.4 - nursing home (current) use of insulin; Z79.4 - farm implement mechanic (current) use of insulin (5) DVT prophylaxis Current Visit: Yes Status: Acute Assessment and plan: SCDs ordered. No anticoagulation due to chronic thrombocytopenia. Encourage patient ambulation and up to bedside in chair. (6) Fever Current Visit: Yes Status: Acute Assessment and plan: Patient has intermittent fever for one month, night sweats and weight loss. Last time patient was here in March for the flu, she had infectious disease consulted. Fever secondary to AML. Tylenol as needed for pain and fever. Qualifiers: Fever type: due to other condition Qualified Code(s): R50.81 - Fever presenting with conditions classified elsewhere (7) HTN (hypertension) Current Visit: Yes Status: Chronic Assessment and plan: Chronic. Continue home medications. Monitor vitals per admission order. Qualifiers: Hypertension type: essential hypertension Qualified Code(s): I10 - Essential (primary) hypertension (8) Clostridium difficile diarrhea Current Visit: Yes Status: Acute Assessment and plan: C. difficile per stool panel. Patient reports that she is still having intermittent diarrhea and abdominal pain. IV Flagyl and IV Cipro have been stopped, patient will have Flagyl 500 mg by mouth 3 times daily. Patient denies hematochezia. Continue by mouth Flagyl Patient is in isolation precautions. (9) Anemia Current Visit: Yes Status: Acute Assessment and plan: Anemia due to pancytopenia secondary to AML. Hemoglobin 8.8 after transfusing 2 units of packed red blood cells. Transfuse if hemoglobin less than 8 due to patient's chronic medical condition as well as kidney disease. Qualifiers: Anemia type: other cause Other causes of anemia: chronic disease, neoplastic Qualified Code(s): D63.0 - Anemia in neoplastic disease - Time Spent With Patient less than 15 minutes - Subjective Interval history: Patient was seen and assessed at bedside at 9:30 AM. Patient is alert and awake, pleasant, and reports pain with palpation to central abdomen where she has a large hernia, denies improvement. States that she is still having some diarrhea, but denies n/v. She denies headache, blurred vision, dizziness, chest pain, and shortness of breath. - Constitutional Vitals: Temp Pulse Resp BP Pulse Ox 98.5 F 70 16 120/64 97 05/19/17 15:30 05/19/17 15:30 05/19/17 15:30 05/19/17 15:30 05/19/17 11:59 General appearance: Present: cooperative, A&O X 3, pleasant, no acute distress, answers questions appropriately - Head Head exam: Present: atraumatic, normal inspection, normocephalic - Eye Eye exam: Present: normal appearance, conjuntiva pink, sclera anicteric - Neck Neck exam general surgery: Present: supple, trachea midline. Absent: lymphadenopathy, tenderness - Respiratory Respiratory exam: Present: CTAB. Absent: accessory muscle use, chest wall tenderness, rales, respiratory distress, rhonchi, wheezes - Cardiovascular Cardiovascular exam: Present: RRR, +S1, +S2. Absent: bradycardia, diastolic murmur, gallop, rubs, systolic murmur, tachycardia - GI/Abdominal GI/Abdominal exam: Present: normal bowel sounds, soft, tenderness. Absent: distended - Extremities Exam Extremities exam: Present: normal capillary refill, normal inspection, warm, radial pulses palpable and symmetrical. Absent: calf tenderness, cyanotic, pedal edema, tenderness - Neurological Exam Neurological exam: Present: alert, oriented X3, no focal deficits. Absent: altered, facial droop, speech deficit - Skin Skin exam: Present: dry, intact, pallor, warm. Absent: rash Internal Medicine: Result - Labs CBC & Chem 7: 05/19/17 07:43 05/19/17 00:44 Labs: Short CBC 05/19/17 05/19/17 Range/Units 00:44 07:43 WBC 2.8 L 3.0 L (4.3-11.1) K/mcL Hgb 8.8 L D 8.5 L (11.5-15.4) g/dL Hct 26.7 L 25.5 L (35.3-44.9) % Plt Count 55 L 59 L (140-400) K/mcL Neutrophils # 1.6 1.4 L (1.6-8.9) K/mcL BMP 05/19/17 00:44 Sodium 131 L Potassium 3.5 Chloride 102 Carbon Dioxide 21 L BUN 32 H Creatinine 1.15 Glucose 149 H Calcium 8.0 L Cardiac Enzymes 05/19/17 Range/Units 00:44 Troponin I 0.03 (< 0.04) ng/mL - VTE Documentation of Mechanical Device: Intermittent pneumatic compression device Consult Discharge Plan - Plan Referrals: Yash Hanley MD [Primary Care Provider] -
[2017-05-20 04:35] LABS: BUN/Creatinine Ratio 28 (6-26); Blood Urea Nitrogen 25 mg/dL (8-23); Calcium 8.1 mg/dL (8.6-10.3); Carbon Dioxide 23 mEq/L (23-29); Chloride 106 mEq/L (98-107); Glucose 64 mg/dL (70-105); Osmolality,Calculated 286 (280-300); Potassium 3.1 mEq/L (3.5-5.1); Sodium 137 mEq/L (136-145); eGFR For African Americans > 60 (> 60); eGFR For Non-African Americans > 60 (> 60)
[2017-05-20 04:37] LABS: Hemoglobin 8.1 g/dL (11.5-15.4)
[2017-05-20 04:39] LABS: Hematocrit 24.3 % (35.3-44.9); Mean Corpuscular HGB Conc 33.3 g/dL (31.6-35.5); Mean Corpuscular Hemoglobin 28.5 pg (28.0-33.3); Mean Corpuscular Volume 85.6 fL (83.0-100.0); Red Blood Count 2.84 M/mcL (3.82-4.97); Red Cell Distribution Width 16.8 % (11.5-14.5)
[2017-05-20 04:40] LABS: Basophils % 0.4 %; Eosinophils # 0.1 K/mcL (0.0-0.6); Eosinophils % 1.8 %; Immature Granulocytes % 1.5 % (0-4); Immature Platelets 12.3 % (1.1-6.1); Lymphocytes # 0.7 K/mcL (0.6-4.6); Mean Platelet Volume 12.2 fL (9.4-12.4); Monocytes # 0.5 K/mcL (0.0-1.3); Neutrophils # 1.5 K/mcL (1.6-8.9); Segmented Neutrophils % 55.3 %
[2017-05-20 05:22] LABS: Platelet Count 56 K/mcL (140-400)
[2017-05-20 05:23] LABS: Anisocytosis 1+ (Not Present); Platelet Estimate Decreased (Normal); Poikilocytosis 1+ (Not Present)
[2017-05-20 07:14] LABS: Hemoglobin A1C 7.2 %
[2017-05-20] MEDS: Insulin LISPRO 300 UNITS/3 ML VIAL SQ SCH ×4 (07:31→20:30)
[2017-05-20] MEDS: Nystatin POWDER 30 GM BOTTLE TP SCH ×2 (08:03→20:18)
[2017-05-20] MEDS: Insulin DETEMIR 100 UNIT/ML X5UNITS SQ SCH ×2 (08:03→20:14)
[2017-05-20] MEDS: Magnesium Oxide 400 MG TABLET PO SCH (08:03)
[2017-05-20] MEDS: Ascorbic Acid 500 MG TABLET PO SCH (08:04)
[2017-05-20] MEDS: amLODIPine 5 MG TABLET PO SCH (08:07)
[2017-05-20] MEDS: Furosemide 20 MG TABLET PO SCH (08:07)
[2017-05-20] MEDS: Metoprolol XL (24 HR) Succ 50 MG TAB.ER.24H PO SCH (08:07)
[2017-05-20] MEDS: metroNIDAZOLE 500 MG TABLET PO SCH ×3 (08:07→20:14)
[2017-05-20] MEDS: Gabapentin 300 MG CAPSULE PO SCH ×2 (08:07→20:14)
--- NOTE | 2017-05-20 09:00 | Electrocardiograph Report ---
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
[2017-05-20] MEDS: 0.9 % Sodium Chloride 1,000 ML IVC SCH (11:49)
--- NOTE | 2017-05-20 16:23 | Internal Med Progress Note ---
Date of Encounter: 05/20/17 Time of Encounter: 16:21 - Assessment and plan (1) Anemia Current Visit: Yes Status: Acute Assessment and plan: Anemia due to pancytopenia, secondary to AML. Hemoglobin was 6.8. transfused with 2 L of packed red cells. Monitor labs Transfuse if hemoglobin less than 7. Qualifiers: Anemia type: due to chronic kidney disease Chronic kidney disease stage: stage 3 (moderate) Qualified Code(s): N18.3 - Chronic kidney disease, stage 3 (moderate); D63.1 - Anemia in chronic kidney disease; D63.1 - Anemia in chronic kidney disease (2) Clostridium difficile diarrhea Current Visit: Yes Status: Acute Assessment and plan: C. difficile per stool panel. Patient reports that she is still having intermittent diarrhea but abdominal pain is much better. IV Flagyl and IV Cipro discontinued, patient will have Flagyl 500 mg by mouth 3 times daily. Patient denies hematochezia. Patient is in isolation precautions. Nausea and vomiting are resolved. Acute gastroenteritis likely secondary to the positive C. difficile results. [place] will advance to full liquids and then slowly advance her diet once tolerating diet well the IV fluids will be discontinued. (3) Crohns disease Current Visit: Yes Status: Chronic Assessment and plan: Chronic. Follow with GI outpatient. Qualifiers: Gastrointestinal tract location: unspecified location Digestive disease complication type: without complication Qualified Code(s): K50.90 - Crohn's disease, unspecified, without complications (4) Diabetes mellitus, type 2 Current Visit: Yes Status: Chronic Assessment and plan: Continue sliding scale insulin, Accu-Cheks before meals, at bedtime, diabetic diet. A1c 7.2 Qualifiers: Diabetes mellitus complication status: with unspecified complications Diabetes mellitus granite countertop installer insulin use: with prison use Qualified Code(s) : E11.8 - Type 2 diabetes mellitus with unspecified complications; Z79.4 - detention (current) use of insulin; Z79.4 - detention (current) use of insulin; Z79.4 - napping machine operator (current) use of insulin; Z79.4 - napping machine operator (current) use of insulin (5) DVT prophylaxis Current Visit: Yes Status: Acute (6) Fever Current Visit: Yes Status: Acute Qualifiers: Fever type: due to other condition Qualified Code(s): R50.81 - Fever presenting with conditions classified elsewhere (7) HTN (hypertension) Current Visit: Yes Status: Chronic Assessment and plan: Chronic. Continue home medications. Monitor vitals. Qualifiers: Hypertension type: essential hypertension Qualified Code(s): I10 - Essential (primary) hypertension (8) Acute myeloid leukemia Current Visit: Yes Status: Acute Assessment and plan: Patient has had fever, pancytopenia. Afebrile overnight. Patient follows with [facility] for AML. 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 Patient received 2 units of packed red cells, hemoglobin increased to 8.8. White count and platelets improved. Discussed with oncologist solution professional, and he agreed with transfusing of red blood cells, does not recommend transfusing with platelets until they are less than 10. Patient is aware and verbalized understanding. Continue to monitor labs. Qualifiers: Leukemia Active/Remission status: without remission Qualified Code(s): C92.00 - Acute myeloblastic leukemia, not having achieved remission - Subjective Interval history: Patient was sitting up on the commode. She just had some incontinence in her attendance of watery brown diarrhea. She states she has no complaints of fever , chills, chest pain, shortness of breath, abdominal pain, nausea or vomiting. She seemed rather flat and ask her if she was upset or discouraged and she said no this is just aware I am. She states she is tolerating her clear liquid and would like to advance her diet so will advance to full liquids and then advance as tolerated. - Constitutional Vitals: Temp Pulse Resp BP Pulse Ox 98.1 F 66 16 117/67 98 05/20/17 11:30 05/20/17 11:30 05/20/17 11:30 05/20/17 11:30 05/20/17 11:30 General appearance: Present: cooperative, A&O X 3, pleasant, no acute distress, answers questions appropriately Exam: Flat affect - Head Head exam: Present: atraumatic, normocephalic - Eye Eye exam: Present: PERRL, conjuntiva pink, sclera anicteric Pupils: Present: PERRL - Neck Neck exam general surgery: Present: supple, trachea midline. Absent: lymphadenopathy - Respiratory Respiratory exam: Present: CTAB. Absent: accessory muscle use, rales, rhonchi, wheezes - Cardiovascular Cardiovascular exam: Present: RRR, +S1, +S2. Absent: diastolic murmur, gallop, rubs, systolic murmur - GI/Abdominal GI/Abdominal exam: Present: normal bowel sounds, soft, no peritoneal signs. Absent: distended, guarding, tenderness Additional comments: obese - Extremities Exam Extremities exam: Present: warm, radial pulses palpable and symmetrical. Absent : calf tenderness, cyanotic, pedal edema - Neurological Exam Neurological exam: Present: CN II-XII intact, oriented X3, no focal deficits. Absent: pronater drift, facial droop, speech deficit - Skin Skin exam: Present: dry, intact, pallor, warm Internal Medicine: Result - Labs CBC & Chem 7: 05/20/17 03:35 05/20/17 03:35 Labs: Short CBC 05/20/17 Range/Units 03:35 WBC 2.7 L (4.3-11.1) K/mcL Hgb 8.1 L (11.5-15.4) g/dL Hct 24.3 L (35.3-44.9) % Plt Count 56 L (140-400) K/mcL Neutrophils # 1.5 L (1.6-8.9) K/mcL BMP 05/20/17 03:35 Sodium 137 Potassium 3.1 L Chloride 106 Carbon Dioxide 23 BUN 25 H Creatinine 0.88 Glucose 64 L Calcium 8.1 L - VTE Documentation of Mechanical Device: Intermittent pneumatic compression device Consult Discharge Plan - Plan Referrals: Yash Hanley MD [Primary Care Provider] -
--- NOTE | 2017-05-20 17:52 | Electrocardiograph Report ---
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
[2017-05-21] MEDS ORDERED: Ipratropium/Albuterol Neb 3 ML IH PRN (02:28)
[2017-05-21] MEDS: 0.9 % Sodium Chloride 1,000 ML IVC SCH (03:59)
[2017-05-21] MEDS: Insulin LISPRO 300 UNITS/3 ML VIAL SQ SCH ×2 (07:30→11:18)
[2017-05-21] MEDS: Nystatin POWDER 30 GM BOTTLE TP SCH (08:34)
[2017-05-21] MEDS: Ascorbic Acid 500 MG TABLET PO SCH (08:34)
[2017-05-21] MEDS: Magnesium Oxide 400 MG TABLET PO SCH (08:34)
[2017-05-21] MEDS: Insulin DETEMIR 100 UNIT/ML X5UNITS SQ SCH (08:41)
[2017-05-21] MEDS: Gabapentin 300 MG CAPSULE PO SCH (08:42)
[2017-05-21] MEDS: Metoprolol XL (24 HR) Succ 50 MG TAB.ER.24H PO SCH (08:42)
[2017-05-21] MEDS: metroNIDAZOLE 500 MG TABLET PO SCH (08:42)
[2017-05-21] MEDS: amLODIPine 5 MG TABLET PO SCH (08:42)
[2017-05-21] MEDS: Furosemide 20 MG TABLET PO SCH (08:42)
[2017-05-21 10:43] VITALS: BP 135/71
--- NOTE | 2017-05-21 12:27 | Discharge Summary ---
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 Hemoglobin was 6.8 and transfuse with 2 L of packed red cells. Qualifiers: Anemia type: bone marrow failure Bone marrow failure anemia type: other bone marrow failure Qualified Code(s): D61.89 - Other specified aplastic anemias and other bone marrow failure syndromes (2) Clostridium difficile diarrhea Priority: Primary Status: Acute Comments: Patient was positive for C. difficile per stool panel. She had had intermittent diarrhea and abdominal pain but the abdominal pain has improved. Her numbers of stooling since down to about 3 per 24 hours. She will have Flagyl 500 mg by mouth 3 times daily (3) Crohns disease Priority: Primary Status: Chronic Comments: Follows with GI as an outpatient for chronic Crohn's disease Qualifiers: Gastrointestinal tract location: unspecified location Digestive disease complication type: without complication Qualified Code(s): K50.90 - Crohn's disease, unspecified, without complications (4) Diabetes mellitus, type 2 Priority: Primary Status: Chronic Comments: Hemoglobin A1c is 7.2. We will continue diabetic diet and resume her normal medications on transfer back to [facility] Qualifiers: Diabetes mellitus complication status: with unspecified complications Diabetes mellitus moth exterminator insulin use: with moth exterminator use Qualified Code(s) : E11.8 - Type 2 diabetes mellitus with unspecified complications; Z79.4 - termite treater (current) use of insulin; Z79.4 - skilled nursing (current) use of insulin; Z79.4 - termite treater (current) use of insulin; Z79.4 - skilled nursing (current) use of insulin (5) Fever Priority: Primary Status: Resolved Qualifiers: Fever type: unspecified Qualified Code(s): R50.9 - Fever, unspecified (6) HTN (hypertension) Priority: Primary Status: Chronic Comments: Stable and resume home medications Qualifiers: Hypertension type: essential hypertension Qualified Code(s): I10 - Essential (primary) hypertension (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 Bryant is a 72 year old female with a history of AML, diabetes, hypertension , Crohn's disease who resides at a correction who was sent to the ER with nausea vomiting and diarrhea. She was found to have C. difficile on culture. She has been treated with antibiotics and will be sent back to the correction on oral Flagyl. She was also found to be anemic on this admission secondary to her AML and was transfused. Discharge discussed with: patient, nurse, social work, case management - Time Spent with Patient Total time spent providing and/or coordinating discharge services: Less than 30 minutes - Discharge Medications Prescriptions: Gabapentin [Neurontin] 300 mg PO BID #14 capsule HYDROcodone/Acet 5/325 mg [[place] 5-325 mg] 1 tab PO Q6H PRN 7 Days #28 tablet PRN Reason: Severe Pain metroNIDAZOLE [Flagyl] 500 mg PO TID 14 Days #42 tablet Home Medications: Amlodipine [Norvasc] 2.5 mg PO DAILY 01/06/15 [History] Escitalopram [Lexapro] 40 mg PO HS 01/06/15 [History] Furosemide [Lasix] 40 mg PO DAILY 01/06/15 [History] Omeprazole [PriLOSEC] 20 mg PO DAILY 01/06/15 [History] Potassium Chloride 20 meq PO DAILY 01/06/15 [History] InFLIXimab [Remicade] 100 mg IV Q8W 03/29/15 [History] Ascorbate Calcium [Vitamin C] 500 mg PO DAILY 09/15/15 [History] Vitamin E (Dl,Tocopheryl Acet) [Vitamin E] 1,000 unit PO DAILY 09/15/15 [History ] Insulin ASPART [Novolog Flexpen] 2 - 15 unit SQ TID 03/24/17 [History] Insulin DETEMIR [Levemir Flextouch] 20 unit SQ BID 03/24/17 [History] Metoprolol XL (24 HR) Succ [Toprol Xl] 100 mg PO DAILY 03/24/17 [History] Magnesium Oxide [Magnesium] 400 mg PO DAILY 05/13/17 [History] Mesalamine [Asacol Hd] 800 mg PO DAILY 05/13/17 [History] Nystatin POWDER [Nystop] 1 appl TP BID 05/13/17 [History] Ezetimibe 10 mg PO DAILY 05/17/17 [History] Gabapentin [Neurontin] 300 mg PO BID #14 capsule 05/21/17 [Rx] HYDROcodone/Acet 5/325 mg [[place] 5-325 mg] 1 tab PO Q6H PRN 7 Days #28 tablet [Rx] metroNIDAZOLE [Flagyl] 500 mg PO TID 14 Days #42 tablet 05/21/17 [Rx] Allergies/Adverse Reactions: 3 Allergy/AdvReac Type Severity Reaction Status Date / Time influenza virus vaccine ts Allergy Vomiting Verified 05/06/17 11:39 [id number] (36 mos,up) [From Fluarix] Pneumococcal Vaccine Allergy Vomiting Verified 05/06/17 11:39 [From Prevnar] codeine AdvReac Mild Nausea Verified 05/06/17 11:39 penicillin G AdvReac Mild swelling Verified 05/06/17 11:39 Date of admission: 05/17/17 04:31 Primary care physician: Yash Hanley MD Consults: 05/17/17 04:41 Consult to Oncology [CONS] Routine Consulting Provider: [facility] Reason for Consult: AML, fever Call Completed: No Discharging clinician: Darleen Donohue Anticipated date of discharge: 05/21/17 - Constitutional Vitals: Temp Pulse Resp BP Pulse Ox 98.9 F 67 16 135/71 95 05/21/17 10:42 05/21/17 10:42 05/21/17 10:42 05/21/17 10:42 05/21/17 10:42 General appearance: Present: cooperative, A&O X 3, pleasant, no acute distress, answers questions appropriately - Head Head exam: Present: atraumatic, normocephalic - Eye Eye exam: Present: PERRL, conjuntiva pink, sclera anicteric Pupils: Present: PERRL - Neck Neck exam general surgery: Present: supple, trachea midline. Absent: lymphadenopathy - Respiratory Respiratory exam: Present: CTAB. Absent: accessory muscle use, rales, rhonchi, wheezes - Cardiovascular Cardiovascular exam: Present: RRR, +S1, +S2. Absent: diastolic murmur, gallop, rubs, systolic murmur - GI/Abdominal GI/Abdominal exam: Present: normal bowel sounds, soft, no peritoneal signs. Absent: distended, tenderness - Extremities Exam Extremities exam: Present: pedal edema, warm, radial pulses palpable and symmetrical. Absent: calf tenderness, cyanotic - Neurological Exam Neurological exam: Present: CN II-XII intact, oriented X3, no focal deficits. Absent: pronater drift, facial droop, speech deficit - Skin Skin exam: Present: dry, intact, normal color, warm - Patient Status Disposition: Transfer SNF Condition: Fair Functional capacity at discharge: independent ambulation Overall status at discharge: patient is progressing back to baseline - Discharge Instructions Instructions: Asthma (DC), Acute Respiratory Distress Syndrome (DC), Diverticulitis (DC), Urinary Tract Infection in Women (DC), Gastroenteritis (DC) , Clostridium Difficile Infection (DC), Bowel Obstruction (DC), Anemia (GEN) Follow Up With: Yash Hanley MD [Primary Care Provider] - - Diet and Activity Activity: increase activity as tolerated Diet: advance to your usual diet - VTE Documentation of Mechanical Device: Intermittent pneumatic compression device
--- NOTE | 2017-05-21 12:37 | Physician Discharge Referral ---
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 Prognosis: Fair Aware of Diagnosis: Patient Aware of Prognosis: Patient - Transfer Medications Prescriptions: Gabapentin [Neurontin] 300 mg PO BID #14 capsule HYDROcodone/Acet 5/325 mg [[place] 5-325 mg] 1 tab PO Q6H PRN 7 Days #28 tablet PRN Reason: Severe Pain metroNIDAZOLE [Flagyl] 500 mg PO TID 14 Days #42 tablet Home Medications: Amlodipine [Norvasc] 2.5 mg PO DAILY 01/06/15 [History] Escitalopram [Lexapro] 40 mg PO HS 01/06/15 [History] Furosemide [Lasix] 40 mg PO DAILY 01/06/15 [History] Omeprazole [PriLOSEC] 20 mg PO DAILY 01/06/15 [History] Potassium Chloride 20 meq PO DAILY 01/06/15 [History] InFLIXimab [Remicade] 100 mg IV Q8W 03/29/15 [History] Ascorbate Calcium [Vitamin C] 500 mg PO DAILY 09/15/15 [History] Vitamin E (Dl,Tocopheryl Acet) [Vitamin E] 1,000 unit PO DAILY 09/15/15 [History ] Insulin ASPART [Novolog Flexpen] 2 - 15 unit SQ TID 03/24/17 [History] Insulin DETEMIR [Levemir Flextouch] 20 unit SQ BID 03/24/17 [History] Metoprolol XL (24 HR) Succ [Toprol Xl] 100 mg PO DAILY 03/24/17 [History] Magnesium Oxide [Magnesium] 400 mg PO DAILY 05/13/17 [History] Mesalamine [Asacol Hd] 800 mg PO DAILY 05/13/17 [History] Nystatin POWDER [Nystop] 1 appl TP BID 05/13/17 [History] Ezetimibe 10 mg PO DAILY 05/17/17 [History] Gabapentin [Neurontin] 300 mg PO BID #14 capsule 05/21/17 [Rx] HYDROcodone/Acet 5/325 mg [[place] 5-325 mg] 1 tab PO Q6H PRN 7 Days #28 tablet [Rx] metroNIDAZOLE [Flagyl] 500 mg PO TID 14 Days #42 tablet 05/21/17 [Rx] Allergies/Adverse Reactions: 3 Allergy/AdvReac Type Severity Reaction Status Date / Time influenza virus vaccine ts Allergy Vomiting Verified 05/06/17 11:39 [id number] (36 mos,up) [From Fluarix] Pneumococcal Vaccine Allergy Vomiting Verified 05/06/17 11:39 [From Prevnar] codeine AdvReac Mild Nausea Verified 05/06/17 11:39 penicillin G AdvReac Mild swelling Verified 05/06/17 11:39 - Respiratory Orders None Smoking Cessation: Smoking cessation has been advised. For more information, call the [place] Tobacco Quit Line at 4-983-MFDL-NOW. - Advance Directives Living Will: Yes Power of Soft Iron Inspector: Yes Code Status: DNR-Comfort Care - Mobility Orders Ambulate - Rehabiliation Orders Rehab Potential: Good - Diet Orders No Concentrated Sweets CERTIFICATION: I certify that the transfer of the above named patient to an Extended Care Facility is necessary for the continuing treatment of the diagnosis listed. The above information is true and accurate reflection of patient's current condition. Confidential - Redisclosure prohibited without a patient's written consent.
== END 2017-05-21 14:34 | DRG 372 ==
LOC: EMEROO 21:52 → 3BNU 21:52
PROVIDERS: ADMIT Internal Medicine; ATTEND Registered Nurse

== ENCOUNTER 2017-05-24 20:34 | Inpatient (IN) ==
[2017-05-24] MEDS ORDERED: Vancomycin Oral Soln 250 MG/5 ML UDC PO ONE (20:41)
--- NOTE | 2017-05-24 20:54 | Emergency Department Note ---
Disposition Clinical Impression: Fever of unknown origin, Pancytopenia Disposition: Still a Patient Referrals: Yash Hanley MD [Primary Care Provider] - General Adult HPI - General Time Seen by Provider: 05/24/17 20:36 Source: EMS Nursing Notes Reviewed: Yes Vital Signs Reviewed: Yes - History of Present Illness HPI Narrative: Ms Bryant is a 72 yo F who presents with SOB and Fever. Patient was recently d/ c'ed from [facility] with C. Diff infection, and has a hx of AML. Patient SOB started this morning, and has worsened. She has not attempted to relieve symptoms, and she has SOB at rest and is worsened on exertion. Patient has associated fever taken at intermediate >101 and treated with tylenol prior to admission. Patient denies nausea, vomiting, chest pain, confusion. Patient is currently constipated, and has not had diarrhea in a day. Pain Scale: 0 - Related Data Home Medications Medication Instructions Recorded Confirmed Amlodipine [Norvasc] 2.5 mg PO DAILY 01/06/15 05/17/17 Escitalopram [Lexapro] 40 mg PO HS 01/06/15 05/17/17 Furosemide [Lasix] 40 mg PO DAILY 01/06/15 05/17/17 Omeprazole [PriLOSEC] 20 mg PO DAILY 01/06/15 05/17/17 Potassium Chloride 20 meq PO DAILY 01/06/15 05/17/17 InFLIXimab [Remicade] 100 mg IV Q8W 03/29/15 05/17/17 Ascorbate Calcium [Vitamin C] 500 mg PO DAILY 09/15/15 05/17/17 Vitamin E (Dl,Tocopheryl Acet) 1,000 unit PO DAILY 09/15/15 05/17/17 [Vitamin E] Insulin ASPART [Novolog Flexpen] 2 - 15 unit SQ TID 03/24/17 05/17/17 Insulin DETEMIR [Levemir Flextouch] 20 unit SQ BID 03/24/17 05/17/17 Metoprolol XL (24 HR) Succ [Toprol 100 mg PO DAILY 03/24/17 05/17/17 Xl] Magnesium Oxide [Magnesium] 400 mg PO DAILY 05/13/17 05/17/17 Mesalamine [Asacol Hd] 800 mg PO DAILY 05/13/17 05/17/17 Nystatin POWDER [Nystop] 1 appl TP BID 05/13/17 05/17/17 Ezetimibe 10 mg PO DAILY 05/17/17 05/17/17 Previous Rx's Medication Instructions Recorded Gabapentin [Neurontin] 300 mg PO BID #14 capsule 05/21/17 HYDROcodone/Acet 5/325 mg [[place] 1 tab PO Q6H PRN 7 Days #28 tablet 05/21/17 5-325 mg] metroNIDAZOLE [Flagyl] 500 mg PO TID 14 Days #42 tablet 05/21/17 Allergies Allergy/AdvReac Type Severity Reaction Status Date / Time influenza virus vaccine ts Allergy Vomiting Verified 05/24/17 20:46 [id number] (36 mos,up) [From Fluarix] Pneumococcal Vaccine Allergy Vomiting Verified 05/24/17 20:46 [From Prevnar] codeine AdvReac Mild Nausea Verified 05/24/17 20:46 penicillin G AdvReac Mild swelling Verified 05/24/17 20:46 All systems ED: reviewed and negative except as stated. Review of Systems: As Per HPI Past Medical History - Past Medical History Attestation: Yes The following information was validated with the patient. Medical history: Reports: asthma, cancer, diabetes, GERD, hyperlipidemia, hypertension, renal disease, other Surgical history: Reports: appendectomy, cholecystectomy Psychiatric history: Reports: anxiety, depression MANNEQUIN DECORATOR history: Reports: no MANNEQUIN DECORATOR history - Social History Smoking Status: Never smoker Smokeless Tobacco Status: No Alcohol use: Reports: none Drug use: Reports: none Physical Exam - General Limitations: no limitations General appearance: alert, in no apparent distress - Eye Eye exam: Present: normal appearance, PERRL, EOMI - ENT ENT exam: mucous membranes dry - Chest Chest inspection: Present: normal inspection, symmetric chest wall rise - Respiratory Respiratory exam: Present: wheezes (expiratory wheezes diffuse) - Cardiovascular Cardiovascular exam: Present: regular rate, normal rhythm, normal heart sounds. Absent: JVD - Abdominal Exam Abdominal exam: Present: soft, Non-Tender, diminished bowel sounds. Absent: tenderness, distention, guarding, rebound, rigidity Course Course Narrative: Patient will be worked up for sepsis. Patient given oral vanc for c diff. - Reevaluation(s) Reevaluation #1: KUB neg. K+ low, replaced with 40 PO K+. U/A not suggestive of UTI. Will admit at this time with fever of unknown origin, and pancytopenia. Time: 23:24 Vital Signs Temperature 98.5 F 05/24/17 20:35 Pulse Rate 73 05/24/17 20:35 Respiratory Rate 16 05/24/17 20:35 Blood Pressure 124/44 05/24/17 20:35 O2 Sat by Pulse Oximetry 96 05/24/17 20:35 Temperature 98.5 F 05/24/17 20:35 Pulse Rate 73 05/24/17 20:35 Respiratory Rate 16 05/24/17 20:35 Blood Pressure 124/44 05/24/17 20:35 O2 Sat by Pulse Oximetry 96 05/24/17 20:35 Oxygen Delivery Oxygen Delivery Room Air Medical Decision Making - Medical Records Medical records reviewed: Yes I reviewed the patient's medical records. - Lab Data Result diagrams: 05/24/17 20:55 05/24/17 20:55 Lab Results 05/24/17 05/24/17 05/24/17 Range/Units 20:37 20:55 20:55 WBC 2.1 L (4.3-11.1) K/mcL RBC 2.67 L (3.82-4.97) M/mcL Hgb 7.5 L (11.5-15.4) g/dL Hct 23.1 L (35.3-44.9) % MCV 86.5 (83.0-100.0) fL MCH 28.1 (28.0-33.3) pg MCHC 32.5 (31.6-35.5) g/dL RDW 16.9 H (11.5-14.5) % Plt Count 70 L (140-400) K/mcL MPV 13.0 H (9.4-12.4) fL Immature Gran % 2.9 (0-4) % Seg Neutrophils % 55.0 % Lymphocytes % 23.0 % Monocytes % 16.7 % Eosinophils % 1.9 % Basophils % 0.5 % Neutrophils # 1.2 L (1.6-8.9) K/mcL Lymphocytes # 0.5 L (0.6-4.6) K/mcL Monocytes # 0.4 (0.0-1.3) K/mcL Eosinophils # 0.0 (0.0-0.6) K/mcL Basophils # 0.0 (0.0-0.2) K/mcL Platelet Estimate Decreased L (Normal) Immature Plt Fraction 10.3 H (1.1-6.1) % Anisocytosis 1+ A (Not Present) PT 15.8 H (9.4-12.1) Seconds INR 1.5 APTT 33.0 (26.0-36.0) Seconds Sodium (136-145) mEq/L Potassium (3.5-5.1) mEq/L Chloride (98-107) mEq/L Carbon Dioxide (23-29) mEq/L BUN (8-23) mg/dL Creatinine (0.60-1.20) mg/dL Est GFR ( Amer) (> 60) Est GFR (Non-Af Amer) (> 60) BUN/Creatinine Ratio (6-26) Glucose (70-105) mg/dL Calculated Osmolality (280-300) Lactic Acid (0.5-2.2) mmol/L Calcium (8.6-10.3) mg/dL Phosphorus (2.7-4.5) mg/dL Magnesium (1.6-2.6) mg/dL Total Bilirubin (0.3-1.0) mg/dL Direct Bilirubin (0.0-0.2) mg/dL Indirect Bilirubin (0.0-1.2) mg/dL AST (13-39) Units/L ALT (7-52) Units/L Alkaline Phosphatase (34-104) Units/L Troponin I (< 0.04) ng/mL Serum Total Protein (6.4-8.9) g/dL Albumin (3.5-5.7) g/dL Globulin (2.4-3.5) g/dL Albumin/Globulin Ratio (1.1-2.2) Urine Color Dark Yellow (Yellow) Urine Clarity Cloudy A (Clear) Urine pH 5.5 (5.0-8.0) pH Units Ur Specific [place] 1.020 (1.010-1.025) Urine Protein 100 H (Neg-Trace) mg/dL Urine Glucose (UA) Normal (Normal) mg/dL Urine Ketones Negative (Negative) mg/dL Urine Blood Small H (Negative) Urine Nitrite Negative (Negative) Urine Bilirubin Negative (Negative) Urine Urobilinogen Normal (Normal) mg/dL Ur Leukocyte Esterase Moderate H (Negative) Urine Microscopic RBC 0-3 (0-3) per hpf Urine Microscopic WBC TNTC H (0-3) per hpf Ur Squamous Epith Cells Many H (None-Few) per lpf Ur Renal Epithelial Cell Few (None-Few) per hpf Urine Bacteria Few (None-Few) per hpf Hyaline Casts None Seen (None-Few) per lpf Ur Culture Indicated? NO. (NO) 05/24/17 05/24/17 Range/Units 20:55 20:55 WBC (4.3-11.1) K/mcL RBC (3.82-4.97) M/mcL Hgb (11.5-15.4) g/dL Hct (35.3-44.9) % MCV (83.0-100.0) fL MCH (28.0-33.3) pg MCHC (31.6-35.5) g/dL RDW (11.5-14.5) % Plt Count (140-400) K/mcL MPV (9.4-12.4) fL Immature Gran % (0-4) % Seg Neutrophils % % Lymphocytes % % Monocytes % % Eosinophils % % Basophils % % Neutrophils # (1.6-8.9) K/mcL Lymphocytes # (0.6-4.6) K/mcL Monocytes # (0.0-1.3) K/mcL Eosinophils # (0.0-0.6) K/mcL Basophils # (0.0-0.2) K/mcL Platelet Estimate (Normal) Immature Plt Fraction (1.1-6.1) % Anisocytosis (Not Present) PT (9.4-12.1) Seconds INR APTT (26.0-36.0) Seconds Sodium 131 L (136-145) mEq/L Potassium 3.3 L (3.5-5.1) mEq/L Chloride 97 L (98-107) mEq/L Carbon Dioxide 29 (23-29) mEq/L BUN 18 (8-23) mg/dL Creatinine 1.00 (0.60-1.20) mg/dL Est GFR ( Amer) > 60 (> 60) Est GFR (Non-Af Amer) 54 L (> 60) BUN/Creatinine Ratio 18 (6-26) Glucose 193 H (70-105) mg/dL Calculated Osmolality 279 L (280-300) Lactic Acid 1.6 (0.5-2.2) mmol/L Calcium 7.9 L (8.6-10.3) mg/dL Phosphorus 2.8 (2.7-4.5) mg/dL Magnesium 1.2 L (1.6-2.6) mg/dL Total Bilirubin 0.6 (0.3-1.0) mg/dL Direct Bilirubin 0.2 (0.0-0.2) mg/dL Indirect Bilirubin 0.4 (0.0-1.2) mg/dL AST 7 L (13-39) Units/L ALT 3 L (7-52) Units/L Alkaline Phosphatase 58 (34-104) Units/L Troponin I < 0.03 (< 0.04) ng/mL Serum Total Protein 6.7 (6.4-8.9) g/dL Albumin 2.4 L (3.5-5.7) g/dL Globulin 4.3 H (2.4-3.5) g/dL Albumin/Globulin Ratio 0.6 L (1.1-2.2) Urine Color (Yellow) Urine Clarity (Clear) Urine pH (5.0-8.0) pH Units Ur Specific [place] (1.010-1.025) Urine Protein (Neg-Trace) mg/dL Urine Glucose (UA) (Normal) mg/dL Urine Ketones (Negative) mg/dL Urine Blood (Negative) Urine Nitrite (Negative) Urine Bilirubin (Negative) Urine Urobilinogen (Normal) mg/dL Ur Leukocyte Esterase (Negative) Urine Microscopic RBC (0-3) per hpf Urine Microscopic WBC (0-3) per hpf Ur Squamous Epith Cells (None-Few) per lpf Ur Renal Epithelial Cell (None-Few) per hpf Urine Bacteria (None-Few) per hpf Hyaline Casts (None-Few) per lpf Ur Culture Indicated? (NO) Attestation Statement - Attestation Attestation: I examined this patient and my medical decision-making was reviewed with the Resident Physician. I agree with the documented findings, disposition and treatment plan as described except to the extent set forth below. Patient with patient with AML, previously evaluated [facility], now followed at the cancer center here and currently residing in nursing facility after being recently discharged with C. difficile infection. Currently on Flagyl as well as Levaquin. Patient has underlying colitis as well. Tonight she developed a fever and yesterday was having multiple episodes of diarrhea. There would be concern for underlying failed C. difficile treatment. She was afebrile on arrival but received antipyretics prior to arrival here today. Her vital signs are stable. Her abdominal examination is non-peritoneal. Given that she received broad-spectrum antibiotics already I would proceed with treatment of possible C. difficile. Oral vancomycin was given. KUB was obtained to rule out toxic megacolon. Urinalysis has white blood cells but no evidence of infection currently we will send this for culture. Chest x-ray shows a pleural effusion. She has a mild cough but this appears to be chronic. We did do sheer decision-making regarding broad-spectrum antibiotics versus deferring for a specific source. Given her immunocompromised state as well as underlying C. difficile I would defer broad-spectrum antibiotic initiation to the hospitalist team. Discussed with hospitalist team and we will admit for further evaluation.
[2017-05-24 21:06] LABS: Basophils % 0.5 %
[2017-05-24 21:07] LABS: Eosinophils % 1.9 %; Hematocrit 23.1 % (35.3-44.9); Immature Granulocytes % 2.9 % (0-4); Immature Platelets 10.3 % (1.1-6.1); Lymphocytes # 0.5 K/mcL (0.6-4.6); Mean Corpuscular HGB Conc 32.5 g/dL (31.6-35.5); Mean Corpuscular Hemoglobin 28.1 pg (28.0-33.3); Mean Corpuscular Volume 86.5 fL (83.0-100.0); Monocytes # 0.4 K/mcL (0.0-1.3); Monocytes % 16.7 %; Neutrophils # 1.2 K/mcL (1.6-8.9); Red Blood Count 2.67 M/mcL (3.82-4.97); Red Cell Distribution Width 16.9 % (11.5-14.5)
[2017-05-24 21:11] LABS: INR 1.5; Prothrombin Time 15.8 Seconds (9.4-12.1)
[2017-05-24 21:21] LABS: Alanine Aminotransferase 3 Units/L (7-52); Albumin 2.4 g/dL (3.5-5.7); Albumin/Globulin Ratio 0.6 (1.1-2.2); Alkaline Phosphatase 58 Units/L (34-104); Aspartate Amino Transferase 7 Units/L (13-39); BUN/Creatinine Ratio 18 (6-26); Bilirubin,Direct 0.2 mg/dL (0.0-0.2); Bilirubin,Indirect 0.4 mg/dL (0.0-1.2); Bilirubin,Total 0.6 mg/dL (0.3-1.0); Blood Urea Nitrogen 18 mg/dL (8-23); Calcium 7.9 mg/dL (8.6-10.3); Carbon Dioxide 29 mEq/L (23-29); Chloride 97 mEq/L (98-107); Globulin 4.3 g/dL (2.4-3.5); Glucose 193 mg/dL (70-105); Magnesium 1.2 mg/dL (1.6-2.6); Osmolality,Calculated 279 (280-300); Phosphorous 2.8 mg/dL (2.7-4.5); Potassium 3.3 mEq/L (3.5-5.1); Sodium 131 mEq/L (136-145); Total Protein 6.7 g/dL (6.4-8.9); eGFR For African Americans > 60 (> 60); eGFR For Non-African Americans 54 (> 60)
[2017-05-24] MEDS: 0.9 % Sodium Chloride 1,000 ML IVC SCH (21:41)
[2017-05-24 21:52] LABS: Hemoglobin 7.5 g/dL (11.5-15.4)
[2017-05-24 21:56] LABS: Platelet Count 70 K/mcL (140-400)
[2017-05-24 22:00] LABS: Anisocytosis 1+ (Not Present); Platelet Estimate Decreased (Normal)
[2017-05-24 22:16] LABS: Troponin I < 0.03 ng/mL (< 0.04)
[2017-05-24 22:42] LABS: Bilirubin,Urine Negative (Negative); Blood,Urine Small (Negative); Clarity,Urine Cloudy (Clear); Color,Urine Dark Yellow (Yellow); Glucose,Urine (UA) Normal (Normal); Ketones,Urine Negative (Negative); Leukocyte Esterase,Urine Moderate (Negative); Nitrite,Urine Negative (Negative); PH,Urine 5.5 pH Units (5.0-8.0); Protein,Urine 100 mg/dL (Neg-Trace); Urobilinogen,Urine Normal (Normal)
[2017-05-24 22:45] LABS: Bacteria,Urine Few per hpf (None-Few); Hyaline Casts,Urine None Seen per lpf (None-Few); RBC,Urine 0-3 per hpf (0-3); Squamous Epithelial Cell,Urine Many per lpf (None-Few); WBC,Urine TNTC per hpf (0-3)
[2017-05-24 23:22] LABS: Renal Epithelial Cells,Urine Few per hpf (None-Few)
[2017-05-24] MEDS ORDERED: Ipratropium/Albuterol Neb 3 ML IH ONE (23:43)
[2017-05-25] MEDS: 0.9 % Sodium Chloride 1,000 ML IVC SCH (00:01)
--- NOTE | 2017-05-25 03:03 | Internal Med History&Physical ---
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 Fevers/chills may also be influenced by possible acute respiratory infection - Diagnosis made @ [facility] - Followed by [facility] - Has not started treatment Qualifiers: Leukemia Active/Remission status: without remission Qualified Code(s): C92.00 - Acute myeloblastic leukemia, not having achieved remission (2) Asthma exacerbation Current visit: Yes Status: Acute - Remote h/o asthma, pt states this hasn't been a problem for many years and uses no inhalers at home - Likely d/t acute respiratory infection, most likely viral - Bilateral expiratory wheezing from apices to bases - Saturating well on 2L NC, wean off as tolerated - Supplemental oxygen, bronchodilators, steroids Qualifiers: Asthma severity: unspecified severity Asthma persistence: unspecified Qualified Code(s): J45.901 - Unspecified asthma with (acute) exacerbation (3) Hyponatremia Current visit: Yes Status: Acute - Sodium 131 on admission; appears to be chronic - Receiving IV normal saline - Check urine sodium - Monitor on metabolic panel, replace PRN (4) Hypokalemia Current visit: Yes Status: Acute - Potassium 3.3 on admission - Monitor with metabolic panel - Replace PRN with PO or IV (5) Pancytopenia Current visit: Yes Status: Acute - in the setting of untreated AML (6) HTN (hypertension) Current visit: No Status: Chronic - Currently well controlled - Continue to monitor Qualifiers: Hypertension type: essential hypertension Qualified Code(s): I10 - Essential (primary) hypertension (7) Diabetes mellitus type 2, insulin dependent Current visit: Yes Status: Chronic - Hold home insulin - SSI low dose - ACHS glucose checks - Diabetic diet (8) CKD (chronic kidney disease) stage 3, GFR 30-59 ml/min Current visit: No Status: Chronic - Avoid nephrotoxins and follow renal dosing when applicable (9) Crohns disease Current visit: No Status: Chronic - Symptomatic care Qualifiers: Gastrointestinal tract location: unspecified location Digestive disease complication type: without complication Qualified Code(s): K50.90 - Crohn's disease, unspecified, without complications (10) DVT prophylaxis Current visit: Yes Status: Acute - EPCDs - Avoid anticoagulation 2/2 thrombocytosis in setting of AML Internal Medicine - H&P: HPI Chief complaint: Shortness of breath, fever History of present illness: Ms. Bryant is a 72 year old female who presented to the ED today for shortness of breath and fever. Patient's temperature was measured at skilled nursing today with a Tmax of 103, received tylenol prior to arrival. Admits to excessive sweating, nausea, and alternating fevers/chills x 1 day. States she's had shortness of breath "since the last time I was here" and that it's gotten worse since then. She says that she is short of breath at rest and worsens on exertion. She admits she has a cough normally, but has now gotten more "forceful." Her cough is not normally productive, however now she is producing clear sputum occasionally. Denies bloody or purulent sputum. She has had 2 episodes of emesis over the last 2 days, but hasn't vomited today. She denies cardiac chest pain and denies chest pain secondary to coughing. She complains of sharp, piercing "in and out" pain of last rib on right side. Ms. Bryant was released from [facility] 05/21/17 after being treated for C. difficile diarrhea with Flagyl that she would continue as an outpatient. During the interim she denies having any other episodes of diarrhea and denies abdominal cramping. She does have lower abdominal pain from her hernias, but has not worsened or changed in any way. Pertinent PMH includes active AML not receiving treatment, CKD, type II DM on insulin, Chron's disease, and remote history of asthma. ED course: Workup included basic labs, blood cultures. UA, CXR, and KUB. Labwork shows pancytopenia, electrolyte imbalance, and hyperglycemia. CXR and KUB shows small pleural effusions, mild bibasilar atelectasis, and nonspecific bowel gas pattern. Treatments included duoneb, 40 mEq K+, 1L IVF, and 125 mg Vancomycin PO. She was admitted for fever, pancytopenia, and further evaluation. Past Med Surg Social Fam HX - Past Medical History Medical history: asthma, cancer, diabetes, GERD, hyperlipidemia, hypertension, renal disease, other Psychiatric history: anxiety, depression - Past Surgical History Surgical History: appendectomy, cholecystectomy - Social History Smoking Status: Never smoker Smokeless Tobacco Status: No Alcohol use: none Drug use: none - Family History Mother Living Status: Age at : 69 Cause of : lung cancer Hx Family Cardiac Disorders: No Hx Family Respiratory Disorders: Yes Hx Family Cancer: Yes Hx Family GI Disorders: No Hx Family Endocrine Disorder: No Hx Family Neuromuscular Disorders: No Hx Family Neurologic Disorders: No Hx Family HEENT Disorders: No Hx Family Autoimmune Disorders: No Father Living Status: Age at : 72 Hx Family Cardiac Disorders: Yes Hx Family Respiratory Disorders: Yes (Parents smokers) Hx Family Cancer: Yes Hx Family GI Disorders: Yes (Sister ulcerative colitis) Hx Family Endocrine Disorder: Yes Hx Family Neuromuscular Disorders: No Hx Family Neurologic Disorders: No Hx Family HEENT Disorders: No Hx Family Autoimmune Disorders: No Internal Medicine - H&P: Meds Amlodipine [Norvasc] 2.5 mg PO DAILY 01/06/15 [History] Escitalopram [Lexapro] 40 mg PO HS 01/06/15 [History] Furosemide [Lasix] 40 mg PO DAILY 01/06/15 [History] Omeprazole [PriLOSEC] 20 mg PO DAILY 01/06/15 [History] Potassium Chloride 20 meq PO DAILY 01/06/15 [History] InFLIXimab [Remicade] 100 mg IV Q8W 03/29/15 [History] Ascorbate Calcium [Vitamin C] 500 mg PO DAILY 09/15/15 [History] Vitamin E (Dl,Tocopheryl Acet) [Vitamin E] 1,000 unit PO DAILY 09/15/15 [History ] Insulin ASPART [Novolog Flexpen] 2 - 15 unit SQ TID 03/24/17 [History] Insulin DETEMIR [Levemir Flextouch] 20 unit SQ BID 03/24/17 [History] Metoprolol XL (24 HR) Succ [Toprol Xl] 100 mg PO DAILY 03/24/17 [History] Magnesium Oxide [Magnesium] 400 mg PO DAILY 05/13/17 [History] Mesalamine [Asacol Hd] 800 mg PO DAILY 05/13/17 [History] Nystatin POWDER [Nystop] 1 appl TP BID 05/13/17 [History] Ezetimibe 10 mg PO DAILY 05/17/17 [History] Gabapentin [Neurontin] 300 mg PO BID #14 capsule 05/21/17 [Rx] HYDROcodone/Acet 5/325 mg [[place] 5-325 mg] 1 tab PO Q6H PRN 7 Days #28 tablet [Rx] metroNIDAZOLE [Flagyl] 500 mg PO TID 14 Days #42 tablet 05/21/17 [Rx] 3 Allergy/AdvReac Type Severity Reaction Status Date / Time influenza virus vaccine ts Allergy Vomiting Verified 05/24/17 20:46 [id number] (36 mos,up) [From Fluarix] Pneumococcal Vaccine Allergy Vomiting Verified 05/24/17 20:46 [From Prevnar] codeine AdvReac Mild Nausea Verified 05/24/17 20:46 penicillin G AdvReac Mild swelling Verified 05/24/17 20:46 All Systems PM: A 10-system review of systems was performed and is negative for pertinent findings except as documented above in the HPI. - Constitutional Constitutional: chills, excessive sweating, fever(s) - Cardiovascular Cardiovascular ROS IM: no chest pain, no edema, no irregular heart rhythm, no palpitations - Respiratory Respiratory: cough, dyspnea on exertion, wheezing, pain with cough (Rt sided rib pain), no hemoptysis - Gastrointestinal Gastrointestinal: nausea, vomiting, no abdominal pain, no change in stool character, no constipation - Constitutional Vitals: Temp Pulse Resp BP Pulse Ox 97.7 F 71 17 125/57 93 05/25/17 00:50 05/25/17 00:50 05/25/17 00:50 05/25/17 00:50 05/25/17 00:50 General appearance: Present: cooperative, A&O X 3, no acute distress, answers questions appropriately - Head Head exam: Present: atraumatic, normocephalic - Eye Eye exam: Present: EOMI, normal appearance, sclera anicteric - Neck Neck exam general surgery: Present: supple - Respiratory Respiratory exam: Present: wheezes (bilateral, apices to bases). Absent: decreased breath sounds, respiratory distress, rhonchi - Cardiovascular Cardiovascular exam: Present: RRR, +S1, +S2 - GI/Abdominal GI/Abdominal exam: Present: normal bowel sounds, soft. Absent: rebound, tenderness - Extremities Exam Extremities exam: Absent: cyanotic, pedal edema Additional comments: DP pulses +2 - Back Exam Back exam: Present: normal inspection - Neurological Exam Neurological exam: Present: alert, oriented X3, no focal deficits - Skin Skin exam: Present: dry, intact, warm Internal Med - H&P Results - Labs CBC & Chem 7: 05/24/17 20:55 05/24/17 20:55 <Roberto Loo - Last Filed: 05/25/17 06:59> Date of Encounter: 05/25/17 Time of Encounter: 02:00 Internal Medicine - H&P: HPI History of present illness: Ms. Bryant is a 72 year old female All Systems PM: A 10-system review of systems was performed and is negative for pertinent findings except as documented above in the HPI. - Constitutional Vitals: Temp Pulse Resp BP Pulse Ox 98.4 F 78 14 138/70 90 05/25/17 03:58 05/25/17 03:58 05/25/17 05:22 05/25/17 03:58 05/25/17 05:22 Internal Med - H&P Results - Labs CBC & Chem 7: 05/24/17 20:55 05/24/17 20:55 - Attending Attestation I examined this patient and my medical decision-making was reviewed with the Resident Physician, Mariela Carpenter. I agree with the documented findings, disposition and treatment plan as described with any changes as documented below. 72-year-old female patient with recently diagnosed acute myeloid leukemia and past medical history of asthma, diabetes, hypertension, hyperlipidemia, chronic kidney disease, Crohn's disease who presented to the ER from skilled nursing with complaints of shortness of breath and fever. Symptoms have been ongoing since her discharge from the hospital on 05/21/17. She has been receiving breathing treatments intermittently at the skilled nursing with no improvement in her symptoms. She reportedly had a fever of 103 degrees Fahrenheit at the skilled nursing yesterday. She was then sent over to the ER. She was diagnosed with AML earlier this year and is being evaluated for treatment with hypomethylating agents. She has not yet started treatment for this. She was in the hospital recently for C. difficile diarrhea. She has had episodes of fever intermittently over the past several months. She has had multiple courses of antibiotics. She is no longer having diarrhea. She has had 11 days of antibiotic therapy with Flagyl. On examination, patient is awake and alert. Oriented. Not in respiratory distress at this time. Does have bilateral end expiratory wheezing. Heart sounds are normal. Labs show a WBC count of 2.1, hemoglobin of 7.5, platelets of 70 BUN of 18, creatinine of 1, potassium 3.3, chloride 97 and sodium 131. Lactic acid is normal. Chest x-ray shows no acute infiltrate. Has mild bibasilar atelectasis with small right pleural effusion. KUB x-ray shows small bi basal effusions. With nonspecific bowel gas pattern. Acute asthma exacerbation/acute bronchitis: Most likely viral bronchitis. Will check respiratory infection panel. Treat symptomatically with intravenous steroids, bronchodilators and O2 supplementation. Patient reports that she has never had issues with asthma for several years now. She is not on any inhalers at home. Will need pulmonology follow-up after discharge. Acute myeloid leukemia: With pancytopenia. Remains at high risk for infections. This is the likely cause for her episodes of fever. No acute source of infection at this time. Recent C. difficile diarrhea: We will complete 14 day antibiotic course of Flagyl. Crohn's disease: Continue symptomatic care. On Remicade every 8 weeks. Essential hypertension: Monitor blood pressure. Continue Norvasc. Hyponatremia: Appears to be chronic. Check urine sodium. We will gently hydrate with normal saline. Hypokalemia: Replete orally and intravenously. DM2: Diabetic diet. Sliding scale insulin. DVT prophylaxis with SCDs. Avoid heparin products due to thrombocytopenia.
[2017-05-25] MEDS ORDERED: Naloxone 0.4 MG/ML INJ IVP PRN (03:27)
[2017-05-25] MEDS ORDERED: Ipratropium/Albuterol Neb 3 ML IH PRN ×2 (03:32→04:10)
[2017-05-25] MEDS ORDERED: Dextrose Gel 15 GM/37.5 ML TUBE PO PRN ×2 (03:33)
[2017-05-25] MEDS ORDERED: D5% in Water 1,000 ML IVC PRN (03:33)
[2017-05-25] MEDS ORDERED: *HR* Dextrose 50 % in Water (Syg) 50 ML SYRINGE IVP PRN (03:33)
[2017-05-25] MEDS: 0.9 % Sodium Chloride w KCl 20 MEQ/1,000 ML MLS IVC SCH ×2 (03:59→14:45)
--- NOTE | 2017-05-25 04:22 | Event Note ---
Date of Encounter: 05/25/17 Time of Encounter: 02:00 I examined this patient and my medical decision-making was reviewed with the Resident Physician, Mariela Carpenter. I agree with the documented findings, disposition and treatment plan as described with any changes as documented below. 72-year-old female patient with recently diagnosed acute myeloid leukemia and past medical history of asthma, diabetes, hypertension, hyperlipidemia, chronic kidney disease, Crohn's disease who presented to the ER from retirement with complaints of shortness of breath and fever. Symptoms have been ongoing since her discharge from the hospital on 05/21/17. She has been receiving breathing treatments intermittently at the retirement with no improvement in her symptoms. She reportedly had a fever of 103 degrees Fahrenheit at the retirement yesterday. She was then sent over to the ER. She was diagnosed with AML earlier this year and is being evaluated for treatment with hypomethylating agents. She has not yet started treatment for this. She was in the hospital recently for C. difficile diarrhea. She has had episodes of fever intermittently over the past several months. She has had multiple courses of antibiotics. She is no longer having diarrhea. She has had 11 days of antibiotic therapy with Flagyl. On examination, patient is awake and alert. Oriented. Not in respiratory distress at this time. Does have bilateral end expiratory wheezing. Heart sounds are normal. Labs show a WBC count of 2.1, hemoglobin of 7.5, platelets of 70 BUN of 18, creatinine of 1, potassium 3.3, chloride 97 and sodium 131. Lactic acid is normal. Chest x-ray shows no acute infiltrate. Has mild bibasilar atelectasis with small right pleural effusion. KUB x-ray shows small bi basal effusions. With nonspecific bowel gas pattern. Acute asthma exacerbation/acute bronchitis: Most likely viral bronchitis. Will check respiratory infection panel. Treat symptomatically with intravenous steroids, bronchodilators and O2 supplementation. Patient reports that she has never had issues with asthma for several years now. She is not on any inhalers at home. Will need pulmonology follow-up after discharge. Acute myeloid leukemia: With pancytopenia. Remains at high risk for infections. This is the likely cause for her episodes of fever. No acute source of infection at this time. Recent C. difficile diarrhea: We will complete 14 day antibiotic course of Flagyl. Crohn's disease: Continue symptomatic care. On Remicade every 8 weeks. Essential hypertension: Monitor blood pressure. Continue Norvasc. Hyponatremia: Appears to be chronic. Check urine sodium. We will gently hydrate with normal saline. Hypokalemia: Replete orally and intravenously. DVT prophylaxis with SCDs. Avoid heparin products due to thrombocytopenia.
[2017-05-25 06:35] LABS: Adenovirus Not Detected (Not Detect); Bordetella Pertussis Not Detected (Not Detect); Chlamydophila pneumoniae Not Detected (Not Detect); Coronavirus 229E Not Detected (Not Detect); Coronavirus HKU1 Not Detected (Not Detect); Coronavirus NL63 Not Detected (Not Detect); Coronavirus OC43 Not Detected (Not Detect); Human Metapneumovirus ***DETECTED*** (Not Detect); Human Rhinovirus/Enterovirus Not Detected (Not Detect); Influenza A Subtype 2009 H1 Not Detected (Not Detect); Influenza A Untypeable Not Detected (Not Detect); Influenza B Not Detected (Not Detect); Mycoplasma pneumoniae Not Detected (Not Detect); Parainfluenza Virus 1 Not Detected (Not Detect); Parainfluenza Virus 2 Not Detected (Not Detect); Parainfluenza Virus 3 Not Detected (Not Detect); Parainfluenza Virus 4 Not Detected (Not Detect); Respiratory Syncytial Virus Not Detected (Not Detect)
[2017-05-25] MEDS ORDERED: Ondansetron 4 MG/2 ML VIAL IVP ONE (06:56)
[2017-05-25] MEDS: Ipratropium/Albuterol Neb 3 ML IH SCH ×5 (07:45→23:50)
[2017-05-25 08:16] LABS: Sodium, Urine 68.2 mEq/L
[2017-05-25] MEDS: Insulin LISPRO 300 UNITS/3 ML VIAL SQ SCH ×4 (08:28→21:50)
[2017-05-25] MEDS: metroNIDAZOLE 500 MG TABLET PO SCH ×3 (08:28→21:49)
[2017-05-25] MEDS ORDERED: Acetaminophen 325 MG TABLET PO PRN (08:44)
[2017-05-25] MEDS ORDERED: Ondansetron 4 MG/2 ML VIAL IVP PRN (09:01)
[2017-05-25] MEDS: Insulin DETEMIR 100 UNIT/ML X5UNITS SQ SCH ×2 (09:55→21:49)
[2017-05-25 13:40] LABS: Hematocrit 20.8 % (35.3-44.9); Hemoglobin 6.7 g/dL (11.5-15.4)
--- NOTE | 2017-05-25 16:32 | Internal Med Progress Note ---
Date of Encounter: 05/25/17 Time of Encounter: 15:00 - Assessment and plan (1) Acute respiratory failure with hypoxia Current Visit: No Status: Acute Assessment and plan: Due to bronchitis Resp viral panel - Human Metapneumo virus positive continue symptomatic and supportive care Duoneb as SHIVANI Low dose IV steroids Reviewed CXR did not show any infiltrates Very cautious to start her on abx due to recent C. Diff inf (2) Acute bronchitis Current Visit: Yes Status: Acute Assessment and plan: viral continue symptomatic and supportive care Qualifiers: Bronchitis organism: unspecified organism Qualified Code(s): J20.9 - Acute bronchitis, unspecified (3) Asthma exacerbation Current Visit: Yes Status: Acute Assessment and plan: on Duoneb + IV steroids Qualifiers: Asthma severity: unspecified severity Asthma persistence: unspecified Qualified Code(s): J45.901 - Unspecified asthma with (acute) exacerbation (4) Hyponatremia Current Visit: Yes Status: Acute Assessment and plan: chronic d/c IV fluids due to her b/ LE edema (5) Pancytopenia Current Visit: Yes Status: Acute Assessment and plan: due to AML stable numbers for now (6) Clostridium difficile diarrhea Current Visit: No Status: Acute Assessment and plan: cont home Flagyl PO (7) Diabetes mellitus, type 2 Current Visit: No Status: Chronic Assessment and plan: on ISS Qualifiers: Diabetes mellitus fci insulin use: with fci use Diabetes mellitus complication status: with unspecified complications Qualified Code(s) : E11.8 - Type 2 diabetes mellitus with unspecified complications; Z79.4 - 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 Bryant is a 72 year old female with known past medical history of hypertension, diabetes type II, GERD, hyperlipidemia and recently diagnosed acute myeloid leukemia patient who presented to the ED with shortness of breath and fever. She denied any CP. She does complain generalized body soreness. She does have cough but denied of any expectoration - Constitutional Vitals: Temp Pulse Resp BP Pulse Ox 98.6 F 79 18 124/67 95 05/25/17 10:55 05/25/17 10:55 05/25/17 11:23 05/25/17 10:55 05/25/17 11:23 General appearance: Present: cooperative, mild distress, A&O X 3, answers questions appropriately - Head Head exam: Present: atraumatic, normal inspection - Neck Neck exam general surgery: Present: supple - Respiratory Respiratory exam: Present: decreased breath sounds, wheezes (moderate). Absent : rales, respiratory distress, rhonchi - Cardiovascular Cardiovascular exam: Present: RRR, +S1, +S2. Absent: tachycardia - GI/Abdominal GI/Abdominal exam: Present: normal bowel sounds, soft. Absent: rebound, rigid, tenderness - Extremities Exam Extremities exam: Absent: calf tenderness, pedal edema, tenderness - Back Exam Back exam: Absent: CVA tenderness (L), CVA tenderness (R) - Neurological Exam Neurological exam: Present: alert, oriented X3 - Psychiatric Psychiatric exam: Present: depressed - Skin Skin exam: Absent: rash Internal Medicine: Result - Labs CBC & Chem 7: 05/25/17 13:09 05/24/17 20:55 Labs: Short CBC 05/25/17 Range/Units 13:09 Hgb 6.7 L (11.5-15.4) g/dL Hct 20.8 L (35.3-44.9) % - ABG Interpretation ABG results: PT/INR, D-dimer PT 15.8 Seconds (9.4-12.1) H 05/24/17 20:55 Consult Discharge Plan - Plan
[2017-05-25] MEDS: MethylPREDNISolone 40 MG/ML VIAL IVP SCH ×2 (17:30→23:52)
[2017-05-25 18:46] LABS: Hematocrit 21.5 % (35.3-44.9); Hemoglobin 6.7 g/dL (11.5-15.4)
[2017-05-26] MEDS: Ipratropium/Albuterol Neb 3 ML IH SCH ×5 (04:13→21:32)
[2017-05-26] MEDS: Insulin DETEMIR 100 UNIT/ML X5UNITS SQ SCH ×2 (07:56→20:46)
[2017-05-26] MEDS: metroNIDAZOLE 500 MG TABLET PO SCH ×3 (07:56→23:26)
[2017-05-26] MEDS: Insulin LISPRO 300 UNITS/3 ML VIAL SQ SCH ×4 (07:56→20:46)
[2017-05-26] MEDS: MethylPREDNISolone 40 MG/ML VIAL IVP SCH (07:57)
[2017-05-26] MEDS: predniSONE 20 MG TABLET PO SCH (16:59)
--- NOTE | 2017-05-26 17:38 | Internal Med Progress Note ---
Date of Encounter: 05/26/17 Time of Encounter: 17:36 - Assessment and plan (1) Acute respiratory failure with hypoxia Current Visit: No Status: Acute Assessment and plan: Due to bronchitis Resp viral panel - Human Metapneumo virus positive continue symptomatic and supportive care Duoneb as SHIVANI Switched to PO steroids Reviewed CXR did not show any infiltrates Very cautious to start her on abx due to recent C. Diff inf (2) Acute bronchitis Current Visit: Yes Status: Acute Assessment and plan: viral continue symptomatic and supportive care Qualifiers: Bronchitis organism: unspecified organism Qualified Code(s): J20.9 - Acute bronchitis, unspecified (3) Anemia Current Visit: No Status: Chronic Assessment and plan: Severe anemia Hb 6.7 Due to AML No signs of bleeding Ordered 2 U PRBC Pt is high risk for resp failure, need to stay in the hospital more than 2 nights so switched her to full admission. I did reviewed Dr. Loo's H & P including HPI, PMH, PSH, FH, SH and ROS no changes noticed. Qualifiers: Anemia type: bone marrow failure Bone marrow failure anemia type: other bone marrow failure Qualified Code(s): D61.89 - Other specified aplastic anemias and other bone marrow failure syndromes (4) Asthma exacerbation Current Visit: Yes Status: Acute Assessment and plan: on Duoneb + steroids Qualifiers: Asthma severity: unspecified severity Asthma persistence: unspecified Qualified Code(s): J45.901 - Unspecified asthma with (acute) exacerbation (5) Hyponatremia Current Visit: Yes Status: Acute Assessment and plan: chronic d/c IV fluids due to her b/ LE edema (6) Pancytopenia Current Visit: Yes Status: Acute Assessment and plan: due to AML stable numbers for now (7) Clostridium difficile diarrhea Current Visit: No Status: Acute Assessment and plan: No active diarrhea cont home Flagyl PO (8) Diabetes mellitus, type 2 Current Visit: No Status: Chronic Assessment and plan: on ISS Qualifiers: Diabetes mellitus detention insulin use: with detention use Diabetes mellitus complication status: with unspecified complications Qualified Code(s) : E11.8 - Type 2 diabetes mellitus with unspecified complications; Z79.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 Bryant is a 72 year old female with known past medical history of hypertension, diabetes type II, GERD, hyperlipidemia and recently diagnosed acute myeloid leukemia patient who presented to the ED with shortness of breath and fever. She denied any CP. Pt is more alert, awake and O x 3. Denied any Melena / Hematemesis / BRBPR - Constitutional Vitals: Temp Pulse Resp BP Pulse Ox 97.8 F 87 14 137/67 90 05/26/17 15:10 05/26/17 15:10 05/26/17 15:10 05/26/17 15:10 05/26/17 15:10 General appearance: Present: A&O X 3, answers questions appropriately Exam: Looks pale - Head Head exam: Present: atraumatic, normal inspection - Neck Neck exam general surgery: Present: supple - Respiratory Respiratory exam: Present: decreased breath sounds. Absent: rales, respiratory distress, rhonchi, wheezes - Cardiovascular Cardiovascular exam: Present: RRR, +S1, +S2. Absent: tachycardia - GI/Abdominal GI/Abdominal exam: Present: normal bowel sounds, soft. Absent: rebound, rigid, tenderness - Extremities Exam Extremities exam: Present: pedal edema (chronic). Absent: calf tenderness, tenderness - Back Exam Back exam: Absent: CVA tenderness (L), CVA tenderness (R) - Neurological Exam Neurological exam: Present: alert, oriented X3 - Psychiatric Psychiatric exam: Present: normal affect, normal mood - Skin Skin exam: Present: pallor. Absent: rash Internal Medicine: Result - Labs CBC & Chem 7: 05/25/17 18:29 05/24/17 20:55 - ABG Interpretation ABG results: PT/INR, D-dimer PT 15.8 Seconds (9.4-12.1) H 05/24/17 20:55 Consult Discharge Plan - Plan Referrals: Yash Hanley MD [Primary Care Provider] -
[2017-05-26 18:10] LABS: Red Blood Count 2.71 M/mcL (3.82-4.97); Red Cell Distribution Width 17.1 % (11.5-14.5)
[2017-05-26 18:11] LABS: Hematocrit 24.1 % (35.3-44.9); Hemoglobin 7.5 g/dL (11.5-15.4); Mean Corpuscular HGB Conc 31.1 g/dL (31.6-35.5); Mean Corpuscular Hemoglobin 27.7 pg (28.0-33.3); Mean Corpuscular Volume 88.9 fL (83.0-100.0); Mean Platelet Volume 11.4 fL (9.4-12.4); Monocytes # 0.1 K/mcL (0.0-1.3)
[2017-05-26 18:17] LABS: Neutrophils # 0.6 K/mcL (1.6-8.9); Platelet Count 59 K/mcL (140-400)
[2017-05-26 19:18] LABS: Lymphocytes # 0.2 K/mcL (0.6-4.6)
[2017-05-26 19:19] LABS: Acanthocytes 1+ (Not Present)
[2017-05-26 19:20] LABS: Platelet Estimate Marked Decrease (Normal); Poikilocytosis 2+ (Not Present); Spherocytes 1+ (Not Present); Tear Drop Cells 1+ (Not Present)
--- NOTE | 2017-05-26 19:46 | Electrocardiograph Report ---
[place] [id number] Test Date: 2017-05-24 Pat Name: Akiko Bryant Department: 102 Room: 2A43 Gender: F [employer] Manager: Ekp : 1945 Requested By: Kade Kearney Order Number: [id number] Reading MD: Neil Fuentes MD Measurements Intervals [place] Rate: 69 P: 74 TX: 182 QRS: 14 QRSD: 100 T: 30 QT: 441 QTc: 460 Interpretive Statements SINUS RHYTHM WITH SINUS ARRHYTHMIA BASELINE ARTIFACT Electronically Signed On 05-26-2017 19:44:17 EDT by Neil Fuentes MD
[2017-05-26] MEDS ORDERED: 0.9 % Sodium Chloride 500 ML ONE (20:38)
[2017-05-27] MEDS: Ipratropium/Albuterol Neb 3 ML IH SCH ×6 (00:01→20:49)
[2017-05-27 07:20] LABS: BUN/Creatinine Ratio 31 (6-26); Blood Urea Nitrogen 31 mg/dL (8-23); Calcium 8.4 mg/dL (8.6-10.3); Carbon Dioxide 25 mEq/L (23-29); Chloride 102 mEq/L (98-107); Glucose 338 mg/dL (70-105); Osmolality,Calculated 304 (280-300); Potassium 3.5 mEq/L (3.5-5.1); Sodium 137 mEq/L (136-145); eGFR For African Americans > 60 (> 60); eGFR For Non-African Americans 54 (> 60)
[2017-05-27 07:51] LABS: Hemoglobin 8.1 g/dL (11.5-15.4); Mean Corpuscular Hemoglobin 27.7 pg (28.0-33.3); Red Blood Count 2.92 M/mcL (3.82-4.97)
[2017-05-27 07:52] LABS: Hematocrit 25.3 % (35.3-44.9); Lymphocytes # 0.2 K/mcL (0.6-4.6); Lymphocytes % 15.8 %; Mean Corpuscular Volume 86.6 fL (83.0-100.0); Mean Platelet Volume 12.6 fL (9.4-12.4); Monocytes # 0.2 K/mcL (0.0-1.3); Monocytes % 17.8 %; Neutrophils # 0.7 K/mcL (1.6-8.9); Red Cell Distribution Width 16.9 % (11.5-14.5); Segmented Neutrophils % 65.4 %
[2017-05-27 07:55] LABS: Platelet Count 58 K/mcL (140-400)
[2017-05-27 08:12] LABS: Platelet Estimate Decreased (Normal)
[2017-05-27] MEDS: Metoprolol XL (24 HR) Succ 50 MG TAB.ER.24H PO SCH (09:16)
[2017-05-27] MEDS: predniSONE 20 MG TABLET PO SCH (09:17)
[2017-05-27] MEDS: amLODIPine 5 MG TABLET PO SCH (09:17)
[2017-05-27] MEDS: metroNIDAZOLE 500 MG TABLET PO SCH ×3 (09:17→21:20)
[2017-05-27] MEDS: Insulin DETEMIR 100 UNIT/ML X5UNITS SQ SCH ×2 (09:17→21:20)
[2017-05-27] MEDS: Insulin LISPRO 300 UNITS/3 ML VIAL SQ SCH ×3 (09:18→17:17)
[2017-05-27] MEDS ORDERED: Insulin LISPRO 300 UNITS/3 ML VIAL SQ SCH (13:06)
[2017-05-27] MEDS: Furosemide 20 MG/2 ML VIAL IVP SCH (15:14)
--- NOTE | 2017-05-27 17:22 | Internal Med Progress Note ---
Date of Encounter: 05/27/17 Time of Encounter: 15:00 - Assessment and plan (1) Acute respiratory failure with hypoxia Current Visit: No Status: Acute Assessment and plan: Due to bronchitis She is still on 2 lit O2 Pt stated she does use O2 as needed at SNF Now she may need continuously Resp viral panel - Human Metapneumo virus positive continue symptomatic and supportive care Duoneb as SHIVANI Start tapering PO steroids (2) Acute bronchitis Current Visit: Yes Status: Acute Assessment and plan: viral continue symptomatic and supportive care Qualifiers: Bronchitis organism: unspecified organism Qualified Code(s): J20.9 - Acute bronchitis, unspecified (3) Anemia Current Visit: No Status: Chronic Assessment and plan: Due to AML No signs of bleeding s/p 1 U PRBC Hb improved to 8.1 Qualifiers: Anemia type: bone marrow failure Bone marrow failure anemia type: other bone marrow failure Qualified Code(s): D61.89 - Other specified aplastic anemias and other bone marrow failure syndromes (4) Asthma exacerbation Current Visit: Yes Status: Acute Assessment and plan: on Duoneb + steroids Qualifiers: Asthma severity: unspecified severity Asthma persistence: unspecified Qualified Code(s): J45.901 - Unspecified asthma with (acute) exacerbation (5) Hyponatremia Current Visit: Yes Status: Acute Assessment and plan: improved (6) Pancytopenia Current Visit: Yes Status: Acute Assessment and plan: Due to AML (7) Clostridium difficile diarrhea Current Visit: No Status: Acute Assessment and plan: No active diarrhea cont home Flagyl PO (8) Diabetes mellitus, type 2 Current Visit: No Status: Chronic Assessment and plan: Started on Levemir + changed ISS to Medium since her BS not well controlled Qualifiers: Diabetes mellitus alf insulin use: with alf use Diabetes mellitus complication status: with unspecified complications Qualified Code(s) : E11.8 - Type 2 diabetes mellitus with unspecified complications; Z79.4 - technician terminal and repeater (current) use of insulin; Z79.4 - snf (current) use of insulin; Z79.4 - technician terminal and repeater (current) use of insulin; Z79.4 - technician terminal and repeater (current) use of insulin (9) HLD (hyperlipidemia) Current Visit: No Status: Chronic Qualifiers: Hyperlipidemia type: mixed hyperlipidemia Qualified Code(s): E78.2 - Mixed hyperlipidemia - Subjective Interval history: Ms. Bryant is a 72 year old female with known past medical history of hypertension, diabetes type II, GERD, hyperlipidemia and recently diagnosed acute myeloid leukemia patient who presented to the ED with shortness of breath and fever. She denied any CP. Pt is more alert, awake and O x 3. Denied any Melena / Hematemesis / BRBPR..feeling better. Still on 2 lit O2 - Constitutional Vitals: Temp Pulse Resp BP Pulse Ox 97.4 F L 77 16 146/67 95 05/27/17 15:27 05/27/17 15:27 05/27/17 16:39 05/27/17 15:27 05/27/17 16:39 General appearance: Present: A&O X 3, answers questions appropriately - Head Head exam: Present: atraumatic, normal inspection - Neck Neck exam general surgery: Present: supple - Respiratory Respiratory exam: Present: decreased breath sounds, wheezes (moderate). Absent : rales, respiratory distress, rhonchi - Cardiovascular Cardiovascular exam: Present: RRR, +S1, +S2. Absent: tachycardia - GI/Abdominal GI/Abdominal exam: Present: normal bowel sounds, soft. Absent: rebound, rigid, tenderness - Extremities Exam Extremities exam: Present: pedal edema (2+). Absent: calf tenderness, tenderness - Back Exam Back exam: Absent: CVA tenderness (L), CVA tenderness (R) - Neurological Exam Neurological exam: Present: alert, oriented X3 - Psychiatric Psychiatric exam: Present: normal affect, normal mood - Skin Skin exam: Absent: rash Internal Medicine: Result - Labs CBC & Chem 7: 05/27/17 06:07 05/27/17 06:07 Labs: Short CBC 05/26/17 05/27/17 Range/Units 17:46 06:07 WBC 0.9 L* D 1.0 L* (4.3-11.1) K/mcL Hgb 7.5 L 8.1 L (11.5-15.4) g/dL Hct 24.1 L 25.3 L (35.3-44.9) % Plt Count 59 L 58 L (140-400) K/mcL Neutrophils # 0.6 L 0.7 L (1.6-8.9) K/mcL BMP 05/27/17 06:07 Sodium 137 Potassium 3.5 Chloride 102 Carbon Dioxide 25 BUN 31 H Creatinine 1.00 Glucose 338 H Calcium 8.4 L - ABG Interpretation ABG results: PT/INR, D-dimer PT 15.8 Seconds (9.4-12.1) H 05/24/17 20:55 - VTE Documentation of Mechanical Device: Intermittent pneumatic compression device Consult Discharge Plan - Plan Referrals: Yash Hanley MD [Primary Care Provider] -
[2017-05-28] MEDS: Ipratropium/Albuterol Neb 3 ML IH SCH ×3 (00:21→09:00)
[2017-05-28 06:18] LABS: Mean Platelet Volume 11.5 fL (9.4-12.4)
[2017-05-28 06:20] LABS: Hematocrit 25.6 % (35.3-44.9); Hemoglobin 8.1 g/dL (11.5-15.4); Mean Corpuscular HGB Conc 31.6 g/dL (31.6-35.5); Mean Corpuscular Hemoglobin 27.6 pg (28.0-33.3); Mean Corpuscular Volume 87.4 fL (83.0-100.0); Nucleated Red Blood Cells 1.3 /100 WBC (0); Red Blood Count 2.93 M/mcL (3.82-4.97); Red Cell Distribution Width 16.9 % (11.5-14.5)
[2017-05-28 06:30] LABS: BUN/Creatinine Ratio 36 (6-26); Blood Urea Nitrogen 35 mg/dL (8-23); Calcium 8.7 mg/dL (8.6-10.3); Carbon Dioxide 29 mEq/L (23-29); Chloride 103 mEq/L (98-107); Glucose 125 mg/dL (70-105); Magnesium 1.5 mg/dL (1.6-2.6); Osmolality,Calculated 299 (280-300); Potassium 3.5 mEq/L (3.5-5.1); Sodium 140 mEq/L (136-145); eGFR For African Americans > 60 (> 60); eGFR For Non-African Americans 56 (> 60)
[2017-05-28 06:38] LABS: Platelet Count 61 K/mcL (140-400)
[2017-05-28 07:03] VITALS: BP 145/63
[2017-05-28 08:17] LABS: Lymphocytes # 0.6 K/mcL (0.6-4.6); Monocytes # 0.1 K/mcL (0.0-1.3); Neutrophils # 0.8 K/mcL (1.6-8.9)
[2017-05-28 08:18] LABS: Platelet Estimate Decreased (Normal); Reactive Lymphocytes Present (Not Present)
--- NOTE | 2017-05-28 08:48 | Discharge Summary ---
- NOTES TO OUTPATIENT PROVIDER Notes to Outpatient Provider: 3 more days of Flagyl only. Continue taking Lasix 40mg PO Daily. 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.89 - Other specified aplastic anemias and other bone marrow failure syndromes (4) Asthma exacerbation Priority: Secondary Status: Acute Qualifiers: Asthma severity: unspecified severity Asthma persistence: unspecified Qualified Code(s): J45.901 - Unspecified asthma with (acute) exacerbation (5) Hyponatremia Priority: Secondary Status: Acute (6) Pancytopenia Priority: Secondary Status: Acute (7) Clostridium difficile diarrhea Priority: Secondary Status: Acute (8) Diabetes mellitus, type 2 Priority: Secondary Status: Chronic Qualifiers: Diabetes mellitus supervisor intermediates insulin use: with supervisor intermediates use Diabetes mellitus complication status: with unspecified complications Qualified Code(s) : E11.8 - Type 2 diabetes mellitus with unspecified complications; Z79.4 - senior care (current) use of insulin; Z79.4 - senior care (current) use of insulin; Z79.4 - exterminator termite (current) use of insulin; Z79.4 - senior care (current) use of insulin (9) HLD (hyperlipidemia) Priority: Secondary Status: Chronic Qualifiers: Hyperlipidemia type: mixed hyperlipidemia Qualified Code(s): E78.2 - Mixed hyperlipidemia Hospital course: Ms. Bryant is a 72 year old female with known past medical history of hypertension, diabetes type II, GERD, hyperlipidemia and recently diagnosed acute myeloid leukemia patient who presented to the ED with shortness of breath and fever. Pt was admitted in the hospital and started her on symptomatic and supportive care with Duoneb, steroids and O2. pt was hypoxic initially required 2lit O2. Now she does require O2 only with ambulation. Her CXR did not show any infiltrates and her resp viral panel came back positive for Human Metapneumo virus. Due to her recent C. Diff did not initiate any abx and continued supportive and symptomatic care, which pt tolerated well. Now pt states she is back to baseline. She does have anemia with Hb @ 6.7, due to her AML received 1 U PRBC and Hb stayed stable @ 8.1. She denied any Melena / Hematemesis / BRBPR. So will d/c her back to SNF today in stable condition. For her AML recommend to f/u with [facility] as an out pt. - Time Spent with Patient Total time spent providing and/or coordinating discharge services: - Discharge Medications Prescriptions: predniSONE [PredniSONE] 30 mg PO DAILY #6 tablet Home Medications: Amlodipine [Norvasc] 5 mg PO DAILY 01/06/15 [History] Escitalopram [Lexapro] 10 mg PO HS 01/06/15 [History] Furosemide [Lasix] 40 mg PO DAILY 01/06/15 [History] Omeprazole [PriLOSEC] 20 mg PO DAILY 01/06/15 [History] Potassium Chloride 20 meq PO DAILY 01/06/15 [History] InFLIXimab [Remicade] 100 mg IV Q8W 03/29/15 [History] Vitamin E (Dl,Tocopheryl Acet) [Vitamin E] 1,000 unit PO DAILY 09/15/15 [History ] Insulin ASPART [Novolog Flexpen] 2 - 15 unit SQ TID PRN 03/24/17 [History] Insulin DETEMIR [Levemir Flextouch] 20 unit SQ BID 03/24/17 [History] Metoprolol XL (24 HR) Succ [Toprol Xl] 100 mg PO DAILY 03/24/17 [History] Magnesium Oxide [Magnesium] 400 mg PO DAILY 05/13/17 [History] Ezetimibe 10 mg PO DAILY 05/17/17 [History] HYDROcodone/Acet 5/325 mg [[place] 5-325 mg] 1 tab PO Q6H PRN 7 Days #28 tablet [Rx] Acetaminophen [Tylenol Arthritis] 650 mg PO Q4H PRN 05/25/17 [History] Albuterol Sulfate [Ventolin Hfa] 2 puff IH Q4H PRN 05/25/17 [History] Ascorbic Acid [Vitamin C with Brenda Hips] 500 mg PO DAILY 05/25/17 [History] Calamine/Menthol/Petrolat/Zinc [Remedy Calazime Protect Paste] 1 appl TP TID 02/01 [History] Gabapentin [Neurontin] 300 mg PO HS 05/25/17 [History] Ipratropium/Albuterol Neb [Duoneb] 3 ml IH Q6HR PRN 05/25/17 [History] Mesalamine 800 mg PO DAILY 05/25/17 [History] Nystatin POWDER [Nystop] 1 appl TP BID 05/25/17 [History] Ondansetron HCl [Zofran] 4 mg PO Q4H PRN 05/25/17 [History] metroNIDAZOLE [Flagyl] 500 mg PO TID 3 Days tablet 05/28/17 [Rx] predniSONE [PredniSONE] 30 mg PO DAILY #6 tablet 05/28/17 [Rx] Allergies/Adverse Reactions: 3 Allergy/AdvReac Type Severity Reaction Status Date / Time influenza virus vaccine ts Allergy Vomiting Verified 05/25/17 13:16 [id number] (36 mos,up) [From Fluarix] Pneumococcal Vaccine Allergy Vomiting Verified 05/25/17 13:16 [From Prevnar] codeine AdvReac Mild Nausea Verified 05/25/17 13:16 penicillin G AdvReac Mild swelling Verified 05/25/17 13:16 Date of admission: 05/26/17 08:42 Primary care physician: Yash Hanley MD Consults: 05/26/17 13:18 Consult to Instructor Of Sociology [CONS] Routine Reason for SW Consult: rtn four winds - Constitutional Vitals: Temp Pulse Resp BP Pulse Ox 97.9 F 77 18 145/63 96 05/28/17 07:02 05/28/17 07:02 05/28/17 07:02 05/28/17 07:02 05/28/17 07:02 General appearance: Present: A&O X 3, answers questions appropriately - Head Head exam: Present: atraumatic, normal inspection - Neck Neck exam general surgery: Present: supple - Respiratory Respiratory exam: Present: chest wall tenderness, wheezes (mild). Absent: rales , respiratory distress, rhonchi - Cardiovascular Cardiovascular exam: Present: RRR, +S1, +S2. Absent: tachycardia - GI/Abdominal GI/Abdominal exam: Present: normal bowel sounds, soft. Absent: rebound, rigid, tenderness - Extremities Exam Extremities exam: Present: pedal edema (1 +). Absent: calf tenderness, tenderness - Back Exam Back exam: Absent: CVA tenderness (L), CVA tenderness (R) - Neurological Exam Neurological exam: Present: alert, oriented X3 - Psychiatric Psychiatric exam: Present: normal affect, normal mood - Patient Status Disposition: Transfer SNF Condition: Good Overall status at discharge: patient is back to baseline - Discharge Instructions Follow Up With: Yash Hanley MD [Primary Care Provider] - Forms: ED Satisfaction Letter - Diet and Activity Activity: increase activity as tolerated Diet: low salt diet - VTE Documentation of Mechanical Device: Intermittent pneumatic compression device
[2017-05-28] MEDS: Furosemide 20 MG/2 ML VIAL IVP SCH (08:57)
[2017-05-28] MEDS: Metoprolol XL (24 HR) Succ 50 MG TAB.ER.24H PO SCH (08:58)
[2017-05-28] MEDS: amLODIPine 5 MG TABLET PO SCH (08:58)
[2017-05-28] MEDS: metroNIDAZOLE 500 MG TABLET PO SCH (08:58)
[2017-05-28] MEDS: Insulin LISPRO 300 UNITS/3 ML VIAL SQ SCH (08:59)
[2017-05-28] MEDS ORDERED: predniSONE 20 MG TABLET PO SCH (09:00)
--- NOTE | 2017-05-28 09:01 | Physician Discharge Referral ---
ExtendedCare Referral Info Transfer To: ECF Provider in Charge after Transfer: PCP Institutional Level of Care: Skilled (Please do Daily weight.. If she gains more than 2 lbs, give her extra dose of Lasix) - Diagnosis (1) Acute respiratory failure with hypoxia Status: Acute (2) Acute bronchitis Status: Acute (3) Anemia Status: Chronic (4) Asthma exacerbation Status: Acute (5) Hyponatremia Status: Acute (6) Pancytopenia Status: Acute (7) Clostridium difficile diarrhea Status: Acute (8) Diabetes mellitus, type 2 Status: Chronic (9) HLD (hyperlipidemia) Status: Chronic - Transfer Medications Prescriptions: predniSONE [PredniSONE] 30 mg PO DAILY #6 tablet Home Medications: Amlodipine [Norvasc] 5 mg PO DAILY 01/06/15 [History] Escitalopram [Lexapro] 10 mg PO HS 01/06/15 [History] Furosemide [Lasix] 40 mg PO DAILY 01/06/15 [History] Omeprazole [PriLOSEC] 20 mg PO DAILY 01/06/15 [History] Potassium Chloride 20 meq PO DAILY 01/06/15 [History] InFLIXimab [Remicade] 100 mg IV Q8W 03/29/15 [History] Vitamin E (Dl,Tocopheryl Acet) [Vitamin E] 1,000 unit PO DAILY 09/15/15 [History ] Insulin ASPART [Novolog Flexpen] 2 - 15 unit SQ TID PRN 03/24/17 [History] Insulin DETEMIR [Levemir Flextouch] 20 unit SQ BID 03/24/17 [History] Metoprolol XL (24 HR) Succ [Toprol Xl] 100 mg PO DAILY 03/24/17 [History] Magnesium Oxide [Magnesium] 400 mg PO DAILY 05/13/17 [History] Ezetimibe 10 mg PO DAILY 05/17/17 [History] HYDROcodone/Acet 5/325 mg [[place] 5-325 mg] 1 tab PO Q6H PRN 7 Days #28 tablet [Rx] Acetaminophen [Tylenol Arthritis] 650 mg PO Q4H PRN 05/25/17 [History] Albuterol Sulfate [Ventolin Hfa] 2 puff IH Q4H PRN 05/25/17 [History] Ascorbic Acid [Vitamin C with Brenda Hips] 500 mg PO DAILY 05/25/17 [History] Calamine/Menthol/Petrolat/Zinc [Remedy Calazime Protect Paste] 1 appl TP TID 02/01 [History] Gabapentin [Neurontin] 300 mg PO HS 05/25/17 [History] Ipratropium/Albuterol Neb [Duoneb] 3 ml IH Q6HR PRN 05/25/17 [History] Mesalamine 800 mg PO DAILY 05/25/17 [History] Nystatin POWDER [Nystop] 1 appl TP BID 05/25/17 [History] Ondansetron HCl [Zofran] 4 mg PO Q4H PRN 05/25/17 [History] metroNIDAZOLE [Flagyl] 500 mg PO TID 3 Days tablet 05/28/17 [Rx] predniSONE [PredniSONE] 30 mg PO DAILY #6 tablet 05/28/17 [Rx] Allergies/Adverse Reactions: 3 Allergy/AdvReac Type Severity Reaction Status Date / Time influenza virus vaccine ts Allergy Vomiting Verified 05/25/17 13:16 [id number] (36 mos,up) [From Fluarix] Pneumococcal Vaccine Allergy Vomiting Verified 05/25/17 13:16 [From Prevnar] codeine AdvReac Mild Nausea Verified 05/25/17 13:16 penicillin G AdvReac Mild swelling Verified 05/25/17 13:16 - Respiratory Orders Smoking Cessation: Smoking cessation has been advised. For more information, call the [place] Tobacco Quit Line at 8-609-MGGM-NOW. CERTIFICATION: I certify that the transfer of the above named patient to an Extended Care Facility is necessary for the continuing treatment of the diagnosis listed. The above information is true and accurate reflection of patient's current condition. Confidential - Redisclosure prohibited without a patient's written consent.
[2017-05-28] MEDS: Insulin DETEMIR 100 UNIT/ML X5UNITS SQ SCH (09:11)
== END 2017-05-28 10:49 | DRG 202 ==
LOC: 2ANU 20:34 → EMEROO 20:34 → SUATTDRO 23:58 → 2ANU 05-25 00:41
PROVIDERS: ADMIT Pediatrics; ATTEND Family Medicine

== ENCOUNTER 2017-06-26 10:42 | Inpatient (IN) ==
[2017-06-26] MEDS ORDERED: 0.9 % Sodium Chloride 1,000 ML IVC ONE (11:10)
--- NOTE | 2017-06-26 11:11 | Emergency Department Note ---
Disposition Clinical Impression: Abdominal pain, Pancytopenia, Diarrhea, Urinary retention Disposition: Admitted As Inpatient Condition: Fair General Adult HPI - General Chief complaint: ED Abdominal Pain Stated complaint: abd pain, fever Time Seen by Provider: 06/26/17 10:46 Source: patient, EMS Limitations: no limitations - History of Present Illness Pain Scale: 7 - Related Data Home Medications Medication Instructions Recorded Confirmed Amlodipine [Norvasc] 5 mg PO DAILY 01/06/15 06/26/17 Furosemide [Lasix] 40 mg PO DAILY 01/06/15 06/26/17 Omeprazole [PriLOSEC] 20 mg PO DAILY 01/06/15 06/26/17 Potassium Chloride 20 meq PO DAILY 01/06/15 06/26/17 InFLIXimab [Remicade] 100 mg IV [id number] 03/29/15 06/26/17 Insulin ASPART [Novolog Flexpen] 2 - 15 unit SQ ACHS 03/24/17 06/26/17 Insulin DETEMIR [Levemir Flextouch] 20 unit SQ BID 03/24/17 06/26/17 Magnesium Oxide [Magnesium] 400 mg PO DAILY 05/13/17 06/26/17 Ezetimibe 10 mg PO DAILY 05/17/17 06/26/17 Acetaminophen [Tylenol Arthritis] 650 mg PO Q4H PRN 05/25/17 06/26/17 Albuterol Sulfate [Ventolin Hfa] 2 puff IH Q4H PRN 05/25/17 06/26/17 Calamine/Menthol/Petrolat/Zinc 1 appl TP TID 05/25/17 06/26/17 [Remedy Calazime Protect Paste] Ipratropium/Albuterol Neb [Duoneb] 3 ml IH Q6HR PRN 05/25/17 06/26/17 Mesalamine 800 mg PO DAILY 05/25/17 06/26/17 Ondansetron HCl [Zofran] 4 mg PO Q4H PRN 05/25/17 06/26/17 Ascorbic Acid [Vitamin C] 500 mg PO DAILY 06/26/17 06/26/17 Escitalopram [Lexapro] 10 mg PO HS 06/26/17 06/26/17 Lactobacillus Acidophilus 1 each PO BID 06/26/17 06/26/17 [Acidophilus] Metoprolol Succinate [Toprol Xl] 100 mg PO DAILY 06/26/17 06/26/17 Vitamin E Acetate [Vitamin E] 400 unit PO DAILY 06/26/17 06/26/17 metroNIDAZOLE [Flagyl] 250 mg PO TID 06/26/17 06/26/17 Previous Rx's Medication Instructions Recorded Gabapentin [Neurontin] 300 mg PO HS #30 capsule 05/28/17 HYDROcodone/Acet 5/325 mg [[place] 1 tab PO Q6H PRN 7 Days #15 tablet 05/28/17 5-325 mg] Allergies Allergy/AdvReac Type Severity Reaction Status Date / Time influenza virus vaccine ts Allergy Vomiting Verified 06/13/17 08:53 [id number] (36 mos,up) [From Fluarix] Pneumococcal Vaccine Allergy Vomiting Verified 06/13/17 08:53 [From Prevnar] codeine AdvReac Mild Nausea Verified 06/13/17 08:53 penicillin G AdvReac Mild swelling Verified 06/13/17 08:53 egg AdvReac See Verified 06/26/17 15:29 Comments Past Medical History - Past Medical History Medical history: Reports: asthma, cancer, diabetes, GERD, hyperlipidemia, hypertension, renal disease, other Surgical history: Reports: appendectomy, cholecystectomy Psychiatric history: Reports: anxiety, depression EXPLOSIVE EXPERT history: Reports: no EXPLOSIVE EXPERT history - Social History Smoking Status: Former smoker Smokeless Tobacco Status: No Alcohol use: Reports: none Drug use: Reports: none Physical Exam - General Limitations: no limitations General appearance: alert, in no apparent distress Course Vital Signs Temperature 97.8 F 06/26/17 10:46 Pulse Rate 75 06/26/17 10:46 Respiratory Rate 18 06/26/17 10:46 Blood Pressure 131/65 06/26/17 10:46 O2 Sat by Pulse Oximetry 96 06/26/17 10:46 Temperature 97.8 F 06/26/17 10:46 Pulse Rate 71 06/26/17 15:12 Respiratory Rate 18 06/26/17 18:23 Blood Pressure 138/79 06/26/17 18:23 O2 Sat by Pulse Oximetry 96 06/26/17 15:12 Oxygen Delivery Oxygen Delivery Room Air Medical Decision Making - Lab Data Result diagrams: 06/26/17 13:51 06/26/17 11:30 Lab Results 04/12/18 04/12/18 04/12/18 Range/Units 11:30 11:30 13:51 WBC 2.3 L (4.3-11.1) K/mcL RBC 2.44 L (3.82-4.97) M/mcL Hgb 6.9 L (11.5-15.4) g/dL Hct 21.1 L (35.3-44.9) % MCV 86.5 (83.0-100.0) fL MCH 28.3 (28.0-33.3) pg MCHC 32.7 (31.6-35.5) g/dL RDW 18.6 H (11.5-14.5) % Plt Count 34 L (140-400) K/mcL Seg Neutrophils % 24.0 % Band Neutrophils % 13.0 H (0-4) % Lymphocytes % 40.0 % Monocytes % 19.0 % Eosinophils % 1.0 % Blast Cells % 3.0 H (0) % Neutrophils # 0.9 L (1.6-8.9) K/mcL Lymphocytes # 0.9 (0.6-4.6) K/mcL Monocytes # 0.4 (0.0-1.3) K/mcL Eosinophils # 0.0 (0.0-0.6) K/mcL Nucleated RBCs/100 WBC 0.9 H (0) /100 WBC Toxic Vacuolation Present A (Not Present) Dohle Bodies Present A (Not Present) Platelet Estimate Marked Decrease L (Normal) Immature Plt Fraction 8.9 H (1.1-6.1) % Anisocytosis 1+ A (Not Present) Sodium 134 L (136-145) mEq/L Potassium 4.0 (3.5-5.1) mEq/L Chloride 106 (98-107) mEq/L Carbon Dioxide 20 L (23-29) mEq/L BUN 29 H (8-23) mg/dL Creatinine 0.92 (0.60-1.20) mg/dL Est GFR ( Amer) > 60 (> 60) Est GFR (Non-Af Amer) > 60 (> 60) BUN/Creatinine Ratio 32 H (6-26) Glucose 85 (70-105) mg/dL Calculated Osmolality 283 (280-300) Lactic Acid 0.4 L (0.5-2.2) mmol/L Calcium 8.0 L (8.6-10.3) mg/dL Total Bilirubin 1.0 (0.3-1.0) mg/dL Direct Bilirubin 0.7 H (0.0-0.2) mg/dL Indirect Bilirubin 0.3 (0.0-1.2) mg/dL AST 25 (13-39) Units/L ALT 9 (7-52) Units/L Alkaline Phosphatase 262 H (34-104) Units/L Serum Total Protein 6.1 L (6.4-8.9) g/dL Albumin 2.5 L (3.5-5.7) g/dL Globulin 3.6 H (2.4-3.5) g/dL Albumin/Globulin Ratio 0.7 L (1.1-2.2) Amylase 10 L (29-103) Units/L Lipase 15 (11-82) Units/L Urine Color (Yellow) Urine Clarity (Clear) Urine pH (5.0-8.0) pH Units Ur Specific [place] (1.010-1.025) Urine Protein (Neg-Trace) mg/dL Urine Glucose (UA) (Normal) mg/dL Urine Ketones (Negative) mg/dL Urine Blood (Negative) Urine Nitrite (Negative) Urine Bilirubin (Negative) Urine Urobilinogen (Normal) mg/dL Ur Leukocyte Esterase (Negative) Urine Microscopic RBC (0-3) per hpf Urine Microscopic WBC (0-3) per hpf Ur Squamous Epith Cells (None-Few) per lpf Urine Bacteria (None-Few) per hpf Hyaline Casts (None-Few) per lpf Ur Culture Indicated? (NO) 06/26/17 Range/Units 16:00 WBC (4.3-11.1) K/mcL RBC (3.82-4.97) M/mcL Hgb (11.5-15.4) g/dL Hct (35.3-44.9) % MCV (83.0-100.0) fL MCH (28.0-33.3) pg MCHC (31.6-35.5) g/dL RDW (11.5-14.5) % Plt Count (140-400) K/mcL Seg Neutrophils % % Band Neutrophils % (0-4) % Lymphocytes % % Monocytes % % Eosinophils % % Blast Cells % (0) % Neutrophils # (1.6-8.9) K/mcL Lymphocytes # (0.6-4.6) K/mcL Monocytes # (0.0-1.3) K/mcL Eosinophils # (0.0-0.6) K/mcL Nucleated RBCs/100 WBC (0) /100 WBC Toxic Vacuolation (Not Present) Dohle Bodies (Not Present) Platelet Estimate (Normal) Immature Plt Fraction (1.1-6.1) % Anisocytosis (Not Present) Sodium (136-145) mEq/L Potassium (3.5-5.1) mEq/L Chloride (98-107) mEq/L Carbon Dioxide (23-29) mEq/L BUN (8-23) mg/dL Creatinine (0.60-1.20) mg/dL Est GFR ( Amer) (> 60) Est GFR (Non-Af Amer) (> 60) BUN/Creatinine Ratio (6-26) Glucose (70-105) mg/dL Calculated Osmolality (280-300) Lactic Acid (0.5-2.2) mmol/L Calcium (8.6-10.3) mg/dL Total Bilirubin (0.3-1.0) mg/dL Direct Bilirubin (0.0-0.2) mg/dL Indirect Bilirubin (0.0-1.2) mg/dL AST (13-39) Units/L ALT (7-52) Units/L Alkaline Phosphatase (34-104) Units/L Serum Total Protein (6.4-8.9) g/dL Albumin (3.5-5.7) g/dL Globulin (2.4-3.5) g/dL Albumin/Globulin Ratio (1.1-2.2) Amylase (29-103) Units/L Lipase (11-82) Units/L Urine Color Dark Yellow (Yellow) Urine Clarity Cloudy A (Clear) Urine pH 5.5 (5.0-8.0) pH Units Ur Specific [place] 1.017 (1.010-1.025) Urine Protein 30 H (Neg-Trace) mg/dL Urine Glucose (UA) Normal (Normal) mg/dL Urine Ketones Negative (Negative) mg/dL Urine Blood Moderate H (Negative) Urine Nitrite Negative (Negative) Urine Bilirubin Negative (Negative) Urine Urobilinogen Normal (Normal) mg/dL Ur Leukocyte Esterase Trace H (Negative) Urine Microscopic RBC 0-3 (0-3) per hpf Urine Microscopic WBC 0-3 (0-3) per hpf Ur Squamous Epith Cells Moderate H (None-Few) per lpf Urine Bacteria None Seen (None-Few) per hpf Hyaline Casts None Seen (None-Few) per lpf Ur Culture Indicated? YES A (NO) Attestation Statement - Attestation Attestation: I examined this patient and my medical decision-making was reviewed with the Resident Physician. I agree with the documented findings, disposition and treatment plan as described except to the extent set forth below. Doum-li-eaam time provided Patient presents with left-sided abdominal pain. She has a recent history of possible Clostridium difficile. She also reports fevers. She was taking Flagyl. Symptoms persist. Patient was evaluated in conjunction with the resident physician Dr. Vargas
[2017-06-26] MEDS ORDERED: *HR* FentaNYL (PF) 100 MCG/2 ML VIAL IVP ONE ×2 (11:13→14:42)
--- NOTE | 2017-06-26 11:17 | Emergency Department Note ---
Disposition Clinical Impression: Pancytopenia, Urinary retention Abdominal pain Qualifiers: Abdominal location: left upper quadrant Qualified Code(s): R10.12 - Left upper quadrant pain Diarrhea Qualifiers: Diarrhea type: unspecified type Qualified Code(s): R19.7 - Diarrhea, unspecified Disposition: Admitted As Inpatient Condition: Fair Referrals: Yash Hanley MD [Primary Care Provider] - Forms: ED Satisfaction Letter, Work/School Release Time of Disposition: 15:27 Abdominal Pain HPI - General Chief Complaint: ED Abdominal Pain Stated Complaint: abd pain, fever Time Seen by Provider: 06/26/17 10:46 Source: patient, EMS Nursing Notes Reviewed: Yes Vital Signs Reviewed: Yes - History of Present Illness HPI Narrative: Ms. Bryant is a very pleasant 70-year-old female with past history of MDS, AML, Crohn's, insulin-dependent diabetes and history of C. difficile who presents to the [facility] department with a chief complaint of dental pain and diarrhea for duration of 1 week. Her abdominal pain is sharp and nonradiating. She reports the diarrhea smell is different from her prior C. difficile. Patient is a resident at a nursing facility was found to have worsening diarrhea starting late last week. His associated fevers, decreased appetite and had one bout of emesis last week. She has not had minimal intake over the last 24-48 hours. She has a history of taking infliximab for her Crohn 's as well as mesalamine but has not had treatment since January 2017. History of bowel resection roughly two years ago. She was recently admitted to [facility] one month ago for diarrhea and was found to have C. difficile. She was treated with Flagyl and sent back to the nursing facility. She has been followed by the cancer center here at [facility] with most recent chemotherapy 2 weeks ago. No other complaints at this time. Pain Scale: 7 - Related Data Home Medications Medication Instructions Recorded Confirmed Amlodipine [Norvasc] 5 mg PO DAILY 01/06/15 06/26/17 Furosemide [Lasix] 40 mg PO DAILY 01/06/15 06/26/17 Omeprazole [PriLOSEC] 20 mg PO DAILY 01/06/15 06/26/17 Potassium Chloride 20 meq PO DAILY 01/06/15 06/26/17 InFLIXimab [Remicade] 100 mg IV [id number] 03/29/15 06/26/17 Insulin ASPART [Novolog Flexpen] 2 - 15 unit SQ ACHS 03/24/17 06/26/17 Insulin DETEMIR [Levemir Flextouch] 20 unit SQ BID 03/24/17 06/26/17 Magnesium Oxide [Magnesium] 400 mg PO DAILY 05/13/17 06/26/17 Ezetimibe 10 mg PO DAILY 05/17/17 06/26/17 Acetaminophen [Tylenol Arthritis] 650 mg PO Q4H PRN 05/25/17 06/26/17 Albuterol Sulfate [Ventolin Hfa] 2 puff IH Q4H PRN 05/25/17 06/26/17 Calamine/Menthol/Petrolat/Zinc 1 appl TP TID 05/25/17 06/26/17 [Remedy Calazime Protect Paste] Ipratropium/Albuterol Neb [Duoneb] 3 ml IH Q6HR PRN 05/25/17 06/26/17 Mesalamine 800 mg PO DAILY 05/25/17 06/26/17 Ondansetron HCl [Zofran] 4 mg PO Q4H PRN 05/25/17 06/26/17 Ascorbic Acid [Vitamin C] 500 mg PO DAILY 06/26/17 06/26/17 Escitalopram [Lexapro] 10 mg PO HS 06/26/17 06/26/17 Lactobacillus Acidophilus 1 each PO BID 06/26/17 06/26/17 [Acidophilus] Metoprolol Succinate [Toprol Xl] 100 mg PO DAILY 06/26/17 06/26/17 Vitamin E Acetate [Vitamin E] 400 unit PO DAILY 06/26/17 06/26/17 metroNIDAZOLE [Flagyl] 250 mg PO TID 06/26/17 06/26/17 Previous Rx's Medication Instructions Recorded Gabapentin [Neurontin] 300 mg PO HS #30 capsule 05/28/17 HYDROcodone/Acet 5/325 mg [[place] 1 tab PO Q6H PRN 7 Days #15 tablet 05/28/17 5-325 mg] Allergies Allergy/AdvReac Type Severity Reaction Status Date / Time influenza virus vaccine ts Allergy Vomiting Verified 06/13/17 08:53 [id number] (36 mos,up) [From Fluarix] Pneumococcal Vaccine Allergy Vomiting Verified 06/13/17 08:53 [From Prevnar] codeine AdvReac Mild Nausea Verified 06/13/17 08:53 penicillin G AdvReac Mild swelling Verified 06/13/17 08:53 egg AdvReac See Verified 06/26/17 15:29 Comments Review of Systems: Constitutional: No fever Vision: No blurred vision ENT: No rhinorrhea Respiratory: No cough Cardiovascular: No chest pain Allergic: No allergies : No blood in urine GI: No blood in stool Hematologic: No bruising Dermatologic: No skin rash Musculoskeletal: Weakness Neuro: No numbness of the extremities Abdominal Pain PMH - Past Medical History Medical history: Reports: asthma, cancer, diabetes, GERD, hyperlipidemia, hypertension, renal disease, other Female Surgical History: Reports: appendectomy, cholecystectomy 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 Oropharynx: pink/moist RESP: NRD without use of accessory musculature, CTA b/l with no wheezes/rales/ rhonchi CARD: Regular rhythm, without murmurs, rubs, or gallop ABD: Bowel sounds 4, is visibly tender to the left upper quadrant on palpation , no rigidity or rebound SKIN: normal appearance, no pallor/diaphoresis,mottling,jaundice,cyanosis EXT: PT pulses 2+ and symmetrical; no lateralizing edema; no other lesions seen PSYCH: appropriate mood/affect - General Limitations: no limitations General appearance: alert, in no apparent distress Course Course Narrative: Patient was seen and examined at 1100 with family at bedside. Patient appears lethargic and is in no acute distress. Vital signs were reviewed and normal. We will begin workup with CBC, BMP, lipase, amylase, hepatic panel, UA and abdominal pelvic CT without contrast. In the setting of Crohn's disease, history of C. difficile within the last 4 weeks and chemotherapy treatment with suspicion for recurrent C. difficile, obstruction or Crohn's flare. Orders placed for analgesia and IV fluids for now. Disposition pending. 1200: Abdominal CT reviewed and show distention of the urinary bladder with bilateral hydroureter nephrosis. No other acute findings present. Ordered straight urine catherization. 10cc came out per tech and patient is refusing camargo or repeat straight. Not enough for UA. Mild decrease in pain after 25 Fentanyl. 1352: Spoke with Dr. Sharma with Heme/Onc who recommended admission in the setting of immune compromise, subjective fevers, abdominal pain and diarrhea. Labs are pending at this time. Cdiff stool ordered. 1500: Spoke with [facility], Dr. Wilkinson visit the patient for admission. Urology was consulted for further evaluation of urinary retention. Disposition was discussed with patient and family who agree to plan. 1555: Urology came to see patient at bedside. Camargo was placed successfully with proximal 2 L removed. Urine resent. Vital Signs Temperature 97.8 F 06/26/17 10:46 Pulse Rate 75 06/26/17 10:46 Respiratory Rate 18 06/26/17 10:46 Blood Pressure 131/65 06/26/17 10:46 O2 Sat by Pulse Oximetry 96 06/26/17 10:46 Temperature 97.8 F 06/26/17 10:46 Pulse Rate 71 06/26/17 15:12 Respiratory Rate 18 06/26/17 15:12 Blood Pressure 126/54 06/26/17 15:12 O2 Sat by Pulse Oximetry 96 06/26/17 15:12 Oxygen Delivery Oxygen Delivery Room Air Abdominal Pain - Medical Records Medical records reviewed: Yes I reviewed the patient's medical records. - Lab Data Lab results reviewed: Yes I reviewed the patient's lab results. Result diagrams: 06/26/17 13:51 06/26/17 11:30 Lab Results 06/26/17 06/26/17 06/26/17 Range/Units 11:30 11:30 13:51 WBC 2.3 L (4.3-11.1) K/mcL RBC 2.44 L (3.82-4.97) M/mcL Hgb 6.9 L (11.5-15.4) g/dL Hct 21.1 L (35.3-44.9) % MCV 86.5 (83.0-100.0) fL MCH 28.3 (28.0-33.3) pg MCHC 32.7 (31.6-35.5) g/dL RDW 18.6 H (11.5-14.5) % Plt Count 34 L (140-400) K/mcL Seg Neutrophils % 24.0 % Band Neutrophils % 13.0 H (0-4) % Lymphocytes % 40.0 % Monocytes % 19.0 % Eosinophils % 1.0 % Blast Cells % 3.0 H (0) % Neutrophils # 0.9 L (1.6-8.9) K/mcL Lymphocytes # 0.9 (0.6-4.6) K/mcL Monocytes # 0.4 (0.0-1.3) K/mcL Eosinophils # 0.0 (0.0-0.6) K/mcL Nucleated RBCs/100 WBC 0.9 H (0) /100 WBC Toxic Vacuolation Present A (Not Present) Dohle Bodies Present A (Not Present) Platelet Estimate Marked Decrease L (Normal) Immature Plt Fraction 8.9 H (1.1-6.1) % Anisocytosis 1+ A (Not Present) Sodium 134 L (136-145) mEq/L Potassium 4.0 (3.5-5.1) mEq/L Chloride 106 (98-107) mEq/L Carbon Dioxide 20 L (23-29) mEq/L BUN 29 H (8-23) mg/dL Creatinine 0.92 (0.60-1.20) mg/dL Est GFR ( Amer) > 60 (> 60) Est GFR (Non-Af Amer) > 60 (> 60) BUN/Creatinine Ratio 32 H (6-26) Glucose 85 (70-105) mg/dL Calculated Osmolality 283 (280-300) Lactic Acid 0.4 L (0.5-2.2) mmol/L Calcium 8.0 L (8.6-10.3) mg/dL Total Bilirubin 1.0 (0.3-1.0) mg/dL Direct Bilirubin 0.7 H (0.0-0.2) mg/dL Indirect Bilirubin 0.3 (0.0-1.2) mg/dL AST 25 (13-39) Units/L ALT 9 (7-52) Units/L Alkaline Phosphatase 262 H (34-104) Units/L Serum Total Protein 6.1 L (6.4-8.9) g/dL Albumin 2.5 L (3.5-5.7) g/dL Globulin 3.6 H (2.4-3.5) g/dL Albumin/Globulin Ratio 0.7 L (1.1-2.2) Amylase 10 L (29-103) Units/L Lipase 15 (11-82) Units/L Urine Color (Yellow) Urine Clarity (Clear) Urine pH (5.0-8.0) pH Units Ur Specific [place] (1.010-1.025) Urine Protein (Neg-Trace) mg/dL Urine Glucose (UA) (Normal) mg/dL Urine Ketones (Negative) mg/dL Urine Blood (Negative) Urine Nitrite (Negative) Urine Bilirubin (Negative) Urine Urobilinogen (Normal) mg/dL Ur Leukocyte Esterase (Negative) 06/26/17 Range/Units 16:00 WBC (4.3-11.1) K/mcL RBC (3.82-4.97) M/mcL Hgb (11.5-15.4) g/dL Hct (35.3-44.9) % MCV (83.0-100.0) fL MCH (28.0-33.3) pg MCHC (31.6-35.5) g/dL RDW (11.5-14.5) % Plt Count (140-400) K/mcL Seg Neutrophils % % Band Neutrophils % (0-4) % Lymphocytes % % Monocytes % % Eosinophils % % Blast Cells % (0) % Neutrophils # (1.6-8.9) K/mcL Lymphocytes # (0.6-4.6) K/mcL Monocytes # (0.0-1.3) K/mcL Eosinophils # (0.0-0.6) K/mcL Nucleated RBCs/100 WBC (0) /100 WBC Toxic Vacuolation (Not Present) Dohle Bodies (Not Present) Platelet Estimate (Normal) Immature Plt Fraction (1.1-6.1) % Anisocytosis (Not Present) Sodium (136-145) mEq/L Potassium (3.5-5.1) mEq/L Chloride (98-107) mEq/L Carbon Dioxide (23-29) mEq/L BUN (8-23) mg/dL Creatinine (0.60-1.20) mg/dL Est GFR ( Amer) (> 60) Est GFR (Non-Af Amer) (> 60) BUN/Creatinine Ratio (6-26) Glucose (70-105) mg/dL Calculated Osmolality (280-300) Lactic Acid (0.5-2.2) mmol/L Calcium (8.6-10.3) mg/dL Total Bilirubin (0.3-1.0) mg/dL Direct Bilirubin (0.0-0.2) mg/dL Indirect Bilirubin (0.0-1.2) mg/dL AST (13-39) Units/L ALT (7-52) Units/L Alkaline Phosphatase (34-104) Units/L Serum Total Protein (6.4-8.9) g/dL Albumin (3.5-5.7) g/dL Globulin (2.4-3.5) g/dL Albumin/Globulin Ratio (1.1-2.2) Amylase (29-103) Units/L Lipase (11-82) Units/L Urine Color Dark Yellow (Yellow) Urine Clarity Cloudy A (Clear) Urine pH 5.5 (5.0-8.0) pH Units Ur Specific [place] 1.017 (1.010-1.025) Urine Protein 30 H (Neg-Trace) mg/dL Urine Glucose (UA) Normal (Normal) mg/dL Urine Ketones Negative (Negative) mg/dL Urine Blood Moderate H (Negative) Urine Nitrite Negative (Negative) Urine Bilirubin Negative (Negative) Urine Urobilinogen Normal (Normal) mg/dL Ur Leukocyte Esterase Trace H (Negative) - Radiology Data Radiology results reviewed: Yes I reviewed the patient's radiology results. Abdomen/Pelvis CT 06/26/17 11:12 IMPRESSION: 1. Prominent distention of the urinary bladder resulting in bilateral hydroureteronephrosis. Recommend correlation with any difficulty voiding 2. Stable splenomegaly 3. 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 Stable mildly enlarged celiac and retroperitoneal lymph nodes 5. Uncomplicated abdominal wall hernia containing multiple loops of small bowel 6. Mesenteric panniculitis. Treated lymphoma could have a similar appearance D/ / Moises Lemus MD / Moises Lemus MD Interpreting Provider: Moises Lemus MD
[2017-06-26 11:44] LABS: Immature Platelets 8.9 % (1.1-6.1); Red Cell Distribution Width 18.6 % (11.5-14.5)
[2017-06-26] MEDS ORDERED: Ondansetron 4 MG/2 ML VIAL IVP ONE ×2 (12:01→14:42)
[2017-06-26 12:03] LABS: Alanine Aminotransferase 9 Units/L (7-52); Albumin 2.5 g/dL (3.5-5.7); Albumin/Globulin Ratio 0.7 (1.1-2.2); Alkaline Phosphatase 262 Units/L (34-104); Amylase 10 Units/L (29-103); Aspartate Amino Transferase 25 Units/L (13-39); BUN/Creatinine Ratio 32 (6-26); Bilirubin,Direct 0.7 mg/dL (0.0-0.2); Bilirubin,Indirect 0.3 mg/dL (0.0-1.2); Blood Urea Nitrogen 29 mg/dL (8-23); Carbon Dioxide 20 mEq/L (23-29); Chloride 106 mEq/L (98-107); Globulin 3.6 g/dL (2.4-3.5); Glucose 85 mg/dL (70-105); Lipase 15 Units/L (11-82); Osmolality,Calculated 283 (280-300); Sodium 134 mEq/L (136-145); Total Protein 6.1 g/dL (6.4-8.9); eGFR For African Americans > 60 (> 60); eGFR For Non-African Americans > 60 (> 60)
[2017-06-26 14:19] LABS: Hematocrit 21.1 % (35.3-44.9); Mean Corpuscular HGB Conc 32.7 g/dL (31.6-35.5); Mean Corpuscular Hemoglobin 28.3 pg (28.0-33.3); Mean Corpuscular Volume 86.5 fL (83.0-100.0); Nucleated Red Blood Cells 0.9 /100 WBC (0); Red Blood Count 2.44 M/mcL (3.82-4.97)
[2017-06-26 14:20] LABS: Hemoglobin 6.9 g/dL (11.5-15.4); Platelet Count 34 K/mcL (140-400)
[2017-06-26 15:00] LABS: Monocytes # 0.4 K/mcL (0.0-1.3)
[2017-06-26 15:03] LABS: Lymphocytes # 0.9 K/mcL (0.6-4.6); Neutrophils # 0.9 K/mcL (1.6-8.9); Platelet Estimate Marked Decrease (Normal)
[2017-06-26 15:04] LABS: Anisocytosis 1+ (Not Present); Dohle Bodies Present (Not Present)
[2017-06-26 15:05] LABS: Toxic Vacuolation Present (Not Present)
--- NOTE | 2017-06-26 16:09 | Urology - Consult Note ---
Date of Encounter: 06/26/17 Time of Encounter: 16:06 - Assessment and Plan (1) Hydronephrosis Current Visit: Yes Status: Acute Assessment and plan: Patient's hydronephrosis is likely secondary to incomplete bladder emptying secondary to her urinary retention. I expect that with catheter placement this hydronephrosis will resolve. We will continue to follow along closely. Her serum creatinine is normal at this time. Qualifiers: Hydronephrosis type: other Qualified Code(s): N13.39 - Other hydronephrosis (2) Urinary retention Current Visit: Yes Status: Acute Assessment and plan: Patient has markedly this in the bladder on CT scan as well as exam. After much convincing, the patient and daughter agreed to allow me to place a catheter. Patient was prepped and draped in normal sterile fashion. I then placed a 16-Mongolian catheter with 2 L of urine returned. His urine was clear. Patient tolerated well even though she did not like the way the catheter felt. Urology CN:HPI Consult date: 06/26/17 Reason for consult Urology: Hydronephrosis Requesting physician: Shaggy Christensen History of present illness: Akiko is a 72-year-old female with a history of a blood dyscrasia currently undergone chemotherapy. Patient arrived to the emergency department today secondary to abdominal discomfort. She is found to be pancytopenic. She states that she has been having abdominal discomfort for the past few weeks. She has been having problems with her bowels. Patient had a CT scan done which revealed markedly distended bladder with bilateral hydronephrosis. Patient serum creatinine was normal. She states that she has been having difficulty with emptying her bladder and only voids when she moves. Patient is very limited with her ambulation. Past Med Surg Social Fam HX - Past Medical History Medical history: asthma, cancer, diabetes, GERD, hyperlipidemia, hypertension, renal disease, other Psychiatric history: anxiety, depression - Past Surgical History Surgical History: appendectomy, cholecystectomy - Social History Smoking Status: Former smoker Smokeless Tobacco Status: No Alcohol use: none Drug use: none - Family History Mother Living Status: Hx Family Cardiac Disorders: No Hx Family Respiratory Disorders: Yes Hx Family Cancer: Yes Hx Family GI Disorders: No Hx Family Endocrine Disorder: No Hx Family Neuromuscular Disorders: No Hx Family Neurologic Disorders: No Hx Family HEENT Disorders: No Hx Family Autoimmune Disorders: No Father Living Status: Hx Family Cardiac Disorders: Yes Hx Family Respiratory Disorders: Yes (Parents smokers) Hx Family Cancer: Yes Hx Family GI Disorders: Yes (Sister ulcerative colitis) Hx Family Endocrine Disorder: Yes Hx Family Neuromuscular Disorders: No Hx Family Neurologic Disorders: No Hx Family HEENT Disorders: No Hx Family Autoimmune Disorders: No Medications and Allergies Amlodipine [Norvasc] 5 mg PO DAILY 01/06/15 [History] Furosemide [Lasix] 40 mg PO DAILY 01/06/15 [History] Omeprazole [PriLOSEC] 20 mg PO DAILY 01/06/15 [History] Potassium Chloride 20 meq PO DAILY 01/06/15 [History] InFLIXimab [Remicade] 100 mg IV [id number] 03/29/15 [History] Insulin ASPART [Novolog Flexpen] 2 - 15 unit SQ ACHS 03/24/17 [History] Insulin DETEMIR [Levemir Flextouch] 20 unit SQ BID 03/24/17 [History] Magnesium Oxide [Magnesium] 400 mg PO DAILY 05/13/17 [History] Ezetimibe 10 mg PO DAILY 05/17/17 [History] Acetaminophen [Tylenol Arthritis] 650 mg PO Q4H PRN 05/25/17 [History] Albuterol Sulfate [Ventolin Hfa] 2 puff IH Q4H PRN 05/25/17 [History] Calamine/Menthol/Petrolat/Zinc [Remedy Calazime Protect Paste] 1 appl TP TID 02/01 [History] Ipratropium/Albuterol Neb [Duoneb] 3 ml IH Q6HR PRN 05/25/17 [History] Mesalamine 800 mg PO DAILY 05/25/17 [History] Ondansetron HCl [Zofran] 4 mg PO Q4H PRN 05/25/17 [History] Gabapentin [Neurontin] 300 mg PO HS #30 capsule 05/28/17 [Rx] HYDROcodone/Acet 5/325 mg [[place] 5-325 mg] 1 tab PO Q6H PRN 7 Days #15 tablet [Rx] Ascorbic Acid [Vitamin C] 500 mg PO DAILY 06/26/17 [History] Escitalopram [Lexapro] 10 mg PO HS 06/26/17 [History] Lactobacillus Acidophilus [Acidophilus] 1 each PO BID 06/26/17 [History] Metoprolol Succinate [Toprol Xl] 100 mg PO DAILY 06/26/17 [History] Vitamin E Acetate [Vitamin E] 400 unit PO DAILY 06/26/17 [History] metroNIDAZOLE [Flagyl] 250 mg PO TID 06/26/17 [History] 3 Allergy/AdvReac Type Severity Reaction Status Date / Time influenza virus vaccine ts Allergy Vomiting Verified 06/13/17 08:53 [id number] (36 mos,up) [From Fluarix] Pneumococcal Vaccine Allergy Vomiting Verified 06/13/17 08:53 [From Prevnar] codeine AdvReac Mild Nausea Verified 06/13/17 08:53 penicillin G AdvReac Mild swelling Verified 06/13/17 08:53 egg AdvReac See Verified 06/26/17 15:29 Comments Review of Systems - Constitutional weakness, no chills, no fever(s) - EENT Nose, mouth and throat: no dizziness, no sore throat - Cardiovascular no chest pain - Respiratory no cough, no dyspnea - Gastrointestinal abdominal pain, change in bowel habits, no nausea, no vomiting - Genitourinary Genitourinary: as per HPI - Musculoskeletal no back pain - Integumentary no erythema, no swelling - Neurological no confusion, no sensory deficit - Psychiatric no anxiety, no confusion - Hematologic/Lymphatic no easy bleeding, no lymphadenopathy Exam Initial Vital Signs Temp Pulse Resp BP Pulse Ox 97.8 F 75 18 131/65 96 06/26/17 10:46 06/26/17 10:46 06/26/17 10:46 06/26/17 10:46 06/26/17 10:46 General: alert and oriented Eyes: pupils normal, non-icteric Neck: no lymphadenopathy noted Cardiovascular: RRR, no murmurs Respiratory: normal respiratory effort, clear bilaterally ABD: soft, tender to palpation in lower abdomen consistent with distended bladder positive bowel sounds Back: no pain on percussion bilaterally : normal labia and urethral meatus, no tenderness on palpating bladder or urethra, normal healthy appearing vaginal mucosa, normal appearing perineum Skin: no rashes noted Musculoskeletal: normal gait, FROMx4 Psych: appropriate affect, alert to time and place Urology Results - Labs 06/26/17 13:51 06/26/17 11:30 Abnormal lab results WBC 2.3 K/mcL (4.3-11.1) L 06/26/17 13:51 RBC 2.44 M/mcL (3.82-4.97) L 06/26/17 13:51 Hgb 6.9 g/dL (11.5-15.4) L 06/26/17 13:51 Hct 21.1 % (35.3-44.9) L 06/26/17 13:51 RDW 18.6 % (11.5-14.5) H 06/26/17 13:51 Plt Count 34 K/mcL (140-400) L 06/26/17 13:51 Band Neutrophils % 13.0 % (0-4) H 06/26/17 13:51 Blast Cells % 3.0 % (0) H 06/26/17 13:51 Neutrophils # 0.9 K/mcL (1.6-8.9) L 06/26/17 13:51 Nucleated RBCs/100 WBC 0.9 /100 WBC (0) H 06/26/17 13:51 Toxic Vacuolation Present (Not Present) A 06/26/17 13:51 Dohle Bodies Present (Not Present) A 06/26/17 13:51 Platelet Estimate Marked Decrease (Normal) L 06/26/17 13:51 Immature Plt Fraction 8.9 % (1.1-6.1) H 06/26/17 13:51 Anisocytosis 1+ (Not Present) A 06/26/17 13:51 Sodium 134 mEq/L (136-145) L 06/26/17 11:30 Carbon Dioxide 20 mEq/L (23-29) L 06/26/17 11:30 BUN 29 mg/dL (8-23) H 06/26/17 11:30 BUN/Creatinine Ratio 32 (6-26) H 06/26/17 11:30 Lactic Acid 0.4 mmol/L (0.5-2.2) L 06/26/17 11:30 Calcium 8.0 mg/dL (8.6-10.3) L 06/26/17 11:30 Direct Bilirubin 0.7 mg/dL (0.0-0.2) H 06/26/17 11:30 Alkaline Phosphatase 262 Units/L (34-104) H 06/26/17 11:30 Serum Total Protein 6.1 g/dL (6.4-8.9) L 06/26/17 11:30 Albumin 2.5 g/dL (3.5-5.7) L 06/26/17 11:30 Globulin 3.6 g/dL (2.4-3.5) H 06/26/17 11:30 Albumin/Globulin Ratio 0.7 (1.1-2.2) L 06/26/17 11:30 Amylase 10 Units/L (29-103) L 06/26/17 11:30 Diabetes panel 06/26/17 Range/Units 11:30 Sodium 134 L (136-145) mEq/L Potassium 4.0 (3.5-5.1) mEq/L Chloride 106 (98-107) mEq/L Carbon Dioxide 20 L (23-29) mEq/L BUN 29 H (8-23) mg/dL Creatinine 0.92 (0.60-1.20) mg/dL Glucose 85 (70-105) mg/dL Calcium 8.0 L (8.6-10.3) mg/dL AST 25 (13-39) Units/L ALT 9 (7-52) Units/L Alkaline Phosphatase 262 H (34-104) Units/L Albumin 2.5 L (3.5-5.7) g/dL Calcium panel 06/26/17 Range/Units 11:30 Calcium 8.0 L (8.6-10.3) mg/dL Albumin 2.5 L (3.5-5.7) g/dL Pituitary panel 06/26/17 Range/Units 11:30 Sodium 134 L (136-145) mEq/L Potassium 4.0 (3.5-5.1) mEq/L Chloride 106 (98-107) mEq/L Carbon Dioxide 20 L (23-29) mEq/L BUN 29 H (8-23) mg/dL Creatinine 0.92 (0.60-1.20) mg/dL Glucose 85 (70-105) mg/dL Calcium 8.0 L (8.6-10.3) mg/dL Adrenal panel 06/26/17 Range/Units 11:30 Sodium 134 L (136-145) mEq/L Potassium 4.0 (3.5-5.1) mEq/L Chloride 106 (98-107) mEq/L Carbon Dioxide 20 L (23-29) mEq/L BUN 29 H (8-23) mg/dL Creatinine 0.92 (0.60-1.20) mg/dL Glucose 85 (70-105) mg/dL Calcium 8.0 L (8.6-10.3) mg/dL Total Bilirubin 1.0 (0.3-1.0) mg/dL AST 25 (13-39) Units/L ALT 9 (7-52) Units/L Alkaline Phosphatase 262 H (34-104) Units/L Albumin 2.5 L (3.5-5.7) g/dL All other labs normal. - Imaging CT scan - abdomen: image reviewed CT scan - pelvis: image reviewed Consult Discharge Plan - Plan Referrals: Yash Hanley MD [Primary Care Provider] -
[2017-06-26 16:24] LABS: Bilirubin,Urine Negative (Negative); Blood,Urine Moderate (Negative); Clarity,Urine Cloudy (Clear); Color,Urine Dark Yellow (Yellow); Glucose,Urine (UA) Normal (Normal); Ketones,Urine Negative (Negative); Leukocyte Esterase,Urine Trace (Negative); Nitrite,Urine Negative (Negative); PH,Urine 5.5 pH Units (5.0-8.0); Protein,Urine 30 mg/dL (Neg-Trace); Specific Gravity,Urine 1.017 (1.010-1.025); Urobilinogen,Urine Normal (Normal)
[2017-06-26 16:26] LABS: Bacteria,Urine None Seen per hpf (None-Few); Hyaline Casts,Urine None Seen per lpf (None-Few); Squamous Epithelial Cell,Urine Moderate per lpf (None-Few); WBC,Urine 0-3 per hpf (0-3)
[2017-06-26 16:36] LABS: RBC,Urine 0-3 per hpf (0-3)
[2017-06-26] MEDS ORDERED: Naloxone 0.4 MG/ML INJ IVP PRN (18:19)
[2017-06-26] MEDS ORDERED: D5% in Water 1,000 ML IVC PRN (21:29)
[2017-06-26] MEDS ORDERED: *HR* Dextrose 50 % in Water (Syg) 50 ML SYRINGE IVP PRN (21:29)
[2017-06-26] MEDS ORDERED: Dextrose Gel 15 GM/37.5 ML TUBE PO PRN ×2 (21:29)
[2017-06-26] MEDS ORDERED: Ipratropium/Albuterol Neb 3 ML IH PRN (21:31)
--- NOTE | 2017-06-26 21:53 | Internal Med History&Physical ---
Date of Encounter: 06/26/17 Time of Encounter: 20:00 Internal Medicine - H&P: HPI Chief complaint: Abd pain Admitted From: Long-term Nursing Facility Plans for Post Hospital Care: Transfer [facility] History of present illness: Ms. Bryant is a 72 year old female present to ER for abdominal pain. Her past medical history is significant for AML, Crohn disease, diabetes, hypertension, history of small bowel obstruction S/P surgery, history of C. difficile colitis. Patient went to oncology office today for AML follow-up. She was sent to emergency room by oncology for abdominal pain. Patient said she has Crohn disease and has on and off abdominal pain for many years. Patient denies nausea or vomiting. She has diarrhea yesterday but not today. Patient can passing gas. Denies a fever. In the emergency room, abdominal CT has been done , no acute founding except to urinary retention. Urology consult was called and Benson catheter has been placed. UA shows UTI. Patient was admitted for further management. I have discussed CODE STATUS with patient. Patient is AAO 3 and clearly told me she does not want resuscitation or intubation. DNR DNI placed. Past Med Surg Social Fam HX - Past Medical History Medical history: asthma, cancer, diabetes, GERD, hyperlipidemia, hypertension, renal disease, other Psychiatric history: anxiety, depression - Past Surgical History Surgical History: appendectomy, cholecystectomy - Social History Smoking Status: Former smoker Smokeless Tobacco Status: No Alcohol use: none Drug use: none - Family History Mother Living Status: Hx Family Cardiac Disorders: No Hx Family Respiratory Disorders: Yes Hx Family Cancer: Yes Hx Family GI Disorders: No Hx Family Endocrine Disorder: No Hx Family Neuromuscular Disorders: No Hx Family Neurologic Disorders: No Hx Family HEENT Disorders: No Hx Family Autoimmune Disorders: No Father Living Status: Hx Family Cardiac Disorders: Yes Hx Family Respiratory Disorders: Yes (Parents smokers) Hx Family Cancer: Yes Hx Family GI Disorders: Yes (Sister ulcerative colitis) Hx Family Endocrine Disorder: Yes Hx Family Neuromuscular Disorders: No Hx Family Neurologic Disorders: No Hx Family HEENT Disorders: No Hx Family Autoimmune Disorders: No Internal Medicine - H&P: Meds Amlodipine [Norvasc] 5 mg PO DAILY 01/06/15 [History] Furosemide [Lasix] 40 mg PO DAILY 01/06/15 [History] Omeprazole [PriLOSEC] 20 mg PO DAILY 01/06/15 [History] Potassium Chloride 20 meq PO DAILY 01/06/15 [History] InFLIXimab [Remicade] 100 mg IV [id number] 03/29/15 [History] Insulin ASPART [Novolog Flexpen] 2 - 15 unit SQ ACHS 03/24/17 [History] Insulin DETEMIR [Levemir Flextouch] 20 unit SQ BID 03/24/17 [History] Magnesium Oxide [Magnesium] 400 mg PO DAILY 05/13/17 [History] Ezetimibe 10 mg PO DAILY 05/17/17 [History] Acetaminophen [Tylenol Arthritis] 650 mg PO Q4H PRN 05/25/17 [History] Albuterol Sulfate [Ventolin Hfa] 2 puff IH Q4H PRN 05/25/17 [History] Calamine/Menthol/Petrolat/Zinc [Remedy Calazime Protect Paste] 1 appl TP TID 02/01 [History] Ipratropium/Albuterol Neb [Duoneb] 3 ml IH Q6HR PRN 05/25/17 [History] Mesalamine 800 mg PO DAILY 05/25/17 [History] Ondansetron HCl [Zofran] 4 mg PO Q4H PRN 05/25/17 [History] Gabapentin [Neurontin] 300 mg PO HS #30 capsule 05/28/17 [Rx] HYDROcodone/Acet 5/325 mg [[place] 5-325 mg] 1 tab PO Q6H PRN 7 Days #15 tablet [Rx] Ascorbic Acid [Vitamin C] 500 mg PO DAILY 06/26/17 [History] Escitalopram [Lexapro] 10 mg PO HS 06/26/17 [History] Lactobacillus Acidophilus [Acidophilus] 1 each PO BID 06/26/17 [History] Metoprolol Succinate [Toprol Xl] 100 mg PO DAILY 06/26/17 [History] Vitamin E Acetate [Vitamin E] 400 unit PO DAILY 06/26/17 [History] metroNIDAZOLE [Flagyl] 250 mg PO TID 06/26/17 [History] 3 Allergy/AdvReac Type Severity Reaction Status Date / Time influenza virus vaccine ts Allergy Vomiting Verified 06/13/17 08:53 [id number] (36 mos,up) [From Fluarix] Pneumococcal Vaccine Allergy Vomiting Verified 06/13/17 08:53 [From Prevnar] codeine AdvReac Mild Nausea Verified 06/13/17 08:53 penicillin G AdvReac Mild swelling Verified 06/13/17 08:53 egg AdvReac See Verified 06/26/17 15:29 Comments All Systems PM: A 10-system review of systems was performed and is negative for pertinent findings except as documented above in the HPI. - Constitutional Vitals: Temp Pulse Resp BP Pulse Ox 98.4 F 79 16 134/69 95 06/26/17 19:27 06/26/17 19:27 06/26/17 19:27 06/26/17 19:27 06/26/17 19:27 General appearance: Present: A&O X 3, no acute distress, answers questions appropriately - Head Head exam: Present: atraumatic, normocephalic - Eye Eye exam: Present: PERRL, conjuntiva pink, sclera anicteric Pupils: Present: PERRL - Neck Neck exam general surgery: Present: supple, trachea midline. Absent: lymphadenopathy - Respiratory Respiratory exam: Present: CTAB. Absent: accessory muscle use, rales, rhonchi, wheezes - Cardiovascular Cardiovascular exam: Present: RRR, +S1, +S2. Absent: diastolic murmur, gallop, rubs, systolic murmur - GI/Abdominal GI/Abdominal exam: Present: normal bowel sounds, soft, tenderness (Tenderness on left lower quadrant), no peritoneal signs. Absent: distended - Extremities Exam Extremities exam: Present: warm, radial pulses palpable and symmetrical. Absent : calf tenderness, cyanotic, pedal edema - Neurological Exam Neurological exam: Present: CN II-XII intact, oriented X3, no focal deficits. Absent: pronater drift, facial droop, speech deficit - Skin Skin exam: Present: dry, intact Internal Med - H&P Results - Labs CBC & Chem 7: 06/26/17 13:51 06/26/17 11:30 Labs: Cardiac Enzymes 06/26/17 Range/Units 19:48 Troponin I 0.03 (< 0.04) ng/mL - Assessment and plan (1) Urinary retention Current Visit: Yes Status: Acute Assessment and plan: Patient was placed Benson catheter in ER by urology. 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 Her hemoglobin level is at her baseline at this point. Oncology consult informed by ER. Will follow oncology recommendations Qualifiers: Anemia type: other cause Other causes of anemia: chronic disease, neoplastic Qualified Code(s): D63.0 - Anemia in neoplastic disease (3) Clostridium difficile diarrhea Current Visit: No Status: Acute Assessment and plan: Patient was found C. difficile positive on 05/17/17. Patient said she still has diarrhea yesterday but not today. Patient is on Flagyl by mouth now, we will continue to finish the course (06/22-07/02 per record). Probiotics. No signs of toxic megacolon per abdominal CT (4) DVT prophylaxis Current Visit: No Status: Acute Assessment and plan: EPCD, no anticoagulation because of thrombocytopenia. 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 Qualifiers: Leukemia Active/Remission status: without remission Qualified Code(s): C92.00 - Acute myeloblastic leukemia, not having achieved remission (7) Crohns disease Current Visit: No Status: Chronic Assessment and plan: Continue home medications and symptomatic treatment Qualifiers: Gastrointestinal tract location: unspecified location Digestive disease complication type: without complication Qualified Code(s): K50.90 - Crohn's disease, unspecified, without complications (8) Diabetes mellitus, type 2 Current Visit: No Status: Chronic Assessment and plan: Place patient on sliding scale insulin. 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
[2017-06-26] MEDS: *HR* HYDROcodone/Acet 5/325 mg TABLET PO PRN (23:28)
[2017-06-26] MEDS: Levofloxacin 500 MG/100 ML 500 MG/100 ML BAG IVPB SCH (23:29)
[2017-06-27 00:38] LABS: Hematocrit 19.2 % (35.3-44.9); Hemoglobin 6.2 g/dL (11.5-15.4); Mean Corpuscular HGB Conc 32.3 g/dL (31.6-35.5); Mean Corpuscular Hemoglobin 28.4 pg (28.0-33.3); Mean Corpuscular Volume 88.1 fL (83.0-100.0); Monocytes # 0.2 K/mcL (0.0-1.3); Red Blood Count 2.18 M/mcL (3.82-4.97); Red Cell Distribution Width 18.5 % (11.5-14.5)
[2017-06-27 00:41] LABS: Platelet Count 27 K/mcL (140-400)
[2017-06-27 00:42] LABS: INR 1.4; Prothrombin Time 15.4 Seconds (9.4-12.1)
[2017-06-27 00:55] LABS: Alanine Aminotransferase 7 Units/L (7-52); Albumin 2.1 g/dL (3.5-5.7); Albumin/Globulin Ratio 0.6 (1.1-2.2); Alkaline Phosphatase 206 Units/L (34-104); Aspartate Amino Transferase 15 Units/L (13-39); BUN/Creatinine Ratio 29 (6-26); Bilirubin,Total 0.7 mg/dL (0.3-1.0); Blood Urea Nitrogen 23 mg/dL (8-23); Calcium 7.5 mg/dL (8.6-10.3); Carbon Dioxide 20 mEq/L (23-29); Chloride 105 mEq/L (98-107); Chol/HDL Ratio 5.7 (0-4.9); Cholesterol 80 mg/dL (< 200); Globulin 3.3 g/dL (2.4-3.5); Glucose 228 mg/dL (70-105); HDL Cholesterol 14 mg/dL (40-59); LDL Cholesterol,Calculated 39 mg/dL (0-99); Magnesium 1.6 mg/dL (1.6-2.6); Osmolality,Calculated 285 (280-300); Potassium 3.6 mEq/L (3.5-5.1); Sodium 132 mEq/L (136-145); Total Protein 5.4 g/dL (6.4-8.9); Triglycerides 133 mg/dL (< 150); eGFR For African Americans > 60 (> 60); eGFR For Non-African Americans > 60 (> 60)
[2017-06-27 01:25] LABS: Anisocytosis 1+ (Not Present); Lymphocytes # 0.3 K/mcL (0.6-4.6); Neutrophils # 0.6 K/mcL (1.6-8.9); Platelet Estimate Decreased (Normal)
--- NOTE | 2017-06-27 07:52 | Urology Progress Note ---
Date of Encounter: 06/27/17 Time of Encounter: 07:50 - Assessment and Plan (1) Hydronephrosis Current Visit: Yes Status: Acute Qualifiers: Hydronephrosis type: other Qualified Code(s): N13.39 - Other hydronephrosis (2) Urinary retention Current Visit: Yes Status: Acute Assessment and plan: Given the large amount of urine drained from the patient's bladder and going to recommend that we keep the catheter in place at least while the patient is recovering from her current illness. She did have a CT scan done approximately 6 weeks ago which did not show any obvious urinary retention or hydronephrosis. Recommend that catheter be removed prior to discharge and that she is able to void prior to discharge. Recommend patient to follow up with urology 2-3 weeks after discharge or sooner if the patient is unable to void. Please call with any questions Progress Note Narrative: Patient seen this morning. Patient asleep and difficult to arouse Objective Initial Vital Signs Temp Pulse Resp BP Pulse Ox 97.8 F 75 18 131/65 96 06/26/17 10:46 06/26/17 10:46 06/26/17 10:46 06/26/17 10:46 06/26/17 10:46 - General physical appearance Present: well developed, no distress - Abdomen Present: soft. Absent: tender - Genitourinary Urine Appearance: Present: Clear. Absent: Sediment - Labs 06/27/17 00:21 06/27/17 00:21 Diabetes panel 06/27/17 Range/Units 00:21 Sodium 132 L (136-145) mEq/L Potassium 3.6 (3.5-5.1) mEq/L Chloride 105 (98-107) mEq/L Carbon Dioxide 20 L (23-29) mEq/L BUN 23 (8-23) mg/dL Creatinine 0.80 (0.60-1.20) mg/dL Glucose 228 H (70-105) mg/dL Calcium 7.5 L (8.6-10.3) mg/dL AST 15 (13-39) Units/L ALT 7 (7-52) Units/L Alkaline Phosphatase 206 H (34-104) Units/L Albumin 2.1 L (3.5-5.7) g/dL Triglycerides 133 (< 150) mg/dL HDL Cholesterol 14 L (40-59) mg/dL Calcium panel 06/27/17 Range/Units 00:21 Calcium 7.5 L (8.6-10.3) mg/dL Albumin 2.1 L (3.5-5.7) g/dL Pituitary panel 06/27/17 Range/Units 00:21 Sodium 132 L (136-145) mEq/L Potassium 3.6 (3.5-5.1) mEq/L Chloride 105 (98-107) mEq/L Carbon Dioxide 20 L (23-29) mEq/L BUN 23 (8-23) mg/dL Creatinine 0.80 (0.60-1.20) mg/dL Glucose 228 H (70-105) mg/dL Calcium 7.5 L (8.6-10.3) mg/dL Adrenal panel 06/27/17 Range/Units 00:21 Sodium 132 L (136-145) mEq/L Potassium 3.6 (3.5-5.1) mEq/L Chloride 105 (98-107) mEq/L Carbon Dioxide 20 L (23-29) mEq/L BUN 23 (8-23) mg/dL Creatinine 0.80 (0.60-1.20) mg/dL Glucose 228 H (70-105) mg/dL Calcium 7.5 L (8.6-10.3) mg/dL Total Bilirubin 0.7 (0.3-1.0) mg/dL AST 15 (13-39) Units/L ALT 7 (7-52) Units/L Alkaline Phosphatase 206 H (34-104) Units/L Albumin 2.1 L (3.5-5.7) g/dL Consult Discharge Plan - Plan Referrals: Yash Hanley MD [Primary Care Provider] -
[2017-06-27] MEDS: Insulin LISPRO 300 UNITS/3 ML VIAL SQ SCH ×4 (09:14→20:54)
[2017-06-27] MEDS: Lactobacillus 1 EACH CAP.SPRINK PO SCH ×2 (09:20→20:53)
[2017-06-27] MEDS: Levofloxacin 500 MG/100 ML 500 MG/100 ML BAG IVPB SCH (09:20)
[2017-06-27] MEDS: Magnesium Oxide 400 MG TABLET PO SCH (09:20)
[2017-06-27] MEDS: amLODIPine 5 MG TABLET PO SCH (09:20)
[2017-06-27] MEDS: Metoprolol XL (24 HR) Succ 50 MG TAB.ER.24H PO SCH (09:20)
[2017-06-27] MEDS: metroNIDAZOLE 250 MG TABLET PO SCH ×3 (09:20→20:53)
[2017-06-27] MEDS: Furosemide 20 MG TABLET PO SCH (09:20)
[2017-06-27] MEDS: Ascorbic Acid 500 MG TABLET PO SCH ×2 (09:20→09:23)
[2017-06-27] MEDS: (Ezetimibe [Ezetimibe] 10 MG) PO SCH (09:24)
[2017-06-27] MEDS: [UNRECOGNIZED DRUG - OTHER] TP SCH ×3 (09:24→20:54)
[2017-06-27] MEDS: Acetaminophen 325 MG TABLET PO PRN ×2 (09:39→18:37)
--- NOTE | 2017-06-27 15:15 | Oncology Inp Consult Note ---
Date of Encounter: 06/27/17 Time of Encounter: 15:15 - Data of Consult Requesting Physician: Ceferino Prado Primary Care Provider: Yash Hanley MD - Consult Narrative History of present illness: Ms. Bryant is a 72 year old female Past Med Surg Social Fam HX - Past Medical History Medical history: asthma, cancer, diabetes, GERD, hyperlipidemia, hypertension, renal disease, other Psychiatric history: anxiety, depression - Past Surgical History Surgical History: appendectomy, cholecystectomy - Social History Smoking Status: Former smoker Smokeless Tobacco Status: No Alcohol use: none Drug use: none - Family History Mother Living Status: Hx Family Cardiac Disorders: No Hx Family Respiratory Disorders: Yes Hx Family Cancer: Yes Hx Family GI Disorders: No Hx Family Endocrine Disorder: No Hx Family Neuromuscular Disorders: No Hx Family Neurologic Disorders: No Hx Family HEENT Disorders: No Hx Family Autoimmune Disorders: No Father Living Status: Hx Family Cardiac Disorders: Yes Hx Family Respiratory Disorders: Yes (Parents smokers) Hx Family Cancer: Yes Hx Family GI Disorders: Yes (Sister ulcerative colitis) Hx Family Endocrine Disorder: Yes Hx Family Neuromuscular Disorders: No Hx Family Neurologic Disorders: No Hx Family HEENT Disorders: No Hx Family Autoimmune Disorders: No Medications and Allergies Amlodipine [Norvasc] 5 mg PO DAILY 01/06/15 [History] Furosemide [Lasix] 40 mg PO DAILY 01/06/15 [History] Omeprazole [PriLOSEC] 20 mg PO DAILY 01/06/15 [History] Potassium Chloride 20 meq PO DAILY 01/06/15 [History] InFLIXimab [Remicade] 100 mg IV [id number] 03/29/15 [History] Insulin ASPART [Novolog Flexpen] 2 - 15 unit SQ ACHS 03/24/17 [History] Insulin DETEMIR [Levemir Flextouch] 20 unit SQ BID 03/24/17 [History] Magnesium Oxide [Magnesium] 400 mg PO DAILY 05/13/17 [History] Ezetimibe 10 mg PO DAILY 05/17/17 [History] Acetaminophen [Tylenol Arthritis] 650 mg PO Q4H PRN 05/25/17 [History] Albuterol Sulfate [Ventolin Hfa] 2 puff IH Q4H PRN 05/25/17 [History] Calamine/Menthol/Petrolat/Zinc [Remedy Calazime Protect Paste] 1 appl TP TID 02/01 [History] Ipratropium/Albuterol Neb [Duoneb] 3 ml IH Q6HR PRN 05/25/17 [History] Mesalamine 800 mg PO DAILY 05/25/17 [History] Ondansetron HCl [Zofran] 4 mg PO Q4H PRN 05/25/17 [History] Gabapentin [Neurontin] 300 mg PO HS #30 capsule 05/28/17 [Rx] HYDROcodone/Acet 5/325 mg [[place] 5-325 mg] 1 tab PO Q6H PRN 7 Days #15 tablet [Rx] Ascorbic Acid [Vitamin C] 500 mg PO DAILY 06/26/17 [History] Escitalopram [Lexapro] 10 mg PO HS 06/26/17 [History] Lactobacillus Acidophilus [Acidophilus] 1 each PO BID 06/26/17 [History] Metoprolol Succinate [Toprol Xl] 100 mg PO DAILY 06/26/17 [History] Vitamin E Acetate [Vitamin E] 400 unit PO DAILY 06/26/17 [History] metroNIDAZOLE [Flagyl] 250 mg PO TID 06/26/17 [History] 3 Allergy/AdvReac Type Severity Reaction Status Date / Time influenza virus vaccine ts Allergy Vomiting Verified 06/13/17 08:53 [id number] (36 mos,up) [From Fluarix] Pneumococcal Vaccine Allergy Vomiting Verified 06/13/17 08:53 [From Prevnar] codeine AdvReac Mild Nausea Verified 06/13/17 08:53 penicillin G AdvReac Mild swelling Verified 06/13/17 08:53 egg AdvReac See Verified 06/26/17 15:29 Comments Oncology - Exam - Constitutional Vitals: Temp Pulse Resp BP Pulse Ox 98.2 F 74 16 119/74 98 06/27/17 12:29 06/27/17 12:29 06/27/17 12:29 06/27/17 12:29 06/27/17 12:29 Oncology - Results Labs: Short CBC 06/27/17 Range/Units 00:21 WBC 1.1 L D (4.3-11.1) K/mcL Hgb 6.2 L (11.5-15.4) g/dL Hct 19.2 L (35.3-44.9) % Plt Count 27 L* (140-400) K/mcL Neutrophils # 0.6 L (1.6-8.9) K/mcL BMP 06/27/17 00:21 Sodium 132 L Potassium 3.6 Chloride 105 Carbon Dioxide 20 L BUN 23 Creatinine 0.80 Glucose 228 H Calcium 7.5 L Cardiac Enzymes 06/27/17 06/27/17 Range/Units 00:21 06:05 Troponin I < 0.03 < 0.03 (< 0.04) ng/mL Liver Function 06/27/17 Range/Units 00:21 Total Bilirubin 0.7 (0.3-1.0) mg/dL AST 15 (13-39) Units/L ALT 7 (7-52) Units/L Alkaline Phosphatase 206 H (34-104) Units/L Albumin 2.1 L (3.5-5.7) g/dL Consult Discharge Plan - Plan Referrals: Yash Hanley MD [Primary Care Provider] -
--- NOTE | 2017-06-27 16:01 | Oncology Office Progress Note ---
Date of Service: 06/27/17 Chief Complaint: f/u AML Primary Care Provider: Yash Hanley MD Oncology History: 72-year-old female with a known history of acute myeloid leukemia, with anemia dating back to 01/06/2015. Hemoglobin ranged between 10 and 11 and this could be from her Crohn's disease and she being on Remicade He had splenomegaly on imaging studies. She underwent a bone marrow aspiration and biopsy 04/17/2017 due to worsening pancytopenia. Showed acute myeloid leukemia with myelodysplasia related changes and hypercellular bone marrow 80% with increased blasts 27% and multi lineage dysplasia Flow cytometry showed CD45 plus blast population express CD13, CD33, 34, 14, 64 , 4 and 7 Karyotype from peripheral blood 48/40 9XX, deletion 5, plus one, +9, plus +13, +14, +15, +19, +20, +21, +22 Deletion of 5q and complex karyotypes are both associated with poor prognosis. These results are consistent with gains of ABL 1, BCR and KMT2A Peripheral blood FISH on 04/29/2017 Showed trisomy for RUNX1 T1, RUN 1, BCR and ABL 1 She started palliative treatment with Vidaza 75 mg/m day 1 through 5 s/p cycle 1 on 06/09/2017 Patient was seen in the clinic due to abdominal pain and was referred for further evaluation. CT scan showed urinary retention, hydronephrosis, urology has been consulted. She also has stable splenomegaly. She has panniculitis/ adenitis finding. She has history of C. difficile in the past. She denies any diarrhea, constipation. Review Of Systems Provider Comments:: A 12 point review of systems was performed. Pertinent positives and negatives are listed below and in the history of present illness. All other systems negative. - Medications and Allergies Home Medications: Amlodipine [Norvasc] 5 mg PO DAILY 01/06/15 [History] Furosemide [Lasix] 40 mg PO DAILY 01/06/15 [History] Omeprazole [PriLOSEC] 20 mg PO DAILY 01/06/15 [History] Potassium Chloride 20 meq PO DAILY 01/06/15 [History] InFLIXimab [Remicade] 100 mg IV [id number] 03/29/15 [History] Insulin ASPART [Novolog Flexpen] 2 - 15 unit SQ ACHS 03/24/17 [History] Insulin DETEMIR [Levemir Flextouch] 20 unit SQ BID 03/24/17 [History] Magnesium Oxide [Magnesium] 400 mg PO DAILY 05/13/17 [History] Ezetimibe 10 mg PO DAILY 05/17/17 [History] Acetaminophen [Tylenol Arthritis] 650 mg PO Q4H PRN 05/25/17 [History] Albuterol Sulfate [Ventolin Hfa] 2 puff IH Q4H PRN 05/25/17 [History] Calamine/Menthol/Petrolat/Zinc [Remedy Calazime Protect Paste] 1 appl TP TID 02/01 [History] Ipratropium/Albuterol Neb [Duoneb] 3 ml IH Q6HR PRN 05/25/17 [History] Mesalamine 800 mg PO DAILY 05/25/17 [History] Ondansetron HCl [Zofran] 4 mg PO Q4H PRN 05/25/17 [History] Gabapentin [Neurontin] 300 mg PO HS #30 capsule 05/28/17 [Rx] HYDROcodone/Acet 5/325 mg [[place] 5-325 mg] 1 tab PO Q6H PRN 7 Days #15 tablet [Rx] Ascorbic Acid [Vitamin C] 500 mg PO DAILY 06/26/17 [History] Escitalopram [Lexapro] 10 mg PO HS 06/26/17 [History] Lactobacillus Acidophilus [Acidophilus] 1 each PO BID 06/26/17 [History] Metoprolol Succinate [Toprol Xl] 100 mg PO DAILY 06/26/17 [History] Vitamin E Acetate [Vitamin E] 400 unit PO DAILY 06/26/17 [History] metroNIDAZOLE [Flagyl] 250 mg PO TID 06/26/17 [History] Allergies/Adverse Reactions: 3 Allergy/AdvReac Type Severity Reaction Status Date / Time influenza virus vaccine ts Allergy Vomiting Verified 06/13/17 08:53 [id number] (36 mos,up) [From Fluarix] Pneumococcal Vaccine Allergy Vomiting Verified 06/13/17 08:53 [From Prevnar] codeine AdvReac Mild Nausea Verified 06/13/17 08:53 penicillin G AdvReac Mild swelling Verified 06/13/17 08:53 egg AdvReac See Verified 06/26/17 15:29 Comments Code Status: DNR-CCA Past Medical History: diabetes, hypertension Other History: hernia. Chrons Disease. kidney failure. high cholesterol Surgical History: appendectomy, cholecystectomy Smoking Status: Former smoker Smokeless Tobacco Status: No Alcohol use: none Drug use: none Family History -Oncology: cancer, diabetes Vital Signs 3 Temperature 98.2 F 06/27/17 12:29 Temperature Source Oral 06/27/17 12:29 Pulse Rate 74 06/27/17 12:29 Pulse Rhythm Regular 06/27/17 09:32 Respiratory Rate 16 06/27/17 12:29 Respiratory Effort Spontaneous 06/27/17 09:32 Respiratory Depth Normal 06/27/17 09:32 Respiratory Pattern 06/27/17 09:32 Blood Pressure 119/74 06/27/17 12:29 Blood Pressure Position Supine 06/27/17 12:29 Oxygen Delivery Method Room Air 06/27/17 12:29 O2 Sat by Pulse Oximetry 98 06/27/17 12:29 ECO Physical Exam: General: Alert and oriented, well appearing. Mental Status: Affect appropriate for circumstances HEENT: Sclerae anicteric. No mucositis or thrush. Skin: No rashes or petechiae. Lymph nodes: No cervical, supraclavicular, axillary, or inguinal adenopathy. Lungs: Clear to auscultation and percussion bilaterally. Cardiovascular: Regular rate and rhythm. Abdomen: Soft, tender diffuse Extremities: No edema. No calf swelling or tenderness. Neurologic: Alert, cranial nerves II-XII intact; no focal weakness Oncology - Results Labs: Short CBC 06/27/17 Range/Units 00:21 WBC 1.1 L D (4.3-11.1) K/mcL Hgb 6.2 L (11.5-15.4) g/dL Hct 19.2 L (35.3-44.9) % Plt Count 27 L* (140-400) K/mcL Neutrophils # 0.6 L (1.6-8.9) K/mcL BMP 06/27/17 00:21 Sodium 132 L Potassium 3.6 Chloride 105 Carbon Dioxide 20 L BUN 23 Creatinine 0.80 Glucose 228 H Calcium 7.5 L Cardiac Enzymes 06/27/17 06/27/17 Range/Units 00:21 06:05 Troponin I < 0.03 < 0.03 (< 0.04) ng/mL Liver Function 06/27/17 Range/Units 00:21 Total Bilirubin 0.7 (0.3-1.0) mg/dL AST 15 (13-39) Units/L ALT 7 (7-52) Units/L Alkaline Phosphatase 206 H (34-104) Units/L Albumin 2.1 L (3.5-5.7) g/dL - Assessment Assessment: Acute myeloid leukemia status post right is cycle 1 recently completed, patient was seen in the clinic on 06/26/2017 hospitalized due to abdominal pain, CT imaging findings reviewed agree with the urology and appreciated consultation. A patient with prior history of C. difficile on an break Flagyl. Agree with broad-spectrum antibiotics for neutropenia. Transfusion support PRBC to keep the hemoglobin over 7 g. Colitis on mesalamine. norco/tylenol as needed for pain. Plan d/w patient bed side Charges - Provider Provider: Dr. Zully Cordero - Established Patient Established Patient Charges: Established Patient [id number] - Consults Consult Charge: Consult [id number]
[2017-06-27] MEDS: *HR* HYDROcodone/Acet 5/325 mg TABLET PO PRN (16:42)
[2017-06-27] MEDS: Ondansetron ODT 4 MG TAB.RAPDIS PO PRN (16:45)
[2017-06-27] MEDS ORDERED: *HR* Morphine 2 MG/ML SYRINGE IVP ONE (18:27)
[2017-06-27] MEDS ORDERED: Ketorolac 15 MG/ML VIAL IVP ONE (18:53)
--- NOTE | 2017-06-27 20:29 | Internal Med Progress Note ---
Date of Encounter: 06/27/17 Time of Encounter: 11:00 - Assessment and plan (1) Anemia Current Visit: No Status: Acute Assessment and plan: Patient with a hemoglobin of 6.2 this morning; will transfuse 2 units packed red blood cells Qualifiers: Anemia type: other cause Other causes of anemia: chronic disease, neoplastic Qualified Code(s): D63.0 - Anemia in neoplastic disease (2) Urinary retention Current Visit: Yes Status: Acute Assessment and plan: Patient was placed Benson catheter in ER by urology. Urology recommendations to maintain Benson until discharge (3) Diabetes mellitus, type 2 Current Visit: No Status: Chronic Assessment and plan: Place patient on sliding scale insulin. 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; Z79.4 - terminal worker (current) use of insulin; Z79.4 - prison (current) use of insulin; Z79.4 - prison (current) use of insulin (4) Crohns disease Current Visit: No Status: Chronic Assessment and plan: Continue home medications and symptomatic treatment Qualifiers: Gastrointestinal tract location: unspecified location Digestive disease complication type: without complication Qualified Code(s): K50.90 - Crohn's disease, unspecified, without complications (5) UTI (urinary tract infection) Current Visit: No Status: Acute Assessment and plan: Place patient on Levaquin IV and follow-up urine culture Qualifiers: Urinary tract infection type: acute cystitis Qualified Code(s): N30.00 - Acute cystitis without hematuria (6) DVT prophylaxis Current Visit: No Status: Acute Assessment and plan: EPCD, no anticoagulation because of thrombocytopenia. 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 Qualifiers: Leukemia Active/Remission status: without remission Qualified Code(s): C92.00 - Acute myeloblastic leukemia, not having achieved remission (8) Clostridium difficile diarrhea Current Visit: No Status: Acute Assessment and plan: Patient was found C. difficile positive on 05/17/17. Patient said she still has diarrhea yesterday but not today. Patient is on Flagyl by mouth now, we will continue to finish the course (4/8-07/02 per record). Probiotics. No signs of toxic megacolon per abdominal CT - Time Spent With Patient Total time spent is greater than 50% in coordination of care (as documented) at patient's floor/unit and/or counseling patient: - Subjective Interval history: Patient with hemoglobin 6.2 this morning was transfused 2 units of packed red blood cells and monitor - Constitutional Vitals: Temp Pulse Resp BP Pulse Ox 97.6 F 76 16 119/69 98 06/27/17 15:00 06/27/17 15:00 06/27/17 15:00 06/27/17 15:00 06/27/17 15:00 General appearance: Present: A&O X 3, no acute distress, answers questions appropriately - Respiratory Respiratory exam: Present: CTAB. Absent: accessory muscle use, rales, rhonchi, wheezes - Cardiovascular Cardiovascular exam: Present: RRR, +S1, +S2. Absent: diastolic murmur, gallop, rubs, systolic murmur Internal Medicine: Result - Labs CBC & Chem 7: 06/27/17 00:21 06/27/17 00:21 Labs: Short CBC 06/27/17 Range/Units 00:21 WBC 1.1 L D (4.3-11.1) K/mcL Hgb 6.2 L (11.5-15.4) g/dL Hct 19.2 L (35.3-44.9) % Plt Count 27 L* (140-400) K/mcL Neutrophils # 0.6 L (1.6-8.9) K/mcL BMP 06/27/17 00:21 Sodium 132 L Potassium 3.6 Chloride 105 Carbon Dioxide 20 L BUN 23 Creatinine 0.80 Glucose 228 H Calcium 7.5 L Cardiac Enzymes 06/27/17 06/27/17 Range/Units 00:21 06:05 Troponin I < 0.03 < 0.03 (< 0.04) ng/mL Liver Function 06/27/17 Range/Units 00:21 Total Bilirubin 0.7 (0.3-1.0) mg/dL AST 15 (13-39) Units/L ALT 7 (7-52) Units/L Alkaline Phosphatase 206 H (34-104) Units/L Albumin 2.1 L (3.5-5.7) g/dL - ABG Interpretation ABG results: PT/INR, D-dimer PT 15.4 Seconds (9.4-12.1) H 06/27/17 00:21 Consult Discharge Plan - Plan Referrals: Yash Hanley MD [Primary Care Provider] -
[2017-06-27] MEDS: Gabapentin 300 MG CAPSULE PO SCH (20:53)
[2017-06-27 21:08] LABS: Hemoglobin 6.8 g/dL (11.5-15.4)
[2017-06-27 21:10] LABS: Hematocrit 21.1 % (35.3-44.9)
[2017-06-27] MEDS ORDERED: 0.9 % Sodium Chloride 250 ML ONE (22:20)
[2017-06-28] MEDS ORDERED: 0.9 % Sodium Chloride 250 ML ONE (01:10)
[2017-06-28] MEDS: *HR* HYDROcodone/Acet 5/325 mg TABLET PO PRN ×2 (06:56→12:40)
[2017-06-28] MEDS: [UNRECOGNIZED DRUG - OTHER] TP SCH ×3 (07:50→22:48)
[2017-06-28] MEDS: (Ezetimibe [Ezetimibe] 10 MG) PO SCH (07:50)
[2017-06-28] MEDS: Magnesium Oxide 400 MG TABLET PO SCH (07:55)
[2017-06-28] MEDS: Ascorbic Acid 500 MG TABLET PO SCH (07:56)
[2017-06-28] MEDS: metroNIDAZOLE 250 MG TABLET PO SCH ×2 (07:56→15:11)
[2017-06-28] MEDS: amLODIPine 5 MG TABLET PO SCH (07:56)
[2017-06-28] MEDS: Furosemide 20 MG TABLET PO SCH (07:56)
[2017-06-28] MEDS: Lactobacillus 1 EACH CAP.SPRINK PO SCH ×2 (07:56→22:47)
[2017-06-28] MEDS: Insulin LISPRO 300 UNITS/3 ML VIAL SQ SCH ×4 (07:57→22:48)
[2017-06-28] MEDS: Levofloxacin 500 MG/100 ML 500 MG/100 ML BAG IVPB SCH (07:57)
[2017-06-28] MEDS: Metoprolol XL (24 HR) Succ 50 MG TAB.ER.24H PO SCH (08:02)
[2017-06-28 11:30] LABS: Basophils % 0.7 %; Eosinophils % 0.7 %; Mean Corpuscular HGB Conc 32.5 g/dL (31.6-35.5)
[2017-06-28 11:31] LABS: Hematocrit 24.3 % (35.3-44.9); Hemoglobin 7.9 g/dL (11.5-15.4); Immature Granulocytes % 6.9 % (0-4); Lymphocytes # 0.4 K/mcL (0.6-4.6); Lymphocytes % 25.5 %; Mean Corpuscular Hemoglobin 27.7 pg (28.0-33.3); Mean Corpuscular Volume 85.3 fL (83.0-100.0); Mean Platelet Volume 11.8 fL (9.4-12.4); Monocytes # 0.3 K/mcL (0.0-1.3); Neutrophils # 0.7 K/mcL (1.6-8.9); Red Blood Count 2.85 M/mcL (3.82-4.97); Red Cell Distribution Width 17.5 % (11.5-14.5); Segmented Neutrophils % 46.2 %
[2017-06-28 11:48] LABS: Platelet Count 38 K/mcL (140-400)
[2017-06-28 11:49] LABS: BUN/Creatinine Ratio 18 (6-26); Blood Urea Nitrogen 16 mg/dL (8-23); Calcium 7.5 mg/dL (8.6-10.3); Carbon Dioxide 23 mEq/L (23-29); Chloride 104 mEq/L (98-107); Glucose 222 mg/dL (70-105); Osmolality,Calculated 286 (280-300); Potassium 3.7 mEq/L (3.5-5.1); Sodium 134 mEq/L (136-145); eGFR For African Americans > 60 (> 60); eGFR For Non-African Americans > 60 (> 60)
[2017-06-28 12:39] LABS: Anisocytosis 2+ (Not Present); Platelet Estimate Marked Decrease (Normal); Poikilocytosis 2+ (Not Present)
[2017-06-28] MEDS ORDERED: Ketorolac 15 MG/ML VIAL IVP PRN (14:38)
--- NOTE | 2017-06-28 17:49 | Internal Med Progress Note ---
Date of Encounter: 06/28/17 Time of Encounter: 11:00 - Assessment and plan (1) Constipation Current Visit: Yes Status: Acute Assessment and plan: Patient still complaining of generalized abdominal discomfort and reports of not having a bowel movement in 5 days. Acute abdominal series on 06/27/17 showed no evidence of bowel obstruction Patient started on MiraLAX Qualifiers: Constipation type: unspecified constipation type Qualified Code(s): K59.00 - Constipation, unspecified (2) Anemia Current Visit: No Status: Acute Assessment and plan: Patient's hemoglobin this morning 7.9 status post 2 units packed red blood cells Will continue to monitor Qualifiers: Anemia type: other cause Other causes of anemia: chronic disease, neoplastic Qualified Code(s): D63.0 - Anemia in neoplastic disease (3) Urinary retention Current Visit: Yes Status: Acute Assessment and plan: Patient was placed Benson catheter in ER by urology. Urology recommendations to maintain Benson until discharge (4) Crohns disease Current Visit: No Status: Chronic Assessment and plan: Continue home medications and symptomatic treatment Qualifiers: Gastrointestinal tract location: unspecified location Digestive disease complication type: without complication Qualified Code(s): K50.90 - Crohn's disease, unspecified, without complications (5) Acute myeloid leukemia Current Visit: No Status: Chronic Assessment and plan: Hematology oncology consult and appreciate recommendations Qualifiers: Leukemia Active/Remission status: without remission Qualified Code(s): C92.00 - Acute myeloblastic leukemia, not having achieved remission (6) Clostridium difficile diarrhea Current Visit: No Status: Acute Assessment and plan: Patient was found C. difficile positive on 05/17/17. Patient will be placed on oral vancomycin (06/22-07/02 per record). Probiotics. No signs of toxic megacolon per abdominal CT (7) UTI (urinary tract infection) Current Visit: No Status: Ruled-out Assessment and plan: Urine cultures negative therefore IV Levaquin will be discontinued Qualifiers: Urinary tract infection type: acute cystitis Qualified Code(s): N30.01 - Acute cystitis with hematuria (8) Diabetes mellitus, type 2 Current Visit: No Status: Chronic Assessment and plan: Place patient on sliding scale insulin. 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 - Time Spent With Patient Total time spent is greater than 50% in coordination of care (as documented) at patient's floor/unit and/or counseling patient: - Subjective Interval history: Patient continues to complain of generalized abdominal discomfort She reports that she has not had a bowel movement in over 5 days Patient's hemoglobin has improved status post 2 units of packed red blood cells Patient also with urinary retention and Benson catheter has been placed - Constitutional Vitals: Temp Pulse Resp BP Pulse Ox 98.6 F 67 18 115/68 95 06/28/17 15:00 06/28/17 15:00 06/28/17 15:00 06/28/17 15:00 06/28/17 15:00 General appearance: Present: A&O X 3, no acute distress, answers questions appropriately - Respiratory Respiratory exam: Present: CTAB. Absent: accessory muscle use, rales, rhonchi, wheezes - Cardiovascular Cardiovascular exam: Present: RRR, +S1, +S2. Absent: diastolic murmur, gallop, rubs, systolic murmur - GI/Abdominal GI/Abdominal exam: Present: soft, tenderness (Generalized tenderness to palpation) Internal Medicine: Result - Labs CBC & Chem 7: 06/28/17 10:28 06/28/17 10:28 Labs: Short CBC 06/27/17 06/28/17 Range/Units 20:51 10:28 WBC 1.5 L (4.3-11.1) K/mcL Hgb 6.8 L 7.9 L (11.5-15.4) g/dL Hct 21.1 L 24.3 L (35.3-44.9) % Plt Count 38 L (140-400) K/mcL Neutrophils # 0.7 L (1.6-8.9) K/mcL BMP 06/28/17 10:28 Sodium 134 L Potassium 3.7 Chloride 104 Carbon Dioxide 23 BUN 16 Creatinine 0.89 Glucose 222 H Calcium 7.5 L - ABG Interpretation ABG results: PT/INR, D-dimer PT 15.4 Seconds (9.4-12.1) H 06/27/17 00:21 - Impressions Impressions Abdomen X-Ray 06/27/17 16:35 IMPRESSION: No evidence of bowel obstruction. D/ / Dagoberto Parikh MD / Dagoberto Parikh MD Interpreting Provider: Dagoberto Parikh MD Consult Discharge Plan - Plan Referrals: Yash Hanley MD [Primary Care Provider] -
[2017-06-28] MEDS: Acetaminophen 325 MG TABLET PO PRN (18:16)
[2017-06-28] MEDS: Ketorolac 30 MG/ML VIAL IVP PRN (22:47)
[2017-06-28] MEDS: Gabapentin 300 MG CAPSULE PO SCH (22:47)
[2017-06-28] MEDS: Vancomycin Oral Soln 250 MG/5 ML UDC PO SCH (22:48)
[2017-06-29] MEDS: Ketorolac 30 MG/ML VIAL IVP PRN ×3 (04:21→20:57)
[2017-06-29] MEDS: Lactobacillus 1 EACH CAP.SPRINK PO SCH ×2 (09:00→20:54)
[2017-06-29] MEDS: Metoprolol XL (24 HR) Succ 50 MG TAB.ER.24H PO SCH (09:00)
[2017-06-29] MEDS: amLODIPine 5 MG TABLET PO SCH (09:00)
[2017-06-29] MEDS: Furosemide 20 MG TABLET PO SCH (09:02)
[2017-06-29] MEDS: (Ezetimibe [Ezetimibe] 10 MG) PO SCH (09:02)
[2017-06-29] MEDS: Magnesium Oxide 400 MG TABLET PO SCH (09:02)
[2017-06-29] MEDS: [UNRECOGNIZED DRUG - OTHER] TP SCH ×3 (09:02→21:03)
[2017-06-29] MEDS: Ascorbic Acid 500 MG TABLET PO SCH (09:03)
[2017-06-29] MEDS: Insulin LISPRO 300 UNITS/3 ML VIAL SQ SCH ×4 (09:04→21:03)
[2017-06-29] MEDS: Vancomycin Oral Soln 250 MG/5 ML UDC PO SCH ×4 (09:04→20:55)
[2017-06-29 10:29] LABS: Hematocrit 25.4 % (35.3-44.9)
[2017-06-29 10:30] LABS: Hemoglobin 8.4 g/dL (11.5-15.4); Mean Corpuscular HGB Conc 33.1 g/dL (31.6-35.5); Mean Corpuscular Hemoglobin 28.8 pg (28.0-33.3); Neutrophils # 0.8 K/mcL (1.6-8.9); Nucleated Red Blood Cells 1.2 /100 WBC (0); Red Blood Count 2.92 M/mcL (3.82-4.97); Red Cell Distribution Width 17.4 % (11.5-14.5)
[2017-06-29 10:49] LABS: BUN/Creatinine Ratio 17 (6-26); Blood Urea Nitrogen 16 mg/dL (8-23); Calcium 7.8 mg/dL (8.6-10.3); Carbon Dioxide 25 mEq/L (23-29); Chloride 104 mEq/L (98-107); Glucose 221 mg/dL (70-105); Osmolality,Calculated 288 (280-300); Potassium 3.9 mEq/L (3.5-5.1); Sodium 135 mEq/L (136-145); eGFR For African Americans > 60 (> 60); eGFR For Non-African Americans > 60 (> 60)
[2017-06-29 11:01] LABS: Mean Platelet Volume 12.7 fL (9.4-12.4); Platelet Count 42 K/mcL (140-400)
[2017-06-29 11:10] LABS: Anisocytosis 2+ (Not Present); Lymphocytes # 0.6 K/mcL (0.6-4.6); Monocytes # 0.2 K/mcL (0.0-1.3); Platelet Estimate Marked Decrease (Normal); Poikilocytosis 1+ (Not Present)
--- NOTE | 2017-06-29 13:13 | Oncology Inp Progress Note ---
Date of Encounter: 06/29/17 Time of Encounter: 08:00 (1) Acute myeloid leukemia Current Visit: No Status: Chronic Assessment and plan: received vidaza c1 05/2017. 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 CT abd findings reviewed. On abx prior Cdiff. Start bowel regimen-constipation. S/P PRBC units. UC is neg. PT/OT and d/c when stable. Plan reviewed this AM bedside. Qualifiers: Leukemia Active/Remission status: without remission Qualified Code(s): C92.00 - Acute myeloblastic leukemia, not having achieved remission Oncology: Subj Interval history: patient denied any pain this AM. She denied diarrhea. Not had BM - Constitutional Vitals: Vital Signs Temp Pulse Resp BP Pulse Ox 06/29/17 11:34 98.7 F 77 18 112/61 95 06/29/17 09:00 95 06/29/17 08:16 99.0 F 80 16 145/65 95 06/29/17 04:20 98.3 F 79 16 135/69 93 06/29/17 00:07 98.4 F 72 18 123/66 95 06/28/17 19:49 98.4 F 71 18 118/67 95 06/28/17 15:00 98.6 F 67 18 115/68 95 Intake and Output 06/28/17 06/29/17 06/29/17 23:59 07:59 15:59 Intake Total 240 / 240 Output Total 475 / 475 Balance -475 / -475 240 / 240 Intake: Oral 240 / 240 Output: Catheter 475 / 475 Other: Meal Dinner Breakfast Percent of Meal Consumed 40% 75% Weight 77.2 kg Blood Glucose* 191 186 Patient Weight 06/29/17 23:59 Weight 77.2 kg General appearance: obese - Head Head exam: Present: atraumatic, normal inspection - Eye Eye exam: Present: sclera anicteric - ENT Additional comments: no thrush - GI/Abdominal Additional comments: non tender, min distension - Extremities Exam Extremities exam: Present: normal inspection - Neurological Exam Neurological exam: Present: alert, CN II-XII intact, oriented X3 Oncology: Obj Data - Labs CBC & Chem 7: 06/29/17 10:15 06/29/17 10:15 Labs: Laboratory Results - last 24 hr 06/28/17 06/28/17 06/28/17 12:25 16:25 19:41 WBC RBC Hgb Hct MCV MCH MCHC RDW Plt Count MPV Seg Neutrophils % Lymphocytes % Monocytes % Neutrophils # Lymphocytes # Monocytes # Nucleated RBCs/100 WBC Platelet Estimate Poikilocytosis Anisocytosis Sodium Potassium Chloride Carbon Dioxide BUN Creatinine Est GFR ( Amer) Est GFR (Non-Af Amer) BUN/Creatinine Ratio Glucose POC Glucose 232 H 161 H 191 H Calculated Osmolality Calcium 06/29/17 06/29/17 06/29/17 10:15 10:15 11:38 WBC 1.6 L RBC 2.92 L Hgb 8.4 L Hct 25.4 L MCV 87.0 MCH 28.8 MCHC 33.1 RDW 17.4 H Plt Count 42 L MPV 12.7 H Seg Neutrophils % 52.0 Lymphocytes % 38.0 Monocytes % 10.0 Neutrophils # 0.8 L Lymphocytes # 0.6 Monocytes # 0.2 Nucleated RBCs/100 WBC 1.2 H Platelet Estimate Marked Decrease L Poikilocytosis 1+ A Anisocytosis 2+ A Sodium 135 L Potassium 3.9 Chloride 104 Carbon Dioxide 25 BUN 16 Creatinine 0.92 Est GFR ( Amer) > 60 Est GFR (Non-Af Amer) > 60 BUN/Creatinine Ratio 17 Glucose 221 H POC Glucose 186 H Calculated Osmolality 288 Calcium 7.8 L - ABG Interpretation ABG results: PT/INR, D-dimer PT 15.4 Seconds (9.4-12.1) H 06/27/17 00:21 Consult Discharge Plan - Plan Referrals: Yash Hanley MD [Primary Care Provider] -
[2017-06-29] MEDS ORDERED: 0.9 % Sodium Chloride 1,000 ML IVC ONE (13:42)
[2017-06-29] MEDS ORDERED: Lactulose Oral Soln 20 GM/30 ML UDC PO SCH (13:45)
[2017-06-29] MEDS: Lactulose Oral Soln 20 GM/30 ML UDC PO SCH ×2 (14:35→21:03)
--- NOTE | 2017-06-29 16:43 | Internal Med Progress Note ---
Date of Encounter: 06/29/17 Time of Encounter: 11:00 - Assessment and plan (1) Abdominal pain Current Visit: Yes Status: Acute Assessment and plan: Patient continues to complain of generalized abdominal pain -CT abdomen/pelvis on 06/26/17 showed prominent distention of the urinary bladder with bilateral hydroureteronephrosis with stable splenomegaly and uncomplicated abdominal wall hernia containing multiple loops of small bowel in addition to mesenteric panniculitis -Acute abdominal series on 06/27/17 showed no evidence of bowel obstruction Suspect secondary to constipation as patient has not had a bowel movement in over 6 days Management as below Qualifiers: Abdominal location: generalized Qualified Code(s): R10.84 - Generalized abdominal pain (2) Constipation Current Visit: Yes Status: Acute Assessment and plan: Patient still complaining of generalized abdominal discomfort and reports of not having a bowel movement in 5 days. Acute abdominal series on 06/27/17 showed no evidence of bowel obstruction Patient started on MiraLAX with no results so we will start patient on lactulose ; patient refuses enema Qualifiers: Constipation type: unspecified constipation type Qualified Code(s): K59.00 - Constipation, unspecified (3) Anemia Current Visit: No Status: Acute Assessment and plan: Patient's hemoglobin this morning 8.4 status post 2 units packed red blood cells Will continue to monitor Qualifiers: Anemia type: other cause Other causes of anemia: chronic disease, neoplastic Qualified Code(s): D63.0 - Anemia in neoplastic disease (4) Urinary retention Current Visit: Yes Status: Acute Assessment and plan: Patient was placed Benson catheter in ER by urology. Urology recommendations to maintain Benson until discharge Patient with dark tea-colored urine this morning so will start on IV fluids and monitor (5) Clostridium difficile diarrhea Current Visit: No Status: Acute Assessment and plan: Patient was found C. difficile positive on 05/17/17. Continue oral vancomycin (06/22-07/02 per record). Probiotics. 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 - Acute myeloblastic leukemia, not having achieved remission (7) Crohns disease Current Visit: No Status: Chronic Assessment and plan: Continue home medications and symptomatic treatment Qualifiers: Gastrointestinal tract location: unspecified location Digestive disease complication type: without complication Qualified Code(s): K50.90 - Crohn's disease, unspecified, without complications (8) UTI (urinary tract infection) Current Visit: No Status: Ruled-out Assessment and plan: Urine cultures negative therefore IV Levaquin will be discontinued Qualifiers: Urinary tract infection type: acute cystitis Qualified Code(s): N30.01 - Acute cystitis with hematuria (9) Diabetes mellitus, type 2 Current Visit: No Status: Chronic Assessment and plan: Place patient on sliding scale insulin. 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 - Time Spent With Patient Total time spent is greater than 50% in coordination of care (as documented) at patient's floor/unit and/or counseling patient: - Subjective Interval history: Patient continues to complain of generalized abdominal discomfort She still has not had a bowel movement in over 6 days Patient's hemoglobin has improved status post 2 units of packed red blood cells Patient also with urinary retention and Benson catheter has been placed - Constitutional Vitals: Temp Pulse Resp BP Pulse Ox 98.7 F 77 18 112/61 95 06/29/17 11:34 06/29/17 11:34 06/29/17 11:34 06/29/17 11:34 06/29/17 11:34 General appearance: Present: A&O X 3, no acute distress, answers questions appropriately - Respiratory Respiratory exam: Present: CTAB. Absent: accessory muscle use, rales, rhonchi, wheezes - Cardiovascular Cardiovascular exam: Present: RRR, +S1, +S2. Absent: diastolic murmur, gallop, rubs, systolic murmur - GI/Abdominal GI/Abdominal exam: Present: normal bowel sounds, soft, tenderness (Generalized abdominal pain) Internal Medicine: Result - Labs CBC & Chem 7: 06/29/17 10:15 06/29/17 10:15 Labs: Short CBC 06/29/17 Range/Units 10:15 WBC 1.6 L (4.3-11.1) K/mcL Hgb 8.4 L (11.5-15.4) g/dL Hct 25.4 L (35.3-44.9) % Plt Count 42 L (140-400) K/mcL Neutrophils # 0.8 L (1.6-8.9) K/mcL BMP 06/29/17 10:15 Sodium 135 L Potassium 3.9 Chloride 104 Carbon Dioxide 25 BUN 16 Creatinine 0.92 Glucose 221 H Calcium 7.8 L - ABG Interpretation ABG results: PT/INR, D-dimer PT 15.4 Seconds (9.4-12.1) H 06/27/17 00:21 - VTE Documentation of Mechanical Device: Intermittent pneumatic compression device Consult Discharge Plan - Plan Referrals: aYsh Hanley MD [Primary Care Provider] -
[2017-06-29] MEDS: Ondansetron ODT 4 MG TAB.RAPDIS PO PRN (18:04)
[2017-06-29] MEDS: Gabapentin 300 MG CAPSULE PO SCH (20:54)
[2017-06-30] MEDS: Acetaminophen 325 MG TABLET PO PRN (05:00)
[2017-06-30] MEDS: Vancomycin Oral Soln 250 MG/5 ML UDC PO SCH ×3 (09:17→18:12)
[2017-06-30] MEDS: Furosemide 20 MG TABLET PO SCH (09:18)
[2017-06-30] MEDS: Lactobacillus 1 EACH CAP.SPRINK PO SCH ×2 (09:18→20:14)
[2017-06-30] MEDS: Ascorbic Acid 500 MG TABLET PO SCH (09:20)
[2017-06-30] MEDS: amLODIPine 5 MG TABLET PO SCH (09:20)
[2017-06-30] MEDS: Metoprolol XL (24 HR) Succ 50 MG TAB.ER.24H PO SCH (09:20)
[2017-06-30] MEDS: Magnesium Oxide 400 MG TABLET PO SCH (09:20)
[2017-06-30] MEDS: Insulin LISPRO 300 UNITS/3 ML VIAL SQ SCH ×4 (09:25→22:02)
[2017-06-30] MEDS: Ondansetron ODT 4 MG TAB.RAPDIS PO PRN (09:38)
[2017-06-30] MEDS: Lactulose Oral Soln 20 GM/30 ML UDC PO SCH ×2 (09:46→20:13)
[2017-06-30] MEDS: [UNRECOGNIZED DRUG - OTHER] TP SCH ×3 (09:47→20:16)
[2017-06-30] MEDS: (Ezetimibe [Ezetimibe] 10 MG) PO SCH (09:47)
--- NOTE | 2017-06-30 14:01 | Gastroenterology Consult Note ---
<Nabil Ruvalcaban Mac - Last Filed: 06/30/17 13:57> Date of Encounter: 06/30/17 Time of Encounter: 11:15 - Assessment and plan (1) Anemia Status: Chronic Assessment and plan: Improved. 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 Qualifiers: Anemia type: bone marrow failure Bone marrow failure anemia type: other bone marrow failure Qualified Code(s): D61.89 - Other specified aplastic anemias and other bone marrow failure syndromes (2) Clostridium difficile diarrhea Status: Acute Assessment and plan: Has been treated, likely resolved as pt is now having constipation. (3) Crohn's disease, acute Status: Chronic Assessment and plan: Longstanding, but currently not on treatment due to pancytopenia. May be cause of abdominal pain. No acute diarrhea or bleeding noted. Qualifiers: Digestive disease complication type: unspecified complication Qualified Code(s): K50.919 - Crohn's disease, unspecified, with unspecified complications - Time Spent With Patient Total time spent is greater than 50% in coordination of care (as documented) at patient's floor/unit and/or counseling patient: GI History of Present Illness - Data of Consult Patient: known to practice within the last 3 years Consult date: 06/30/17 Requesting Physician: Ceferino Prado - Consult Narrative Reason for consult: abdominal pain History of present illness: Ms Bryant is a 72 year old female with a history of AML, Crohn's disease, DM, hyperlipidemia, hyptertension, parkinson's disease, anxiety, 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 She was diagnosed with Crohns in 1992. She has been on remicade since [id number] and had been doing well. Pt states was stopped in January due to pancytopenia. She took Imuran in the past for 2-3 days but it caused increased Crohn's-like symptoms and was stopped. She is status post right hemicolectomy in 2014. Patient went to oncology office today for AML follow-up. She was sent to emergency room by oncology for abdominal pain. Patient denies nausea or vomiting. Denies a fever. In the emergency room, abdominal CT has been done, no acute founding except to urinary retention. Urology consult was called and Benson catheter has been placed. UA shows UTI. Patient was admitted for further management.-CT abdomen/pelvis on 03/03 showed prominent distention of the urinary bladder with bilateral hydroureteronephrosis with stable splenomegaly and uncomplicated abdominal wall hernia containing multiple loops of small bowel in addition to mesenteric panniculitis. Acute abdominal series on 06/27/17 showed no evidence of bowel obstruction.Suspect secondary to constipation as patient has not had a bowel movement in over 6 days. Hgb was 6.9 on admission and is 8.4 after 2 units of PRBCs. WBC 1.6. Platelet count 42. C. diff was positive on 05/17/17. Colonoscopy: 05/01 poor prep, severe active crohn's disease in sigmoid colon EGD: denies NSAIDS: denies Anticoagulants: denies Past Med Surg Social Fam HX - Past Medical History Medical history: asthma, cancer, diabetes, GERD, hyperlipidemia, hypertension, renal disease, other Psychiatric history: anxiety, depression - Past Surgical History Surgical History: appendectomy, cholecystectomy - Social History Smoking Status: Former smoker Smokeless Tobacco Status: No Alcohol use: none Drug use: none - Family History Mother Living Status: Hx Family Cardiac Disorders: No Hx Family Respiratory Disorders: Yes Hx Family Cancer: Yes Hx Family GI Disorders: No Hx Family Endocrine Disorder: No Hx Family Neuromuscular Disorders: No Hx Family Neurologic Disorders: No Hx Family HEENT Disorders: No Hx Family Autoimmune Disorders: No Father Living Status: Hx Family Cardiac Disorders: Yes Hx Family Respiratory Disorders: Yes (Parents smokers) Hx Family Cancer: Yes Hx Family GI Disorders: Yes (Sister ulcerative colitis) Hx Family Endocrine Disorder: Yes Hx Family Neuromuscular Disorders: No Hx Family Neurologic Disorders: No Hx Family HEENT Disorders: No Hx Family Autoimmune Disorders: No Review of Systems: GI: as per QUINAULT GENERAL: denies fever, has some chills EYES: denies yellow discoloration ENT: denies pain with swallowing or difficulty swallowing CARDIO: denies chest pain, palpitations RESP: No Shortness of breath with exertion : denies change in color of urine NEURO: weakness HEME: Denies any bruising MS: denies joint pain, joint swelling or back pain. DERM: denies rash or itching PSYCH: history of anxiety and depression - Constitutional Vitals: Temp Pulse Resp BP Pulse Ox 98.7 F 80 18 124/73 96 06/30/17 12:00 06/30/17 12:00 06/30/17 12:00 06/30/17 12:00 06/30/17 12:00 Exam: CONSTITUTIONAL:~alert, no acute distress.~HEAD:~normocephalic.~EYES:~no jaundice.~NECK:~no obvious swelling.~HEART:~regular rate and rhythm, no murmurs. ~LUNGS:~bilateral fair air entry.~ABDOMEN:~non distended, soft, non tender, no masses palpable, no organomegaly.~RECTAL EXAM:~Deferred.~EXTREMITIES:~no clubbing, cyanosis or edema.~SKIN:~no stigmata of chronic liver disease.~ NEUROLOGIC:~no obvious focal defect.~~~~ Results - Labs CBC & Chem 7: 06/29/17 10:15 06/29/17 10:15 Labs: Last Result Calcium 7.8 mg/dL (8.6-10.3) L 06/29/17 10:15 Troponin I < 0.03 ng/mL (< 0.04) 06/27/17 06:05 Triglycerides 133 mg/dL (< 150) 06/27/17 00:21 Entire Visit Hgb 8.4 g/dL (11.5-15.4) L 06/29/17 10:15 Hct 25.4 % (35.3-44.9) L 06/29/17 10:15 PT 15.4 Seconds (9.4-12.1) H 06/27/17 00:21 Total Bilirubin 0.7 mg/dL (0.3-1.0) 06/27/17 00:21 AST 15 Units/L (13-39) 06/27/17 00:21 ALT 7 Units/L (7-52) 06/27/17 00:21 Amylase 10 Units/L (29-103) L 06/26/17 11:30 Lipase 15 Units/L (11-82) 06/26/17 11:30 - ABG ABG results: PT/INR, D-dimer PT 15.4 Seconds (9.4-12.1) H 06/27/17 00:21 Consult Discharge Plan - Plan Instructions: Crohn Disease (DC), Benson Catheter Placement and Care (DC), Anemia (DC) Additional Instructions: --Follow-up with her PCP within 7 to 10 days --Follow-up with oncology with the next 2 to 4 weeks or otherwise as scheduled --Follow-up with urology within next 7 to 10 days --May need to be reevaluated by your doctor or emergency department if you experience any new or recurrent symptoms including fevers, chills, sweats, lightheadedness, chest pain, palpitations, shortness of breath, abdominal pain that gets worse or changes in character, nausea, vomiting, diarrhea, dysuria, or any evidence of blood in vomitus or bowel movement. Referrals: Jose Giang MD [Partnered Physician] - 07/22/17 9:00 am Yash Hanley MD [Primary Care Provider] - Prescriptions: predniSONE [PredniSONE] 40 mg PO DAILY 2 Days #4 tablet <Wale Walter - Last Filed: 07/09/17 05:25> Date of Encounter: 06/30/17 - Time Spent With Patient Total time spent is greater than 50% in coordination of care (as documented) at patient's floor/unit and/or counseling patient: GI History of Present Illness - Data of Consult Requesting Physician: Ceferino Prado - Consult Narrative History of present illness: Ms. Bryant is a 72 year old female - Constitutional Vitals: Temp Pulse Resp BP Pulse Ox 97.7 F 69 16 113/68 96 07/04/17 10:34 07/04/17 10:34 07/04/17 10:34 07/04/17 10:34 07/04/17 10:34 Results - Labs CBC & Chem 7: 07/04/17 03:40 07/04/17 03:40 Labs: Last Result Calcium 7.8 mg/dL (8.6-10.3) L 07/04/17 03:40 Troponin I < 0.03 ng/mL (< 0.04) 06/27/17 06:05 Triglycerides 133 mg/dL (< 150) 06/27/17 00:21 Entire Visit Hgb 7.4 g/dL (11.5-15.4) L 07/04/17 03:40 Hct 22.8 % (35.3-44.9) L 07/04/17 03:40 PT 15.4 Seconds (9.4-12.1) H 06/27/17 00:21 Total Bilirubin 0.7 mg/dL (0.3-1.0) 06/27/17 00:21 AST 15 Units/L (13-39) 06/27/17 00:21 ALT 7 Units/L (7-52) 06/27/17 00:21 Amylase 10 Units/L (29-103) L 06/26/17 11:30 Lipase 15 Units/L (11-82) 06/26/17 11:30 - ABG ABG results: PT/INR, D-dimer PT 15.4 Seconds (9.4-12.1) H 06/27/17 00:21 - Attending Attestation Unfortunate 72 year old female with AML and attendant pancytopenia. Hx of C Difficile likely resolved for the present time. Agree. I have personally performed a face to face evaluation on this patient. I have reviewed and agree with the care plan. History and Exam by me shows:
[2017-06-30] MEDS: Ketorolac 30 MG/ML VIAL IVP PRN ×2 (14:58→20:14)
--- NOTE | 2017-06-30 16:42 | General Surgery Consult Note ---
<Wilfredo Mata - Last Filed: 06/30/17 18:19> Date of Encounter: 06/30/17 Time of Encounter: 16:42 Assessment and Plan (1) Abdominal pain Current Visit: Yes Status: Acute Patient has many month history of abdominal pain. Patient reports pain started after stopping her remocaide for her Crohn's CT abd pelvis shows no signs of bowel obstruction. Patient was constipated on admission, but has begun having bowel movements with no improvement in her symptoms. Recommendations: Pain control, Start low dose opiate pain medication such as percocet. Start concomitant bowel regimen such a colace 100mg BID. Believe pain is likely secondary to her Crohn's disease. Defer management to GI. Once Pain is controlled patient would benefit from PT/OT. Qualifiers: Abdominal location: generalized Qualified Code(s): R10.84 - Generalized abdominal pain (2) Abdominal hernia Current Visit: No Status: Acute Chronic Ventral Abdominal hernia s/p Sigmoidectomy in 2014. Patient has had long standing hernia with out complication. No signs of bowel obstruction on CT. Patient having bowel movements. Pain started after stopping Crohn's medication due to pancytopenia. Do not believe patient's current pain is related to her long standing hernia. Do not believe surgical repair of hernia is indicated nor would such repair relieve her abd pain. Qualifiers: Hernia type: ventral Obstruction and gangrene presence: without obstruction or gangrene Qualified Code(s): K43.9 - Ventral hernia without obstruction or gangrene History of Present Illness Consult date: 06/30/17 Reason for consult: hernia (Abdominal Pain) Requesting physician: Ceferino Prado History of present illness: 72 yo F c PMHx of AML, Crohn's disease, DM, HLD, HTN, Parkinson's disease, CKD, Asthma, GERD, Anxiety, Depression, Appendectmy, Cholecystectomy, Rectosigmoid stricture s/p resection, Ventral hernia (present since 2014)presents to [facility] after c/o diffuse abd pain at oncologist office. Patient reports that pain has been present for months. Patient has been on remocaide for years for her Chron's disease. This was stopped in January of 2017 due to pancytopenia. Patient reports abdominal pain related to her crohn's disease since March or April of this year. Pain has been worse since stopping remocaide. Patient was diagnosed with C. Diff Colitis in May of this year. Patient is finishing a course of Oral Vanc from 06/22/17-07/02/17. Patient was noted to be constipated on admission. Patient began having bowel movements overnight after being given lactulose yesterday. Patient and family concerned that her pain is not being well controlled. Patient states the pain feels like her Crohn's and does not feel related to her hernia. Patient denies Fever, Diarrhea, Vomiting, Nausea, CP, SOB. Past Med Surg Social Fam HX - Past Medical History Medical history: asthma, cancer, diabetes, GERD, hyperlipidemia, hypertension, renal disease, other Psychiatric history: anxiety, depression - Past Surgical History Surgical History: appendectomy, cholecystectomy - Social History Smoking Status: Former smoker Smokeless Tobacco Status: No Alcohol use: none Drug use: none - Family History Mother Living Status: Hx Family Cardiac Disorders: No Hx Family Respiratory Disorders: Yes Hx Family Cancer: Yes Hx Family GI Disorders: No Hx Family Endocrine Disorder: No Hx Family Neuromuscular Disorders: No Hx Family Neurologic Disorders: No Hx Family HEENT Disorders: No Hx Family Autoimmune Disorders: No Father Living Status: Hx Family Cardiac Disorders: Yes Hx Family Respiratory Disorders: Yes (Parents smokers) Hx Family Cancer: Yes Hx Family GI Disorders: Yes (Sister ulcerative colitis) Hx Family Endocrine Disorder: Yes Hx Family Neuromuscular Disorders: No Hx Family Neurologic Disorders: No Hx Family HEENT Disorders: No Hx Family Autoimmune Disorders: No Medications and Allergies Amlodipine [Norvasc] 5 mg PO DAILY 01/06/15 [History] Furosemide [Lasix] 40 mg PO DAILY 01/06/15 [History] Omeprazole [PriLOSEC] 20 mg PO DAILY 01/06/15 [History] Potassium Chloride 20 meq PO DAILY 01/06/15 [History] InFLIXimab [Remicade] 100 mg IV [id number] 03/29/15 [History] Insulin ASPART [Novolog Flexpen] 2 - 15 unit SQ ACHS 03/24/17 [History] Insulin DETEMIR [Levemir Flextouch] 20 unit SQ BID 03/24/17 [History] Magnesium Oxide [Magnesium] 400 mg PO DAILY 05/13/17 [History] Ezetimibe 10 mg PO DAILY 05/17/17 [History] Acetaminophen [Tylenol Arthritis] 650 mg PO Q4H PRN 05/25/17 [History] Albuterol Sulfate [Ventolin Hfa] 2 puff IH Q4H PRN 05/25/17 [History] Calamine/Menthol/Petrolat/Zinc [Remedy Calazime Protect Paste] 1 appl TP TID 02/01 [History] Ipratropium/Albuterol Neb [Duoneb] 3 ml IH Q6HR PRN 05/25/17 [History] Mesalamine 800 mg PO DAILY 05/25/17 [History] Ondansetron HCl [Zofran] 4 mg PO Q4H PRN 05/25/17 [History] Gabapentin [Neurontin] 300 mg PO HS #30 capsule 05/28/17 [Rx] HYDROcodone/Acet 5/325 mg [[place] 5-325 mg] 1 tab PO Q6H PRN 7 Days #15 tablet [Rx] Ascorbic Acid [Vitamin C] 500 mg PO DAILY 06/26/17 [History] Escitalopram [Lexapro] 10 mg PO HS 06/26/17 [History] Lactobacillus Acidophilus [Acidophilus] 1 each PO BID 06/26/17 [History] Metoprolol Succinate [Toprol Xl] 100 mg PO DAILY 06/26/17 [History] Vitamin E Acetate [Vitamin E] 400 unit PO DAILY 06/26/17 [History] metroNIDAZOLE [Flagyl] 250 mg PO TID 06/26/17 [History] 3 Allergy/AdvReac Type Severity Reaction Status Date / Time influenza virus vaccine ts Allergy Vomiting Verified 06/13/17 08:53 [id number] (36 mos,up) [From Fluarix] Pneumococcal Vaccine Allergy Vomiting Verified 06/13/17 08:53 [From Prevnar] codeine AdvReac Mild Nausea Verified 06/13/17 08:53 penicillin G AdvReac Mild swelling Verified 06/13/17 08:53 egg AdvReac See Verified 06/26/17 15:29 Comments Review of Systems All systems PM: The remainder of the systems were reviewed and are negative General Surgery Exam Initial Vital Signs Temp Pulse Resp BP Pulse Ox 97.8 F 75 18 131/65 96 06/26/17 10:46 06/26/17 10:46 06/26/17 10:46 06/26/17 10:46 06/26/17 10:46 - General physical appearance well developed, moderate distress - Eyes normal ocular movement. negative: icteric - ENT normal mucosa - Neck trachea midline - Respiratory normal expansion, normal respiratory effort, clear to auscultation - Cardiovascular Cardiovascular exam: Present: RRR, no murmurs/rubs/gallops - Abdomen Abdomen general surgery: Present: bowel sounds present, soft, tender (tender both above(epigastric) and below (mostly RLQ, but some LLQ) hernia.), surgical scars. Absent: guarding, rigid - Integumentary Integumentary general surgery: Present: warm and dry - Neurologic Present: normal coordination, normal sensation - Psychiatric Psychiatric general surgery: Present: A&Ox3, appropriate, speech is normal, memory intact Exam Initial Vital Signs Temp Pulse Resp BP Pulse Ox 97.8 F 75 18 131/65 96 06/26/17 10:46 06/26/17 10:46 06/26/17 10:46 06/26/17 10:46 06/26/17 10:46 Results - Labs 06/29/17 10:15 06/29/17 10:15 Abnormal lab results WBC 1.6 K/mcL (4.3-11.1) L 06/29/17 10:15 RBC 2.92 M/mcL (3.82-4.97) L 06/29/17 10:15 Hgb 8.4 g/dL (11.5-15.4) L 06/29/17 10:15 Hct 25.4 % (35.3-44.9) L 06/29/17 10:15 RDW 17.4 % (11.5-14.5) H 06/29/17 10:15 Plt Count 42 K/mcL (140-400) L 06/29/17 10:15 MPV 12.7 fL (9.4-12.4) H 06/29/17 10:15 Immature Gran % 6.9 % (0-4) H 06/28/17 10:28 Band Neutrophils % 13.0 % (0-4) H 06/26/17 13:51 Blast Cells % 3.0 % (0) H 06/26/17 13:51 Neutrophils # 0.8 K/mcL (1.6-8.9) L 06/29/17 10:15 Nucleated RBCs/100 WBC 1.2 /100 WBC (0) H 06/29/17 10:15 Toxic Vacuolation Present (Not Present) A 06/26/17 13:51 Dohle Bodies Present (Not Present) A 06/26/17 13:51 Platelet Estimate Marked Decrease (Normal) L 06/29/17 10:15 Immature Plt Fraction 8.9 % (1.1-6.1) H 06/26/17 13:51 Poikilocytosis 1+ (Not Present) A 06/29/17 10:15 Anisocytosis 2+ (Not Present) A 06/29/17 10:15 PT 15.4 Seconds (9.4-12.1) H 06/27/17 00:21 Sodium 135 mEq/L (136-145) L 06/29/17 10:15 Glucose 221 mg/dL (70-105) H 06/29/17 10:15 POC Glucose 206 mg/dL (70-99) H 06/30/17 07:44 Lactic Acid 0.4 mmol/L (0.5-2.2) L 06/26/17 11:30 Calcium 7.8 mg/dL (8.6-10.3) L 06/29/17 10:15 Direct Bilirubin 0.7 mg/dL (0.0-0.2) H 06/26/17 11:30 Alkaline Phosphatase 206 Units/L (34-104) H 06/27/17 00:21 B-Natriuretic Peptide 269 pg/mL (Less than 100) H 06/27/17 00:21 Serum Total Protein 5.4 g/dL (6.4-8.9) L 06/27/17 00:21 Albumin 2.1 g/dL (3.5-5.7) L 06/27/17 00:21 Albumin/Globulin Ratio 0.6 (1.1-2.2) L 06/27/17 00:21 HDL Cholesterol 14 mg/dL (40-59) L 06/27/17 00:21 Cholesterol/HDL Ratio 5.7 (0-4.9) H 06/27/17 00:21 Amylase 10 Units/L (29-103) L 06/26/17 11:30 Urine Clarity Cloudy (Clear) A 06/26/17 16:00 Urine Protein 30 mg/dL (Neg-Trace) H 06/26/17 16:00 Urine Blood Moderate (Negative) H 06/26/17 16:00 Ur Leukocyte Esterase Trace (Negative) H 06/26/17 16:00 Ur Squamous Epith Cells Moderate per lpf (None-Few) H 06/26/17 16:00 Ur Culture Indicated? YES (NO) A 06/26/17 16:00 All other labs normal. Consult Discharge Plan - Plan Referrals: Yash Hanley MD [Primary Care Provider] - <Mikie Dewitt - Last Filed: 07/02/17 07:21> Date of Encounter: 06/30/17 Review of Systems All systems PM: The remainder of the systems were reviewed and are negative General Surgery Exam Initial Vital Signs Temp Pulse Resp BP Pulse Ox 97.8 F 75 18 131/65 96 06/26/17 10:46 06/26/17 10:46 06/26/17 10:46 06/26/17 10:46 06/26/17 10:46 Exam Initial Vital Signs Temp Pulse Resp BP Pulse Ox 97.8 F 75 18 131/65 96 06/26/17 10:46 06/26/17 10:46 06/26/17 10:46 06/26/17 10:46 06/26/17 10:46 Results - Labs 07/02/17 04:00 07/02/17 04:00 Abnormal lab results WBC 2.2 K/mcL (4.3-11.1) L 07/01/17 03:55 RBC 2.78 M/mcL (3.82-4.97) L 07/01/17 03:55 Hgb 7.7 g/dL (11.5-15.4) L 07/01/17 03:55 Hct 24.1 % (35.3-44.9) L 07/01/17 03:55 MCH 27.7 pg (28.0-33.3) L 07/01/17 03:55 RDW 17.0 % (11.5-14.5) H 07/01/17 03:55 Plt Count 54 K/mcL (140-400) L 07/01/17 03:55 MPV 12.5 fL (9.4-12.4) H 07/01/17 03:55 Immature Gran % 6.9 % (0-4) H 06/28/17 10:28 Band Neutrophils % 13.0 % (0-4) H 06/26/17 13:51 Blast Cells % 3.0 % (0) H 06/26/17 13:51 Neutrophils # 1.5 K/mcL (1.6-8.9) L 07/01/17 03:55 Lymphocytes # 0.4 K/mcL (0.6-4.6) L 07/01/17 03:55 Nucleated RBCs/100 WBC 1.9 /100 WBC (0) H 07/01/17 03:55 Toxic Vacuolation Present (Not Present) A 06/26/17 13:51 Dohle Bodies Present (Not Present) A 06/26/17 13:51 Platelet Estimate Decreased (Normal) L 07/01/17 03:55 Immature Plt Fraction 8.0 % (1.1-6.1) H 07/01/17 03:55 Polychromasia 1+ (Not Present) A 07/01/17 03:55 Poikilocytosis 1+ (Not Present) A 06/29/17 10:15 Anisocytosis 1+ (Not Present) A 07/01/17 03:55 PT 15.4 Seconds (9.4-12.1) H 06/27/17 00:21 Sodium 132 mEq/L (136-145) L 07/01/17 03:55 Glucose 163 mg/dL (70-105) H 07/01/17 03:55 POC Glucose 150 mg/dL (70-99) H 06/30/17 19:35 Calculated Osmolality 278 (280-300) L 07/01/17 03:55 Lactic Acid 0.4 mmol/L (0.5-2.2) L 06/26/17 11:30 Calcium 7.5 mg/dL (8.6-10.3) L 07/01/17 03:55 Direct Bilirubin 0.7 mg/dL (0.0-0.2) H 06/26/17 11:30 Alkaline Phosphatase 206 Units/L (34-104) H 06/27/17 00:21 B-Natriuretic Peptide 269 pg/mL (Less than 100) H 06/27/17 00:21 Serum Total Protein 5.4 g/dL (6.4-8.9) L 06/27/17 00:21 Albumin 2.1 g/dL (3.5-5.7) L 06/27/17 00:21 Albumin/Globulin Ratio 0.6 (1.1-2.2) L 06/27/17 00:21 HDL Cholesterol 14 mg/dL (40-59) L 06/27/17 00:21 Cholesterol/HDL Ratio 5.7 (0-4.9) H 06/27/17 00:21 Amylase 10 Units/L (29-103) L 06/26/17 11:30 Urine Clarity Cloudy (Clear) A 06/26/17 16:00 Urine Protein 30 mg/dL (Neg-Trace) H 06/26/17 16:00 Urine Blood Moderate (Negative) H 06/26/17 16:00 Ur Leukocyte Esterase Trace (Negative) H 06/26/17 16:00 Ur Squamous Epith Cells Moderate per lpf (None-Few) H 06/26/17 16:00 Ur Culture Indicated? YES (NO) A 06/26/17 16:00 Diabetes panel 07/01/17 Range/Units 03:55 Sodium 132 L (136-145) mEq/L Potassium 3.8 (3.5-5.1) mEq/L Chloride 99 (98-107) mEq/L Carbon Dioxide 24 (23-29) mEq/L BUN 14 (8-23) mg/dL Creatinine 0.82 (0.60-1.20) mg/dL Glucose 163 H (70-105) mg/dL Calcium 7.5 L (8.6-10.3) mg/dL Calcium panel 07/01/17 Range/Units 03:55 Calcium 7.5 L (8.6-10.3) mg/dL Pituitary panel 07/01/17 Range/Units 03:55 Sodium 132 L (136-145) mEq/L Potassium 3.8 (3.5-5.1) mEq/L Chloride 99 (98-107) mEq/L Carbon Dioxide 24 (23-29) mEq/L BUN 14 (8-23) mg/dL Creatinine 0.82 (0.60-1.20) mg/dL Glucose 163 H (70-105) mg/dL Calcium 7.5 L (8.6-10.3) mg/dL Adrenal panel 07/01/17 Range/Units 03:55 Sodium 132 L (136-145) mEq/L Potassium 3.8 (3.5-5.1) mEq/L Chloride 99 (98-107) mEq/L Carbon Dioxide 24 (23-29) mEq/L BUN 14 (8-23) mg/dL Creatinine 0.82 (0.60-1.20) mg/dL Glucose 163 H (70-105) mg/dL Calcium 7.5 L (8.6-10.3) mg/dL All other labs normal. - Attending Attestation I examined this patient and my medical decision-making was reviewed with the Resident Physician. I agree with the documented findings, disposition and treatment plan as described except to the extent set forth below. Review the above assessment and evaluation with the resident and agree with the above plan. Careful examination and reviewing her history and noting the patient's pain is also in different areas of the abdomen, not just at the location of her hernia defect which has been present for some time, I think the majority of her pain may be a sequela of her Crohn's disease. I do not think she requires any type of hernia repair given there is no sign of obstruction. I would recommend pain control/modulation as well as administration of stool softeners to help prevent constipation. Discussed with the patient and family and I will also contact the hospitalist regarding my recommendations. The patient and family members agree with the above overall plan.
--- NOTE | 2017-06-30 17:56 | Internal Med Progress Note ---
Date of Encounter: 06/30/17 Time of Encounter: 11:00 - Assessment and plan (1) Abdominal pain Current Visit: Yes Status: Acute Assessment and plan: Patient continues to complain of generalized abdominal pain -CT abdomen/pelvis on 06/26/17 showed prominent distention of the urinary bladder with bilateral hydroureteronephrosis with stable splenomegaly and uncomplicated abdominal wall hernia containing multiple loops of small bowel in addition to mesenteric panniculitis -Acute abdominal series on 06/27/17 showed no evidence of bowel obstruction Patient's constipation has resolved with lactulose Patient with history of untreated Crohn's disease and has not been on Remicade for sometime GI consulted and appreciate recommendations for Crohn's management General surgery has also been consulted with recommendations for uncomplicated abdominal wall hernia containing multiple loops of small bowel Qualifiers: Abdominal location: generalized Qualified Code(s): R10.84 - Generalized abdominal pain (2) Crohns disease Current Visit: No Status: Chronic Assessment and plan: As above Qualifiers: Gastrointestinal tract location: unspecified location Digestive disease complication type: without complication Qualified Code(s): K50.90 - Crohn's disease, unspecified, without complications (3) Constipation Current Visit: Yes Status: Acute Assessment and plan: Resolved; educated patient will avoid opioid pain medications Qualifiers: Constipation type: unspecified constipation type Qualified Code(s): K59.00 - Constipation, unspecified (4) Anemia Current Visit: No Status: Acute Assessment and plan: Patient's hemoglobin has been stable status post 2 units packed red blood cells Will continue to monitor Qualifiers: Anemia type: other cause Other causes of anemia: chronic disease, neoplastic Qualified Code(s): D63.0 - Anemia in neoplastic disease (5) Urinary retention Current Visit: Yes Status: Acute Assessment and plan: Patient was placed Benson catheter in ER by urology. Benson catheter was removed today and will continue to monitor (6) Clostridium difficile diarrhea Current Visit: No Status: Acute Assessment and plan: Patient was found C. difficile positive on 05/17/17. Continue oral vancomycin (06/22-07/02 per record). Probiotics. 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 Assessment and plan: Hematology oncology consult and appreciate recommendations Qualifiers: Leukemia Active/Remission status: without remission Qualified Code(s): C92.00 - Acute myeloblastic leukemia, not having achieved remission (8) UTI (urinary tract infection) Current Visit: No Status: Ruled-out Assessment and plan: Urine cultures negative therefore IV Levaquin will be discontinued Qualifiers: Urinary tract infection type: acute cystitis Qualified Code(s): N30.00 - Acute cystitis without hematuria (9) Diabetes mellitus, type 2 Current Visit: No Status: Chronic Assessment and plan: Place patient on sliding scale insulin. Closely monitor glucose level Qualifiers: Diabetes mellitus buttermaker continuous churn insulin use: with long-term use Diabetes mellitus complication status: with unspecified complications Qualified Code(s) : E11.8 - Type 2 diabetes mellitus with unspecified complications; Z79.4 - intermediate frame tender (current) use of insulin; Z79.4 - halfway (current) use of insulin; Z79.4 - halfway (current) use of insulin; Z79.4 - halfway (current) use of insulin (10) DVT prophylaxis Current Visit: No Status: Acute Assessment and plan: EPCD, no anticoagulation because of thrombocytopenia. - Time Spent With Patient Total time spent is greater than 50% in coordination of care (as documented) at patient's floor/unit and/or counseling patient: - Subjective Interval history: Patient with history of untreated Crohn's disease continues to complain of generalized abdominal discomfort Acute illness series on 06/27/17 showed no evidence of obstruction and CT of abdomen/pelvis on 06/26/17 showed uncomplicated abdominal wall hernia Patient's constipation has resolved with lactulose - Constitutional Vitals: Temp Pulse Resp BP Pulse Ox 98.1 F 75 14 119/66 92 06/30/17 16:39 06/30/17 16:39 06/30/17 16:39 06/30/17 16:39 06/30/17 16:39 General appearance: Present: A&O X 3, no acute distress, answers questions appropriately - Respiratory Respiratory exam: Present: CTAB. Absent: accessory muscle use, rales, rhonchi, wheezes - Cardiovascular Cardiovascular exam: Present: RRR, +S1, +S2. Absent: diastolic murmur, gallop, rubs, systolic murmur - GI/Abdominal GI/Abdominal exam: Present: soft, tenderness (Generalized abdominal tenderness) Internal Medicine: Result - Labs CBC & Chem 7: 06/29/17 10:15 06/29/17 10:15 - ABG Interpretation ABG results: PT/INR, D-dimer PT 15.4 Seconds (9.4-12.1) H 06/27/17 00:21 - VTE Documentation of Mechanical Device: Intermittent pneumatic compression device Consult Discharge Plan - Plan Referrals: Yash Hanley MD [Primary Care Provider] -
[2017-06-30] MEDS ORDERED: *HR* OxyCODONE/APAP 5/325 TABLET PO PRN (18:16)
[2017-06-30] MEDS: Gabapentin 300 MG CAPSULE PO SCH (20:15)
[2017-07-01] MEDS: Vancomycin Oral Soln 250 MG/5 ML UDC PO SCH ×5 (01:35→20:40)
[2017-07-01] MEDS: Ketorolac 30 MG/ML VIAL IVP PRN (03:28)
[2017-07-01 04:50] LABS: Hematocrit 24.1 % (35.3-44.9); Hemoglobin 7.7 g/dL (11.5-15.4); Mean Corpuscular Hemoglobin 27.7 pg (28.0-33.3); Mean Corpuscular Volume 86.7 fL (83.0-100.0); Mean Platelet Volume 12.5 fL (9.4-12.4); Nucleated Red Blood Cells 1.9 /100 WBC (0); Red Blood Count 2.78 M/mcL (3.82-4.97)
[2017-07-01 04:53] LABS: Platelet Count 54 K/mcL (140-400)
[2017-07-01 05:04] LABS: BUN/Creatinine Ratio 17 (6-26); Blood Urea Nitrogen 14 mg/dL (8-23); Calcium 7.5 mg/dL (8.6-10.3); Carbon Dioxide 24 mEq/L (23-29); Chloride 99 mEq/L (98-107); Glucose 163 mg/dL (70-105); Osmolality,Calculated 278 (280-300); Potassium 3.8 mEq/L (3.5-5.1); Sodium 132 mEq/L (136-145); eGFR For African Americans > 60 (> 60); eGFR For Non-African Americans > 60 (> 60)
[2017-07-01 05:19] LABS: Lymphocytes # 0.4 K/mcL (0.6-4.6); Monocytes # 0.3 K/mcL (0.0-1.3); Neutrophils # 1.5 K/mcL (1.6-8.9); Platelet Estimate Decreased (Normal); Polychromasia 1+ (Not Present)
[2017-07-01 05:20] LABS: Anisocytosis 1+ (Not Present)
[2017-07-01] MEDS: Insulin LISPRO 300 UNITS/3 ML VIAL SQ SCH ×4 (08:31→20:40)
[2017-07-01] MEDS: Lactulose Oral Soln 20 GM/30 ML UDC PO SCH ×3 (08:33→20:46)
[2017-07-01] MEDS: [UNRECOGNIZED DRUG - OTHER] TP SCH ×2 (08:33→13:14)
[2017-07-01] MEDS: (Ezetimibe [Ezetimibe] 10 MG) PO SCH (08:33)
[2017-07-01] MEDS: Ascorbic Acid 500 MG TABLET PO SCH (08:34)
[2017-07-01] MEDS: Magnesium Oxide 400 MG TABLET PO SCH (08:35)
[2017-07-01] MEDS: Metoprolol XL (24 HR) Succ 50 MG TAB.ER.24H PO SCH (08:35)
[2017-07-01] MEDS: Lactobacillus 1 EACH CAP.SPRINK PO SCH ×2 (08:36→20:40)
[2017-07-01] MEDS: amLODIPine 5 MG TABLET PO SCH (08:36)
[2017-07-01] MEDS: Furosemide 20 MG TABLET PO SCH (08:36)
--- NOTE | 2017-07-01 11:38 | Internal Med Progress Note ---
<Evelyn Bonner - Last Filed: 07/01/17 15:25> Date of Encounter: 07/01/17 Time of Encounter: 11:00 - Assessment and plan (1) Abdominal pain Current Visit: Yes Status: Acute Assessment and plan: Patient continues to complain of generalized abdominal pain. This is most likely secondary to Crohn's since she is not been receiving treatment due to acute myeloid leukemia with pancytopenia. 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 -Abdomen is soft, tender in the left lower quadrant, bowel sounds present, no guarding or distention Plan -GI consulted and appreciate recommendations for Crohn's management -start Solu-Medrol -tramadol PRN pain Qualifiers: Abdominal location: generalized Qualified Code(s): R10.84 - Generalized abdominal pain (2) Crohns disease Current Visit: No Status: Chronic Assessment and plan: As above Qualifiers: Gastrointestinal tract location: unspecified location Digestive disease complication type: without complication Qualified Code(s): K50.90 - Crohn's disease, unspecified, without complications (3) Pancytopenia Current Visit: Yes Status: Acute Assessment and plan: 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 He received vidaza 3/staff in 18 Hematology oncology consult and appreciate recommendations -Will recommend patient get pneumococcal vaccination. Will order if she is agreeable Qualifiers: Leukemia Active/Remission status: without remission Qualified Code(s): C92.00 - Acute myeloblastic leukemia, not having achieved remission (5) Clostridium difficile diarrhea Current Visit: No Status: Acute Assessment and plan: Patient was found C. difficile positive on 05/17/17. Patient does not have diarrhea -Continue oral vancomycin (06/22-07/02 per record) -Continue Probiotics (6) Urinary retention Current Visit: Yes Status: Acute Assessment and plan: Benson catheter in ER by urology due to urinary retention. Benson catheter is currently removed. Abd CT demonstrated prominent distention of the urinary bladder resulting in bilateral Hydroureternephrosis -had to be straight cathed today -Monitor urine output -patient is to follow up with urology in 2-3 weeks outpatient or sooner if the patient is unable to void (7) Diabetes mellitus, type 2 Current Visit: No Status: Chronic Assessment and plan: History of known diabetes and insulin glucose stable -continue sliding scale insulin, Accu check Qualifiers: Diabetes mellitus ferry terminal agent insulin use: with fpc use Diabetes mellitus complication status: with unspecified complications Qualified Code(s) : E11.8 - Type 2 diabetes mellitus with unspecified complications; Z79.4 - terminal block assembler (current) use of insulin; Z79.4 - jail (current) use of insulin; Z79.4 - terminal block assembler (current) use of insulin; Z79.4 - jail (current) use of insulin (8) DVT prophylaxis Current Visit: No Status: Acute Assessment and plan: EPCD, no anticoagulation because of thrombocytopenia. (9) Constipation Current Visit: Yes Status: Acute Assessment and plan: Resolved; educated patient will avoid opioid pain medications Qualifiers: Constipation type: unspecified constipation type Qualified Code(s): K59.00 - Constipation, unspecified - Time Spent With Patient Total time spent is greater than 50% in coordination of care (as documented) at patient's floor/unit and/or counseling patient: - Subjective Interval history: She is laying down comfortably in bed. She reports that she still has abdominal pain. She does not want Percocet because it makes her nauseous. She denies fever, chills - Constitutional Vitals: Temp Pulse Resp BP Pulse Ox 98.5 F 89 16 140/66 93 07/01/17 08:19 07/01/17 08:19 07/01/17 08:19 07/01/17 08:19 07/01/17 08:19 General appearance: Present: A&O X 3, no acute distress, answers questions appropriately Exam: Gen.: Vitals noted. No acute distress. AAOx3 HEENT: oropharynx clear, Normocephalic, atraumatic Neck: Supple. No adenopathy. Cardiac: RRR, no murmur, +S1/S2 Pulmonary: CTA bilaterally, no wheezes, rales or rhonchi, equal chest expansion Abdomen: soft, tender in left lower quadrant, Bowel sounds noted, no guarding Extremities: no BLE edema, nontender calf, no cyanosis or clubbing Neuro: A&Ox3, moves all extremities Psych: Appropriate mood and behavior Internal Medicine: Result - Labs CBC & Chem 7: 07/01/17 03:55 07/01/17 03:55 Labs: Short CBC 07/01/17 Range/Units 03:55 WBC 2.2 L (4.3-11.1) K/mcL Hgb 7.7 L (11.5-15.4) g/dL Hct 24.1 L (35.3-44.9) % Plt Count 54 L (140-400) K/mcL Neutrophils # 1.5 L (1.6-8.9) K/mcL BMP 07/01/17 03:55 Sodium 132 L Potassium 3.8 Chloride 99 Carbon Dioxide 24 BUN 14 Creatinine 0.82 Glucose 163 H Calcium 7.5 L - ABG Interpretation ABG results: PT/INR, D-dimer PT 15.4 Seconds (9.4-12.1) H 06/27/17 00:21 - Impressions Impressions KUB X-Ray 06/30/17 07:42 IMPRESSION: Mildly dilated loop of gas-filled small bowel in the right lower quadrant may reflect focal ileus or early obstruction. Consider CT with oral and enteric contrast for further evaluation. D/ / Terry Osman / Terry Osman Interpreting Provider: Terry Osman - VTE Documentation of Mechanical Device: Intermittent pneumatic compression device Consult Discharge Plan - Plan Referrals: Yash Hanley MD [Primary Care Provider] - <Joey Ford - Last Filed: 07/01/17 17:00> Date of Encounter: 07/01/17 - Assessment and plan (1) Abdominal pain Current Visit: Yes Status: Acute Qualifiers: Abdominal location: generalized Qualified Code(s): R10.84 - Generalized abdominal pain (2) Diabetes mellitus, type 2 Current Visit: No Status: Chronic Qualifiers: Diabetes mellitus ferry terminal agent insulin use: with ferry terminal agent use Diabetes mellitus complication status: with unspecified complications Qualified Code(s) : E11.8 - Type 2 diabetes mellitus with unspecified complications; Z79.4 - jail (current) use of insulin; Z79.4 - jail (current) use of insulin; Z79.4 - jail (current) use of insulin; Z79.4 - terminal block assembler (current) use of insulin (3) Crohns disease Current Visit: No Status: Chronic Qualifiers: Gastrointestinal tract location: unspecified location Digestive disease complication type: without complication Qualified Code(s): K50.90 - Crohn's disease, unspecified, without complications (4) Pancytopenia Current Visit: Yes Status: Acute (5) DVT prophylaxis Current Visit: No Status: Acute (6) Acute myeloid leukemia Current Visit: No Status: Chronic Qualifiers: Leukemia Active/Remission status: without remission Qualified Code(s): C92.00 - Acute myeloblastic leukemia, not having achieved remission (7) Clostridium difficile diarrhea Current Visit: No Status: Acute (8) Urinary retention Current Visit: Yes Status: Acute (9) Constipation Current Visit: Yes Status: Acute Qualifiers: Constipation type: unspecified constipation type Qualified Code(s): K59.00 - Constipation, unspecified - Time Spent With Patient Total time spent is greater than 50% in coordination of care (as documented) at patient's floor/unit and/or counseling patient: - Constitutional Vitals: Temp Pulse Resp BP Pulse Ox 102.8 F H 96 16 136/63 93 07/01/17 15:48 07/01/17 15:48 07/01/17 15:48 07/01/17 15:48 07/01/17 15:48 Internal Medicine: Result - Labs CBC & Chem 7: 07/01/17 03:55 07/01/17 03:55 Labs: Short CBC 07/01/17 Range/Units 03:55 WBC 2.2 L (4.3-11.1) K/mcL Hgb 7.7 L (11.5-15.4) g/dL Hct 24.1 L (35.3-44.9) % Plt Count 54 L (140-400) K/mcL Neutrophils # 1.5 L (1.6-8.9) K/mcL BMP 07/01/17 03:55 Sodium 132 L Potassium 3.8 Chloride 99 Carbon Dioxide 24 BUN 14 Creatinine 0.82 Glucose 163 H Calcium 7.5 L - ABG Interpretation ABG results: PT/INR, D-dimer PT 15.4 Seconds (9.4-12.1) H 06/27/17 00:21 - Impressions Impressions KUB X-Ray 06/30/17 07:42 IMPRESSION: Mildly dilated loop of gas-filled small bowel in the right lower quadrant may reflect focal ileus or early obstruction. Consider CT with oral and enteric contrast for further evaluation. D/ / Terry Osman / Terry Osman Interpreting Provider: Terry Osman - Attending Attestation I examined this patient and my medical decision-making was reviewed with the Resident Physician Dr. Bonner. I agree with the documented findings, disposition and treatment plan as described except to the extent set forth below. Ms. Bryant is a 72 y/o F with known crohn's disease pt, who also had AML admitted here for acute abdominal pain due to crohn's flare up. Pt still c/o 6/ 10 abdominal pain. Gen: A, A, O x3 Chest: Diminished BS b/l Heart: S1S2+ RRR no murmurs Abd: Soft, moderate tenderness. no guarding a/p 1. Acute crohn's flare up started on IV steroids cont Mesalamine GI consultd 2. AMl out pt f/u with Heme Onc 3. Recent C. Diff infection resolved finish full course of abx Vancomycin 4. Pancytopenia ANC -[id number]
[2017-07-01] MEDS: traMADol 50 MG TABLET PO PRN ×2 (13:03→20:40)
[2017-07-01] MEDS: Acetaminophen 325 MG TABLET PO PRN (16:58)
[2017-07-01] MEDS: MethylPREDNISolone 40 MG/ML VIAL IVP SCH (16:58)
[2017-07-01] MEDS: Gabapentin 300 MG CAPSULE PO SCH (20:39)
[2017-07-02 04:28] LABS: Basophils % 0.6 %; Hematocrit 24.9 % (35.3-44.9); Hemoglobin 8.1 g/dL (11.5-15.4); Immature Granulocytes % 6.8 % (0-4); Immature Platelets 7.6 % (1.1-6.1); Lymphocytes # 0.3 K/mcL (0.6-4.6); Lymphocytes % 8.4 %; Mean Corpuscular HGB Conc 32.5 g/dL (31.6-35.5); Mean Corpuscular Hemoglobin 28.3 pg (28.0-33.3); Mean Corpuscular Volume 87.1 fL (83.0-100.0); Monocytes # 0.5 K/mcL (0.0-1.3); Monocytes % 16.4 %; Neutrophils # 2.2 K/mcL (1.6-8.9); Red Blood Count 2.86 M/mcL (3.82-4.97); Red Cell Distribution Width 17.1 % (11.5-14.5); Segmented Neutrophils % 67.8 %
[2017-07-02 04:32] LABS: Platelet Count 53 K/mcL (140-400)
[2017-07-02 04:45] LABS: BUN/Creatinine Ratio 26 (6-26); Blood Urea Nitrogen 23 mg/dL (8-23); Calcium 7.9 mg/dL (8.6-10.3); Carbon Dioxide 25 mEq/L (23-29); Chloride 99 mEq/L (98-107); Glucose 303 mg/dL (70-105); Osmolality,Calculated 289 (280-300); Potassium 4.1 mEq/L (3.5-5.1); Sodium 132 mEq/L (136-145); eGFR For African Americans > 60 (> 60); eGFR For Non-African Americans > 60 (> 60)
[2017-07-02 04:56] LABS: Platelet Estimate Decreased (Normal)
[2017-07-02] MEDS: MethylPREDNISolone 40 MG/ML VIAL IVP SCH ×2 (05:13→18:14)
[2017-07-02] MEDS: Insulin LISPRO 300 UNITS/3 ML VIAL SQ SCH ×4 (09:20→20:40)
[2017-07-02] MEDS: Lactobacillus 1 EACH CAP.SPRINK PO SCH ×2 (09:22→20:38)
[2017-07-02] MEDS: amLODIPine 5 MG TABLET PO SCH (09:22)
[2017-07-02] MEDS: Furosemide 20 MG TABLET PO SCH (09:22)
[2017-07-02] MEDS: Metoprolol XL (24 HR) Succ 50 MG TAB.ER.24H PO SCH (09:22)
[2017-07-02] MEDS: Lactulose Oral Soln 20 GM/30 ML UDC PO SCH (09:23)
[2017-07-02] MEDS: Ascorbic Acid 500 MG TABLET PO SCH (09:27)
[2017-07-02] MEDS: Vancomycin Oral Soln 250 MG/5 ML UDC PO SCH ×4 (09:27→20:38)
[2017-07-02] MEDS: Magnesium Oxide 400 MG TABLET PO SCH (09:46)
[2017-07-02] MEDS: traMADol 50 MG TABLET PO PRN ×2 (09:49→20:37)
[2017-07-02] MEDS: Insulin DETEMIR 100 UNIT/ML X5UNITS SQ SCH ×2 (10:26→20:50)
--- NOTE | 2017-07-02 11:31 | Internal Med Progress Note ---
<Constantine Hall - Last Filed: 07/02/17 17:09> Date of Encounter: 07/02/17 Time of Encounter: 09:00 - Assessment and plan (1) Abdominal pain Current Visit: Yes Status: Acute Assessment and plan: Pain continues to gradually improve. Patient continues to complain of generalized abdominal pain. This is most likely secondary to Crohn's since she is not been receiving treatment due to acute myeloid leukemia with pancytopenia. 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 -Abdomen is soft, tender in the left lower quadrant, bowel sounds present, no guarding or distention Plan -GI consulted and appreciate recommendations for Crohn's management -cont Solu-Medrol today; begin prednisone 40mg daily for additional 5 days starting tomorrow -tramadol PRN pain Qualifiers: Abdominal location: generalized Qualified Code(s): R10.84 - Generalized abdominal pain (2) Crohns disease Current Visit: No Status: Chronic Assessment and plan: As above Qualifiers: Gastrointestinal tract location: unspecified location Digestive disease complication type: without complication Qualified Code(s): K50.90 - Crohn's disease, unspecified, without complications (3) Clostridium difficile diarrhea Current Visit: No Status: Resolved Assessment and plan: Patient was found C. difficile positive on 05/17/17. Patient does not have diarrhea -Continue oral vancomycin (06/22-07/02 per record); stop date entered for Vanco to be terminated today -Continue Probiotics (4) Constipation Current Visit: Yes Status: Acute Assessment and plan: Resolved; educated patient will avoid opioid pain medications Qualifiers: Constipation type: unspecified constipation type Qualified Code(s): K59.00 - Constipation, unspecified (5) Urinary retention Current Visit: Yes Status: Acute Assessment and plan: Martell catheter in ER by urology due to urinary retention. Martell catheter is currently removed. 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 - Hematology oncology consult and appreciate recommendations - Will recommend patient get pneumococcal vaccination. Will order if she is agreeable Qualifiers: Leukemia Active/Remission status: without remission Qualified Code(s): C92.00 - Acute myeloblastic leukemia, not having achieved remission (8) Diabetes mellitus, type 2 Current Visit: No Status: Chronic Assessment and plan: History of known diabetes and insulin - adding Detemir 10U BID - cont LD-SSI & Accu check Qualifiers: Diabetes mellitus terminal worker insulin use: with terminal worker use Diabetes mellitus complication status: with unspecified complications Qualified Code(s) : E11.8 - Type 2 diabetes mellitus with unspecified complications; Z79.4 - retirement (current) use of insulin; Z79.4 - retirement (current) use of insulin; Z79.4 - parts counterman (current) use of insulin; Z79.4 - parts counterman (current) use of insulin (9) DVT prophylaxis Current Visit: No Status: Acute Assessment and plan: EPCD, no anticoagulation because of thrombocytopenia. - Time Spent With Patient Total time spent is greater than 50% in coordination of care (as documented) at patient's floor/unit and/or counseling patient: - Subjective Interval history: Continues to have abdominal pain that is somewhat better than before with use of Tramadol and steroids. Tolerating current diet. Has had moderate FSBG elevations. No acute concerns per patient or nursing. No recurrent fevers overnight. - Constitutional Vitals: Temp Pulse Resp BP Pulse Ox 97.5 F L 75 15 104/62 94 07/02/17 11:08 07/02/17 11:08 07/02/17 11:08 07/02/17 11:08 07/02/17 11:08 General appearance: Present: A&O X 3, no acute distress (appears slightly uncomfortable), answers questions appropriately - Head Head exam: Present: atraumatic, normocephalic - Eye Eye exam: Present: normal appearance, PERRL, conjuntiva pink, sclera anicteric. Absent: conjunctival injection, scleral icterus - Neck Neck exam general surgery: Present: supple, trachea midline. Absent: lymphadenopathy - Respiratory Respiratory exam: Present: CTAB. Absent: accessory muscle use, rales, respiratory distress, rhonchi, wheezes - Cardiovascular Cardiovascular exam: Present: RRR, +S1, +S2. Absent: diastolic murmur, gallop, rubs, +S3, +S4, systolic murmur - GI/Abdominal GI/Abdominal exam: Present: guarding, normal bowel sounds, soft, tenderness, no peritoneal signs. Absent: distended, firm - Extremities Exam Extremities exam: Present: warm, radial pulses palpable and symmetrical. Absent : calf tenderness, cyanotic, pedal edema - Neurological Exam Neurological exam: Present: CN II-XII intact, oriented X3, no focal deficits. Absent: pronater drift, facial droop, speech deficit - Skin Skin exam: Present: dry, intact, normal color Internal Medicine: Result - Labs CBC & Chem 7: 07/02/17 04:00 07/02/17 04:00 Labs: Short CBC 07/02/17 Range/Units 04:00 WBC 3.2 L (4.3-11.1) K/mcL Hgb 8.1 L (11.5-15.4) g/dL Hct 24.9 L (35.3-44.9) % Plt Count 53 L (140-400) K/mcL Neutrophils # 2.2 (1.6-8.9) K/mcL BMP 07/02/17 04:00 Sodium 132 L Potassium 4.1 Chloride 99 Carbon Dioxide 25 BUN 23 Creatinine 0.90 Glucose 303 H Calcium 7.9 L - ABG Interpretation ABG results: PT/INR, D-dimer PT 15.4 Seconds (9.4-12.1) H 06/27/17 00:21 - VTE Documentation of Mechanical Device: Intermittent pneumatic compression device Consult Discharge Plan - Plan Referrals: Yash Hanley MD [Primary Care Provider] - <Thallapaneni,Rambabu - Last Filed: 07/02/17 17:40> Date of Encounter: 07/02/17 - Assessment and plan (1) Abdominal pain Current Visit: Yes Status: Acute Qualifiers: Abdominal location: generalized Qualified Code(s): R10.84 - Generalized abdominal pain (2) Diabetes mellitus, type 2 Current Visit: No Status: Chronic Qualifiers: Diabetes mellitus terminal worker insulin use: with terminal worker use Diabetes mellitus complication status: with unspecified complications Qualified Code(s) : E11.8 - Type 2 diabetes mellitus with unspecified complications; Z79.4 - parts counterman (current) use of insulin; Z79.4 - retirement (current) use of insulin; Z79.4 - parts counterman (current) use of insulin; Z79.4 - parts counterman (current) use of insulin (3) Crohns disease Current Visit: No Status: Chronic Qualifiers: Gastrointestinal tract location: unspecified location Digestive disease complication type: without complication Qualified Code(s): K50.90 - Crohn's disease, unspecified, without complications (4) Pancytopenia Current Visit: Yes Status: Acute (5) DVT prophylaxis Current Visit: No Status: Acute (6) Acute myeloid leukemia Current Visit: No Status: Chronic Qualifiers: Leukemia Active/Remission status: without remission Qualified Code(s): C92.00 - Acute myeloblastic leukemia, not having achieved remission (7) Clostridium difficile diarrhea Current Visit: No Status: Resolved (8) Urinary retention Current Visit: Yes Status: Acute (9) Constipation Current Visit: Yes Status: Acute Qualifiers: Constipation type: unspecified constipation type Qualified Code(s): K59.00 - Constipation, unspecified - Time Spent With Patient Total time spent is greater than 50% in coordination of care (as documented) at patient's floor/unit and/or counseling patient: - Constitutional Vitals: Temp Pulse Resp BP Pulse Ox 97.6 F 74 16 111/65 93 07/02/17 14:11 07/02/17 14:11 07/02/17 14:11 07/02/17 14:11 07/02/17 14:11 Internal Medicine: Result - Labs CBC & Chem 7: 07/02/17 04:00 07/02/17 04:00 Labs: Short CBC 07/02/17 Range/Units 04:00 WBC 3.2 L (4.3-11.1) K/mcL Hgb 8.1 L (11.5-15.4) g/dL Hct 24.9 L (35.3-44.9) % Plt Count 53 L (140-400) K/mcL Neutrophils # 2.2 (1.6-8.9) K/mcL BMP 07/02/17 04:00 Sodium 132 L Potassium 4.1 Chloride 99 Carbon Dioxide 25 BUN 23 Creatinine 0.90 Glucose 303 H Calcium 7.9 L - ABG Interpretation ABG results: PT/INR, D-dimer PT 15.4 Seconds (9.4-12.1) H 06/27/17 00:21 - Attending Attestation I examined this patient and my medical decision-making was reviewed with the Resident Physician Dr. Hall. I agree with the documented findings, disposition and treatment plan as described except to the extent set forth below. Ms. Bryant is a 72 y/o F with known crohn's disease pt, who also had AML admitted here for acute abdominal pain due to crohn's flare up. Pt still c/o 6/ 10 abdominal pain. Gen: A, A, O x3 Chest: Diminished BS b/l Heart: S1S2+ RRR no murmurs Abd: Soft, moderate tenderness. no guarding a/p 1. Acute crohn's flare up Improving Cont IV steroids cont Mesalamine GI on board 2. AMl out pt f/u with Heme Onc 3. Recent C. Diff infection resolved finish full course of abx Vancomycin 4. Pancytopenia improved 5. Urinary retention Martell placed
[2017-07-02] MEDS: Gabapentin 300 MG CAPSULE PO SCH (20:38)
[2017-07-03 03:46] LABS: Hematocrit 23.9 % (35.3-44.9); Hemoglobin 7.8 g/dL (11.5-15.4); Mean Corpuscular HGB Conc 32.6 g/dL (31.6-35.5); Mean Corpuscular Hemoglobin 28.2 pg (28.0-33.3); Mean Corpuscular Volume 86.3 fL (83.0-100.0); Red Blood Count 2.77 M/mcL (3.82-4.97); Red Cell Distribution Width 16.7 % (11.5-14.5)
[2017-07-03 03:47] LABS: Immature Platelets 8.6 % (1.1-6.1)
[2017-07-03 03:48] LABS: Platelet Count 62 K/mcL (140-400)
[2017-07-03 04:09] LABS: Calcium 7.7 mg/dL (8.6-10.3); Potassium 4.5 mEq/L (3.5-5.1)
[2017-07-03 04:54] LABS: Monocytes # 0.3 K/mcL (0.0-1.3); Platelet Estimate Decreased (Normal); Reactive Lymphocytes Present (Not Present)
[2017-07-03] MEDS: MethylPREDNISolone 40 MG/ML VIAL IVP SCH (05:36)
[2017-07-03] MEDS: Lactobacillus 1 EACH CAP.SPRINK PO SCH ×2 (09:03→20:37)
[2017-07-03] MEDS: Metoprolol XL (24 HR) Succ 50 MG TAB.ER.24H PO SCH (09:03)
[2017-07-03] MEDS: Furosemide 20 MG TABLET PO SCH (09:03)
[2017-07-03] MEDS: Ascorbic Acid 500 MG TABLET PO SCH (09:04)
[2017-07-03] MEDS: Magnesium Oxide 400 MG TABLET PO SCH (09:04)
[2017-07-03] MEDS: amLODIPine 5 MG TABLET PO SCH (09:04)
[2017-07-03] MEDS: Insulin LISPRO 300 UNITS/3 ML VIAL SQ SCH ×2 (09:06→18:44)
[2017-07-03] MEDS: Insulin DETEMIR 100 UNIT/ML X5UNITS SQ SCH ×2 (09:07→20:38)
--- NOTE | 2017-07-03 09:21 | Discharge Summary ---
<Constantine Hall - Last Filed: 07/04/17 09:31> - NOTES TO OUTPATIENT PROVIDER Notes to Outpatient Provider: Admitted for acute flare of Crohn's disease which was exacerbated by cessation of chronic Crohn's maintenance due to pancytopenia. Patient started on mesalamine and has been receiving IV Solu- Medrol; we are discharging her on mesalamine and additional four-day course of PO prednisone 40 mg. Overall, patient's abdominal pain has improved significantly. Patient also has history of C diff, however, patient has just completed her full course of PO vancomycin and is not having any liquid stools at this time. Orders not resulted at time of discharge: Pending orders 07/01/17 17:10 Culture,Blood [BC] Stat 07/04/17 04:00 BMP [Basic Metabolic Panel] AM 0400 Complete Blood Count [HEME] AM 0400 07/05/17 04:00 BMP [Basic Metabolic Panel] AM 0400 Complete Blood Count [HEME] AM 0400 Date of Encounter: 07/04/17 Time of Encounter: 08:45 - Discharge Diagnosis (1) Crohns disease Priority: Primary Status: Chronic Comments: Symptomatically improving. Discharging on mesalamine and continuing short course of PO steroids for 5 total days of steroid coverage. Qualifiers: Gastrointestinal tract location: unspecified location Digestive disease complication type: without complication Qualified Code(s): K50.90 - Crohn's disease, unspecified, without complications (2) Acute myeloid leukemia Priority: Secondary Status: Chronic Comments: Be alert to any febrile illness due to pancytopenia associated with this diagnosis. Qualifiers: Leukemia Active/Remission status: without remission Qualified Code(s): C92.00 - Acute myeloblastic leukemia, not having achieved remission (3) Pancytopenia Priority: Secondary Status: Acute Comments: Continue to follow with oncology and be alert to any febrile illness (4) Urinary retention Priority: Primary Status: Acute Comments: Discharging with Benson catheter in place; patient is to follow-up with urology. (5) Diabetes mellitus, type 2 Priority: Secondary Status: Chronic Comments: Discharging on 25 units Detemir b.i.d.; continue other usual regimen. Qualifiers: Diabetes mellitus dedicated intermodal truck driver insulin use: with [facility] use Diabetes mellitus complication status: with unspecified complications Qualified Code(s) : E11.8 - Type 2 diabetes mellitus with unspecified complications; Z79.4 - long term care administrator (current) use of insulin; Z79.4 - residential (current) use of insulin; Z79.4 - residential (current) use of insulin; Z79.4 - long term care administrator (current) use of insulin (6) Clostridium difficile diarrhea Priority: Secondary Status: Resolved Comments: Diagnosed in May and has completed primary course of PO vancomycin as of ; no current diarrhea. (7) Constipation Priority: Secondary Status: Resolved Comments: Patient has had variable stools between solid and soft. Qualifiers: Constipation type: unspecified constipation type Qualified Code(s): K59.00 - Constipation, unspecified Hospital course: Ms. Bryant is a 72 year old female with past medical history of crohn's disease , AML, recent C. diff., pancytopenia, and DM-II who was sent to the hospital by oncology clinic for ongoing abdominal pain that had been present for 2 to 3 weeks. She did have acute C. difficile infection diagnosed in early May and has since completed primary course of oral vancomycin as a 07/02/17. Patient also has history of Crohn's disease for several decades with periodic flares; was recently stopped on standard therapy due to pancytopenia. On admission, CT was performed demonstrating prominent distention of the urinary bladder and I lateral Diggs ureteral fluorosis, and uncomplicated abdominal hernia. General surgery consulted for the abdominal hernia but did not feel that this was an acute exacerbation requiring any surgical intervention. Neurology consulted for urinary retention and Benson catheter was placed relieving large volume of urine. Patient has been trialed on several occasions for independent voiding but has continued to retain. Oncologist been consulted on case for pancytopenia with acute anemia; patient has had hemoglobin values as low as 6.2 throughout course requiring blood transfusions on 06/27 and 06/28, respectively. --Patient's abdominal pain has improved on steroids and mesalamine. Patient is tolerating PO diet is able to pass flatus/BM. Denies any nausea or vomiting prior to discharge. Patient is currently continuing a steroid burst requiring PO prednisone 40 mg daily through 07/06/17. Patient is not having any diarrheal stools or constipation prior to discharge. --Hemoglobin's have been stable of her past couple of days and are around baseline. --Patient has felt several independent voiding trials will be discharged fully catheter and outpatient urology follow-up for further management. -- History of DM-II and has continued to be hyperglycemic throughout course; there is likely contributing factor of acute burst of steroids. However, will discharge patient on slightly increased long-acting regimen at 25 units b.i.d. Detemir. Patient requires regular PCP hospital follow up within 7 to 10 days, follow-up with her oncologist within 2 to 4 weeks, and new outpatient urology follow-up within 7 to 10 days upon discharge. Discussed return precautions with patient which include but are not limited to fevers, chills, sweats, headaches, chest pains, palpitations, nausea, vomiting, worsening abdominal pain, new character of abdominal pain, new diarrhea, any evidence of blood and vomitus or stools, or dysuria. Patient expresses understanding. - Time Spent with Patient Total time spent providing and/or coordinating discharge services: - Discharge Medications Prescriptions: predniSONE [PredniSONE] 40 mg PO DAILY 2 Days #4 tablet Home Medications: Amlodipine [Norvasc] 5 mg PO DAILY 01/06/15 [History] Furosemide [Lasix] 40 mg PO DAILY 01/06/15 [History] Omeprazole [PriLOSEC] 20 mg PO DAILY 01/06/15 [History] Potassium Chloride 20 meq PO DAILY 01/06/15 [History] InFLIXimab [Remicade] 100 mg IV [id number] 03/29/15 [History] Insulin ASPART [Novolog Flexpen] 2 - 15 unit SQ ACHS 03/24/17 [History] Magnesium Oxide [Magnesium] 400 mg PO DAILY 05/13/17 [History] Ezetimibe 10 mg PO DAILY 05/17/17 [History] Acetaminophen [Tylenol Arthritis] 650 mg PO Q4H PRN 05/25/17 [History] Albuterol Sulfate [Ventolin Hfa] 2 puff IH Q4H PRN 05/25/17 [History] Calamine/Menthol/Petrolat/Zinc [Remedy Calazime Protect Paste] 1 appl TP TID 02/01 [History] Ipratropium/Albuterol Neb [Duoneb] 3 ml IH Q6HR PRN 05/25/17 [History] Mesalamine 800 mg PO DAILY 05/25/17 [History] Ondansetron HCl [Zofran] 4 mg PO Q4H PRN 05/25/17 [History] Gabapentin [Neurontin] 300 mg PO HS #30 capsule 05/28/17 [Rx] HYDROcodone/Acet 5/325 mg [[place] 5-325 mg] 1 tab PO Q6H PRN 7 Days #15 tablet [Rx] Ascorbic Acid [Vitamin C] 500 mg PO DAILY 06/26/17 [History] Escitalopram [Lexapro] 10 mg PO HS 06/26/17 [History] Lactobacillus Acidophilus [Acidophilus] 1 each PO BID 06/26/17 [History] Metoprolol Succinate [Toprol Xl] 100 mg PO DAILY 06/26/17 [History] Vitamin E Acetate [Vitamin E] 400 unit PO DAILY 06/26/17 [History] Insulin DETEMIR [Levemir Flextouch] 25 unit SQ BID #0 07/04/17 [Rx] predniSONE [PredniSONE] 40 mg PO DAILY 2 Days #4 tablet 07/04/17 [Rx] Allergies/Adverse Reactions: 3 Allergy/AdvReac Type Severity Reaction Status Date / Time influenza virus vaccine ts Allergy Vomiting Verified 06/13/17 08:53 [id number] (36 mos,up) [From Fluarix] Pneumococcal Vaccine Allergy Vomiting Verified 06/13/17 08:53 [From Prevnar] codeine AdvReac Mild Nausea Verified 06/13/17 08:53 penicillin G AdvReac Mild swelling Verified 06/13/17 08:53 Date of admission: 06/27/17 00:09 Primary care physician: Yash Hanley MD Consults: 06/30/17 08:10 Consult to Gastroenterology [CONS] Routine Consulting Provider: Gastroenterology Jennifer Reason for Consult: ABDOMINAL PAIN Time Notified: 07:30 Call Completed: Yes 06/30/17 13:36 Consult to Invasive Line Access Team [CONS] Routine Reason for Consult: LIMITED VASCULAR ACCESS Line Type: EPIV 06/30/17 16:36 Consult to Surgery [CONS] Routine Consulting Provider: [facility] Reason for Consult: General abdominal pain with abdominal hernia Call Completed: Yes Discharging clinician: Constantine Hall Anticipated date of discharge: 07/04/17 - Constitutional Vitals: Temp Pulse Resp BP Pulse Ox 97.6 F 70 18 122/68 94 07/03/17 06:43 07/03/17 06:43 07/03/17 06:43 07/03/17 06:43 07/03/17 06:43 CONSTITUTIONAL: Alert and oriented X3, well-nourished, well appearing, in no apparent distress HEAD: Normocephalic; atraumatic. EYES: PERRL, no scleral icterus, no drainage, no conjunctival injection NOSE: The nose is normal in appearance without rhinorrhea Oropharynx: pink/moist, no tonsillar edema/erythema/exudates RESP: NRD without use of accessory musculature, CTA b/l with no wheezes/rales/ rhonchi CARD: Regular rhythm, without murmurs, rubs, or gallop ABD: grossly normal, soft, non-tender, no guarding/distention/rigidity SKIN: normal appearance, no pallor/diaphoresis,mottling,jaundice,cyanosis EXT: DP/Rad pulses 2+ and symmetrical; no lateralizing edema; no other lesions seen PSYCH: appropriate mood/affect General appearance: Present: A&O X 3, no acute distress (appears slightly uncomfortable), answers questions appropriately - Patient Status Disposition: Transfer LTC Condition: Fair Overall status at discharge: patient is progressing back to baseline - Discharge Instructions Instructions: Crohn Disease (DC), Benson Catheter Placement and Care (DC), Anemia (DC) Follow Up With: Jose Giang MD [Partnered Physician] - 07/22/17 9:00 am Yash Hanley MD [Primary Care Provider] - Additional Instructions: --Follow-up with her PCP within 7 to 10 days --Follow-up with oncology with the next 2 to 4 weeks or otherwise as scheduled --Follow-up with urology within next 7 to 10 days --May need to be reevaluated by your doctor or emergency department if you experience any new or recurrent symptoms including fevers, chills, sweats, lightheadedness, chest pain, palpitations, shortness of breath, abdominal pain that gets worse or changes in character, nausea, vomiting, diarrhea, dysuria, or any evidence of blood in vomitus or bowel movement. - Diet and Activity Activity: increase activity as tolerated Diet: diabetic diet - VTE Documentation of Mechanical Device: Intermittent pneumatic compression device <Joey Ford - Last Filed: 07/04/17 13:58> Orders not resulted at time of discharge: Pending orders 07/01/17 17:10 Culture,Blood [BC] Stat 07/05/17 04:00 BMP [Basic Metabolic Panel] AM 0400 Complete Blood Count [HEME] AM 0400 Date of Encounter: 07/04/17 - Discharge Diagnosis (1) Diabetes mellitus, type 2 Status: Chronic Qualifiers: Diabetes mellitus dedicated intermodal truck driver insulin use: with [facility] use Diabetes mellitus complication status: with unspecified complications Qualified Code(s) : E11.8 - Type 2 diabetes mellitus with unspecified complications; Z79.4 - long term care administrator (current) use of insulin; Z79.4 - residential (current) use of insulin; Z79.4 - residential (current) use of insulin; Z79.4 - residential (current) use of insulin (2) Crohns disease Status: Chronic Qualifiers: Gastrointestinal tract location: unspecified location Digestive disease complication type: without complication Qualified Code(s): K50.90 - Crohn's disease, unspecified, without complications (3) Pancytopenia Status: Acute (4) Acute myeloid leukemia Status: Chronic Qualifiers: Leukemia Active/Remission status: without remission Qualified Code(s): C92.00 - Acute myeloblastic leukemia, not having achieved remission (5) Clostridium difficile diarrhea Status: Resolved (6) Urinary retention Status: Acute (7) Constipation Status: Resolved Qualifiers: Constipation type: unspecified constipation type Qualified Code(s): K59.00 - Constipation, unspecified Hospital course: Ms. Bryant is a 72 year old female - Time Spent with Patient Total time spent providing and/or coordinating discharge services: Date of admission: 06/27/17 00:09 Primary care physician: Yash Hanley MD Consults: 06/30/17 08:10 Consult to Gastroenterology [CONS] Routine Consulting Provider: Gastroenterology [facility] Reason for Consult: ABDOMINAL PAIN Time Notified: 07:30 Call Completed: Yes 06/30/17 13:36 Consult to Invasive Line Access Team [CONS] Routine Reason for Consult: LIMITED VASCULAR ACCESS Line Type: EPIV 06/30/17 16:36 Consult to Surgery [CONS] Routine Consulting Provider: [facility] Reason for Consult: General abdominal pain with abdominal hernia Call Completed: Yes - Constitutional Vitals: Temp Pulse Resp BP Pulse Ox 97.7 F 69 16 113/68 96 04/20/18 10:34 07/04/17 10:34 07/04/17 10:34 07/04/17 10:34 07/04/17 10:34 - Attending Attestation I examined this patient and my medical decision-making was reviewed with the Resident Physician Dr. Hall. I agree with the documented findings, disposition and treatment plan as described except to the extent set forth below. Ms. Bryant is a 72 y/o F with known Crohn's disease pt, who also had AML admitted here for acute abdominal pain due to crohn's flare up. Pt stated her abdominal pain is better today Gen: A, A, O x3 Chest: Diminished BS b/l Heart: S1S2+ RRR no murmurs Abd: Soft, moderate tenderness. no guarding a/p 1. Acute crohn's flare up Improved switch to PO steroids.. short course cont Mesalamine f/u with GI as an out pt 2. AMl out pt f/u with Heme Onc 3. Recent C. Diff infection resolved finish full course of abx Vancomycin 4. Pancytopenia improved 5. Urinary retention cont Benson upon d/c back to SNF need out pt fu with Urology
[2017-07-03] MEDS: traMADol 50 MG TABLET PO PRN (09:38)
--- NOTE | 2017-07-03 10:44 | Internal Med Progress Note ---
<Constantine Hall - Last Filed: 07/03/17 13:59> Date of Encounter: 07/03/17 Time of Encounter: 09:20 - Assessment and plan (1) Crohns disease Current Visit: No Status: Chronic Assessment and plan: Pain continues to gradually improve. Patient continues to complain of generalized abdominal discomfort. 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 -Abdomen is soft, tender in the left lower quadrant, bowel sounds present, no guarding or distention Plan -last dose of Solu-Medrol given today; begin prednisone 40mg daily for additional 4 days starting tomorrow -tramadol PRN pain; will discharge on short course if needed upon discharge -DC on PO prednisone to complete course -likely discharged tomorrow or the day after depending on clinical improvement and personal comfort Qualifiers: Gastrointestinal tract location: unspecified location Digestive disease complication type: without complication Qualified Code(s): K50.90 - Crohn's disease, unspecified, without complications (2) Urinary retention Current Visit: Yes Status: Acute Assessment and plan: Benson catheter in ER by urology due to urinary retention. Abd CT demonstrated prominent distention of the urinary bladder resulting in bilateral Hydroureternephrosis did DC folate 1 point tribally trial, however patient did not have adequate output. -Will keep Benson in place pending urology follow-up on an outpatient basis -Will send patient with Benson in place upon discharge due to persistent retention -patient is to follow up with urology on outpatient basis; launcher patient has appropriate outpatient follow-up ranged prior to discharge. 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 - Hematology oncology consult and appreciate recommendations - will defer any pertinent plan points to oncology team Qualifiers: Leukemia Active/Remission status: without remission Qualified Code(s): C92.00 - Acute myeloblastic leukemia, not having achieved remission (4) Pancytopenia Current Visit: Yes Status: Acute Assessment and plan: Pancytopenia likely secondary to acute myeloid leukemia Has received 2U pRBCs; Hgb 7.1, stable platelets 62, improved WBC 3.3, stable no obvious active bleeding -continue to monitor CBC qAM (5) Diabetes mellitus, type 2 Current Visit: No Status: Chronic Assessment and plan: History of known diabetes and insulin dependent; has been notably hyperglycemic overnight/morning. - Changing [employer] to 10 units b.i.d., which is patient's usual home regimen - change to MD-SSI & Accu check Qualifiers: Diabetes mellitus fci insulin use: with intermodal dispatcher use Diabetes mellitus complication status: with unspecified complications Qualified Code(s) : E11.8 - Type 2 diabetes mellitus with unspecified complications; Z79.4 - director long term care (current) use of insulin; Z79.4 - halfway (current) use of insulin; Z79.4 - director long term care (current) use of insulin; Z79.4 - director long term care (current) use of insulin (6) Clostridium difficile diarrhea Current Visit: No Status: Resolved Assessment and plan: Patient was found C. difficile positive on 05/17/17. Patient does not have watery stools concerning for acute C. diff colitis -Completed primary course of oral vancomycin on 07/02/17 -Continue Probiotics (7) DVT prophylaxis Current Visit: No Status: Acute Assessment and plan: EPCD, no anticoagulation because of thrombocytopenia. (8) Constipation Current Visit: Yes Status: Resolved Assessment and plan: Resolved; educated patient will avoid opioid pain medications Qualifiers: Constipation type: unspecified constipation type Qualified Code(s): K59.00 - Constipation, unspecified - Time Spent With Patient Total time spent is greater than 50% in coordination of care (as documented) at patient's floor/unit and/or counseling patient: - Subjective Interval history: Abdominal pain is improving this AM. Tolerating current diet. Has had moderate FSBG elevations. No acute concerns per patient or nursing. Mild temperature elevation overnight. Overall improving, likely discharge to ECF in next 24-48 hours. Transitioning to PO Prednisone tomorrow. - Constitutional Vitals: Temp Pulse Resp BP Pulse Ox 97.6 F 70 18 122/68 94 07/03/17 06:43 07/03/17 06:43 07/03/17 06:43 07/03/17 06:43 07/03/17 06:43 CONSTITUTIONAL: Alert and oriented X3, well-nourished, well appearing, in no apparent distress HEAD: Normocephalic; atraumatic. EYES: PER, no scleral icterus, no drainage, no conjunctival injection Oropharynx: pink/moist RESP: NRD without use of accessory musculature, CTA b/l with no wheezes/rales/ rhonchi CARD: Regular rhythm, without murmurs, rubs, or gallop ABD: grossly normal, soft, mildly tender, no guarding/distention/rigidity SKIN: normal appearance, no pallor/diaphoresis,mottling,jaundice,cyanosis EXT: Rad pulses 2+ and symmetrical; no lateralizing edema; no other lesions seen PSYCH: appropriate mood/affect General appearance: Present: A&O X 3, no acute distress (appears slightly uncomfortable), answers questions appropriately Internal Medicine: Result - Labs CBC & Chem 7: 07/03/17 03:31 07/03/17 03:31 Labs: Short CBC 07/03/17 Range/Units 03:31 WBC 3.3 L (4.3-11.1) K/mcL Hgb 7.8 L (11.5-15.4) g/dL Hct 23.9 L (35.3-44.9) % Plt Count 62 L (140-400) K/mcL Neutrophils # 2.0 (1.6-8.9) K/mcL BMP 07/03/17 03:31 Sodium 130 L Potassium 4.5 Chloride 99 Carbon Dioxide 23 BUN 42 H Creatinine 1.27 H Glucose 295 H Calcium 7.7 L - ABG Interpretation ABG results: PT/INR, D-dimer PT 15.4 Seconds (9.4-12.1) H 06/27/17 00:21 - VTE Documentation of Mechanical Device: Intermittent pneumatic compression device Consult Discharge Plan - Plan Referrals: Yash Hanley MD [Primary Care Provider] - <Joey Ford - Last Filed: 07/03/17 14:26> Date of Encounter: 07/03/17 - Assessment and plan (1) Diabetes mellitus, type 2 Current Visit: No Status: Chronic Qualifiers: Diabetes mellitus fci insulin use: with intermodal dispatcher use Diabetes mellitus complication status: with unspecified complications Qualified Code(s) : E11.8 - Type 2 diabetes mellitus with unspecified complications; Z79.4 - director long term care (current) use of insulin; Z79.4 - halfway (current) use of insulin; Z79.4 - halfway (current) use of insulin; Z79.4 - director long term care (current) use of insulin (2) Crohns disease Current Visit: No Status: Chronic Qualifiers: Gastrointestinal tract location: unspecified location Digestive disease complication type: without complication Qualified Code(s): K50.90 - Crohn's disease, unspecified, without complications (3) Pancytopenia Current Visit: Yes Status: Acute (4) DVT prophylaxis Current Visit: No Status: Acute (5) Acute myeloid leukemia Current Visit: No Status: Chronic Qualifiers: Leukemia Active/Remission status: without remission Qualified Code(s): C92.00 - Acute myeloblastic leukemia, not having achieved remission (6) Clostridium difficile diarrhea Current Visit: No Status: Resolved (7) Urinary retention Current Visit: Yes Status: Acute (8) Constipation Current Visit: Yes Status: Resolved Qualifiers: Constipation type: unspecified constipation type Qualified Code(s): K59.00 - Constipation, unspecified - Time Spent With Patient Total time spent is greater than 50% in coordination of care (as documented) at patient's floor/unit and/or counseling patient: - Constitutional Vitals: Temp Pulse Resp BP Pulse Ox 98.2 F 71 18 106/45 95 07/03/17 11:23 07/03/17 11:23 07/03/17 11:23 07/03/17 11:23 07/03/17 11:23 Internal Medicine: Result - Labs CBC & Chem 7: 07/03/17 03:31 07/03/17 03:31 Labs: Short CBC 07/03/17 Range/Units 03:31 WBC 3.3 L (4.3-11.1) K/mcL Hgb 7.8 L (11.5-15.4) g/dL Hct 23.9 L (35.3-44.9) % Plt Count 62 L (140-400) K/mcL Neutrophils # 2.0 (1.6-8.9) K/mcL BMP 07/03/17 03:31 Sodium 130 L Potassium 4.5 Chloride 99 Carbon Dioxide 23 BUN 42 H Creatinine 1.27 H Glucose 295 H Calcium 7.7 L - ABG Interpretation ABG results: PT/INR, D-dimer PT 15.4 Seconds (9.4-12.1) H 06/27/17 00:21 - Attending Attestation I examined this patient and my medical decision-making was reviewed with the Resident Physician Dr. Hall. I agree with the documented findings, disposition and treatment plan as described except to the extent set forth below. Ms. Bryant is a 72 y/o F with known crohn's disease pt, who also had AML admitted here for acute abdominal pain due to crohn's flare up. Pt was started on steroids 2 days ago, today she feels better. Gen: A, A, O x3 Chest: Diminished BS b/l Heart: S1S2+ RRR no murmurs Abd: Soft, moderate tenderness. no guarding a/p 1. Acute crohn's flare up Improving Cont IV steroids cont Mesalamine GI on board 2. AMl out pt f/u with Heme Onc 3. Recent C. Diff infection resolved finish full course of abx Vancomycin 4. Pancytopenia improved 5. Urinary retention Cont Benson May need out pt f/u with urology
[2017-07-03] MEDS ORDERED: Insulin LISPRO 300 UNITS/3 ML VIAL SQ SCH (14:09)
[2017-07-03] MEDS: Gabapentin 300 MG CAPSULE PO SCH (20:38)
[2017-07-04 04:09] LABS: Hematocrit 22.8 % (35.3-44.9); Hemoglobin 7.4 g/dL (11.5-15.4); Immature Platelets 7.3 % (1.1-6.1); Mean Corpuscular HGB Conc 32.5 g/dL (31.6-35.5); Mean Corpuscular Hemoglobin 28.4 pg (28.0-33.3); Mean Corpuscular Volume 87.4 fL (83.0-100.0); Mean Platelet Volume 13.5 fL (9.4-12.4); Nucleated Red Blood Cells 0.9 /100 WBC (0); Red Blood Count 2.61 M/mcL (3.82-4.97); Red Cell Distribution Width 16.5 % (11.5-14.5)
[2017-07-04 04:22] LABS: Platelet Count 56 K/mcL (140-400)
[2017-07-04 04:28] LABS: Calcium 7.8 mg/dL (8.6-10.3); Potassium 4.1 mEq/L (3.5-5.1)
[2017-07-04 05:07] LABS: Eosinophils # 0.1 K/mcL (0.0-0.6); Large Platelets Present (Not Present); Lymphocytes # 0.3 K/mcL (0.6-4.6); Monocytes # 0.4 K/mcL (0.0-1.3); Neutrophils # 1.6 K/mcL (1.6-8.9); Platelet Estimate Decreased (Normal)
[2017-07-04 05:08] LABS: Anisocytosis 1+ (Not Present); Hypochromasia Present (Not Present); Microcytosis Present (Not Present)
[2017-07-04 05:09] LABS: Polychromasia 1+ (Not Present)
[2017-07-04] MEDS ORDERED: predniSONE 20 MG TABLET PO SCH (09:00)
[2017-07-04] MEDS: Metoprolol XL (24 HR) Succ 50 MG TAB.ER.24H PO SCH (09:40)
[2017-07-04] MEDS: Ascorbic Acid 500 MG TABLET PO SCH (09:40)
[2017-07-04] MEDS: Lactobacillus 1 EACH CAP.SPRINK PO SCH (09:40)
[2017-07-04] MEDS: amLODIPine 5 MG TABLET PO SCH (09:40)
[2017-07-04] MEDS: Furosemide 20 MG TABLET PO SCH (09:40)
[2017-07-04] MEDS: Magnesium Oxide 400 MG TABLET PO SCH (09:41)
[2017-07-04] MEDS: Insulin DETEMIR 100 UNIT/ML X5UNITS SQ SCH (09:41)
[2017-07-04] MEDS: Insulin LISPRO 300 UNITS/3 ML VIAL SQ SCH ×2 (09:42→12:07)
--- NOTE | 2017-07-04 10:03 | Physician Discharge Referral ---
[facility] Referral Info Transfer To: SNF Provider in Charge after Transfer: PCP - Diagnosis (1) Crohns disease Priority: Primary Status: Chronic (2) Acute myeloid leukemia Priority: Primary Status: Chronic (3) Pancytopenia Priority: Primary Status: Acute (4) Urinary retention Priority: Primary Status: Acute (5) Diabetes mellitus, type 2 Priority: Secondary Status: Chronic (6) Clostridium difficile diarrhea Priority: Secondary Status: Resolved (7) Constipation Status: Resolved Prognosis: Fair Aware of Diagnosis: Patient Aware of Prognosis: Patient - Transfer Medications Prescriptions: predniSONE [PredniSONE] 40 mg PO DAILY 2 Days #4 tablet Home Medications: Amlodipine [Norvasc] 5 mg PO DAILY 01/06/15 [History] Furosemide [Lasix] 40 mg PO DAILY 01/06/15 [History] Omeprazole [PriLOSEC] 20 mg PO DAILY 01/06/15 [History] Potassium Chloride 20 meq PO DAILY 01/06/15 [History] InFLIXimab [Remicade] 100 mg IV [id number] 03/29/15 [History] Insulin ASPART [Novolog Flexpen] 2 - 15 unit SQ ACHS 03/24/17 [History] Magnesium Oxide [Magnesium] 400 mg PO DAILY 05/13/17 [History] Ezetimibe 10 mg PO DAILY 05/17/17 [History] Acetaminophen [Tylenol Arthritis] 650 mg PO Q4H PRN 05/25/17 [History] Albuterol Sulfate [Ventolin Hfa] 2 puff IH Q4H PRN 05/25/17 [History] Calamine/Menthol/Petrolat/Zinc [Remedy Calazime Protect Paste] 1 appl TP TID 02/01 [History] Ipratropium/Albuterol Neb [Duoneb] 3 ml IH Q6HR PRN 05/25/17 [History] Mesalamine 800 mg PO DAILY 05/25/17 [History] Ondansetron HCl [Zofran] 4 mg PO Q4H PRN 05/25/17 [History] Gabapentin [Neurontin] 300 mg PO HS #30 capsule 05/28/17 [Rx] HYDROcodone/Acet 5/325 mg [Hondo 5-325 mg] 1 tab PO Q6H PRN 7 Days #15 tablet [Rx] Ascorbic Acid [Vitamin C] 500 mg PO DAILY 06/26/17 [History] Escitalopram [Lexapro] 10 mg PO HS 06/26/17 [History] Lactobacillus Acidophilus [Acidophilus] 1 each PO BID 06/26/17 [History] Metoprolol Succinate [Toprol Xl] 100 mg PO DAILY 06/26/17 [History] Vitamin E Acetate [Vitamin E] 400 unit PO DAILY 06/26/17 [History] Insulin DETEMIR [Levemir Flextouch] 25 unit SQ BID #0 07/04/17 [Rx] predniSONE [PredniSONE] 40 mg PO DAILY 2 Days #4 tablet 07/04/17 [Rx] Allergies/Adverse Reactions: 3 Allergy/AdvReac Type Severity Reaction Status Date / Time influenza virus vaccine ts Allergy Vomiting Verified 06/13/17 08:53 [id number] (36 mos,up) [From Fluarix] Pneumococcal Vaccine Allergy Vomiting Verified 06/13/17 08:53 [From Prevnar] codeine AdvReac Mild Nausea Verified 06/13/17 08:53 penicillin G AdvReac Mild swelling Verified 06/13/17 08:53 - Respiratory Orders Oxygen / L per min (Per baseline/as needed.) Smoking Cessation: Smoking cessation has been advised. For more information, call the [place] Tobacco Quit Line at 0-727-VQJR-NOW. - Lab Orders Lab Orders: CBC - Ancillary Orders May use pressure relief devices daily prn - Advance Directives Code Status: DNR-Arrest/Don't Intubate (DNR CCA DNI) - Rehabiliation Orders Rehab Potential: Fair Rehab Orders: Evaluation for Physical Therapy, Evaluation for Occupational Therapy - Treatments Skin tear care topically daily PRN per policy, May check for fecal impaction rectally daily PRN, Fleet enema rectally every other day PRN cleansing purposes - Diet Orders No Concentrated Sweets CERTIFICATION: I certify that the transfer of the above named patient to an Extended Care Facility is necessary for the continuing treatment of the diagnosis listed. The above information is true and accurate reflection of patient's current condition. Confidential - Redisclosure prohibited without a patient's written consent.
[2017-07-04 10:35] VITALS: BP 113/68
[2017-07-04] MEDS: traMADol 50 MG TABLET PO PRN (14:39)
== END 2017-07-04 14:51 | DRG 386 ==
LOC: EMEROO 10:42 → 3NENU 10:42 → SUATTDRO 06-27 00:09 → 3ANU 06-30 14:52
PROVIDERS: ADMIT Internal Medicine; ATTEND Hospitalist